=== PATIENT | male | born 1950 | race Caucasian/White ===

== ENCOUNTER 2017-07-18 06:51 | Day surgery (SDC) | payer MEDICARE, BC ==
[2017-07-18] MEDS ORDERED: Bupivacaine 0.5% 50 ML MDV ONE (06:53)
[2017-07-18] MEDS ORDERED: Lidocaine 1% with EPINEPHrine 1:100,000 50 ML MDV ONE (06:53)
[2017-07-18] MEDS ORDERED: Propofol 200 MG/20 ML SDV ONE (07:27)
[2017-07-18] MEDS ORDERED: Succinylcholine 200 MG/10 ML MDV ONE (07:27)
[2017-07-18] MEDS ORDERED: Rocuronium 50 MG/5 ML Vial ONE (07:27)
[2017-07-18] MEDS ORDERED: Neostigmine Methylsulfate 1 MG/ML 5 ML Syringe ONE (07:27)
[2017-07-18] MEDS ORDERED: Glycopyrrolate 0.2 MG/ML 5 ML MDV ONE (07:27)
[2017-07-18] MEDS ORDERED: Dexamethasone 4 MG/ML SDV ONE (07:27)
[2017-07-18] MEDS ORDERED: Ondansetron 4 MG/2 ML SDV ONE (07:27)
[2017-07-18] MEDS ORDERED: fentaNYL 250 MCG/5 ML SDV ONE (07:29)
[2017-07-18] MEDS ORDERED: Dextrose 5%-Lactated Ringers 1,000 ML IV SCH ×2 (07:45→10:30)
[2017-07-18] MEDS ORDERED: cefOXitin 2 GM in Sodium Chloride 0.9% 50 ML IV ONE (08:00)
[2017-07-18] MEDS ORDERED: Clobetasol 0.05% Crm 30 GM Tube TOP PRN (10:25)
[2017-07-18] MEDS ORDERED: Fluticasone Propionate Nasal Spray 16 GM Bottle NASBOTH PRN (10:25)
[2017-07-18] MEDS ORDERED: Nystatin Crm 15 GM Tube TOP PRN (10:25)
[2017-07-18] MEDS ORDERED: Non-Formulary Medication 1 Each (Omeprazole Magnesium [Prilosec Otc] 40 MG) PO PRN (10:25)
[2017-07-18] MEDS ORDERED: Triamcinolone Acetonide 0.1% Crm 15 GM Tube TOP PRN (10:25)
[2017-07-18] MEDS ORDERED: Sodium Chloride 0.65% Nasal Spray 45 ML Bottle NAS PRN (10:25)
[2017-07-18] MEDS ORDERED: Cetirizine 10 MG Tab PO PRN (10:25)
[2017-07-18] MEDS ORDERED: fentaNYL 100 MCG/2 ML SDV IVPUSH PRN (10:28)
[2017-07-18] MEDS ORDERED: Ondansetron 4 MG/2 ML SDV IVPUSH PRN (10:28)
[2017-07-18] MEDS ORDERED: Pantoprazole 40 MG Tab.CR PO PRN (11:47)
[2017-07-18] MEDS: Acetaminophen/HYDROcodone 325-5 MG Tab PO PRN ×2 (11:51→18:52)
[2017-07-18] MEDS ORDERED: Gabapentin 100 MG Cap PO SCH (14:00)
[2017-07-18] MEDS: Gabapentin 300 MG Cap PO SCH ×2 (15:09→20:26)
[2017-07-18] MEDS ORDERED: Non-Formulary Medication 1 Each (Simvastatin [Zocor] 20 MG) PO SCH (21:00)
[2017-07-18] MEDS ORDERED: Simvastatin 20 MG Tab PO SCH (21:00)
[2017-07-19] MEDS: Acetaminophen/HYDROcodone 325-5 MG Tab PO PRN ×2 (00:30→06:45)
--- NOTE | 2017-07-19 06:43 | PCM.DCSUM1 ---
Discharge Summary - Hospital Course Free Text/Narrative:: This 67 year old white male was admitted 07/18/17 for a laparoscopic cholecystectomy (chronic cholecystitis with cholelithiasis) and liver biopsy ( fatty liver on ultrasound). His Elides was stopped but will have to be started now. He is eating well, feels well, has good laboratories and vital signs and wants to go home. He is discharged at this time in good condition. Follow up in about two weeks. - Discharge Data Discharge Date: 07/19/17 Discharge Disposition: Home, Self-Care 01 Condition: Good - Patient Summary/Data Operative Procedure(s) Performed: Laparoscopic cholecystectomy and Jomar-cut liver biopsy. Consults: Consultations 07/18/17 10:28 Respiratory Care Assess and Treatment [CONS] Routine Comment: Physician Instructions: Respiratory Care Assess and Treatment [CONS] Routine Comment: Physician Instructions: Post-Op Pneumonia Prevention Hospital Course: See above narrative. - Patient Instructions Diet: Usual Diet as Tolerated Activity: As Tolerated (Avoid activity that causes discomfort. ) Showering/Bathing: May Shower Notify Provider of: Fever, Increased Pain, Swelling and Redness, Drainage, Nausea and/or Vomiting - Discharge Plan Prescriptions/Med Rec: Acetaminophen/HYDROcodone [Agenda 325-5 MG] 2 tab PO Q4H PRN #30 tablet PRN Reason: Pain (Moderate 4-6) Home Medications: Home Meds Cetirizine [ZyrTEC] 10 mg PO DAILY PRN 10/28/15 [History] Sertraline [Zoloft] 25 mg PO DAILY 10/28/15 [History] Simvastatin [Zocor] 20 mg PO BEDTIME 10/28/15 [History] Ezetimibe [Zetia] 5 mg PO DAILY 10/29/15 [History] Omeprazole Magnesium [Prilosec Otc] 40 mg PO DAILY PRN 10/29/15 [History] Sodium Chloride 0.65% [[place] Saline] 2 spray INH ASDIRECTED PRN 10/29/15 [History] Clobetasol [Clobetasol 0.05%] 30 gm TOP BID PRN 10/30/15 [History] Levothyroxine Sodium [Synthroid] 75 mcg PO DAILY 10/30/15 [History] Lisinopril 5 mg PO DAILY 01/06/16 [History] Gabapentin [Neurontin] 300 mg PO TID 01/07/16 [History] Aspirin [Ecotrin] 325 mg PO DAILY 03/09/16 [History] Spironolactone [Aldactone] 25 mg PO DAILY 04/21/16 [History] Fluticasone Propionate [Flonase Allergy Relief] 2 spray NS DAILY PRN 05/24/16 [ History] Nystatin [Nystatin Crm] 1 applic TOP BID PRN 05/24/16 [History] Apixaban [Eliquis] 5 mg PO BID 07/14/17 [History] DULoxetine [Cymbalta] 20 mg PO DAILY 07/14/17 [History] Sennosides/Docusate Sodium [Sennosides-Docusate Sodium] 1 cap PO BID 07/14/17 [ History] Triamcinolone Acetonide [Kenalog 0.1% Crm] 1 dose TOP BID PRN 07/14/17 [History] Acetaminophen/HYDROcodone [Agenda 325-5 MG] 2 tab PO Q4H PRN #30 tablet 07/19/17 [Rx] Referrals: Praveen Fine MD [Physician] - (See me in [facility] in about two weeks. ) - Discharge Summary/Plan Comment DC Time >30 min.: Yes Discharge Summary/Plan Comment: See above narrative. - Patient Data Vitals - Most Recent: Last Vital Signs Temp 97.9 F 07/19/17 03:40 Pulse 49 L 07/19/17 03:40 Resp 18 07/19/17 03:40 BP 102/57 L 07/19/17 03:40 Pulse Ox 94 L 07/19/17 03:40 Weight - Most Recent: 202 lb I&O - Last 24 hours: Intake & Output 07/18/17 07/18/17 07/19/17 14:59 22:59 06:59 Intake Total 225 597 120 Output Total 275 275 Balance 225 322 -155 Lab Results - Last 24 hrs: Laboratory Results - last 24 hr 07/19/17 07/19/17 Range/Units 04:50 04:50 WBC 9.3 (4.5-11.0) K/uL RBC 5.00 (4.30-5.90) M/uL Hgb 14.9 (12.0-15.0) g/dL Hct 42.8 (40.0-54.0) % MCV 86 (80-98) fL MCH 30 (27-31) pg MCHC 35 (32-36) % Plt Count 196 (150-400) K/uL Sodium 136 L (140-148) mmol/L Potassium 4.1 (3.6-5.2) mmol/L Chloride 102 (100-108) mmol/L Carbon Dioxide 25 (21-32) mmol/L Anion Gap 13.1 (5.0-14.0) mmol/L BUN 11 (7-18) mg/dL Creatinine 0.9 (0.8-1.3) mg/dL Est Cr Clr Drug Dosing 79.98 mL/min Estimated GFR (MDRD) > 60 (>60) Glucose 115 H (74-106) mg/dL Calcium 8.8 (8.5-10.1) mg/dL Total Bilirubin 0.8 D (0.2-1.0) mg/dL AST 49 H D (15-37) U/L ALT 33 D (12-78) U/L Alkaline Phosphatase 37 L (46-116) U/L Total Protein 6.4 (6.4-8.2) g/dL Albumin 3.3 L (3.4-5.0) g/dL Globulin 3.1 (2.3-3.5) g/dL Albumin/Globulin Ratio 1.1 L (1.2-2.2) [place] Results - Last 24 hrs: Microbiology 07/18/17 12:01 Anaerobic Culture - Preliminary Gallbladder NO GROWTH AFTER 1 DAY 07/18/17 12:01 Gram Stain - Final Gallbladder Wound Culture - Preliminary NO GROWTH AFTER 1 DAY Med Orders - Current: Current Medications Hydrocodone Bitart/Acetaminophen (Agenda 325-5 Mg) 2 tab PO Q4H PRN PRN Reason: Pain (moderate 4-6) Last Admin: 07/19/17 00:30 Dose: 2 tab Cetirizine HCl (Zyrtec) 10 mg PO DAILY PRN PRN Reason: Allergies Clobetasol Propionate (Clobetasol 0.05%) 0 gm TOP BID PRN PRN Reason: Rash Duloxetine HCl (Cymbalta) 20 mg PO DAILY [facility] Ezetimibe (Zetia) 5 mg PO DAILY [facility] Fentanyl (Sublimaze) 50 mcg IVPUSH Q1H PRN PRN Reason: Pain (severe 7-10) Fluticasone Propionate (Flonase) 0 gm NASBOTH DAILY PRN PRN Reason: Allergies Gabapentin (Neurontin) 300 mg PO TID [facility] Last Admin: 07/18/17 20:26 Dose: 300 mg Levothyroxine Sodium (Levothyroxine) 75 mcg PO ACBREAKFAST [facility] Lisinopril (Prinivil) 5 mg PO DAILY [facility] Nystatin (Nystatin Crm) 0 gm TOP BID PRN PRN Reason: fungal infection Ondansetron HCl (Zofran) 4 mg IVPUSH Q4H PRN PRN Reason: Nausea/Vomiting Last Admin: 07/18/17 10:52 Dose: 4 mg Pantoprazole Sodium (Protonix) 40 mg PO DAILY PRN PRN Reason: HEARTBURN Senna/Docusate Sodium (Senna Plus) 1 tab PO BID [facility] Last Admin: 07/18/17 20:26 Dose: 1 tab Sertraline HCl (Zoloft) 25 mg PO DAILY [facility] Simvastatin (Zocor) 20 mg PO BEDTIME [facility] Last Admin: 07/18/17 20:25 Dose: 20 mg Sodium Chloride ([place] Nasal [place]) 0 ml VIANCA ASDIRECTED PRN PRN Reason: Dryness Spironolactone (Aldactone) 25 mg PO DAILY [facility] Triamcinolone Acetonide (Triamcinolone Acetonide 0.1% Crm) 0 gm TOP BID PRN PRN Reason: rash Discontinued Medications Bupivacaine HCl (Marcaine 0.5%) Confirm Administered Dose 50 ml .ROUTE .STK-MED ONE Stop: 07/18/17 06:54 Last Admin: 07/18/17 10:05 Dose: 20 ml Dexamethasone (Dexamethasone) Confirm Administered Dose 4 mg .ROUTE .STK-MED ONE Stop: 07/18/17 07:28 Fentanyl (Sublimaze) Confirm Administered Dose 250 mcg .ROUTE .STK-MED ONE Stop: 07/18/17 07:30 Glycopyrrolate (Robinul) Confirm Administered Dose 1 mg .ROUTE .STK-MED ONE Stop: 07/18/17 07:28 Cefoxitin Sodium 2 gm/ Sodium (Chloride) 50 mls @ 100 mls/hr IV ONETIME ONE Stop: 07/18/17 08:29 Last Admin: 07/18/17 09:09 Dose: 100 mls/hr Dextrose/Lactated Ringer's (Dextrose 5%-Lactated Ringers) 1,000 mls @ 100 mls/ hr IV ASDIRECTED [facility] Last Admin: 07/18/17 08:46 Dose: 100 mls/hr Dextrose/Lactated Ringer's (Dextrose 5%-Lactated Ringers) 1,000 mls @ 125 mls/ hr IV ASDIRECTED [facility] Last Admin: 07/18/17 11:31 Dose: 125 mls/hr Lidocaine/Epinephrine (Xylocaine 1% With Epinephrine 1:100,000) Confirm Administered Dose 50 ml .ROUTE .STK-MED ONE Stop: 07/18/17 06:54 Last Admin: 07/18/17 10:05 Dose: 20 ml Neostigmine Methylsulfate (Neostigmine) Confirm Administered Dose 5 mg .ROUTE .STK-MED ONE Stop: 07/18/17 07:28 Ondansetron HCl (Zofran) Confirm Administered Dose 4 mg .ROUTE .STK-MED ONE Stop: 07/18/17 07:28 Propofol (Diprivan 20 Ml) Confirm Administered Dose 200 mg .ROUTE .STK-MED ONE Stop: 07/18/17 07:28 Rocuronium [place] (Zemuron) Confirm Administered Dose 50 mg .ROUTE .STK-MED ONE Stop: 07/18/17 07:28 Succinylcholine Chloride (Quelicin) Confirm Administered Dose 200 mg .ROUTE .STK -MED ONE Stop: 07/18/17 07:28
[2017-07-19] MEDS ORDERED: Levothyroxine 75 MCG Tab PO SCH (07:30)
[2017-07-19 07:33] VITALS: BP 108/74
--- NOTE | 2017-07-19 07:51 | OR ---
DATE OF PROCEDURE: 07/18/2017 PREOPERATIVE DIAGNOSIS: Chronic cholecystitis with cholelithiasis, fatty liver. POSTOPERATIVE DIAGNOSIS: Chronic cholecystitis with cholelithiasis, fatty liver. PROCEDURE: Laparoscopic cholecystectomy and Jomar-Cut liver biopsy. SURGEON: Praveen Fine MD ANESTHESIA: General endotracheal. INDICATION: This 67-year-old white male has complained of right upper quadrant abdominal pain after eating. He had an abdominal ultrasound through the [employer] system last summer, which showed cholelithiasis. There was no gallbladder wall thickening nor ductal dilatation. There has been some delay in him undergoing a laparoscopic cholecystectomy, so he presented to us requesting this. Additionally, ultrasound showed findings consistent with a fatty liver. I counseled him for laparoscopic cholecystectomy and Jomar-Cut liver biopsy. He gave his informed consent to proceed. DESCRIPTION OF PROCEDURE: After adequate general endotracheal anesthesia was obtained, the patient's abdomen was prepped and draped in usual sterile fashion. The leg compression stockings were in place and used during the entire procedure. Time-out was held. An infraumbilical semicircular incision was made. Under direct vision, a 12-mm port was introduced in the abdomen through this incision using the Optiview technique. The camera was introduced into the abdomen, and the abdomen was insufflated to a pressure of 15 mmHg with carbon dioxide. No evidence of intra-abdominal injury was seen. Under direct vision, a 12-mm port was placed in the epigastrium and a 5-mm port was placed in the right lower quadrant. The Jomar-Cut biopsy was performed. First, a small right upper quadrant incision was made. Through this, a Jomar-Cut needle was placed. We then did two biopsies with adequate tissue then sent to the laboratory. Hemostasis was obtained with electrocautery. The gallbladder was then grasped and elevated. The cystic duct and arteries were dissected free. They were each clipped up in the gallbladder and 3 times proximally and divided between clips. There was some bleeding which was controlled with clips. The gallbladder was then dissected free from the gallbladder bed using Bovie electrocautery. The gallbladder was placed in a sample retrieval bag and elevated up through the anterior abdominal wall via the epigastric port site. It was cultured and delivered from the field. It was found multiple stones. The epigastric port was reintroduced back in the abdomen. The gallbladder bed was irrigated and suctioned dry. Hemostasis was noted. The fascial closure device was used to place an 0 Vicryl stitch in the epigastric fascial defect. The infraumbilical port was removed with a [id number] stitch of 0 Vicryl used to close this fascial defect. We evacuated as much CO2 as we could from the abdomen via the 5-mm port site in the right lower quadrant. This port was then removed. Lidocaine 1% with epinephrine in a 50:50 mix with 0.5% Marcaine was infiltrated about all incisions. A 4-0 Vicryl using a subcuticular stitch was placed to approximate the skin of the incisions. Dermabond was applied. The anesthesia was reversed. He was extubated and brought to recovery room in fair condition. Praveen Fnie MD /[id number]
[2017-07-19] MEDS: Gabapentin 300 MG Cap PO SCH (08:52)
[2017-07-19] MEDS ORDERED: LEVOTHYROXINE SODIUM 75 MCG PO SCH (09:00)
[2017-07-19] MEDS ORDERED: DULoxetine 20 MG Cap PO SCH (09:00)
[2017-07-19] MEDS ORDERED: Sertraline 25 MG Tab PO SCH (09:00)
[2017-07-19] MEDS ORDERED: Lisinopril 5 MG Tab PO SCH (09:00)
[2017-07-19] MEDS ORDERED: Spironolactone 25 MG Tab PO SCH (09:00)
[2017-07-19] MEDS ORDERED: Ezetimibe 10 MG Tab PO SCH (09:00)
== END 2017-07-19 10:00 | disposition home or self-care (01) ==
LOC: JP.SDS 06:51 → JP.MS 10:28 → JP.SDS 07-19 10:00
PROVIDERS: ATTEND Surgery
DX: K80.10 Calculus of gallbladder with chronic cholecystitis without obstruction (principal); K76.0 Fatty (change of) liver, not elsewhere classified; I25.10 Atherosclerotic heart disease of native coronary artery without angina pectoris; E78.5 Hyperlipidemia, unspecified; I10 Essential (primary) hypertension; K21.9 Gastro-esophageal reflux disease without esophagitis; I50.9 Heart failure, unspecified; I48.0 Paroxysmal atrial fibrillation; Z87.891 Personal history of nicotine dependence; Z79.82 Long term (current) use of aspirin; Z79.899 Other long term (current) drug therapy; Z88.1 Allergy status to other antibiotic agents; Z91.041 Radiographic dye allergy status; Z91.013 Allergy to seafood; Z79.01 Long term (current) use of anticoagulants
CPT/HCPCS: 36415; 47001; 47562; 80053; 85027; 87070; 87075; 87205; 88304; 88307; 88313; 94762; A9270; J0330; J0694; J1100; J2405; J2704; J2710; J3010; J7042; J7050

== ENCOUNTER 2017-08-31 14:40 | Inpatient (IN) | payer MEDICARE, BC ==
[2017-08-31] MEDS: Sodium Chloride 0.9% 1,000 ML IV SCH ×2 (15:09→18:31)
--- NOTE | 2017-08-31 15:14 | EDM.PDOC ---
ED HPI GENERAL MEDICAL PROBLEM - General Chief Complaint: Cardiovascular Problem Stated Complaint: A FIB Time Seen by Provider: 08/31/17 15:08 Source of Information: Reports: Patient History Limitations: Reports: No Limitations - History of Present Illness INITIAL COMMENTS - FREE TEXT/NARRATIVE: pt was seen at the clinic yesterday with afib. He was placed on metoprol 25 mg . He took the first dose this am. This am he got very sweaty and lite headed. He continued to be in atrial fib. Onset: Other ( started yesterday. ) Duration: Hour(s): Associated Symptoms: Reports: Diaphoresis, Other (pt was very dizzy. ) - Related Data Allergies Allergy/AdvReac Type Severity Reaction Status Date / Time erythromycin base Allergy Other Verified 07/18/17 08:55 [From Erythrocin] Iodinated Contrast- Oral and Allergy Hives Verified 07/18/17 08:55 IV Dye [Iodinated Contrast Media - IV Dye] rosuvastatin Allergy Other Verified 07/18/17 08:55 seafood Allergy Swelling Uncoded 07/18/17 08:55 Home Meds: Home Meds Cetirizine [ZyrTEC] 10 mg PO DAILY PRN 10/28/15 [History] Sertraline [Zoloft] 25 mg PO DAILY 10/28/15 [History] Simvastatin [Zocor] 20 mg PO BEDTIME 10/28/15 [History] Ezetimibe [Zetia] 5 mg PO DAILY 10/29/15 [History] Omeprazole Magnesium [Prilosec Otc] 40 mg PO DAILY PRN 10/29/15 [History] Levothyroxine Sodium [Synthroid] 150 mcg PO DAILY 10/30/15 [History] Lisinopril 5 mg PO DAILY 01/06/16 [History] Gabapentin [Neurontin] 600 mg PO TID 01/07/16 [History] Aspirin [Ecotrin] 325 mg PO DAILY 03/09/16 [History] Spironolactone [Aldactone] 25 mg PO DAILY 04/21/16 [History] Fluticasone Propionate [Flonase Allergy Relief] 2 spray NS DAILY PRN 05/24/16 [ History] Nystatin [Nystatin Crm] 1 applic TOP BID PRN 05/24/16 [History] Apixaban [Eliquis] 5 mg PO BID 07/14/17 [History] DULoxetine [Cymbalta] 20 mg PO DAILY 07/14/17 [History] Sennosides/Docusate Sodium [Sennosides-Docusate Sodium] 1 cap PO BID 07/14/17 [ History] Triamcinolone Acetonide [Kenalog 0.1% Crm] 1 dose TOP BID PRN 07/14/17 [History] Albuterol [Ventolin HFA] 1 - 2 puff INH ASDIRECTED 08/31/17 [History] Amoxicillin/Clavulanate K [Augmentin 500-125 MG] 1 tab PO TID 08/31/17 [History] Metoprolol Tartrate [Lopressor] 25 mg PO BID 08/31/17 [History] predniSONE [Deltasone] 40 mg PO DAILY 08/31/17 [History] Past Medical History HEENT History: Reports: Cataract, Hard of Hearing, Impaired Vision, Other (See Below) Other HEENT History: reading glasses Cardiovascular History: Reports: Afib, Blood Clots/VTE/DVT, CAD, Cardiomyopathy , Heart Failure, High Cholesterol, SC, Pacemaker, Stents, Other (See Below) Other Cardiovascular History: Artial flutter Respiratory History: Reports: Other (See Below) Other Respiratory History: inhalers for seasonal allergies Gastrointestinal History: Reports: Colon Polyp, GERD, Other (See Below) Other Gastrointestinal History: bowel inconsistency Genitourinary History: Reports: BPH, Prostate Disorder Musculoskeletal History: Reports: Arthritis, Fracture, Fibromyalgia, Gout Other Musculoskeletal History: R. Leg/ankle, L. Thumb/Finger Neurological History: Reports: CVA, Speech Problems Other Neuro History: right sided paralysis Psychiatric History: Reports: Depression Endocrine/Metabolic History: Reports: Hypothyroidism Other Endocrine/Metabolic History: thyroid disease unknown Hematologic History: Reports: Anticoagulation Therapy, Blood Transfusion(s) Oncologic (Cancer) History: Reports: Prostate Dermatologic History: Reports: Cellulitis Other Dermatologic History: hx of cellulitis L leg - Infectious Disease History Infectious Disease History: Reports: Chicken Pox, Measles, Mumps - Past Surgical History HEENT Surgical History: Reports: Cataract Surgery, Tonsillectomy Cardiovascular Surgical History: Reports: Cardiac Ablation, Coronary Artery Bypass, Other (See Below) Other Cardiovascular Surgeries/Procedures: triple heart bypass, pacer/ defibrillator Respiratory Surgical History: Reports: None GI Surgical History: Reports: Colonoscopy Male Surgical History: Reports: Prostate Biopsy, Other (See Below) Other Male Surgeries/Procedures: radiation seeds for prostate cancer Endocrine Surgical History: Reports: None Neurological Surgical History: Reports: None Musculoskeletal Surgical History: Reports: Other (See Below) Other Musculoskeletal Surgeries/Procedures:: Surgery for fractures Oncologic Surgical History: Reports: None Dermatological Surgical History: Reports: Skin Biopsy Social & Family History - Tobacco Use Smoking Status *Q: Never Smoker - Caffeine Use Caffeine Use: Reports: Coffee - Recreational Drug Use Recreational Drug Use: No ED ROS GENERAL - Review of Systems Review Of Systems: See Below Constitutional: Reports: No Symptoms HEENT: Reports: No Symptoms Respiratory: Reports: Shortness of Breath Cardiovascular: Reports: Palpitations Endocrine: Reports: No Symptoms GI/Abdominal: Reports: No Symptoms : Reports: No Symptoms Skin: Reports: No Symptoms Neurological: Reports: Dizziness Psychiatric: Reports: Agitation Hematologic/Lymphatic: Reports: No Symptoms ED EXAM, GENERAL - Physical Exam Exam: See Below Free Text/Narrative:: pt arrived hypotensive and having atrial fib with a rate in the 140, range. He was feeling lite headed. He checked his pressure at home and he found it o be in the 70s systolic. Exam Limited By: No Limitations General Appearance: Alert, Mild Distress, Other (pt is feeling lite headed. ) Ears: Normal TMs Nose: Normal Inspection Throat/Mouth: Normal Inspection Head: Atraumatic Neck: Normal Inspection Respiratory/Chest: No Respiratory Distress Cardiovascular: Tachycardia, Irregularly Irregular GI/Abdominal: Soft, Non-Tender (Male) Exam: Deferred Rectal (Males) Exam: Deferred Back Exam: Normal Inspection Extremities: Normal Inspection Neurological: Alert, Oriented, Normal Cognition Psychiatric: Normal Affect Course - Vital Signs Last Recorded V/S: Last Vital Signs Temp 36.4 C 09/01/17 23:42 Pulse 82 09/01/17 23:42 Resp 19 09/01/17 23:42 BP 101/75 09/01/17 23:42 Pulse Ox 96 09/01/17 23:42 - Orders/Labs/Meds Orders: Medication Orders Acetaminophen (Tylenol) 650 mg PO Q4H PRN PRN Reason: Pain (Mild 1-3)/fever Albuterol (Ventolin Hfa) 0 gm INH Q4H [facility] Last Admin: 09/01/17 20:54 Dose: Not Given Admin: 09/01/17 17:00 Dose: Not Given Admin: 09/01/17 13:23 Dose: Not Given Admin: 09/01/17 09:01 Dose: Not Given Admin: 09/01/17 04:56 Dose: Not Given Admin: 09/01/17 00:50 Dose: Not Given Admin: 08/31/17 22:32 Dose: 2 puff Albuterol (Proventil Neb Soln) 2.5 mg NEB Q4H PRN PRN Reason: Shortness Of Breath/wheezing Amoxicillin/Clavulanate Potassium (Augmentin 500 Mg\125 Mg) 1 tab PO TID [facility] Last Admin: 09/01/17 20:52 Dose: 1 tab Admin: 09/01/17 14:50 Dose: 1 tab Admin: 09/01/17 08:56 Dose: 1 tab Admin: 08/31/17 22:32 Dose: 1 tab Apixaban (Eliquis) 5 mg PO BID [facility] Last Admin: 09/01/17 20:52 Dose: 5 mg Admin: 09/01/17 08:56 Dose: 5 mg Admin: 08/31/17 22:41 Dose: 5 mg Aspirin (Ecotrin) 325 mg PO DAILY [facility] Last Admin: 09/01/17 08:56 Dose: 325 mg Duloxetine HCl (Cymbalta) 20 mg PO DAILY [facility] Last Admin: 09/01/17 08:57 Dose: 20 mg Ezetimibe (Zetia) 5 mg PO DAILY [facility] Last Admin: 09/01/17 08:56 Dose: 5 mg Fluticasone Propionate (Flonase) 0 gm VIANCA DAILY [facility] Last Admin: 09/01/17 08:55 Dose: 2 spray Gabapentin (Neurontin) 600 mg PO TID [facility] Last Admin: 09/01/17 20:52 Dose: 600 mg Admin: 09/01/17 14:50 Dose: 600 mg Admin: 09/01/17 08:57 Dose: 600 mg Admin: 08/31/17 22:32 Dose: 600 mg Levothyroxine Sodium (Synthroid) 150 mcg PO DAILY@0730 [facility] Last Admin: 09/01/17 08:56 Dose: 150 mcg Magnesium Hydroxide (Milk Of Magnesia) 30 ml PO Q12H PRN PRN Reason: Constipation Metoprolol Tartrate (Lopressor) 12.5 mg PO Q6H [facility] Last Admin: 09/01/17 21:17 Dose: 12.5 mg Admin: 09/01/17 16:15 Dose: 12.5 mg Ondansetron HCl (Zofran) 4 mg IV Q4H PRN PRN Reason: Nausea/Vomiting Oxycodone HCl (Oxycodone) 5 mg PO Q4H PRN PRN Reason: Pain (moderate 4-6) Pantoprazole Sodium (Protonix) 40 mg PO DAILY PRN PRN Reason: Heartburn Polyethylene Glycol (Miralax) 17 gm PO DAILY PRN PRN Reason: Constipation Senna/Docusate Sodium (Senna Plus) 1 tab PO BID [facility] Last Admin: 09/01/17 20:52 Dose: 1 tab Admin: 09/01/17 08:57 Dose: 1 tab Admin: 08/31/17 22:32 Dose: 1 tab Sertraline HCl (Zoloft) 25 mg PO DAILY [facility] Last Admin: 09/01/17 08:56 Dose: 25 mg Simvastatin (Zocor) 20 mg PO BEDTIME [facility] Last Admin: 09/01/17 20:52 Dose: 20 mg Admin: 08/31/17 22:42 Dose: 20 mg Sodium Chloride (Saline Flush) 10 ml FLUSH ASDIRECTED PRN PRN Reason: Keep Vein Open Spironolactone (Aldactone) 25 mg PO DAILY [facility] Last Admin: 09/01/17 08:57 Dose: 25 mg Labs: Laboratory Tests 08/31/17 08/31/17 08/31/17 Range/Units 15:06 15:06 15:06 WBC 11.4 H (4.5-11.0) K/uL RBC 5.34 (4.30-5.90) M/uL Hgb 16.0 H (12.0-15.0) g/dL Hct 45.5 (40.0-54.0) % MCV 85 (80-98) fL MCH 30 (27-31) pg MCHC 35 (32-36) % Plt Count 237 (150-400) K/uL Neut % (Auto) 58 (36-66) % Lymph % (Auto) 30 (24-44) % [place] % (Auto) 10 H (2-6) % Eos % (Auto) 2 (2-4) % Baso % (Auto) 0 (0-1) % Sodium (140-148) mmol/L Potassium (3.6-5.2) mmol/L Chloride (100-108) mmol/L Carbon Dioxide (21-32) mmol/L Anion Gap (5.0-14.0) mmol/L BUN (7-18) mg/dL Creatinine (0.8-1.3) mg/dL Est Cr Clr Drug Dosing mL/min Estimated GFR (MDRD) (>60) Glucose (74-106) mg/dL Calcium (8.5-10.1) mg/dL Total Bilirubin (0.2-1.0) mg/dL AST (15-37) U/L ALT (12-78) U/L Alkaline Phosphatase (46-116) U/L Troponin I < 0.017 (0.000-0.056) ng/mL NT-Pro-B Natriuret Pep (5-125) pg/mL Total Protein (6.4-8.2) g/dL Albumin (3.4-5.0) g/dL Globulin (2.3-3.5) g/dL Albumin/Globulin Ratio (1.2-2.2) Urine Color Yellow Urine Appearance Clear Urine pH 6.0 (4.5-8.0) Ur Specific [place] 1.025 (1.008-1.030) Urine Protein Negative (NEGATIVE) mg/dL Urine Glucose (UA) Normal (NEGATIVE) mg/dL Urine Ketones Negative (NEGATIVE) mg/dL Urine Occult Blood Negative (NEGATIVE) Urine Nitrite Negative (NEGAITVE) Urine Bilirubin Small (NEGATIVE) Urine Urobilinogen Normal (NORMAL) mg/dL Ur Leukocyte Esterase Negative (NEGATIVE) Urine RBC 0-5 (0-5) Urine WBC Not seen (0-5) Ur Epithelial Cells Rare Amorphous Sediment Not seen Urine Bacteria Few Urine Mucus Moderate 05/16/18 Range/Units 15:06 WBC (4.5-11.0) K/uL RBC (4.30-5.90) M/uL Hgb (12.0-15.0) g/dL Hct (40.0-54.0) % MCV (80-98) fL MCH (27-31) pg MCHC (32-36) % Plt Count (150-400) K/uL Neut % (Auto) (36-66) % Lymph % (Auto) (24-44) % [place] % (Auto) (2-6) % Eos % (Auto) (2-4) % Baso % (Auto) (0-1) % Sodium 136 L (140-148) mmol/L Potassium 4.0 (3.6-5.2) mmol/L Chloride 102 (100-108) mmol/L Carbon Dioxide 22 (21-32) mmol/L Anion Gap 16.0 H (5.0-14.0) mmol/L BUN 26 H D (7-18) mg/dL Creatinine 1.1 (0.8-1.3) mg/dL Est Cr Clr Drug Dosing 65.44 mL/min Estimated GFR (MDRD) > 60 (>60) Glucose 134 H (74-106) mg/dL Calcium 8.6 (8.5-10.1) mg/dL Total Bilirubin 1.0 (0.2-1.0) mg/dL AST 41 H (15-37) U/L ALT 38 (12-78) U/L Alkaline Phosphatase 54 (46-116) U/L Troponin I (0.000-0.056) ng/mL NT-Pro-B Natriuret Pep 2920 H (5-125) pg/mL Total Protein 7.5 (6.4-8.2) g/dL Albumin 4.0 (3.4-5.0) g/dL Globulin 3.5 (2.3-3.5) g/dL Albumin/Globulin Ratio 1.1 L (1.2-2.2) Urine Color Urine Appearance Urine pH (4.5-8.0) Ur Specific [place] (1.008-1.030) Urine Protein (NEGATIVE) mg/dL Urine Glucose (UA) (NEGATIVE) mg/dL Urine Ketones (NEGATIVE) mg/dL Urine Occult Blood (NEGATIVE) Urine Nitrite (NEGAITVE) Urine Bilirubin (NEGATIVE) Urine Urobilinogen (NORMAL) mg/dL Ur Leukocyte Esterase (NEGATIVE) Urine RBC (0-5) Urine WBC (0-5) Ur Epithelial Cells Amorphous Sediment Urine Bacteria Urine Mucus Meds: Medications Generic Name Dose Route Start Last Admin Trade Name Freq PRN Reason Stop Dose Admin Acetaminophen 650 mg 08/31/17 21:36 Tylenol PO Q4H PRN Pain (Mild 1-3)/fever Albuterol 0 gm 08/31/17 21:36 09/01/17 20:54 Ventolin Hfa INH Not Given Q4H [facility] Albuterol 2.5 mg 08/31/17 21:36 Proventil Neb Soln NEB Q4H PRN Shortness Of Breath/wheezing Amoxicillin/Clavulanate Potassium 1 tab 08/31/17 21:36 09/01/17 20:52 Augmentin 500 Mg\125 Mg PO 1 tab TID [facility] Administration Apixaban 5 mg 08/31/17 21:36 09/01/17 20:52 Eliquis PO 5 mg BID [facility] Administration Aspirin 325 mg 09/01/17 09:00 09/01/17 08:56 Ecotrin PO 325 mg DAILY [facility] Administration Duloxetine HCl 20 mg 09/01/17 09:00 09/01/17 08:57 Cymbalta PO 20 mg DAILY [facility] Administration Ezetimibe 5 mg 09/01/17 09:00 09/01/17 08:56 Zetia PO 5 mg DAILY [facility] Administration Fluticasone Propionate 0 gm 09/01/17 09:00 09/01/17 08:55 Flonase VIANCA 2 spray DAILY [facility] Administration Gabapentin 600 mg 08/31/17 21:36 09/01/17 20:52 Neurontin PO 600 mg TID [facility] Administration Levothyroxine Sodium 150 mcg 09/01/17 07:30 09/01/17 08:56 Synthroid PO 150 mcg DAILY@0730 [facility] Administration Magnesium Hydroxide 30 ml 08/31/17 21:36 Milk Of Magnesia PO Q12H PRN Constipation Metoprolol Tartrate 12.5 mg 09/01/17 16:00 09/01/17 21:17 Lopressor PO 12.5 mg Q6H [facility] Administration Ondansetron HCl 4 mg 08/31/17 21:36 Zofran IV Q4H PRN Nausea/Vomiting Oxycodone HCl 5 mg 08/31/17 21:36 Oxycodone PO Q4H PRN Pain (moderate 4-6) Pantoprazole Sodium 40 mg 08/31/17 21:36 Protonix PO DAILY PRN Heartburn Polyethylene Glycol 17 gm 08/31/17 21:36 Miralax PO DAILY PRN Constipation Senna/Docusate Sodium 1 tab 08/31/17 21:36 09/01/17 20:52 Senna Plus PO 1 tab BID [facility] Administration Sertraline HCl 25 mg 09/01/17 09:00 09/01/17 08:56 Zoloft PO 25 mg DAILY [facility] Administration Simvastatin 20 mg 08/31/17 21:36 09/01/17 20:52 Zocor PO 20 mg BEDTIME [facility] Administration Sodium Chloride 10 ml 08/31/17 21:36 Saline Flush FLUSH ASDIRECTED PRN Keep Vein Open Spironolactone 25 mg 09/01/17 09:00 09/01/17 08:57 Aldactone PO 25 mg DAILY [facility] Administration Discontinued Medications Generic Name Dose Route Start Last Admin Trade Name Freq PRN Reason Stop Dose Admin Digoxin 250 mcg 08/31/17 19:33 08/31/17 19:56 Lanoxin IVPUSH 08/31/17 19:34 250 mcg ONETIME ONE Administration Digoxin 250 mcg 09/01/17 01:00 09/01/17 01:16 Lanoxin IVPUSH 09/01/17 01:01 Not Given ONETIME ONE Digoxin 250 mcg 09/01/17 09:00 09/01/17 08:57 Lanoxin PO 09/01/17 09:01 250 mcg ONETIME ONE Administration Digoxin 250 mcg 09/01/17 15:00 09/01/17 16:16 Lanoxin PO 09/01/17 15:01 250 mcg ONETIME ONE Administration Sodium Chloride 1,000 mls @ 200 mls/hr 08/31/17 15:15 08/31/17 18:31 Normal Saline IV 25 mls/hr ASDIRECTED [facility] Administration Sodium Chloride 1,000 mls @ 125 mls/hr 08/31/17 21:36 09/01/17 09:02 Normal Saline IV 125 mls/hr ASDIRECTED [facility] Administration Metoprolol Tartrate 12.5 mg 09/01/17 09:45 09/01/17 11:35 Lopressor PO 12.5 mg BID [facility] Administration Propofol Confirm 08/31/17 18:40 Diprivan 20 Ml Administered 08/31/17 18:41 Dose 200 mg .ROUTE .[facility] - Re-Assessments/Exams Free Text/Narrative Re-Assessment/Exam: 09/02/17 00:00 pt was cardioverted without difficulty. r Departure - Departure Time of Disposition: 23:50 Disposition: Admitted As Inpatient 64 Condition: Fair Clinical Impression: Atrial fibrillation, Encounter for cardioversion procedure
--- NOTE | 2017-08-31 16:56 | PCM.CONS ---
H&P History of Present Illness - General Date of Service: 08/31/17 - History of Present Illness Initial Comments - Free Text/Narative: This patient is a 67-year-old gentleman who I been asked to see in the emergency department by Dr. Cevallos for further suggestions concerning evaluation and management of atrial fibrillation. He has not felt well over the past 2 weeks, during that period of time has been seen twice in the clinic and felt to have sinusitis. He is been started on antibiotic therapy but has not noted significant improvement in his symptoms. When seen in the clinic yesterday was noted to be in atrial fibrillation and was started on metoprolol for rate control. He is been unaware that he is been in the atrial fibrillation and since he is been in the emergency department has had rates between 100-140. He is had one previous episode of atrial fibrillation and did undergo electrical cardioversion. He also has undergone an ablation procedure for management of his atrial fibrillation, this was approximately 4 years ago. He has known coronary artery disease as well as congestive heart failure. He started the metoprolol today and felt more weak and lightheaded so he presented to the emergency department. Initially his blood pressure was low and he has been given IV fluids for hydration. With this intervention his blood pressure has improved, it's likely that the new therapy with metoprolol caused decrease in blood pressure as well as his increased symptoms. He has been on long-term oral anticoagulation with Eliquis because of the atrial fibrillation. He denies any symptoms of chest pain or pressure, initial troponin level is within normal range. - Related Data Allergies/Adverse Reactions: Allergies Allergy/AdvReac Type Severity Reaction Status Date / Time erythromycin base Allergy Other Verified 07/18/17 08:55 [From Erythrocin] Iodinated Contrast- Oral and Allergy Hives Verified 07/18/17 08:55 IV Dye [Iodinated Contrast Media - IV Dye] rosuvastatin Allergy Other Verified 07/18/17 08:55 seafood Allergy Swelling Uncoded 07/18/17 08:55 Home Medications: Home Meds Cetirizine [ZyrTEC] 10 mg PO DAILY PRN 10/28/15 [History] Sertraline [Zoloft] 25 mg PO DAILY 10/28/15 [History] Simvastatin [Zocor] 20 mg PO BEDTIME 10/28/15 [History] Ezetimibe [Zetia] 5 mg PO DAILY 10/29/15 [History] Omeprazole Magnesium [Prilosec Otc] 40 mg PO DAILY PRN 10/29/15 [History] Levothyroxine Sodium [Synthroid] 150 mcg PO DAILY 10/30/15 [History] Lisinopril 5 mg PO DAILY 01/06/16 [History] Gabapentin [Neurontin] 600 mg PO TID 01/07/16 [History] Aspirin [Ecotrin] 325 mg PO DAILY 03/09/16 [History] Spironolactone [Aldactone] 25 mg PO DAILY 04/21/16 [History] Fluticasone Propionate [Flonase Allergy Relief] 2 spray NS DAILY PRN 05/24/16 [ History] Nystatin [Nystatin Crm] 1 applic TOP BID PRN 05/24/16 [History] Apixaban [Eliquis] 5 mg PO BID 07/14/17 [History] DULoxetine [Cymbalta] 20 mg PO DAILY 07/14/17 [History] Sennosides/Docusate Sodium [Sennosides-Docusate Sodium] 1 cap PO BID 07/14/17 [ History] Triamcinolone Acetonide [Kenalog 0.1% Crm] 1 dose TOP BID PRN 07/14/17 [History] Albuterol [Ventolin HFA] 1 - 2 puff INH ASDIRECTED 08/31/17 [History] Amoxicillin/Clavulanate K [Augmentin 500-125 MG] 1 tab PO TID 08/31/17 [History] Metoprolol Tartrate [Lopressor] 25 mg PO BID 08/31/17 [History] predniSONE [Deltasone] 40 mg PO DAILY 08/31/17 [History] Past Medical History HEENT History: Reports: Cataract, Hard of Hearing, Impaired Vision, Other (See Below) Other HEENT History: reading glasses Cardiovascular History: Reports: Afib, Blood Clots/VTE/DVT, CAD, Cardiomyopathy , Heart Failure, High Cholesterol, [place], Pacemaker, Stents, Other (See Below) Other Cardiovascular History: Artial flutter Respiratory History: Reports: Other (See Below) Other Respiratory History: inhalers for seasonal allergies Gastrointestinal History: Reports: Colon Polyp, GERD, Other (See Below) Other Gastrointestinal History: bowel inconsistency Genitourinary History: Reports: BPH, Prostate Disorder Musculoskeletal History: Reports: Arthritis, Fracture, Fibromyalgia, Gout Other Musculoskeletal History: R. Leg/ankle, L. Thumb/Finger Neurological History: Reports: CVA, Speech Problems Other Neuro History: right sided paralysis Psychiatric History: Reports: Depression Endocrine/Metabolic History: Reports: Hypothyroidism Other Endocrine/Metabolic History: thyroid disease unknown Hematologic History: Reports: Anticoagulation Therapy, Blood Transfusion(s) Oncologic (Cancer) History: Reports: Prostate Dermatologic History: Reports: Cellulitis Other Dermatologic History: hx of cellulitis L leg - Infectious Disease History Infectious Disease History: Reports: Chicken Pox, Measles, Mumps - Past Surgical History HEENT Surgical History: Reports: Cataract Surgery, Tonsillectomy Cardiovascular Surgical History: Reports: Cardiac Ablation, Coronary Artery Bypass, Other (See Below) Other Cardiovascular Surgeries/Procedures: triple heart bypass, pacer/ defibrillator Respiratory Surgical History: Reports: None GI Surgical History: Reports: Colonoscopy Male Surgical History: Reports: Prostate Biopsy, Other (See Below) Other Male Surgeries/Procedures: radiation seeds for prostate cancer Endocrine Surgical History: Reports: None Neurological Surgical History: Reports: None Musculoskeletal Surgical History: Reports: Other (See Below) Other Musculoskeletal Surgeries/Procedures:: Surgery for fractures Oncologic Surgical History: Reports: None Dermatological Surgical History: Reports: Skin Biopsy Social & Family History - Tobacco Use Smoking Status *Q: Never Smoker - Caffeine Use Caffeine Use: Reports: Coffee - Recreational Drug Use Recreational Drug Use: No H&P Review of Systems - Review of Systems: Review Of Systems: See Below General: Reports: Weakness. Denies: Fever, Chills Pulmonary: Reports: No Symptoms Cardiovascular: Reports: Lightheadedness. Denies: Chest Pain, Palpitations, Dyspnea on Exertion, Orthopnea, PND, Edema, Syncope Gastrointestinal: Reports: No Symptoms Genitourinary: Reports: No Symptoms Musculoskeletal: Reports: No Symptoms Skin: Reports: No Symptoms Exam - Exam Exam: See Below - Vital Signs Vital Signs: Last Vital Signs Temp 97.5 F 08/31/17 14:54 Pulse 102 H 08/31/17 15:41 Resp 15 08/31/17 15:41 BP 106/68 08/31/17 15:41 Pulse Ox 96 08/31/17 15:41 Weight: 205 lb - Exam General: Alert, Oriented, Cooperative, Mild Distress Neck: Supple, Trachea Midline, +2 Carotid Pulse wo Bruit Lungs: Clear to Auscultation, Normal Respiratory Effort Cardiovascular: Normal S1, Normal S2, Irregular Rhythm, Tachycardia. No: Bradycardia, Systolic Murmur, Diastolic Murmur GI/Abdominal Exam: Soft, Non-Tender, No Organomegaly, No Distention Extremities: Non-Tender, No Pedal Edema Skin: Warm, Dry, Intact - Patient Data Lab Results Last 24 hrs: Laboratory Results - last 24 hr 08/31/17 08/31/17 08/31/17 Range/Units 15:06 15:06 15:06 WBC 11.4 H (4.5-11.0) K/uL RBC 5.34 (4.30-5.90) M/uL Hgb 16.0 H (12.0-15.0) g/dL Hct 45.5 (40.0-54.0) % MCV 85 (80-98) fL MCH 30 (27-31) pg MCHC 35 (32-36) % Plt Count 237 (150-400) K/uL Neut % (Auto) 58 (36-66) % Lymph % (Auto) 30 (24-44) % Dickenson % (Auto) 10 H (2-6) % Eos % (Auto) 2 (2-4) % Baso % (Auto) 0 (0-1) % Sodium 136 L (140-148) mmol/L Potassium 4.0 (3.6-5.2) mmol/L Chloride 102 (100-108) mmol/L Carbon Dioxide 22 (21-32) mmol/L Anion Gap 16.0 H (5.0-14.0) mmol/L BUN 26 H D (7-18) mg/dL Creatinine 1.1 (0.8-1.3) mg/dL Est Cr Clr Drug Dosing 65.44 mL/min Estimated GFR (MDRD) > 60 (>60) Glucose 134 H (74-106) mg/dL Calcium 8.6 (8.5-10.1) mg/dL Total Bilirubin 1.0 (0.2-1.0) mg/dL AST 41 H (15-37) U/L ALT 38 (12-78) U/L Alkaline Phosphatase 54 (46-116) U/L Troponin I < 0.017 (0.000-0.056) ng/mL NT-Pro-B Natriuret Pep 2920 H (5-125) pg/mL Total Protein 7.5 (6.4-8.2) g/dL Albumin 4.0 (3.4-5.0) g/dL Globulin 3.5 (2.3-3.5) g/dL Albumin/Globulin Ratio 1.1 L (1.2-2.2) Result Diagrams: 08/31/17 15:06 08/31/17 15:06 Consult PN Assessment/Plan Procedures: Procedures ASSAY OF CK (CPK) (05/31/15) ASSAY OF LACTIC ACID (05/29/15) ASSAY OF MAGNESIUM (01/06/16) ASSAY OF PHOSPHORUS (01/06/16) ASSAY OF TROPONIN QUANT (01/06/16) ASSESSMENT OF APHASIA (03/17/15) BLOOD CULTURE FOR BACTERIA (08/31/15) CARDIOVASCULAR STRESS TEST (10/30/15) CARDIOVASCULAR STRESS TEST (10/30/15) COLONOSCOPY AND BIOPSY (05/27/16) COMPLETE CBC AUTOMATED (07/18/17) COMPLETE CBC W/AUTO DIFF WBC (01/06/16) COMPREHEN METABOLIC PANEL (07/18/17) CT ABD & PELVIS W/O CONTRAST (07/13/16) CT HEAD/BRAIN W/O DYE (05/29/15) CULTR BACTERIA EXCEPT BLOOD (07/18/17) CULTURE OTHR SPECIMN AEROBIC (07/18/17) ELECTROCARDIOGRAM TRACING (01/06/16) EMERGENCY DEPT VISIT (04/21/16) EMERGENCY DEPT VISIT (04/21/16) EMERGENCY DEPT VISIT (03/09/16) EMERGENCY DEPT VISIT (01/06/16) EMERGENCY DEPT VISIT (08/31/15) EMERGENCY DEPT VISIT (05/31/15) EXTREMITY STUDY (05/31/15) HT MUSCLE IMAGE SPECT MULT (10/30/15) LAPAROSCOPIC CHOLECYSTECTOMY (07/18/17) MEASURE BLOOD OXYGEN LEVEL (07/18/17) NEEDLE BIOPSY LIVER ADD-ON (07/18/17) PROTHROMBIN TIME (01/06/16) ROUTINE VENIPUNCTURE (07/18/17) SMEAR GRAM STAIN (07/18/17) SPECIAL STAINS GROUP 2 (07/18/17) SPEECH/HEARING THERAPY (03/17/15) TISSUE EXAM BY PATHOLOGIST (07/18/17) TISSUE EXAM BY PATHOLOGIST (07/18/17) URINALYSIS AUTO W/SCOPE (05/29/15) X-RAY EXAM OF LOWER LEG (05/31/15) Problem List Initiated/Reviewed/Updated: Yes Plan: ASSESSMENT AND RECOMMENDATIONS ATRIAL FIBRILLATION WITH RAPID VENTRICULAR RESPONSE-duration of this is unknown , may have been triggered by recent infection and contributing to symptoms of weakness. He was started on metoprolol today which likely caused hypotension and increase in symptoms. Given difficulty with medication for rate control, would be reasonable to proceed with cardioversion. He has been on long-term oral anticoagulation over the past several months. -Electrical cardioversion -Outpatient follow-up with cardiology CONGESTIVE HEART FAILURE-by history seems to be well compensated -Continue outpatient medical regimen CORONARY ARTERY DISEASE-asymptomatic, denies symptoms of chest pain. EKG shows no acute ST segment changes and initial troponin level is within normal range -Continue outpatient medical regimen Requesting Provider: TEENA Date Consult Requested: 08/31/17 Reason for Consult: Atrial fibrillation with rapid ventricular response Patient History Reviewed: Yes Notified Requestor: Yes
[2017-08-31] MEDS ORDERED: Propofol 200 MG/20 ML SDV ONE (18:40)
[2017-08-31] MEDS ORDERED: Digoxin 500 MCG/2 ML Amp IVPUSH ONE (19:33)
--- NOTE | 2017-08-31 19:33 | PCM.OPNOTE ---
- General Post-Op/Procedure Note Date of Surgery/Procedure: 08/31/17 Operative Procedure(s): Electrical cardioversion Pre Op Diagnosis: Atrial fibrillation with rapid ventricular response Post-Op Diagnosis: Same Anesthesia Technique: Moderate Sedation Primary Surgeon: Boaz Ortiz Complications: None Condition: Fair Free Text/Narrative:: This patient is a 67-year-old gentleman who presented to the emergency department with atrial fibrillation and rapid but your response. Also on initial presentation was noted to be hypotensive, but did respond to IV fluids. He had taken an initial dose of metoprolol prior to coming into the emergency department. Duration of the atrial fibrillation unknown, he has been on long- term oral anticoagulation. Because of limited options for management of rate because of low blood pressure decision was made to proceed with electrical cardioversion. Risks and goals of procedure reviewed with patient and he gave informed consent to proceed. IV sedation was provided by anesthesia service, after adequate sedation was obtained, initial attempted cardioversion was made using 200 J of energy delivered in a synchronized fashion. He converted to sinus rhythm with a first-degree AV block. He remained in sinus rhythm only approximately 1 minute and then went back into the atrial fibrillation. A second attempt at cardioversion was made again using 200 J of energy delivered in a synchronized fashion. This was only transiently successful in converting to sinus rhythm as he quickly went back into atrial fibrillation with rapid ventricular response. Because of failed attempts at cardioversion ALB admitted to the hospital for further management and rate control.
--- NOTE | 2017-08-31 19:45 | PCM.HP ---
H&P History of Present Illness - General Date of Service: 08/31/17 Admit Problem/Dx: Source of Information: Patient, Family, Old Records, Provider, RN Notes Reviewed History Limitations: Reports: No Limitations - History of Present Illness Initial Comments - Free Text/Narative: This patient is a 67-year-old gentleman who I been asked to see in the emergency department by Dr. Cevallos for further suggestions concerning evaluation and management of atrial fibrillation. He has not felt well over the past 2 weeks, during that period of time has been seen twice in the clinic and felt to have sinusitis. He is been started on antibiotic therapy but has not noted significant improvement in his symptoms. When seen in the clinic yesterday was noted to be in atrial fibrillation and was started on metoprolol for rate control. He is been unaware that he is been in the atrial fibrillation and since he is been in the emergency department has had rates between 100-140. He is had one previous episode of atrial fibrillation and did undergo electrical cardioversion. He also has undergone an ablation procedure for management of his atrial fibrillation, this was approximately 4 years ago. He has known coronary artery disease as well as congestive heart failure. He started the metoprolol today and felt more weak and lightheaded so he presented to the emergency department. Initially his blood pressure was low and he has been given IV fluids for hydration. With this intervention his blood pressure has improved, it's likely that the new therapy with metoprolol caused decrease in blood pressure as well as his increased symptoms. He has been on long-term oral anticoagulation with Eliquis because of the atrial fibrillation. He denies any symptoms of chest pain or pressure, initial troponin level is within normal range. After discussion with the patient decision was made to proceed with attempted electrical cardioversion. Risks and goals of procedure reviewed with the patient and he gave informed consent to proceed. 2 attempts were made at cardioversion using 200 J of energy, both attempts were successful in transiently converting him to sinus rhythm but he quickly went back into atrial fibrillation with rapid ventricular response. For this reason, we'll plan to admit for further management and rate control. - Related Data Allergies/Adverse Reactions: Allergies Allergy/AdvReac Type Severity Reaction Status Date / Time erythromycin base Allergy Other Verified 07/18/17 08:55 [From Erythrocin] Iodinated Contrast- Oral and Allergy Hives Verified 07/18/17 08:55 IV Dye [Iodinated Contrast Media - IV Dye] rosuvastatin Allergy Other Verified 07/18/17 08:55 seafood Allergy Swelling Uncoded 07/18/17 08:55 Home Medications: Home Meds Cetirizine [ZyrTEC] 10 mg PO DAILY PRN 10/28/15 [History] Sertraline [Zoloft] 25 mg PO DAILY 10/28/15 [History] Simvastatin [Zocor] 20 mg PO BEDTIME 10/28/15 [History] Ezetimibe [Zetia] 5 mg PO DAILY 10/29/15 [History] Omeprazole Magnesium [Prilosec Otc] 40 mg PO DAILY PRN 10/29/15 [History] Levothyroxine Sodium [Synthroid] 150 mcg PO DAILY 10/30/15 [History] Lisinopril 5 mg PO DAILY 01/06/16 [History] Gabapentin [Neurontin] 600 mg PO TID 01/07/16 [History] Aspirin [Ecotrin] 325 mg PO DAILY 03/09/16 [History] Spironolactone [Aldactone] 25 mg PO DAILY 04/21/16 [History] Fluticasone Propionate [Flonase Allergy Relief] 2 spray NS DAILY PRN 05/24/16 [ History] Nystatin [Nystatin Crm] 1 applic TOP BID PRN 05/24/16 [History] Apixaban [Eliquis] 5 mg PO BID 07/14/17 [History] DULoxetine [Cymbalta] 20 mg PO DAILY 07/14/17 [History] Sennosides/Docusate Sodium [Sennosides-Docusate Sodium] 1 cap PO BID 07/14/17 [ History] Triamcinolone Acetonide [Kenalog 0.1% Crm] 1 dose TOP BID PRN 07/14/17 [History] Albuterol [Ventolin HFA] 1 - 2 puff INH ASDIRECTED 08/31/17 [History] Amoxicillin/Clavulanate K [Augmentin 500-125 MG] 1 tab PO TID 08/31/17 [History] Metoprolol Tartrate [Lopressor] 25 mg PO BID 08/31/17 [History] predniSONE [Deltasone] 40 mg PO DAILY 08/31/17 [History] Past Medical History HEENT History: Reports: Cataract, Hard of Hearing, Impaired Vision, Other (See Below) Other HEENT History: reading glasses Cardiovascular History: Reports: Afib, Blood Clots/VTE/DVT, CAD, Cardiomyopathy , Heart Failure, High Cholesterol, ID, Pacemaker, Stents, Other (See Below) Other Cardiovascular History: Artial flutter Respiratory History: Reports: Other (See Below) Other Respiratory History: inhalers for seasonal allergies Gastrointestinal History: Reports: Colon Polyp, GERD, Other (See Below) Other Gastrointestinal History: bowel inconsistency Genitourinary History: Reports: BPH, Prostate Disorder Musculoskeletal History: Reports: Arthritis, Fracture, Fibromyalgia, Gout Other Musculoskeletal History: R. Leg/ankle, L. Thumb/Finger Neurological History: Reports: CVA, Speech Problems Other Neuro History: right sided paralysis Psychiatric History: Reports: Depression Endocrine/Metabolic History: Reports: Hypothyroidism Other Endocrine/Metabolic History: thyroid disease unknown Hematologic History: Reports: Anticoagulation Therapy, Blood Transfusion(s) Oncologic (Cancer) History: Reports: Prostate Dermatologic History: Reports: Cellulitis Other Dermatologic History: hx of cellulitis L leg - Infectious Disease History Infectious Disease History: Reports: Chicken Pox, Measles, Mumps - Past Surgical History HEENT Surgical History: Reports: Cataract Surgery, Tonsillectomy Cardiovascular Surgical History: Reports: Cardiac Ablation, Coronary Artery Bypass, Other (See Below) Other Cardiovascular Surgeries/Procedures: triple heart bypass, pacer/ defibrillator Respiratory Surgical History: Reports: None GI Surgical History: Reports: Colonoscopy Male Surgical History: Reports: Prostate Biopsy, Other (See Below) Other Male Surgeries/Procedures: radiation seeds for prostate cancer Endocrine Surgical History: Reports: None Neurological Surgical History: Reports: None Musculoskeletal Surgical History: Reports: Other (See Below) Other Musculoskeletal Surgeries/Procedures:: Surgery for fractures Oncologic Surgical History: Reports: None Dermatological Surgical History: Reports: Skin Biopsy Social & Family History - Tobacco Use Smoking Status *Q: Never Smoker - Caffeine Use Caffeine Use: Reports: Coffee - Recreational Drug Use Recreational Drug Use: No H&P Review of Systems - Review of Systems: Review Of Systems: See Below General: Reports: Weakness, Fatigue. Denies: Fever, Chills, Diaphoresis HEENT: Reports: No Symptoms Pulmonary: Reports: No Symptoms Cardiovascular: Reports: No Symptoms Gastrointestinal: Reports: No Symptoms Genitourinary: Reports: No Symptoms Musculoskeletal: Reports: Neck Pain (Right sided neck pain) Skin: Reports: No Symptoms Psychiatric: Reports: No Symptoms Neurological: Reports: No Symptoms Hematologic/Lymphatic: Reports: No Symptoms Immunologic: Reports: No Symptoms Exam - Exam Exam: See Below - Vital Signs Vital Signs: Last Vital Signs Temp 97.5 F 08/31/17 14:54 Pulse 124 H 08/31/17 18:01 Resp 20 08/31/17 18:01 BP 87/69 L 08/31/17 18:13 Pulse Ox 94 L 08/31/17 18:01 Weight: 205 lb - Exam Quality Assessment: Supplemental Oxygen, DVT Prophylaxis General: Alert, Oriented, Cooperative, Mild Distress HEENT: Conjunctiva Clear, Hearing Intact, Mucosa Moist & [place], Normal Nasal Septum, Posterior Pharynx Clear, Pupils Equal Neck: Supple, Trachea Midline, +2 Carotid Pulse wo Bruit Lungs: Clear to Auscultation, Normal Respiratory Effort Cardiovascular: Normal S1, Normal S2, Irregular Rhythm, Tachycardia. No: Systolic Murmur, Diastolic Murmur GI/Abdominal Exam: Soft, Non-Tender, No Organomegaly, No Distention Back Exam: Normal Inspection, Full Range of Motion Extremities: Non-Tender, No Pedal Edema Skin: Warm, Dry, Intact Neurological: Cranial Nerves Intact, Strength Equal Bilateral, Normal Speech, Normal Tone, Sensation Intact. No: Focal Deficit Neuro Extensive - Mental Status: Alert, Oriented x3, Normal Mood/Affect, Normal Cognition, Memory Intact - Patient Data Lab Results Last 24 hrs: Laboratory Results - last 24 hr 08/31/17 08/31/17 08/31/17 Range/Units 15:06 15:06 15:06 WBC 11.4 H (4.5-11.0) K/uL RBC 5.34 (4.30-5.90) M/uL Hgb 16.0 H (12.0-15.0) g/dL Hct 45.5 (40.0-54.0) % MCV 85 (80-98) fL MCH 30 (27-31) pg MCHC 35 (32-36) % Plt Count 237 (150-400) K/uL Neut % (Auto) 58 (36-66) % Lymph % (Auto) 30 (24-44) % [place] % (Auto) 10 H (2-6) % Eos % (Auto) 2 (2-4) % Baso % (Auto) 0 (0-1) % Sodium 136 L (140-148) mmol/L Potassium 4.0 (3.6-5.2) mmol/L Chloride 102 (100-108) mmol/L Carbon Dioxide 22 (21-32) mmol/L Anion Gap 16.0 H (5.0-14.0) mmol/L BUN 26 H D (7-18) mg/dL Creatinine 1.1 (0.8-1.3) mg/dL Est Cr Clr Drug Dosing 65.44 mL/min Estimated GFR (MDRD) > 60 (>60) Glucose 134 H (74-106) mg/dL Calcium 8.6 (8.5-10.1) mg/dL Total Bilirubin 1.0 (0.2-1.0) mg/dL AST 41 H (15-37) U/L ALT 38 (12-78) U/L Alkaline Phosphatase 54 (46-116) U/L Troponin I < 0.017 (0.000-0.056) ng/mL NT-Pro-B Natriuret Pep 2920 H (5-125) pg/mL Total Protein 7.5 (6.4-8.2) g/dL Albumin 4.0 (3.4-5.0) g/dL Globulin 3.5 (2.3-3.5) g/dL Albumin/Globulin Ratio 1.1 L (1.2-2.2) Result Diagrams: 08/31/17 15:06 08/31/17 15:06 *Q Meaningful Use (ADM) - VTE *Q VTE Pharmacological Contraindications *Q: High INR Value - VTE Risk Assess *Q Each Risk Factor Represents 1 Point: Obesity ( BMI > 25 kg/m2), Congestive heart failure (CHF), Abnormal Pulmonary Function (COPD) Total Score 1 Point Risk Factors: 3 Each Risk Factor Represents 2 Points: Age 60 - 74 Years Total Score 2 Point Risk Factors: 2 Each Risk Factor Represents 3 Points: None Total Score 3 Point Risk Factors: 0 Each Risk Factor Represents 5 Points: None Total Score 5 Point Risk Factors: 0 Venous Thromboembolism Risk Factor Score *Q: 5 Problem List Initiated/Reviewed/Updated: Yes Orders Last 24hrs: Active Orders 24 hr Category Date Time Status Patient Status Manage Transfer [TRANSFER] Routine ADT 08/31/17 19:34 Ordered EKG Documentation Completion [RC] ASDIRECTED Care 08/31/17 15:07 Active Chest 1V Frontal [CR] Stat Exams 08/31/17 15:07 Taken UA W/MICROSCOPIC [URIN] Urgent Lab 08/31/17 15:06 Ordered Digoxin [Lanoxin] Med 08/31/17 19:33 Once 250 mcg IVPUSH ONETIME ONE Sodium Chloride 0.9% [Normal Saline] 1,000 ml Med 08/31/17 15:15 Active IV ASDIRECTED Resuscitation Status Routine Resus Stat 08/31/17 19:38 Ordered EKG 12 Lead [EK] Routine Ther 08/31/17 15:07 Ordered Medication Orders Digoxin (Lanoxin) 250 mcg IVPUSH ONETIME ONE Stop: 08/31/17 19:34 Sodium Chloride (Normal Saline) 1,000 mls @ 200 mls/hr IV ASDIRECTED LOYD Last Admin: 08/31/17 18:31 Dose: 25 mls/hr Infusion: 08/31/17 18:31 Dose: 200 mls/hr Admin: 08/31/17 15:09 Dose: 200 mls/hr Assessment/Plan Comment:: ASSESSMENT AND PLAN ATRIAL FIBRILLATION WITH RAPID VENTRICULAR RESPONSE-duration of this is unknown , may have been triggered by recent infection and contributing to symptoms of weakness. He was started on metoprolol today which likely caused hypotension and increase in symptoms. He has been treated with oral anticoagulation over the past several months. Given difficulty with medication for rate control, his vision was made to proceed with attempted electrical cardioversion which was unfortunately unsuccessful. -Admit to the intensive care unit for further evaluation and management -Hold metoprolol and lisinopril because of hypotension -Digoxin 0.25 mg IV now and again early tomorrow morning -Digoxin level and TSH in a.m. -Outpatient follow-up with cardiology CONGESTIVE HEART FAILURE-by history seems to be well compensated CORONARY ARTERY DISEASE-asymptomatic, denies symptoms of chest pain. EKG shows no acute ST segment changes and initial troponin level is within normal range -Continue outpatient medical regimen MAINTENANCE ISSUES -DVT prophylaxis; coagulation should provide adequate DVT prophylaxis -GI prophylaxis; continue outpatient PPI therapy -[place] catheter; not indicated -Nutrition; 2 g sodium diet -Nicotine dependence; not required CODE STATUS-FULL CODE ADMISSION STATUS-patient will be admitted to inpatient status, expect at least a 2 night hospital stay for evaluation and management of problems as outlined above. At the time of this admission I do not reasonably expected evaluation and management of this problem will require more than a 96 hour hospital stay. DISPOSITION-anticipate discharge to home after the hospital stay. PRIMARY CARE PROVIDER-Dr. Boyle
[2017-08-31] MEDS ORDERED: Polyethylene Glycol 3350 Powder 17 GM Packet PO PRN (21:36)
[2017-08-31] MEDS ORDERED: Magnesium Hydroxide 400 MG/5 ML Susp 30 ML Cup PO PRN (21:36)
[2017-08-31] MEDS ORDERED: Albuterol 0.083% 2.5 MG/3 ML Neb Soln NEB PRN (21:36)
[2017-08-31] MEDS ORDERED: Acetaminophen 325 MG Tab PO PRN (21:36)
[2017-08-31] MEDS ORDERED: Sodium Chloride 0.9% 10 ML Syringe FLUSH PRN (21:36)
[2017-08-31] MEDS ORDERED: oxyCODONE 5 MG Tab PO PRN (21:36)
[2017-08-31] MEDS ORDERED: Ondansetron 4 MG/2 ML SDV IV PRN (21:36)
[2017-08-31] MEDS ORDERED: Pantoprazole 40 MG Tab.CR PO PRN (21:36)
[2017-08-31] MEDS: Gabapentin 300 MG Cap PO SCH (22:32)
[2017-08-31] MEDS: Amoxicillin/Clavulanate K 500-125 MG Tab PO SCH (22:32)
[2017-08-31] MEDS: Albuterol 8 GM Inhaler INH SCH (22:32)
[2017-08-31] MEDS: Apixaban 5 MG Tab PO SCH (22:41)
[2017-08-31] MEDS: Simvastatin 20 MG Tab PO SCH (22:42)
[2017-09-01] MEDS: Sodium Chloride 0.9% 1,000 ML IV SCH ×2 (00:42→09:02)
[2017-09-01] MEDS: Albuterol 8 GM Inhaler INH SCH ×6 (00:50→20:54)
[2017-09-01] MEDS ORDERED: Digoxin 500 MCG/2 ML Amp IVPUSH ONE (01:00)
[2017-09-01] MEDS: Fluticasone Propionate Nasal Spray 16 GM Bottle NAS SCH (08:55)
[2017-09-01] MEDS: Aspirin 325 MG Tab.EC PO SCH (08:56)
[2017-09-01] MEDS: Amoxicillin/Clavulanate K 500-125 MG Tab PO SCH ×3 (08:56→20:52)
[2017-09-01] MEDS: Ezetimibe 10 MG Tab PO SCH (08:56)
[2017-09-01] MEDS: Sertraline 25 MG Tab PO SCH (08:56)
[2017-09-01] MEDS: Levothyroxine 50 MCG Tab PO SCH (08:56)
[2017-09-01] MEDS: Apixaban 5 MG Tab PO SCH ×2 (08:56→20:52)
[2017-09-01] MEDS: DULoxetine 20 MG Cap PO SCH (08:57)
[2017-09-01] MEDS: Spironolactone 25 MG Tab PO SCH (08:57)
[2017-09-01] MEDS: Gabapentin 300 MG Cap PO SCH ×3 (08:57→20:52)
[2017-09-01] MEDS ORDERED: Digoxin 125 MCG Tab PO ONE ×2 (09:00→15:00)
--- NOTE | 2017-09-01 09:09 | CR ---
Portable chest There is a cardiac pacemaker on the left. There is a single intact lead. There is cardiac enlargement . The vascular structures are within normal limits. There are no infiltrates or effusions. Impression: 1. No acute findings.
[2017-09-01] MEDS ORDERED: Metoprolol Tartrate 25 MG Tab PO SCH (09:45)
--- NOTE | 2017-09-01 09:51 | PCM.PN ---
- General Info Date of Service: 09/01/17 Subjective Update: This patient reports improvement in symptoms since admission with less lightheadedness and weakness. Heart rate under better control at rest but continues to increase with any type of activity. Blood pressure is improved with IV hydration and holding medications. Functional Status: Reports: Tolerating Diet, Urinating - Review of Systems General: Reports: Weakness. Denies: Fever, Chills Pulmonary: Reports: No Symptoms Cardiovascular: Reports: No Symptoms Gastrointestinal: Reports: No Symptoms - Patient Data Vitals - Most Recent: Last Vital Signs Temp 96.6 F 09/01/17 07:32 Pulse 105 H 09/01/17 08:57 Resp 19 09/01/17 07:32 BP 111/80 09/01/17 07:32 Pulse Ox 99 09/01/17 07:32 Weight - Most Recent: 209 lb 12.8 oz I&O - Last 24 Hours: Intake & Output 08/31/17 09/01/17 09/01/17 22:59 06:59 14:59 Intake Total 2101 Output Total 250 1175 250 Balance -250 926 -250 Lab Results Last 24 Hours: Laboratory Results - last 24 hr 08/31/17 08/31/17 08/31/17 Range/Units 15:06 15:06 15:06 WBC 11.4 H (4.5-11.0) K/uL RBC 5.34 (4.30-5.90) M/uL Hgb 16.0 H (12.0-15.0) g/dL Hct 45.5 (40.0-54.0) % MCV 85 (80-98) fL MCH 30 (27-31) pg MCHC 35 (32-36) % Plt Count 237 (150-400) K/uL Neut % (Auto) 58 (36-66) % Lymph % (Auto) 30 (24-44) % [place] % (Auto) 10 H (2-6) % Eos % (Auto) 2 (2-4) % Baso % (Auto) 0 (0-1) % Sodium (140-148) mmol/L Potassium (3.6-5.2) mmol/L Chloride (100-108) mmol/L Carbon Dioxide (21-32) mmol/L Anion Gap (5.0-14.0) mmol/L BUN (7-18) mg/dL Creatinine (0.8-1.3) mg/dL Est Cr Clr Drug Dosing mL/min Estimated GFR (MDRD) (>60) Glucose (74-106) mg/dL Calcium (8.5-10.1) mg/dL Magnesium (1.8-2.4) mg/dL Total Bilirubin (0.2-1.0) mg/dL AST (15-37) U/L ALT (12-78) U/L Alkaline Phosphatase (46-116) U/L Troponin I < 0.017 (0.000-0.056) ng/mL NT-Pro-B Natriuret Pep (5-125) pg/mL Total Protein (6.4-8.2) g/dL Albumin (3.4-5.0) g/dL Globulin (2.3-3.5) g/dL Albumin/Globulin Ratio (1.2-2.2) TSH, Ultra Sensitive (0.358-3.740) uIU/mL Urine Color Yellow Urine Appearance Clear Urine pH 6.0 (4.5-8.0) Ur Specific [place] 1.025 (1.008-1.030) Urine Protein Negative (NEGATIVE) mg/dL Urine Glucose (UA) Normal (NEGATIVE) mg/dL Urine Ketones Negative (NEGATIVE) mg/dL Urine Occult Blood Negative (NEGATIVE) Urine Nitrite Negative (NEGAITVE) Urine Bilirubin Small (NEGATIVE) Urine Urobilinogen Normal (NORMAL) mg/dL Ur Leukocyte Esterase Negative (NEGATIVE) Urine RBC 0-5 (0-5) Urine WBC Not seen (0-5) Ur Epithelial Cells Rare Amorphous Sediment Not seen Urine Bacteria Few Urine Mucus Moderate Digoxin (0.90-2.00) ng/mL 08/31/17 09/01/17 09/01/17 Range/Units 15:06 04:45 04:45 WBC 8.2 (4.5-11.0) K/uL RBC 5.15 (4.30-5.90) M/uL Hgb 15.2 H (12.0-15.0) g/dL Hct 44.7 (40.0-54.0) % MCV 87 (80-98) fL MCH 30 (27-31) pg MCHC 34 (32-36) % Plt Count 180 (150-400) K/uL Neut % (Auto) 62 (36-66) % Lymph % (Auto) 28 (24-44) % [place] % (Auto) 8 H (2-6) % Eos % (Auto) 3 (2-4) % Baso % (Auto) 0 (0-1) % Sodium 136 L (140-148) mmol/L Potassium 4.0 (3.6-5.2) mmol/L Chloride 102 (100-108) mmol/L Carbon Dioxide 22 (21-32) mmol/L Anion Gap 16.0 H (5.0-14.0) mmol/L BUN 26 H D (7-18) mg/dL Creatinine 1.1 (0.8-1.3) mg/dL Est Cr Clr Drug Dosing 65.44 mL/min Estimated GFR (MDRD) > 60 (>60) Glucose 134 H (74-106) mg/dL Calcium 8.6 (8.5-10.1) mg/dL Magnesium (1.8-2.4) mg/dL Total Bilirubin 1.0 (0.2-1.0) mg/dL AST 41 H (15-37) U/L ALT 38 (12-78) U/L Alkaline Phosphatase 54 (46-116) U/L Troponin I (0.000-0.056) ng/mL NT-Pro-B Natriuret Pep 2920 H (5-125) pg/mL Total Protein 7.5 (6.4-8.2) g/dL Albumin 4.0 (3.4-5.0) g/dL Globulin 3.5 (2.3-3.5) g/dL Albumin/Globulin Ratio 1.1 L (1.2-2.2) TSH, Ultra Sensitive 1.999 (0.358-3.740) uIU/mL Urine Color Urine Appearance Urine pH (4.5-8.0) Ur Specific [place] (1.008-1.030) Urine Protein (NEGATIVE) mg/dL Urine Glucose (UA) (NEGATIVE) mg/dL Urine Ketones (NEGATIVE) mg/dL Urine Occult Blood (NEGATIVE) Urine Nitrite (NEGAITVE) Urine Bilirubin (NEGATIVE) Urine Urobilinogen (NORMAL) mg/dL Ur Leukocyte Esterase (NEGATIVE) Urine RBC (0-5) Urine WBC (0-5) Ur Epithelial Cells Amorphous Sediment Urine Bacteria Urine Mucus Digoxin 0.20 L (0.90-2.00) ng/mL 09/01/17 Range/Units 04:45 WBC (4.5-11.0) K/uL RBC (4.30-5.90) M/uL Hgb (12.0-15.0) g/dL Hct (40.0-54.0) % MCV (80-98) fL MCH (27-31) pg MCHC (32-36) % Plt Count (150-400) K/uL Neut % (Auto) (36-66) % Lymph % (Auto) (24-44) % [place] % (Auto) (2-6) % Eos % (Auto) (2-4) % Baso % (Auto) (0-1) % Sodium 140 (140-148) mmol/L Potassium 4.1 (3.6-5.2) mmol/L Chloride 107 (100-108) mmol/L Carbon Dioxide 23 (21-32) mmol/L Anion Gap 9.6 (5.0-14.0) mmol/L BUN 18 (7-18) mg/dL Creatinine 0.9 (0.8-1.3) mg/dL Est Cr Clr Drug Dosing 79.98 mL/min Estimated GFR (MDRD) > 60 (>60) Glucose 85 (74-106) mg/dL Calcium 8.1 L (8.5-10.1) mg/dL Magnesium 2.1 (1.8-2.4) mg/dL Total Bilirubin 1.0 (0.2-1.0) mg/dL AST 27 (15-37) U/L ALT 33 (12-78) U/L Alkaline Phosphatase 46 (46-116) U/L Troponin I (0.000-0.056) ng/mL NT-Pro-B Natriuret Pep (5-125) pg/mL Total Protein 6.3 L (6.4-8.2) g/dL Albumin 3.3 L (3.4-5.0) g/dL Globulin 3.0 (2.3-3.5) g/dL Albumin/Globulin Ratio 1.1 L (1.2-2.2) TSH, Ultra Sensitive (0.358-3.740) uIU/mL Urine Color Urine Appearance Urine pH (4.5-8.0) Ur Specific [place] (1.008-1.030) Urine Protein (NEGATIVE) mg/dL Urine Glucose (UA) (NEGATIVE) mg/dL Urine Ketones (NEGATIVE) mg/dL Urine Occult Blood (NEGATIVE) Urine Nitrite (NEGAITVE) Urine Bilirubin (NEGATIVE) Urine Urobilinogen (NORMAL) mg/dL Ur Leukocyte Esterase (NEGATIVE) Urine RBC (0-5) Urine WBC (0-5) Ur Epithelial Cells Amorphous Sediment Urine Bacteria Urine Mucus Digoxin (0.90-2.00) ng/mL Med Orders - Current: Current Medications Acetaminophen (Tylenol) 650 mg PO Q4H PRN PRN Reason: Pain (Mild 1-3)/fever Albuterol (Ventolin Hfa) 0 gm INH Q4H [facility] Last Admin: 09/01/17 09:01 Dose: Not Given Albuterol (Proventil Neb Soln) 2.5 mg NEB Q4H PRN PRN Reason: Shortness Of Breath/wheezing Amoxicillin/Clavulanate Potassium (Augmentin 500 Mg\125 Mg) 1 tab PO TID [facility] Last Admin: 09/01/17 08:56 Dose: 1 tab Apixaban (Eliquis) 5 mg PO BID [facility] Last Admin: 09/01/17 08:56 Dose: 5 mg Aspirin (Ecotrin) 325 mg PO DAILY [facility] Last Admin: 09/01/17 08:56 Dose: 325 mg Duloxetine HCl (Cymbalta) 20 mg PO DAILY [facility] Last Admin: 09/01/17 08:57 Dose: 20 mg Ezetimibe (Zetia) 5 mg PO DAILY [facility] Last Admin: 09/01/17 08:56 Dose: 5 mg Fluticasone Propionate (Flonase) 0 gm VIANCA DAILY [facility] Last Admin: 09/01/17 08:55 Dose: 2 spray Gabapentin (Neurontin) 600 mg PO TID [facility] Last Admin: 09/01/17 08:57 Dose: 600 mg Sodium Chloride (Normal Saline) 1,000 mls @ 125 mls/hr IV ASDIRECTED [facility] Last Admin: 09/01/17 09:02 Dose: 125 mls/hr Levothyroxine Sodium (Synthroid) 150 mcg PO DAILY@0730 [facility] Last Admin: 09/01/17 08:56 Dose: 150 mcg Magnesium Hydroxide (Milk Of Magnesia) 30 ml PO Q12H PRN PRN Reason: Constipation Metoprolol Tartrate (Lopressor) 12.5 mg PO Q12HR [facility] Ondansetron HCl (Zofran) 4 mg IV Q4H PRN PRN Reason: Nausea/Vomiting Oxycodone HCl (Oxycodone) 5 mg PO Q4H PRN PRN Reason: Pain (moderate 4-6) Pantoprazole Sodium (Protonix) 40 mg PO DAILY PRN PRN Reason: Heartburn Polyethylene Glycol (Miralax) 17 gm PO DAILY PRN PRN Reason: Constipation Senna/Docusate Sodium (Senna Plus) 1 tab PO BID [facility] Last Admin: 09/01/17 08:57 Dose: 1 tab Sertraline HCl (Zoloft) 25 mg PO DAILY [facility] Last Admin: 09/01/17 08:56 Dose: 25 mg Simvastatin (Zocor) 20 mg PO BEDTIME [facility] Last Admin: 08/31/17 22:42 Dose: 20 mg Sodium Chloride (Saline Flush) 10 ml FLUSH ASDIRECTED PRN PRN Reason: Keep Vein Open Spironolactone (Aldactone) 25 mg PO DAILY [facility] Last Admin: 09/01/17 08:57 Dose: 25 mg Discontinued Medications Digoxin (Lanoxin) 250 mcg IVPUSH ONETIME ONE Stop: 08/31/17 19:34 Last Admin: 08/31/17 19:56 Dose: 250 mcg Digoxin (Lanoxin) 250 mcg IVPUSH ONETIME ONE Stop: 09/01/17 01:01 Last Admin: 09/01/17 01:16 Dose: Not Given Digoxin (Lanoxin) 250 mcg PO ONETIME ONE Stop: 09/01/17 09:01 Last Admin: 09/01/17 08:57 Dose: 250 mcg Sodium Chloride (Normal Saline) 1,000 mls @ 200 mls/hr IV ASDIRECTED [facility] Last Admin: 08/31/17 18:31 Dose: 25 mls/hr Propofol (Diprivan 20 Ml) Confirm Administered Dose 200 mg .ROUTE .STK-MED ONE Stop: 08/31/17 18:41 - Exam General: Alert, Oriented, Cooperative, No Acute Distress Lungs: Clear to Auscultation, Normal Respiratory Effort Cardiovascular: Regular Rate, No Murmurs, Irregular Rhythm GI/Abdominal Exam: Soft, Non-Tender, No Organomegaly, No Distention Extremities: Non-Tender, No Pedal Edema Skin: Warm, Dry, Intact - Problem List Review Problem List Initiated/Reviewed/Updated: Yes - My Orders Last 24 Hours: My Active Orders 08/31/17 19:38 Resuscitation Status Routine 08/31/17 21:36 Patient Status [ADT] Routine Ambulate [RC] QID Cardiac Monitoring [RC] Q6H Height and Weight [RC] DAILY Intake and Output [RC] QSHIFT Notify Provider Vital Signs [RC] ASDIRECTED Oxygen Therapy [RC] PRN Peripheral IV Care [RC] . DIRECTED RT Aerosol Therapy [RC] ASDIRECTED Up With Assistance [RC] ASDIRECTED Up to Chair [RC] QID VTE/DVT Education [RC] Per Unit Routine Vital Signs [RC] Q4H Acetaminophen [Tylenol] 650 mg PO Q4H PRN Albuterol [Proventil Neb Soln] 2.5 mg NEB Q4H PRN Albuterol [Ventolin HFA] 0 gm INH Q4H Amoxicillin/Clavulanate K [Augmentin 500 MG\125 MG] 1 tab PO TID Apixaban [Eliquis] 5 mg PO BID Docusate Sodium/Sennosides [Senna Plus] 1 tab PO BID Gabapentin [Neurontin] 600 mg PO TID Magnesium Hydroxide [Milk of Magnesia] 30 ml PO Q12H PRN Ondansetron [Zofran] 4 mg IV Q4H PRN Pantoprazole [ProTONIX] 40 mg PO DAILY PRN Polyethylene Glycol 3350 [MiraLAX] 17 gm PO DAILY PRN Simvastatin [Zocor] 20 mg PO BEDTIME Sodium Chloride 0.9% [Normal Saline] 1,000 ml IV ASDIRECTED Sodium Chloride 0.9% [Saline Flush] 10 ml FLUSH ASDIRECTED PRN oxyCODONE 5 mg PO Q4H PRN Peripheral IV Insertion Adult [OM.PC] Routine VTE Pharmacological Contraindications [AST] Per Unit Routine 08/31/17 Dinner 2 Gram Sodium Diet [DIET] 09/01/17 07:30 Levothyroxine [Synthroid] 150 mcg PO DAILY@0730 09/01/17 09:00 Aspirin [Ecotrin] 325 mg PO DAILY DULoxetine [Cymbalta] 20 mg PO DAILY Ezetimibe [Zetia] 5 mg PO DAILY Fluticasone Propionate [Flonase] 0 gm VIANCA DAILY Sertraline [Zoloft] 25 mg PO DAILY Spironolactone [Aldactone] 25 mg PO DAILY 09/01/17 09:45 Metoprolol Tartrate [Lopressor] 12.5 mg PO Q12HR 09/02/17 05:00 DIGOXIN [CHEM] Timed - Plan Plan:: ASSESSMENT AND PLAN ATRIAL FIBRILLATION WITH RAPID VENTRICULAR RESPONSE-symptomatically improved since admission, less lightheadedness and weakness -Admit to the intensive care unit for further evaluation and management -Hold lisinopril because of hypotension -Metoprolol for 0.5 mg by mouth twice a day -Digoxin 0.25 mg by mouth today -Digoxin level in a.m. -Outpatient follow-up with cardiology CONGESTIVE HEART FAILURE-by history seems to be well compensated CORONARY ARTERY DISEASE-asymptomatic, denies symptoms of chest pain. EKG shows no acute ST segment changes and initial troponin level is within normal range -Continue outpatient medical regimen MAINTENANCE ISSUES -DVT prophylaxis; coagulation should provide adequate DVT prophylaxis -GI prophylaxis; continue outpatient PPI therapy -Mcgee catheter; not indicated -Nutrition; 2 g sodium diet -Nicotine dependence; not required CODE STATUS-FULL CODE ADMISSION STATUS-patient will be admitted to inpatient status, expect at least a 2 night hospital stay for evaluation and management of problems as outlined above. At the time of this admission I do not reasonably expected evaluation and management of this problem will require more than a 96 hour hospital stay. DISPOSITION-anticipate discharge to home after the hospital stay. PRIMARY CARE PROVIDER-Dr. Boyle
[2017-09-01] MEDS: Metoprolol Tartrate 25 MG Tab PO SCH ×2 (16:15→21:17)
[2017-09-01] MEDS: Simvastatin 20 MG Tab PO SCH (20:52)
[2017-09-02] MEDS: Albuterol 8 GM Inhaler INH SCH ×6 (01:13→21:06)
[2017-09-02] MEDS: Metoprolol Tartrate 25 MG Tab PO SCH ×2 (04:01→09:00)
[2017-09-02] MEDS: Levothyroxine 50 MCG Tab PO SCH (07:55)
[2017-09-02] MEDS: Aspirin 325 MG Tab.EC PO SCH (08:36)
[2017-09-02] MEDS: Amoxicillin/Clavulanate K 500-125 MG Tab PO SCH ×3 (08:36→21:05)
[2017-09-02] MEDS: Sertraline 25 MG Tab PO SCH (08:37)
[2017-09-02] MEDS: Gabapentin 300 MG Cap PO SCH ×3 (08:38→21:06)
[2017-09-02] MEDS: Ezetimibe 10 MG Tab PO SCH (08:40)
[2017-09-02] MEDS: Spironolactone 25 MG Tab PO SCH (08:41)
[2017-09-02] MEDS: DULoxetine 20 MG Cap PO SCH (08:42)
[2017-09-02] MEDS: Apixaban 5 MG Tab PO SCH ×2 (08:42→21:06)
[2017-09-02] MEDS: Fluticasone Propionate Nasal Spray 16 GM Bottle NAS SCH (08:53)
[2017-09-02] MEDS ORDERED: Digoxin 125 MCG Tab PO ONE ×2 (09:00→20:00)
[2017-09-02] MEDS: Metoprolol Succinate 25 MG Tab.ER PO SCH (16:17)
[2017-09-02] MEDS: Diltiazem IR 30 MG Tab PO SCH ×2 (16:18→21:10)
--- NOTE | 2017-09-02 17:12 | PCM.PN ---
- General Info Date of Service: 09/02/17 Subjective Update: This patient has improved somewhat over the past 24 hours, resting heart rate has typically been in the 80s to 90s. Unfortunately with activity rate goes up into the 130s and 140s, he was asymptomatic despite the elevated heart rates. Functional Status: Reports: Tolerating Diet, Ambulating, Urinating - Review of Systems General: Denies: Fever, Weakness, Chills Pulmonary: Reports: No Symptoms Cardiovascular: Reports: Palpitations. Denies: Chest Pain, Dyspnea on Exertion , Orthopnea, PND, Edema, Lightheadedness Gastrointestinal: Reports: No Symptoms - Patient Data Vitals - Most Recent: Last Vital Signs Temp 97.8 F 09/02/17 16:00 Pulse 86 09/02/17 16:17 Resp 20 09/02/17 16:00 BP 123/82 09/02/17 16:17 Pulse Ox 98 09/02/17 16:00 Weight - Most Recent: 211 lb 5 oz I&O - Last 24 Hours: Intake & Output 09/02/17 09/02/17 09/02/17 06:59 14:59 22:59 Intake Total 720 840 Output Total 875 1500 Balance -155 -660 Lab Results Last 24 Hours: Laboratory Results - last 24 hr 09/02/17 Range/Units 05:11 Digoxin 0.44 L (0.90-2.00) ng/mL Med Orders - Current: Current Medications Acetaminophen (Tylenol) 650 mg PO Q4H PRN PRN Reason: Pain (Mild 1-3)/fever Albuterol (Ventolin Hfa) 0 gm INH Q4H [facility] Last Admin: 09/02/17 13:39 Dose: Not Given Albuterol (Proventil Neb Soln) 2.5 mg NEB Q4H PRN PRN Reason: Shortness Of Breath/wheezing Amoxicillin/Clavulanate Potassium (Augmentin 500 Mg\125 Mg) 1 tab PO TID [facility] Last Admin: 09/02/17 13:39 Dose: 1 tab Apixaban (Eliquis) 5 mg PO BID [facility] Last Admin: 09/02/17 08:42 Dose: 5 mg Aspirin (Ecotrin) 325 mg PO DAILY [facility] Last Admin: 09/02/17 08:36 Dose: 325 mg Digoxin (Lanoxin) 250 mcg PO ONETIME ONE Stop: 09/02/17 20:01 Diltiazem HCl (Cardizem) 30 mg PO Q6HR [facility] Last Admin: 09/02/17 16:18 Dose: 30 mg Duloxetine HCl (Cymbalta) 20 mg PO DAILY [facility] Last Admin: 09/02/17 08:42 Dose: 20 mg Ezetimibe (Zetia) 5 mg PO DAILY [facility] Last Admin: 09/02/17 08:40 Dose: 5 mg Fluticasone Propionate (Flonase) 0 gm VIANCA DAILY [facility] Last Admin: 09/02/17 08:53 Dose: 2 spray Gabapentin (Neurontin) 600 mg PO TID [facility] Last Admin: 09/02/17 13:39 Dose: 600 mg Levothyroxine Sodium (Synthroid) 150 mcg PO DAILY@0730 [facility] Last Admin: 09/02/17 07:55 Dose: 150 mcg Magnesium Hydroxide (Milk Of Magnesia) 30 ml PO Q12H PRN PRN Reason: Constipation Metoprolol Succinate (Toprol Xl) 25 mg PO DAILY [facility] Last Admin: 09/02/17 16:17 Dose: 25 mg Ondansetron HCl (Zofran) 4 mg IV Q4H PRN PRN Reason: Nausea/Vomiting Oxycodone HCl (Oxycodone) 5 mg PO Q4H PRN PRN Reason: Pain (moderate 4-6) Pantoprazole Sodium (Protonix) 40 mg PO DAILY PRN PRN Reason: Heartburn Last Admin: 09/02/17 13:40 Dose: 40 mg Polyethylene Glycol (Miralax) 17 gm PO DAILY PRN PRN Reason: Constipation Senna/Docusate Sodium (Senna Plus) 1 tab PO BID [facility] Last Admin: 09/02/17 08:42 Dose: 1 tab Sertraline HCl (Zoloft) 25 mg PO DAILY [facility] Last Admin: 09/02/17 08:37 Dose: 25 mg Simvastatin (Zocor) 20 mg PO BEDTIME [facility] Last Admin: 09/01/17 20:52 Dose: 20 mg Sodium Chloride (Saline Flush) 10 ml FLUSH ASDIRECTED PRN PRN Reason: Keep Vein Open Spironolactone (Aldactone) 25 mg PO DAILY [facility] Last Admin: 09/02/17 08:41 Dose: 25 mg Discontinued Medications Digoxin (Lanoxin) 250 mcg IVPUSH ONETIME ONE Stop: 08/31/17 19:34 Last Admin: 08/31/17 19:56 Dose: 250 mcg Digoxin (Lanoxin) 250 mcg IVPUSH ONETIME ONE Stop: 09/01/17 01:01 Last Admin: 09/01/17 01:16 Dose: Not Given Digoxin (Lanoxin) 250 mcg PO ONETIME ONE Stop: 09/01/17 09:01 Last Admin: 09/01/17 08:57 Dose: 250 mcg Digoxin (Lanoxin) 250 mcg PO ONETIME ONE Stop: 09/01/17 15:01 Last Admin: 09/01/17 16:16 Dose: 250 mcg Digoxin (Lanoxin) 250 mcg PO ONETIME ONE Stop: 09/02/17 09:01 Last Admin: 09/02/17 08:56 Dose: 250 mcg Sodium Chloride (Normal Saline) 1,000 mls @ 200 mls/hr IV ASDIRECTED [facility] Last Admin: 08/31/17 18:31 Dose: 25 mls/hr Sodium Chloride (Normal Saline) 1,000 mls @ 125 mls/hr IV ASDIRECTED [facility] Last Admin: 09/01/17 09:02 Dose: 125 mls/hr Metoprolol Tartrate (Lopressor) 12.5 mg PO BID [facility] Last Admin: 09/01/17 11:35 Dose: 12.5 mg Metoprolol Tartrate (Lopressor) 12.5 mg PO Q6H [facility] Last Admin: 09/02/17 09:00 Dose: 12.5 mg Propofol (Diprivan 20 Ml) Confirm Administered Dose 200 mg .ROUTE .STK-MED ONE Stop: 08/31/17 18:41 - Exam Quality Assessment: DVT Prophylaxis General: Alert, Oriented, Cooperative, No Acute Distress Lungs: Clear to Auscultation, Normal Respiratory Effort Cardiovascular: No Murmurs, Irregular Rhythm, Tachycardia GI/Abdominal Exam: Soft, Non-Tender, No Organomegaly, No Distention Extremities: Non-Tender, No Pedal Edema Skin: Warm, Dry, Intact - Problem List Review Problem List Initiated/Reviewed/Updated: Yes - My Orders Last 24 Hours: My Active Orders 09/02/17 15:45 Metoprolol Succinate [Toprol XL] 25 mg PO DAILY 09/02/17 16:00 Diltiazem IR [Cardizem] 30 mg PO Q6HR 09/02/17 20:00 Digoxin [Lanoxin] 250 mcg PO ONETIME ONE 09/03/17 05:00 BASIC METABOLIC PANEL,BMP [CHEM] Timed DIGOXIN [CHEM] Timed MAGNESIUM [CHEM] Timed - Plan Plan:: ASSESSMENT AND PLAN ATRIAL FIBRILLATION WITH RAPID VENTRICULAR RESPONSE-symptomatically improved since admission, less lightheadedness and weakness -Admit to the intensive care unit for further evaluation and management -Hold lisinopril because of hypotension -Metoprolol 25 mg by mouth daily -Digoxin 0.25 mg twice a day today -Diltiazem 30 mg by mouth every 6 hours -Digoxin level in a.m. -Outpatient follow-up with cardiology CONGESTIVE HEART FAILURE-by history and physical exam seems to be well compensated CORONARY ARTERY DISEASE-asymptomatic, denies symptoms of chest pain. -Continue outpatient medical regimen MAINTENANCE ISSUES -DVT prophylaxis; coagulation should provide adequate DVT prophylaxis -GI prophylaxis; continue outpatient PPI therapy -Mcgee catheter; not indicated -Nutrition; 2 g sodium diet -Nicotine dependence; not required CODE STATUS-FULL CODE ADMISSION STATUS-patient will be admitted to inpatient status, expect at least a 2 night hospital stay for evaluation and management of problems as outlined above. At the time of this admission I do not reasonably expected evaluation and management of this problem will require more than a 96 hour hospital stay. DISPOSITION-anticipate discharge to home after the hospital stay. PRIMARY CARE PROVIDER-Dr. Boyle
[2017-09-02] MEDS: Simvastatin 20 MG Tab PO SCH (21:06)
[2017-09-03] MEDS: Albuterol 8 GM Inhaler INH SCH ×4 (01:02→14:33)
[2017-09-03] MEDS: Diltiazem IR 30 MG Tab PO SCH ×2 (04:23→09:30)
[2017-09-03] MEDS: Levothyroxine 50 MCG Tab PO SCH (07:49)
[2017-09-03] MEDS: Gabapentin 300 MG Cap PO SCH ×2 (09:29→15:20)
[2017-09-03] MEDS: Sertraline 25 MG Tab PO SCH (09:30)
[2017-09-03] MEDS: Apixaban 5 MG Tab PO SCH (09:30)
[2017-09-03] MEDS: Amoxicillin/Clavulanate K 500-125 MG Tab PO SCH ×2 (09:31→15:15)
[2017-09-03] MEDS: DULoxetine 20 MG Cap PO SCH (09:31)
[2017-09-03] MEDS: Spironolactone 25 MG Tab PO SCH (09:32)
[2017-09-03] MEDS: Aspirin 325 MG Tab.EC PO SCH (09:32)
[2017-09-03] MEDS: Ezetimibe 10 MG Tab PO SCH (09:36)
[2017-09-03] MEDS: Fluticasone Propionate Nasal Spray 16 GM Bottle NAS SCH (09:36)
[2017-09-03] MEDS: Metoprolol Succinate 25 MG Tab.ER PO SCH (09:53)
[2017-09-03] MEDS ORDERED: Diltiazem 120 MG Cap.CD PO SCH (12:30)
[2017-09-03] MEDS: Digoxin 125 MCG Tab PO SCH ×2 (12:46→15:14)
--- NOTE | 2017-09-03 12:46 | PCM.DCSUM1 ---
Discharge Summary - Hospital Course Brief History: This patient is a 67-year-old gentleman who was admitted through the emergency department with weakness and lightheadedness secondary to medication effect as well as atrial fibrillation with rapid ventricular response. - Discharge Data Discharge Date: 09/03/17 Discharge Disposition: Home, Self-Care 01 Condition: Fair - Discharge Diagnosis/Problem(s) (1) Atrial fibrillation with rapid ventricular response SNOMED Code(s): 635296225315983 ICD Code: I48.91 - UNSPECIFIED ATRIAL FIBRILLATION Status: Acute Current Visit: Yes (2) Hypotension, chronic SNOMED Code(s): 35012105 ICD Code: I95.89 - OTHER HYPOTENSION Status: Acute Current Visit: Yes (3) Cardiomyopathy SNOMED Code(s): 89416209 ICD Code: I42.9 - CARDIOMYOPATHY, UNSPECIFIED Status: Chronic Current Visit: No (4) Chronic systolic CHF (congestive heart failure) SNOMED Code(s): 411755450, 885223241 ICD Code: I50.22 - CHRONIC SYSTOLIC (CONGESTIVE) HEART FAILURE Status: Chronic Current Visit: No - Patient Summary/Data Operative Procedure(s) Performed: Electrical cardioversion Hospital Course: This patient is a 67-year-old gentleman who I was asked to see in the emergency department by Dr. Cevallos for further suggestions concerning evaluation and management of atrial fibrillation. He has not felt well over the past 2 weeks, during that period of time has been seen twice in the clinic and felt to have sinusitis. He is been started on antibiotic therapy but has not noted significant improvement in his symptoms. When seen in the clinic yesterday was noted to be in atrial fibrillation and was started on metoprolol for rate control. He is been unaware that he is been in the atrial fibrillation and since he is been in the emergency department has had rates between 100-140. He is had one previous episode of atrial fibrillation and did undergo electrical cardioversion. He also has undergone an ablation procedure for management of his atrial fibrillation, this was approximately 4 years ago. He has known coronary artery disease as well as congestive heart failure. He started the metoprolol today and felt more weak and lightheaded so he presented to the emergency department. Initially his blood pressure was low and he has been given IV fluids for hydration. With this intervention his blood pressure has improved, it's likely that the new therapy with metoprolol caused decrease in blood pressure as well as his increased symptoms. He has been on long-term oral anticoagulation with Eliquis because of the atrial fibrillation. He denies any symptoms of chest pain or pressure, initial troponin level is within normal range. After discussion with the patient decision was made to proceed with attempted electrical cardioversion. Risks and goals of procedure reviewed with the patient and he gave informed consent to proceed. 2 attempts were made at cardioversion using 200 J of energy, both attempts were successful in transiently converting him to sinus rhythm but he quickly went back into atrial fibrillation with rapid ventricular response. For this reason, we'll plan to admit for further management and rate control. On admission he was started on IV digoxin, with poor result in rate control. He was not initially placed on IV diltiazem because of hypotension and very limited amounts of the drug available. Following day he was placed on low-dose beta ace therapy in addition to the digoxin at 12.5 mg by mouth every 6 hours. This was successful in controlling rate at rest but he continued to have significant elevation in heart rate with activity. Metoprolol dose was changed to 25 mg once daily in the long-acting form and he was started on diltiazem 30 mg every 6 hours. This did result in much improved rate control with even activity. On the morning of discharge his digoxin level was therapeutic at 0.8. He will remain on long-term oral anticoagulation with the Eliquis. Lisinopril will be discontinued on discharge. He will be on metoprolol XL 25 mg by mouth daily, digoxin 0.25 mg by mouth daily, and diltiazem CD 120 mg by mouth daily. Follow-up appointment will be scheduled with primary care provider within one week, digoxin level and BMP should be obtained at the time of follow-up appointment. Follow-up appointment will also be scheduled with cardiology. Activity will be as tolerated and he will resume his usual diet. - Patient Instructions Diet: Heart Healthy Diet Activity: As Tolerated Other/Special Instructions: Please schedule follow-up appointment with primary care provider within one week. BMP and digoxin level should be obtained at the time of follow-up appointment. Please schedule follow-up appointment with tunnel elastic operator chainstitch. - Discharge Plan Prescriptions/Med Rec: Digoxin 250 mcg PO DAILY #30 tablet Diltiazem [Cardizem CD] 120 mg PO DAILY #30 cap.cd Metoprolol Succinate [Toprol XL] 25 mg PO DAILY #30 tab.er Home Medications: Home Meds Cetirizine [ZyrTEC] 10 mg PO DAILY PRN 10/28/15 [History] Sertraline [Zoloft] 25 mg PO DAILY 10/28/15 [History] Simvastatin [Zocor] 20 mg PO BEDTIME 10/28/15 [History] Ezetimibe [Zetia] 5 mg PO DAILY 10/29/15 [History] Omeprazole Magnesium [Prilosec Otc] 40 mg PO DAILY PRN 10/29/15 [History] Levothyroxine Sodium [Synthroid] 150 mcg PO DAILY 10/30/15 [History] Gabapentin [Neurontin] 600 mg PO TID 01/07/16 [History] Aspirin [Ecotrin] 325 mg PO DAILY 03/09/16 [History] Spironolactone [Aldactone] 25 mg PO DAILY 04/21/16 [History] Fluticasone Propionate [Flonase Allergy Relief] 2 spray NS DAILY PRN 05/24/16 [ History] Nystatin [Nystatin Crm] 1 applic TOP BID PRN 05/24/16 [History] Apixaban [Eliquis] 5 mg PO BID 07/14/17 [History] DULoxetine [Cymbalta] 20 mg PO DAILY 07/14/17 [History] Sennosides/Docusate Sodium [Sennosides-Docusate Sodium] 1 cap PO BID 07/14/17 [ History] Triamcinolone Acetonide [Kenalog 0.1% Crm] 1 dose TOP BID PRN 07/14/17 [History] Albuterol [Ventolin HFA] 1 - 2 puff INH ASDIRECTED 08/31/17 [History] Amoxicillin/Clavulanate K [Augmentin 500-125 MG] 1 tab PO TID 08/31/17 [History] predniSONE [Deltasone] 40 mg PO DAILY 08/31/17 [History] Digoxin 250 mcg PO DAILY #30 tablet 09/03/17 [Rx] Diltiazem [Cardizem CD] 120 mg PO DAILY #30 cap.cd 09/03/17 [Rx] Metoprolol Succinate [Toprol XL] 25 mg PO DAILY #30 tab.er 09/03/17 [Rx] Referrals: Antonio Morales, ICT DEVELOPMENT MANAGER [Nurse Practitioner] - - Discharge Summary/Plan Comment DC Time >30 min.: No - Patient Data Vitals - Most Recent: Last Vital Signs Temp 96.9 F 09/03/17 07:51 Pulse 79 09/03/17 12:26 Resp 20 09/03/17 10:00 BP 111/75 09/03/17 12:26 Pulse Ox 97 09/03/17 10:00 Weight - Most Recent: 211 lb 5 oz I&O - Last 24 hours: Intake & Output 09/02/17 09/03/17 09/03/17 22:59 06:59 14:59 Intake Total 360 360 Output Total 525 1450 Balance -165 -1090 Lab Results - Last 24 hrs: Laboratory Results - last 24 hr 09/03/17 Range/Units 05:40 Sodium 140 (140-148) mmol/L Potassium 4.2 (3.6-5.2) mmol/L Chloride 104 (100-108) mmol/L Carbon Dioxide 28 (21-32) mmol/L Anion Gap 7.8 (5.0-14.0) mmol/L BUN 16 (7-18) mg/dL Creatinine 1.1 (0.8-1.3) mg/dL Est Cr Clr Drug Dosing 65.60 mL/min Estimated GFR (MDRD) > 60 (>60) Glucose 101 (74-106) mg/dL Calcium 8.8 (8.5-10.1) mg/dL Magnesium 1.9 (1.8-2.4) mg/dL Digoxin 0.81 L (0.90-2.00) ng/mL Med Orders - Current: Current Medications Acetaminophen (Tylenol) 650 mg PO Q4H PRN PRN Reason: Pain (Mild 1-3)/fever Last Admin: 09/03/17 02:08 Dose: 650 mg Albuterol (Ventolin Hfa) 0 gm INH Q4H [facility] Last Admin: 09/03/17 09:43 Dose: Not Given Albuterol (Proventil Neb Soln) 2.5 mg NEB Q4H PRN PRN Reason: Shortness Of Breath/wheezing Amoxicillin/Clavulanate Potassium (Augmentin 500 Mg\125 Mg) 1 tab PO TID [facility] Last Admin: 09/03/17 09:31 Dose: 1 tab Apixaban (Eliquis) 5 mg PO BID [facility] Last Admin: 09/03/17 09:30 Dose: 5 mg Aspirin (Ecotrin) 325 mg PO DAILY [facility] Last Admin: 09/03/17 09:32 Dose: 325 mg Diltiazem HCl (Cardizem Cd) 120 mg PO DAILY [facility] Last Admin: 09/03/17 12:26 Dose: 120 mg Duloxetine HCl (Cymbalta) 20 mg PO DAILY [facility] Last Admin: 09/03/17 09:31 Dose: 20 mg Ezetimibe (Zetia) 5 mg PO DAILY [facility] Last Admin: 09/03/17 09:36 Dose: 5 mg Fluticasone Propionate (Flonase) 0 gm VIANCA DAILY [facility] Last Admin: 09/03/17 09:36 Dose: 2 spray Gabapentin (Neurontin) 600 mg PO TID [facility] Last Admin: 09/03/17 09:29 Dose: 600 mg Levothyroxine Sodium (Synthroid) 150 mcg PO DAILY@0730 [facility] Last Admin: 09/03/17 07:49 Dose: 150 mcg Magnesium Hydroxide (Milk Of Magnesia) 30 ml PO Q12H PRN PRN Reason: Constipation Metoprolol Succinate (Toprol Xl) 25 mg PO DAILY [facility] Last Admin: 09/03/17 09:53 Dose: 25 mg Ondansetron HCl (Zofran) 4 mg IV Q4H PRN PRN Reason: Nausea/Vomiting Oxycodone HCl (Oxycodone) 5 mg PO Q4H PRN PRN Reason: Pain (moderate 4-6) Pantoprazole Sodium (Protonix) 40 mg PO DAILY PRN PRN Reason: Heartburn Last Admin: 09/02/17 13:40 Dose: 40 mg Polyethylene Glycol (Miralax) 17 gm PO DAILY PRN PRN Reason: Constipation Senna/Docusate Sodium (Senna Plus) 1 tab PO BID [facility] Last Admin: 09/03/17 09:31 Dose: 1 tab Sertraline HCl (Zoloft) 25 mg PO DAILY [facility] Last Admin: 09/03/17 09:30 Dose: 25 mg Simvastatin (Zocor) 20 mg PO BEDTIME [facility] Last Admin: 09/02/17 21:06 Dose: 20 mg Sodium Chloride (Saline Flush) 10 ml FLUSH ASDIRECTED PRN PRN Reason: Keep Vein Open Spironolactone (Aldactone) 25 mg PO DAILY [facility] Last Admin: 09/03/17 09:32 Dose: 25 mg Discontinued Medications Digoxin (Lanoxin) 250 mcg IVPUSH ONETIME ONE Stop: 08/31/17 19:34 Last Admin: 08/31/17 19:56 Dose: 250 mcg Digoxin (Lanoxin) 250 mcg IVPUSH ONETIME ONE Stop: 09/01/17 01:01 Last Admin: 09/01/17 01:16 Dose: Not Given Digoxin (Lanoxin) 250 mcg PO ONETIME ONE Stop: 09/01/17 09:01 Last Admin: 09/01/17 08:57 Dose: 250 mcg Digoxin (Lanoxin) 250 mcg PO ONETIME ONE Stop: 09/01/17 15:01 Last Admin: 09/01/17 16:16 Dose: 250 mcg Digoxin (Lanoxin) 250 mcg PO ONETIME ONE Stop: 09/02/17 09:01 Last Admin: 09/02/17 08:56 Dose: 250 mcg Digoxin (Lanoxin) 250 mcg PO ONETIME ONE Stop: 09/02/17 20:01 Last Admin: 09/02/17 21:07 Dose: 250 mcg Diltiazem HCl (Cardizem) 30 mg PO Q6HR [facility] Last Admin: 09/03/17 09:30 Dose: 30 mg Sodium Chloride (Normal Saline) 1,000 mls @ 200 mls/hr IV ASDIRECTED [facility] Last Admin: 08/31/17 18:31 Dose: 25 mls/hr Sodium Chloride (Normal Saline) 1,000 mls @ 125 mls/hr IV ASDIRECTED [facility] Last Admin: 09/01/17 09:02 Dose: 125 mls/hr Metoprolol Tartrate (Lopressor) 12.5 mg PO BID [facility] Last Admin: 09/01/17 11:35 Dose: 12.5 mg Metoprolol Tartrate (Lopressor) 12.5 mg PO Q6H [facility] Last Admin: 09/02/17 09:00 Dose: 12.5 mg Propofol (Diprivan 20 Ml) Confirm Administered Dose 200 mg .ROUTE .STK-MED ONE Stop: 08/31/17 18:41 - Exam General: Reports: Alert, Oriented, Cooperative, No Acute Distress Lungs: Reports: Clear to Auscultation, Normal Respiratory Effort Cardiovascular: Reports: Regular Rate, No Murmurs, Irregular Rhythm GI/Abdominal Exam: Soft, Non-Tender, No Organomegaly, No Distention Extremities: Non-Tender, No Pedal Edema Skin: Reports: Warm, Dry, Intact *Q Meaningful Use (DIS) - VTE *Q VTE Pharmacological Contraindications *Q: High INR Value
[2017-09-03 17:47] VITALS: BP 121/75
== END 2017-09-03 16:51 | disposition home or self-care (01) | DRG 309 ==
LOC: JP.ED 14:40 → JP.ICU 19:34
PROVIDERS: ADMIT Hospitalist; ATTEND Hospitalist
PROC: 5A2204Z Restoration of Cardiac Rhythm, Single (ICD-10-PCS; principal; 2017-08-31)
DX: I48.91 Unspecified atrial fibrillation (principal); I50.22 Chronic systolic (congestive) heart failure; I95.9 Hypotension, unspecified; T44.7X5A Adverse effect of beta-adrenoreceptor antagonists, initial encounter; R53.1 Weakness; Y92.009 Unspecified place in unspecified non-institutional (private) residence as the place of occurrence of the external cause; R42 Dizziness and giddiness; E03.9 Hypothyroidism, unspecified; I42.9 Cardiomyopathy, unspecified; I69.928 Other speech and language deficits following unspecified cerebrovascular disease; I25.10 Atherosclerotic heart disease of native coronary artery without angina pectoris; Z86.718 Personal history of other venous thrombosis and embolism; E78.00 Pure hypercholesterolemia, unspecified; Z95.1 Presence of aortocoronary bypass graft; F32.9 Major depressive disorder, single episode, unspecified; Z85.46 Personal history of malignant neoplasm of prostate; Z92.3 Personal history of irradiation; K21.9 Gastro-esophageal reflux disease without esophagitis; I25.2 Old myocardial infarction; Z95.0 Presence of cardiac pacemaker; Z95.5 Presence of coronary angioplasty implant and graft; H54.7 Unspecified visual loss; H91.90 Unspecified hearing loss, unspecified ear; Z79.82 Long term (current) use of aspirin; Z79.01 Long term (current) use of anticoagulants; Z79.52 Long term (current) use of systemic steroids; Z88.1 Allergy status to other antibiotic agents; Z91.041 Radiographic dye allergy status; Z91.013 Allergy to seafood; Z88.8 Allergy status to other drugs, medicaments and biological substances
CPT/HCPCS: 36415; 71045 ×2; 80053; 81001; 83880; 84484; 85025; 92960; 93005; 96360; 96361; 99285; J2704; J7040 ×2; 80048; 80162; 83735; 84443; A9270-GY; J1160

== ENCOUNTER 2020-08-24 14:08 | Inpatient (IN) | payer BC, MEDICARE, OTHER ==
[2020-08-24] MEDS ORDERED: Sodium Chloride 0.9% 1,000 ML IV SCH ×2 (15:30→17:30)
[2020-08-24] MEDS ORDERED: HYDROmorphone 0.5 MG/0.5 ML Syringe IVPUSH ONE (15:31)
[2020-08-24] MEDS ORDERED: Ondansetron 4 MG/2 ML SDV IVPUSH ONE (15:31)
--- NOTE | 2020-08-24 15:32 | EDM.PDOC ---
ED HPI GENERAL MEDICAL PROBLEM - General Chief Complaint: Abdominal Pain Stated Complaint: RT ABD PAIN Time Seen by Provider: 08/24/20 15:31 Source of Information: Reports: Patient History Limitations: Reports: No Limitations - History of Present Illness INITIAL COMMENTS - FREE TEXT/NARRATIVE: pt has been ill for 2-3 days at home. He has not been vomiting. He has been having loose stools. He states at first they did look black. He hasbeen having very severe abdomanal pain. He has not been able to get comfortable today. Onset: Gradual, Other ( last 2 days. ) Duration: Hour(s): Location: Reports: Abdomen Associated Symptoms: Reports: Diaphoresis, Loss of Appetite - Related Data Allergies Allergy/AdvReac Type Severity Reaction Status Date / Time Iodinated Contrast Media Allergy Hives Verified 07/18/17 08:55 [Iodinated Contrast Media - IV Dye] seafood Allergy Swelling Uncoded 07/18/17 08:55 Home Meds: Home Meds Cetirizine [ZyrTEC] 10 mg PO DAILY PRN 10/28/15 [History] Sertraline [Zoloft] 25 mg PO DAILY 10/28/15 [History] Simvastatin [Zocor] 20 mg PO BEDTIME 10/28/15 [History] Ezetimibe [Zetia] 5 mg PO DAILY 10/29/15 [History] Omeprazole Magnesium [Prilosec Otc] 40 mg PO DAILY PRN 10/29/15 [History] Levothyroxine Sodium [Synthroid] 150 mcg PO DAILY 10/30/15 [History] Gabapentin [Neurontin] 600 mg PO TID 01/07/16 [History] Aspirin [Ecotrin EC] 325 mg PO DAILY 03/09/16 [History] Spironolactone [Aldactone] 25 mg PO DAILY 04/21/16 [History] Fluticasone Propionate [Flonase Allergy Relief] 2 spray NS DAILY PRN 05/24/16 [History] Nystatin [Nystatin Crm] 1 applic TOP BID PRN 05/24/16 [History] Apixaban [Eliquis] 5 mg PO BID 07/14/17 [History] DULoxetine [Cymbalta] 20 mg PO DAILY 07/14/17 [History] Triamcinolone Acetonide [Kenalog 0.1% Crm] 1 dose TOP BID PRN 07/14/17 [History] Albuterol [Ventolin HFA] 1 - 2 puff INH ASDIRECTED 08/31/17 [History] Gabapentin [Neurontin] 1 tab PO TID 08/24/20 [History] Hydrocodone/Acetaminophen [Hydrocodon-Acetaminophen 5-325] 1 tab PO TID PRN 08/24/20 [History] Oxybutynin Chloride [Ditropan Xl] 2 tab PO DAILY 08/24/20 [History] Sotalol [Betapace] 1 tab PO BID 08/24/20 [History] lisinopriL [Lisinopril] 1 tab PO DAILY 08/24/20 [History] Past Medical History HEENT History: Reports: Cataract, Hard of Hearing, Impaired Vision, Other (See Below) Other HEENT History: reading glasses Cardiovascular History: Reports: Afib, Blood Clots/VTE/DVT, CAD, Cardiomyopathy, Heart Failure, High Cholesterol, LA, Pacemaker, Stents, Other (See Below) Other Cardiovascular History: Artial flutter Respiratory History: Reports: Other (See Below) Other Respiratory History: inhalers for seasonal allergies Gastrointestinal History: Reports: Colon Polyp, GERD, Other (See Below) Other Gastrointestinal History: bowel inconsistency Genitourinary History: Reports: BPH, Prostate Disorder Musculoskeletal History: Reports: Arthritis, Fracture, Fibromyalgia, Gout Other Musculoskeletal History: R. Leg/ankle, L. Thumb/Finger Neurological History: Reports: CVA, Speech Problems Other Neuro History: right sided paralysis Psychiatric History: Reports: Depression Endocrine/Metabolic History: Reports: Hypothyroidism Other Endocrine/Metabolic History: thyroid disease unknown Hematologic History: Reports: Anticoagulation Therapy, Blood Transfusion(s) Oncologic (Cancer) History: Reports: None, Prostate Dermatologic History: Reports: Cellulitis Other Dermatologic History: hx of cellulitis L leg - Infectious Disease History Infectious Disease History: Reports: Chicken Pox, Measles, Mumps - Past Surgical History HEENT Surgical History: Reports: Cataract Surgery, Tonsillectomy Cardiovascular Surgical History: Reports: Cardiac Ablation, Coronary Artery Bypass, Other (See Below) Other Cardiovascular Surgeries/Procedures: triple heart bypass, pacer/defibrillator Respiratory Surgical History: Reports: None GI Surgical History: Reports: Colonoscopy Other GI Surgeries/Procedures: gallbladder removed about 6 wks ago here Male Surgical History: Reports: Prostate Biopsy, Other (See Below) Other Male Surgeries/Procedures: radiation seeds for prostate cancer Endocrine Surgical History: Reports: None Neurological Surgical History: Reports: None Musculoskeletal Surgical History: Reports: Other (See Below) Other Musculoskeletal Surgeries/Procedures:: Surgery for fractures Oncologic Surgical History: Reports: None Dermatological Surgical History: Reports: Skin Biopsy Social & Family History - Tobacco Use Tobacco Use Status *Q: Never Tobacco User - Caffeine Use Caffeine Use: Reports: Coffee ED ROS GENERAL - Review of Systems Review Of Systems: See Below Constitutional: Reports: Weakness, Decreased Appetite HEENT: Reports: No Symptoms Respiratory: Reports: No Symptoms Cardiovascular: Reports: No Symptoms Endocrine: Reports: No Symptoms GI/Abdominal: Reports: Abdominal Pain, Diarrhea, Decreased Appetite, Distension : Reports: No Symptoms Musculoskeletal: Reports: No Symptoms Skin: Reports: No Symptoms ED EXAM, GI/ABD - Physical Exam Exam: See Below Text/Narrative:: pt arrived with severe abdomanal pain. He has been ill for several days at home. Exam Limited By: No Limitations General Appearance: Alert, Anxious, Severe Distress Ears: Normal TMs Nose: Normal Inspection Throat/Mouth: Normal Inspection Head: Atraumatic Neck: Normal Inspection Respiratory/Chest: No Respiratory Distress Cardiovascular: Regular Rate, Rhythm GI/Abdominal Exam: Guarding, Rigid, Rebound, Tender (Male) Exam: Deferred Rectal (Males) Exam: Deferred Back Exam: Normal Inspection Extremities: Normal Inspection Neurological: Alert, Oriented, Normal Cognition Psychiatric: Anxious Course - Vital Signs Last Recorded V/S: Last Vital Signs Temp 36.3 C 08/24/20 15:27 Pulse 66 08/24/20 15:27 Resp 14 08/24/20 15:27 BP 119/88 08/24/20 15:27 Pulse Ox 97 08/24/20 15:27 - Orders/Labs/Meds Orders: Active Orders 24 hr Category Date Time Status Sodium Chloride 0.9% [Normal Saline] 1,000 ml Med 08/24/20 15:30 Active IV ASDIRECTED Medication Orders Sodium Chloride (Normal Saline) 1,000 mls @ 999 mls/hr IV ASDIRECTED [facility] Last Admin: 08/24/20 15:45 Dose: 999 mls/hr Documented by: GIOVANNY Labs: Laboratory Tests 08/24/20 08/24/20 08/24/20 Range/Units 15:37 15:40 15:40 WBC 8.7 (4.5-11.0) K/uL RBC 4.98 (4.30-5.90) M/uL Hgb 15.0 (12.0-15.0) g/dL Hct 43.3 (40.0-54.0) % MCV 87 (80-98) fL MCH 30 (27-31) pg MCHC 35 (32-36) % Plt Count 173 (150-400) K/uL Neut % (Auto) 78 H (36-66) % Lymph % (Auto) 12 L (24-44) % [place] % (Auto) 10 H (2-6) % Eos % (Auto) 0 L (2-4) % Baso % (Auto) 0 (0-1) % Sodium (140-148) mmol/L Potassium (3.6-5.2) mmol/L Chloride (100-108) mmol/L Carbon Dioxide (21-32) mmol/L Anion Gap (5.0-14.0) mmol/L BUN (7-18) mg/dL Creatinine (0.8-1.3) mg/dL Est Cr Clr Drug Dosing mL/min Estimated GFR (MDRD) (>60) Glucose (74-106) mg/dL Calcium (8.5-10.1) mg/dL Total Bilirubin (0.2-1.0) mg/dL AST (15-37) U/L ALT (12-78) U/L Alkaline Phosphatase (46-116) U/L C-Reactive Protein 21.04 H (0.0-0.3) mg/dL Total Protein (6.4-8.2) g/dL Albumin (3.4-5.0) g/dL Globulin (2.3-3.5) g/dL Albumin/Globulin Ratio (1.2-2.2) Amylase (25-115) U/L Lipase (73-393) U/L Urine Color (YELLOW) Urine Appearance (CLEAR) Urine pH (5.0-8.0) Ur Specific [place] (1.008-1.030) Urine Protein (NEGATIVE) mg/dL Urine Glucose (UA) (NEGATIVE) mg/dL Urine Ketones (NEGATIVE) mg/dL Urine Occult Blood (NEGATIVE) Urine Nitrite (NEGATIVE) Urine Bilirubin (NEGATIVE) Urine Urobilinogen (0.2-1.0) EU/dL Ur Leukocyte Esterase (NEGATIVE) Urine RBC (0-5) Urine WBC (0-5) Ur Epithelial Cells Amorphous Sediment Urine Bacteria Urine Mucus Digoxin < 0.20 L (0.90-2.00) ng/mL 08/24/20 08/24/20 08/24/20 Range/Units 15:40 15:40 16:20 WBC (4.5-11.0) K/uL RBC (4.30-5.90) M/uL Hgb (12.0-15.0) g/dL Hct (40.0-54.0) % MCV (80-98) fL MCH (27-31) pg MCHC (32-36) % Plt Count (150-400) K/uL Neut % (Auto) (36-66) % Lymph % (Auto) (24-44) % [place] % (Auto) (2-6) % Eos % (Auto) (2-4) % Baso % (Auto) (0-1) % Sodium 138 L (140-148) mmol/L Potassium 4.6 (3.6-5.2) mmol/L Chloride 101 (100-108) mmol/L Carbon Dioxide 26 (21-32) mmol/L Anion Gap 15.6 H (5.0-14.0) mmol/L BUN 13 (7-18) mg/dL Creatinine 1.1 (0.8-1.3) mg/dL Est Cr Clr Drug Dosing 62.68 mL/min Estimated GFR (MDRD) > 60 (>60) Glucose 148 H (74-106) mg/dL Calcium 9.2 (8.5-10.1) mg/dL Total Bilirubin 1.4 H (0.2-1.0) mg/dL AST 21 (15-37) U/L ALT 19 (12-78) U/L Alkaline Phosphatase 46 (46-116) U/L C-Reactive Protein (0.0-0.3) mg/dL Total Protein 7.3 (6.4-8.2) g/dL Albumin 3.4 (3.4-5.0) g/dL Globulin 3.9 H (2.3-3.5) g/dL Albumin/Globulin Ratio 0.9 L (1.2-2.2) Amylase 47 (25-115) U/L Lipase 55 L (73-393) U/L Urine Color [place] A (YELLOW) Urine Appearance Clear (CLEAR) Urine pH 6.0 (5.0-8.0) Ur Specific [place] 1.025 (1.008-1.030) Urine Protein 100 H (NEGATIVE) mg/dL Urine Glucose (UA) Negative (NEGATIVE) mg/dL Urine Ketones 40 H (NEGATIVE) mg/dL Urine Occult Blood Trace-lysed H (NEGATIVE) Urine Nitrite Negative (NEGATIVE) Urine Bilirubin Small H (NEGATIVE) Urine Urobilinogen 1.0 (0.2-1.0) EU/dL Ur Leukocyte Esterase Negative (NEGATIVE) Urine RBC 0-5 (0-5) Urine WBC Not seen (0-5) Ur Epithelial Cells Rare Amorphous Sediment Rare Urine Bacteria Few Urine Mucus Rare Digoxin (0.90-2.00) ng/mL Meds: Medications Generic Name Dose Route Start Last Admin Trade Name Freq PRN Reason Stop Dose Admin Sodium Chloride 1,000 mls @ 999 mls/hr 08/24/20 15:30 08/24/20 15:45 Normal Saline IV 999 mls/hr ASDIRECTED [facility] Administration Discontinued Medications Generic Name Dose Route Start Last Admin Trade Name Freq PRN Reason Stop Dose Admin Hydromorphone HCl 0.5 mg 08/24/20 15:31 08/24/20 15:45 Hydromorphone 0.5 Mg/0.5 Ml Syringe IVPUSH 08/24/20 15:32 0.5 mg ONETIME ONE Administration Ondansetron HCl 4 mg 08/24/20 15:31 08/24/20 15:44 Ondansetron 4 Mg/2 Ml Sdv IVPUSH 08/24/20 15:32 4 mg ONETIME ONE Administration - Re-Assessments/Exams Free Text/Narrative Re-Assessment/Exam: 08/24/20 16:24 pt has a normal wbc. He has a very high crp greater than 21. 08/24/20 17:10 cat scan of the abdoman showed a acute appendicitis. Departure - Departure Time of Disposition: 17:02 Disposition: Admitted As Inpatient 64 Condition: Fair Clinical Impression: Acute appendicitis - Discharge Information Referrals: Antonio Morales DIRECTOR OF ANNUAL GIVING [Primary Care Provider] - Forms: ED Department Discharge Care Plan Goals: admit to Dr Gutierrez Sepsis Event Note (ED) - Evaluation Sepsis Screening Result: No Definite Risk - Focused Exam Vital Signs: Vital Signs Temp Pulse Resp BP Pulse Ox 08/24/20 15:27 36.3 C 66 14 119/88 97 - My Orders Last 24 Hours: My Active Orders 08/24/20 15:30 Sodium Chloride 0.9% [Normal Saline] 1,000 ml IV ASDIRECTED - Assessment/Plan Last 24 Hours: My Active Orders 08/24/20 15:30 Sodium Chloride 0.9% [Normal Saline] 1,000 ml IV ASDIRECTED
--- NOTE | 2020-08-24 16:51 | CRLCT ---
CT abdomen/pelvis Examination: CT Abdomen/Pelvis Indication: Right lower quadrant pain Technique: Contiguous axial CT images of the abdomen and pelvis were acquired without IV contrast. Coronal and sagittal reformations generated and reviewed. Comparison: 07/13/2016 Findings: Lack of IV contrast limits evaluation of the solid abdominal organs. Appendix is dilated measuring up to 1.5 cm in diameter. There is stranding in the adjacent fat. There is no adjacent fluid collection. No free air. There is an appendicolith at the orifice. This consistent with acute appendicitis. There is no CT evidence of perforation. No bowel obstruction noted. Kidneys/ureters/bladder: No hydronephrosis or nephrolithiasis. Ureters are nondistended with no suspicious calcifications along the length. Urinary bladder unremarkable. Prostatic radiation seeds. Small bilateral fat containing inguinal hernias. Liver/bile ducts/gallbladder: Unremarkable noncontrast appearance of liver. Status post cholecystectomy. Pancreas: Unremarkable. Spleen: Unremarkable. Adrenals: Unremarkable. Lymph nodes: No enlarged mesenteric, retroperitoneal, pelvic, or inguinal lymphadenopathy. Vasculature: No aortic aneurysm. IVC filter in place. Lower chest: Mild bibasilar pulmonary opacities likely atelectasis. Extensive coronary artery calcifications. Pacemaker/AICD in right ventricle. Prior median sternotomy. Bones: No acute or aggressive appearing osseous lesions. Impression: 1. Acute appendicitis without CT evidence of perforation. Please note that all CT scans at this facility use dose modulation, iterative reconstruction, and/or weight-based dosing when appropriate to reduce radiation dose to as low as reasonably achievable. Dictated by Ramin De MD @ 08/24/2020 4:49:[address] Ramin De @ Aug 24 2020 4:49PM
[2020-08-24] MEDS ORDERED: HYDROmorphone 1 MG/ML Syringe IVPUSH ONE (17:23)
--- NOTE | 2020-08-24 18:13 | PCM.HP.2 ---
H&P History of Present Illness - General Date of Service: 08/24/20 Admit Problem/Dx: Admission Diagnosis/Problem Admission Diagnosis/Problem Acute appendicitis Source of Information: Patient, Provider History Limitations: Reports: No Limitations - History of Present Illness Initial Comments - Free Text/Narative: CC: My side hurt and kept getting worse HPI: Lemuel presents to the emergency room today with 2 days of progressive right-sided abdominal pain. He describes a severe burning pain that initially started in the right leg and buttocks area. The pain then spread up the right side of the abdomen to below the rib cage and also anteriorly. The pain has steadily been getting worse despite use of hydrocodone with acetaminophen at home. The pain is worse when he moves around and better when he lays on his right side. He has had some nausea but no vomiting. He is not aware of any fevers or chills. Appetite has been reduced and he has had very little to eat in the past 2 days. No significant change in bowel or bladder habits though these have been inconsistent at baseline. He does not feel short of breath. He is able to get around at home without a cane most of the time. No complaints of exertional dyspnea or chest pain and he is able to perform all of his ADLs without limitation. He has not previously had difficulty with anesthesia at the time of surgery. Work-up in the emergency room revealed evidence for acute appendicitis. Surgical intervention is warranted but the patient is on apixaban and surgery will have to be delayed until this is out of his system. - Related Data Allergies/Adverse Reactions: Allergies Allergy/AdvReac Type Severity Reaction Status Date / Time Iodinated Contrast Media Allergy Hives Verified 07/18/17 08:55 [Iodinated Contrast Media - IV Dye] seafood Allergy Swelling Uncoded 07/18/17 08:55 Home Medications: Home Meds Cetirizine [ZyrTEC] 10 mg PO DAILY PRN 10/28/15 [History] Sertraline [Zoloft] 25 mg PO DAILY 10/28/15 [History] Simvastatin [Zocor] 20 mg PO BEDTIME 10/28/15 [History] Ezetimibe [Zetia] 5 mg PO DAILY 10/29/15 [History] Omeprazole Magnesium [Prilosec Otc] 40 mg PO DAILY PRN 10/29/15 [History] Levothyroxine Sodium [Synthroid] 150 mcg PO DAILY 10/30/15 [History] Gabapentin [Neurontin] 600 mg PO TID 01/07/16 [History] Aspirin [Ecotrin EC] 325 mg PO DAILY 03/09/16 [History] Spironolactone [Aldactone] 25 mg PO DAILY 04/21/16 [History] Fluticasone Propionate [Flonase Allergy Relief] 2 spray NS DAILY PRN 05/24/16 [History] Nystatin [Nystatin Crm] 1 applic TOP BID PRN 05/24/16 [History] Apixaban [Eliquis] 5 mg PO BID 07/14/17 [History] DULoxetine [Cymbalta] 20 mg PO DAILY 07/14/17 [History] Triamcinolone Acetonide [Kenalog 0.1% Crm] 1 dose TOP BID PRN 07/14/17 [History] Albuterol [Ventolin HFA] 1 - 2 puff INH ASDIRECTED 08/31/17 [History] Gabapentin [Neurontin] 1 tab PO TID 08/24/20 [History] Hydrocodone/Acetaminophen [Hydrocodon-Acetaminophen 5-325] 1 tab PO TID PRN 08/24/20 [History] Oxybutynin Chloride [Ditropan Xl] 2 tab PO DAILY 08/24/20 [History] Sotalol [Betapace] 1 tab PO BID 08/24/20 [History] lisinopriL [Lisinopril] 1 tab PO DAILY 08/24/20 [History] Past Medical History HEENT History: Reports: Cataract, Hard of Hearing, Impaired Vision, Other (See Below) Other HEENT History: reading glasses Cardiovascular History: Reports: Afib, Blood Clots/VTE/DVT, CAD, Cardiomyopathy, Heart Failure, High Cholesterol, [place], Pacemaker, Stents, Other (See Below) Other Cardiovascular History: Artial flutter Respiratory History: Reports: Other (See Below) Other Respiratory History: inhalers for seasonal allergies Gastrointestinal History: Reports: Colon Polyp, GERD, Other (See Below) Other Gastrointestinal History: bowel inconsistency Genitourinary History: Reports: BPH, Prostate Disorder Musculoskeletal History: Reports: Arthritis, Fracture, Fibromyalgia, Gout Other Musculoskeletal History: R. Leg/ankle, L. Thumb/Finger Neurological History: Reports: CVA, Speech Problems Other Neuro History: right sided paralysis Psychiatric History: Reports: Depression Endocrine/Metabolic History: Reports: Hypothyroidism Other Endocrine/Metabolic History: thyroid disease unknown Hematologic History: Reports: Anticoagulation Therapy, Blood Transfusion(s) Oncologic (Cancer) History: Reports: None, Prostate Dermatologic History: Reports: Cellulitis Other Dermatologic History: hx of cellulitis L leg - Infectious Disease History Infectious Disease History: Reports: Chicken Pox, Measles, Mumps - Past Surgical History HEENT Surgical History: Reports: Cataract Surgery, Tonsillectomy Cardiovascular Surgical History: Reports: Cardiac Ablation, Coronary Artery Bypass, Other (See Below) Other Cardiovascular Surgeries/Procedures: triple heart bypass, pacer/defibrillator Respiratory Surgical History: Reports: None GI Surgical History: Reports: Colonoscopy Other GI Surgeries/Procedures: gallbladder removed about 6 wks ago here Male Surgical History: Reports: Prostate Biopsy, Other (See Below) Other Male Surgeries/Procedures: radiation seeds for prostate cancer Endocrine Surgical History: Reports: None Neurological Surgical History: Reports: None Musculoskeletal Surgical History: Reports: Other (See Below) Other Musculoskeletal Surgeries/Procedures:: Surgery for fractures Oncologic Surgical History: Reports: None Dermatological Surgical History: Reports: Skin Biopsy Social & Family History - Family History Cardiac: Denies: CAD - Tobacco Use Tobacco Use Status *Q: Never Tobacco User - Caffeine Use Caffeine Use: Reports: Coffee - Alcohol Use Alcohol Use History: Yes Alcohol Use in Last Twelve Months: No H&P Review of Systems - Review of Systems: Review Of Systems: See Below Free Text/Narrative: A complete 12 point review of systems was obtained. Pertinent positives and negatives are noted in the history of present illness. All other systems were reviewed and were negative except as noted. Exam - Exam Exam: See Below - Vital Signs Vital Signs: Last Vital Signs Temp 36.3 C 08/24/20 15:27 Pulse 66 08/24/20 15:27 Resp 14 08/24/20 15:27 BP 119/88 08/24/20 15:27 Pulse Ox 97 08/24/20 15:27 Weight: 98.43 kg - Exam Quality Assessment: No: Supplemental Oxygen General: Alert, Oriented, Cooperative, Mild Distress HEENT: Conjunctiva Clear. No: Mucosa Moist & [place] (dry), Scleral Icterus Neck: Supple, Trachea Midline. No: Lymphadenopathy Lungs: Clear to Auscultation, Normal Respiratory Effort Cardiovascular: Regular Rate, Irregular Rhythm, Systolic Murmur GI/Abdominal Exam: No Distention, Guarding, Tender (severe right side ). No: Normal Bowel Sounds (hypoactive) Extremities: No Pedal Edema. No: Increased Warmth Peripheral Pulses: 1+: Dorsalis Pedis (L), Dorsalis Pedis (R) Skin: Warm, Dry Neuro Extensive - Mental Status: Alert, Oriented x3, Nl Response to Commands Neuro Extensive - Motor, Sensory, Reflexes: Dysarthria (2/2 speech difficulties from old stroke ), Abnormal Motor (chronic right sided weakness ). No: Tremor Psychiatric: Alert, Normal Affect - Patient Data Lab Results Last 24 hrs: Laboratory Results - last 24 hr 08/24/20 08/24/20 08/24/20 Range/Units 15:37 15:40 15:40 WBC 8.7 (4.5-11.0) K/uL RBC 4.98 (4.30-5.90) M/uL Hgb 15.0 (12.0-15.0) g/dL Hct 43.3 (40.0-54.0) % MCV 87 (80-98) fL MCH 30 (27-31) pg MCHC 35 (32-36) % Plt Count 173 (150-400) K/uL Neut % (Auto) 78 H (36-66) % Lymph % (Auto) 12 L (24-44) % [place] % (Auto) 10 H (2-6) % Eos % (Auto) 0 L (2-4) % Baso % (Auto) 0 (0-1) % Sodium (140-148) mmol/L Potassium (3.6-5.2) mmol/L Chloride (100-108) mmol/L Carbon Dioxide (21-32) mmol/L Anion Gap (5.0-14.0) mmol/L BUN (7-18) mg/dL Creatinine (0.8-1.3) mg/dL Est Cr Clr Drug Dosing mL/min Estimated GFR (MDRD) (>60) Glucose (74-106) mg/dL Calcium (8.5-10.1) mg/dL Total Bilirubin (0.2-1.0) mg/dL AST (15-37) U/L ALT (12-78) U/L Alkaline Phosphatase (46-116) U/L C-Reactive Protein 21.04 H (0.0-0.3) mg/dL Total Protein (6.4-8.2) g/dL Albumin (3.4-5.0) g/dL Globulin (2.3-3.5) g/dL Albumin/Globulin Ratio (1.2-2.2) Amylase (25-115) U/L Lipase (73-393) U/L Urine Color (YELLOW) Urine Appearance (CLEAR) Urine pH (5.0-8.0) Ur Specific [place] (1.008-1.030) Urine Protein (NEGATIVE) mg/dL Urine Glucose (UA) (NEGATIVE) mg/dL Urine Ketones (NEGATIVE) mg/dL Urine Occult Blood (NEGATIVE) Urine Nitrite (NEGATIVE) Urine Bilirubin (NEGATIVE) Urine Urobilinogen (0.2-1.0) EU/dL Ur Leukocyte Esterase (NEGATIVE) Urine RBC (0-5) Urine WBC (0-5) Ur Epithelial Cells Amorphous Sediment Urine Bacteria Urine Mucus Digoxin < 0.20 L (0.90-2.00) ng/mL 08/24/20 08/24/20 08/24/20 Range/Units 15:40 15:40 16:20 WBC (4.5-11.0) K/uL RBC (4.30-5.90) M/uL Hgb (12.0-15.0) g/dL Hct (40.0-54.0) % MCV (80-98) fL MCH (27-31) pg MCHC (32-36) % Plt Count (150-400) K/uL Neut % (Auto) (36-66) % Lymph % (Auto) (24-44) % [place] % (Auto) (2-6) % Eos % (Auto) (2-4) % Baso % (Auto) (0-1) % Sodium 138 L (140-148) mmol/L Potassium 4.6 (3.6-5.2) mmol/L Chloride 101 (100-108) mmol/L Carbon Dioxide 26 (21-32) mmol/L Anion Gap 15.6 H (5.0-14.0) mmol/L BUN 13 (7-18) mg/dL Creatinine 1.1 (0.8-1.3) mg/dL Est Cr Clr Drug Dosing 62.68 mL/min Estimated GFR (MDRD) > 60 (>60) Glucose 148 H (74-106) mg/dL Calcium 9.2 (8.5-10.1) mg/dL Total Bilirubin 1.4 H (0.2-1.0) mg/dL AST 21 (15-37) U/L ALT 19 (12-78) U/L Alkaline Phosphatase 46 (46-116) U/L C-Reactive Protein (0.0-0.3) mg/dL Total Protein 7.3 (6.4-8.2) g/dL Albumin 3.4 (3.4-5.0) g/dL Globulin 3.9 H (2.3-3.5) g/dL Albumin/Globulin Ratio 0.9 L (1.2-2.2) Amylase 47 (25-115) U/L Lipase 55 L (73-393) U/L Urine Color [place] A (YELLOW) Urine Appearance Clear (CLEAR) Urine pH 6.0 (5.0-8.0) Ur Specific [place] 1.025 (1.008-1.030) Urine Protein 100 H (NEGATIVE) mg/dL Urine Glucose (UA) Negative (NEGATIVE) mg/dL Urine Ketones 40 H (NEGATIVE) mg/dL Urine Occult Blood Trace-lysed H (NEGATIVE) Urine Nitrite Negative (NEGATIVE) Urine Bilirubin Small H (NEGATIVE) Urine Urobilinogen 1.0 (0.2-1.0) EU/dL Ur Leukocyte Esterase Negative (NEGATIVE) Urine RBC 0-5 (0-5) Urine WBC Not seen (0-5) Ur Epithelial Cells Rare Amorphous Sediment Rare Urine Bacteria Few Urine Mucus Rare Digoxin (0.90-2.00) ng/mL Result Diagrams: 08/24/20 15:40 08/24/20 15:40 Luigi Results Last 24 hrs: Microbiology 08/24/20 15:32 Stool Occult Blood (LUIGI) - Final Stool / Feces Imaging Impressions Last 24 hrs: CT abd/pelvis-images were personally reviewed-the appendix is dilated to 1.5 cm but there is no evidence for rupture. There is some stranding around the appendix. No other acute findings. Sepsis Event Note - Evaluation Sepsis Screening Result: No Definite Risk - Focused Exam Vital Signs: Vital Signs Temp Pulse Resp BP Pulse Ox 08/24/20 15:27 36.3 C 66 14 119/88 97 *Q Meaningful Use (ADM) - VTE *Q VTE Pharmacological Contraindications *Q: Patient Scheduled Surgery - VTE Risk Assess *Q Each Risk Factor Represents 1 Point: Obesity ( BMI > 25 kg/m2), Congestive heart failure (CHF) Total Score 1 Point Risk Factors: 2 Each Risk Factor Represents 2 Points: Age 60 - 74 Years, Laparoscopic surgery greater than 45 minutes Total Score 2 Point Risk Factors: 4 Each Risk Factor Represents 3 Points: History of DVT/PE Total Score 3 Point Risk Factors: 3 Each Risk Factor Represents 5 Points: None Total Score 5 Point Risk Factors: 0 Venous Thromboembolism Risk Factor Score *Q: 9 - Problem List (1) Acute appendicitis SNOMED Code(s): 00649432 ICD Code: K35.80 - UNSPECIFIED ACUTE APPENDICITIS Status: Acute Current Visit: Yes Qualifiers: Acute appendicitis type: with localized peritonitis Appendicitis gangrene presence: without gangrene Appendicitis perforation presence: without perforation Appendicitis abscess presence: without abscess Qualified Code(s): K35.30 - Acute appendicitis with localized peritonitis, without perforation or gangrene (2) History of stroke with residual deficit SNOMED Code(s): 884144206 ICD Code: I69.30 - UNSPECIFIED SEQUELAE OF CEREBRAL INFARCTION Status: Chronic Current Visit: Yes (3) Atrial fibrillation SNOMED Code(s): 35359862 ICD Code: I48.91 - UNSPECIFIED ATRIAL FIBRILLATION Status: Chronic Current Visit: No Qualifiers: Atrial fibrillation type: longstanding persistent Qualified Code(s): I48.11 - Longstanding persistent atrial fibrillation (4) CAD (coronary artery disease) SNOMED Code(s): 46947825 ICD Code: I25.10 - ATHSCL HEART DISEASE OF [place] CORONARY ARTERY W/O ANG PCTRS Status: Chronic Current Visit: No Qualifiers: Coronary Disease-Associated Artery/Lesion type: [place] artery [place] vs. transplanted heart: [place] heart Associated angina: without angina Qualified Code(s): I25.10 - Atherosclerotic heart disease of [place] coronary artery without angina pectoris (5) Chronic systolic CHF (congestive heart failure) SNOMED Code(s): 098219822, 064304130 ICD Code: I50.22 - CHRONIC SYSTOLIC (CONGESTIVE) HEART FAILURE Status: Chronic Current Visit: No (6) Cardiomyopathy SNOMED Code(s): 16224047 ICD Code: I42.9 - CARDIOMYOPATHY, UNSPECIFIED Status: Chronic Current Visit: No Qualifiers: Cardiomyopathy type: ischemic Qualified Code(s): I25.5 - Ischemic cardiomyopathy (7) Hx of deep venous thrombosis SNOMED Code(s): 601780979 ICD Code: Z86.718 - PERSONAL HISTORY OF OTHER VENOUS THROMBOSIS AND EMBOLISM Status: Chronic Current Visit: No Problem List Initiated/Reviewed/Updated: Yes Orders Last 24hrs: Active Orders 24 hr Category Date Time Status Patient Status Manage Transfer [TRANSFER] Routine ADT 08/24/20 17:57 Ordered Ampicillin/Sulbactam Na [Unasyn] 3 gm Med 08/24/20 18:00 Ordered Sodium Chloride 0.9% [Normal Saline] 100 ml IV Q6H Lactated Ringers [Ringers, Lactated] 1,000 ml Med 08/24/20 18:00 Active IV ASDIRECTED Sodium Chloride 0.9% [Normal Saline] 1,000 ml Med 08/24/20 15:30 Active IV ASDIRECTED Sodium Chloride 0.9% [Normal Saline] 1,000 ml Med 08/24/20 17:30 Active IV ASDIRECTED Resuscitation Status Routine Resus Stat 08/24/20 18:01 Ordered Medication Orders Sodium Chloride (Normal Saline) 1,000 mls @ 999 mls/hr IV ASDIRECTED [facility] Last Admin: 08/24/20 15:45 Dose: 999 mls/hr Documented by: GIOVANNY Sodium Chloride (Normal Saline) 1,000 mls @ 300 mls/hr IV ASDIRECTED [place]D Lactated Ringer's (Ringers, Lactated) 1,000 mls @ 100 mls/hr IV ASDIRECTED [place] Ampicillin Sodium/Sulbactam (Sodium 3 gm/ Sodium Chloride) 100 mls @ 200 mls/hr IV Q6H [facility] Assessment/Plan Comment:: ASSESSMENT AND PLAN - Acute appendicitis without perforation-surgical intervention is planned but because of the long-term anticoagulation this will have to be delayed until the medication is out of his system. Antibiotics have been initiated. He has an adequate functional status and is in optimal achievable medical condition for the surgery other than the anticoagulation as discussed above. He has previously been vaccinated for COVID-19 with his last vaccination less than 2 months ago. -IV Amp/Sulbactam and aztreonam -IV fluids -Symptomatic management of pain with the [employer] -Pulse oximetry -Blood cultures if he spikes a fever -Surgical intervention per Dr. Acevedo, tomorrow will be 48 hours after his last dose Chronic systolic congestive heart failure-complicated by ischemic cardiomyopathy. Last ejection fraction was between 35 and 40%. No functional limitations or exertional dyspnea. No anginal symptoms. Volume status slightly on the dehydrated side today but fluids will have to be monitored closely. -Continue medical management -Judicious fluid use around the time of surgery Chronic atrial fibrillation-anticoagulated with apixaban. This will be on hold. Last dose was yesterday morning. 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 History of left-sided CVA-residual right-sided weakness though his functional status is pretty good. Gets around without a cane most of the time. Maintenance issues - -DVT prophylaxis-mechanical -GI prophylaxis-IV PPI tonight -Nutrition-nothing by mouth -[place] catheter-not indicated at this time CODE STATUS -full code Admission justification -this patient will be admitted for inpatient services and is medically appropriate meeting medical necessity for inpatient admission as outlined in my documentation. I reasonably expect the patient will require inpatient services that span a period time over 2 midnights. I reasonably expect this patient to be discharged or transferred within 96 hours [facility]. The patient has nonruptured appendicitis but is on long-term anticoagulation with a DOAC so we will need adequate time for this medication to clear his system before surgery can be entertained. Disposition -I anticipate discharge home after the hospital stay Primary care physician - Antonio Gutierrez M.D. - Mortality Measure Prognosis:: Good
[2020-08-24] MEDS: Ampicillin/Sulbactam Na 3 GM in Sodium Chloride 0.9% 100 ML IV SCH ×2 (18:19→23:29)
[2020-08-24] MEDS: Lactated Ringers 1,000 ML IV SCH (18:21)
[2020-08-24] MEDS ORDERED: Pneumococcal Polyvalent-23 Vaccine 0.5 ML SDV IM ONE (19:27)
[2020-08-24] MEDS ORDERED: LORazepam 2 MG/ML SDV IVPUSH PRN (19:28)
[2020-08-24] MEDS ORDERED: Albuterol 0.083% 2.5 MG/3 ML Neb Soln NEB PRN (19:28)
[2020-08-24] MEDS ORDERED: Naloxone 0.4 MG/ML SDV IVPUSH PRN (19:28)
[2020-08-24] MEDS ORDERED: Acetaminophen/HYDROcodone 325-5 MG Tab PO PRN (19:28)
[2020-08-24] MEDS ORDERED: Magnesium Hydroxide 400 MG/5 ML Susp 30 ML Cup PO PRN (19:28)
[2020-08-24] MEDS ORDERED: Pantoprazole 40 MG Vial IV ONE (20:00)
[2020-08-24] MEDS: HYDROmorphone/Normal Saline 15 MG/30 ML PCA IV PRN (20:03)
[2020-08-24] MEDS: Melatonin 3 MG Tab PO PRN (20:45)
[2020-08-24] MEDS: Simvastatin 20 MG Tab PO SCH (20:45)
[2020-08-24] MEDS: Lactobacillus Rhamnosus GG (Probiotic) Cap PO SCH (20:45)
[2020-08-24] MEDS: Sotalol 80 MG Tab PO SCH (20:46)
[2020-08-24] MEDS: Gabapentin 100 MG Cap PO SCH ×2 (20:47→20:50)
[2020-08-25] MEDS: Lactated Ringers 1,000 ML IV SCH (02:58)
[2020-08-25] MEDS: Ampicillin/Sulbactam Na 3 GM in Sodium Chloride 0.9% 100 ML IV SCH ×4 (05:04→23:34)
[2020-08-25] MEDS ORDERED: Bupivacaine 0.5%/EPINEPHrine 1:200,000 50 ML MDV ONE (07:14)
[2020-08-25] MEDS ORDERED: Glycopyrrolate 0.2 MG/ML 5 ML MDV ONE (07:20)
[2020-08-25] MEDS ORDERED: Succinylcholine 200 MG/10 ML MDV ONE (07:20)
[2020-08-25] MEDS ORDERED: Neostigmine Methylsulfate 1 MG/ML 5 ML Syringe ONE (07:20)
[2020-08-25] MEDS ORDERED: Ondansetron 4 MG/2 ML SDV ONE (07:20)
[2020-08-25] MEDS ORDERED: fentaNYL 250 MCG/5 ML SDV ONE (07:20)
[2020-08-25] MEDS ORDERED: Rocuronium 50 MG/5 ML Vial ONE ×2 (07:20→11:57)
[2020-08-25] MEDS ORDERED: Propofol 200 MG/20 ML SDV ONE (07:20)
[2020-08-25] MEDS ORDERED: Dexamethasone 4 MG/ML SDV ONE (07:20)
[2020-08-25] MEDS: Sotalol 80 MG Tab PO SCH ×2 (09:00→20:20)
[2020-08-25] MEDS ORDERED: Ropivacaine 50 ML, dexAMETHasone 8 MG, EPINEPHrine 0.4 MG, Sodium Chloride 0.9% 27.6 ML NERVRT SCH ×4 (09:00)
[2020-08-25] MEDS: Lisinopril 2.5 MG Tab PO SCH (09:00)
[2020-08-25] MEDS: Magnesium Sulfate/Water 2 GM/50 ML BAG IV SCH ×2 (10:06→16:14)
[2020-08-25] MEDS ORDERED: Lidocaine 2% Jelly 10 ML Urojet ONE (10:48)
--- NOTE | 2020-08-25 11:00 | PN ---
DATE OF SERVICE: 08/25/2020 SUBJECTIVE: Sriram will be going down for a laparotomy, possible open appendectomy. Case to follow today. General anesthesia and TAP block. He has signed his consents. Reports no pain. Vital signs have been stable. REVIEW OF SYSTEMS: Remainder of review of systems negative for any other pertinent positives and negatives. OBJECTIVE: GENERAL: Lemuel is a pleasant 70-year-old male. VITAL SIGNS: TPR is 98.6, 81, and 18. Blood pressure 88/58, O2 on room air is 86%, pulse oximetry is 97% and on 2 L of O2. HEENT: Negative. NECK: Supple. HEART: Regular rate and rhythm. LUNGS: Clear. ABDOMEN: Tenderness in the right lower quadrant. EXTREMITIES: Without peripheral edema. ASSESSMENT: Acute appendectomy. PLAN: Orders to be written postoperatively and we will evaluate p.r.n. or in a.m. Ellen Houston PA-C /[id number]
[2020-08-25] MEDS ORDERED: Meropenem 500 MG SDV ONE ×2 (11:14→12:11)
[2020-08-25] MEDS ORDERED: Lactated Ringers 1,000 ML ONE (11:31)
[2020-08-25] MEDS ORDERED: fentaNYL 100 MCG/2 ML SDV ONE (11:59)
[2020-08-25] MEDS ORDERED: Ampicillin/Sulbactam Na 3 GM in Sodium Chloride 0.9% 100 ML IV SCH ×2 (12:00→16:00)
[2020-08-25] MEDS: Lactobacillus Rhamnosus GG (Probiotic) Cap PO SCH ×2 (13:12→20:20)
[2020-08-25] MEDS: Aspirin 325 MG Tab.EC PO SCH (13:44)
[2020-08-25] MEDS: Ezetimibe 10 MG Tab PO SCH (13:44)
[2020-08-25] MEDS: Spironolactone 25 MG Tab PO SCH (13:44)
[2020-08-25] MEDS: Gabapentin 300 MG Cap PO SCH ×3 (13:44→20:20)
[2020-08-25] MEDS: DULoxetine 20 MG Cap PO SCH (13:44)
[2020-08-25] MEDS: Sertraline 25 MG Tab PO SCH (13:44)
[2020-08-25] MEDS: Levothyroxine 50 MCG Tab PO SCH (13:44)
[2020-08-25] MEDS: Dextrose 5%-Lactated Ringers 1,000 ML IV SCH ×2 (14:56→20:19)
--- NOTE | 2020-08-25 15:01 | PCM.PN ---
- General Info Date of Service: 08/25/20 Subjective Update: Mr. Hodges was admitted yesterday by Dr. Gutierrez with acute appendicitis. He has been stable through the night and was taken to the operating room today by Dr. Acevedo for appendectomy. He is done well during the initial postoperative period, currently denies chest pain, shortness of breath, or nausea. Functional Status: Reports: Pain Controlled - Review of Systems General: Reports: Weakness, Fatigue Pulmonary: Reports: No Symptoms Cardiovascular: Reports: No Symptoms Gastrointestinal: Reports: Abdominal Pain. Denies: Difficulty Swallowing, Hematochezia, Melena, Nausea, Vomiting Genitourinary: Reports: No Symptoms - Patient Data Vitals - Most Recent: Last Vital Signs Temp 98.8 F 08/25/20 13:49 Pulse 102 H 08/25/20 14:19 Resp 18 08/25/20 14:19 BP 97/50 L 08/25/20 14:19 Pulse Ox 92 L 08/25/20 14:19 Weight - Most Recent: 216 lb I&O - Last 24 Hours: Intake & Output 08/24/20 08/25/20 08/25/20 22:59 06:59 14:59 Intake Total 200 Output Total 350 600 Balance -350 -400 Lab Results Last 24 Hours: Laboratory Results - last 24 hr 08/24/20 08/24/20 08/24/20 Range/Units 15:37 15:40 15:40 WBC 8.7 (4.5-11.0) K/uL RBC 4.98 (4.30-5.90) M/uL Hgb 15.0 (12.0-15.0) g/dL Hct 43.3 (40.0-54.0) % MCV 87 (80-98) fL MCH 30 (27-31) pg MCHC 35 (32-36) % Plt Count 173 (150-400) K/uL Neut % (Auto) 78 H (36-66) % Lymph % (Auto) 12 L (24-44) % Sterling % (Auto) 10 H (2-6) % Eos % (Auto) 0 L (2-4) % Baso % (Auto) 0 (0-1) % Sodium (140-148) mmol/L Potassium (3.6-5.2) mmol/L Chloride (100-108) mmol/L Carbon Dioxide (21-32) mmol/L Anion Gap (5.0-14.0) mmol/L BUN (7-18) mg/dL Creatinine (0.8-1.3) mg/dL Est Cr Clr Drug Dosing mL/min Estimated GFR (MDRD) (>60) Glucose (74-106) mg/dL Calcium (8.5-10.1) mg/dL Magnesium (1.8-2.4) mg/dL Total Bilirubin (0.2-1.0) mg/dL AST (15-37) U/L ALT (12-78) U/L Alkaline Phosphatase (46-116) U/L C-Reactive Protein 21.04 H (0.0-0.3) mg/dL Total Protein (6.4-8.2) g/dL Albumin (3.4-5.0) g/dL Globulin (2.3-3.5) g/dL Albumin/Globulin Ratio (1.2-2.2) Amylase (25-115) U/L Lipase (73-393) U/L Urine Color (YELLOW) Urine Appearance (CLEAR) Urine pH (5.0-8.0) Ur Specific [place] (1.008-1.030) Urine Protein (NEGATIVE) mg/dL Urine Glucose (UA) (NEGATIVE) mg/dL Urine Ketones (NEGATIVE) mg/dL Urine Occult Blood (NEGATIVE) Urine Nitrite (NEGATIVE) Urine Bilirubin (NEGATIVE) Urine Urobilinogen (0.2-1.0) EU/dL Ur Leukocyte Esterase (NEGATIVE) Urine RBC (0-5) Urine WBC (0-5) Ur Epithelial Cells Amorphous Sediment Urine Bacteria Urine Mucus Digoxin < 0.20 L (0.90-2.00) ng/mL SARS CoV-2 RNA Rapid TRAMAINE 08/24/20 08/24/20 08/24/20 Range/Units 15:40 15:40 16:20 WBC (4.5-11.0) K/uL RBC (4.30-5.90) M/uL Hgb (12.0-15.0) g/dL Hct (40.0-54.0) % MCV (80-98) fL MCH (27-31) pg MCHC (32-36) % Plt Count (150-400) K/uL Neut % (Auto) (36-66) % Lymph % (Auto) (24-44) % Sterling % (Auto) (2-6) % Eos % (Auto) (2-4) % Baso % (Auto) (0-1) % Sodium 138 L (140-148) mmol/L Potassium 4.6 (3.6-5.2) mmol/L Chloride 101 (100-108) mmol/L Carbon Dioxide 26 (21-32) mmol/L Anion Gap 15.6 H (5.0-14.0) mmol/L BUN 13 (7-18) mg/dL Creatinine 1.1 (0.8-1.3) mg/dL Est Cr Clr Drug Dosing 62.68 mL/min Estimated GFR (MDRD) > 60 (>60) Glucose 148 H (74-106) mg/dL Calcium 9.2 (8.5-10.1) mg/dL Magnesium (1.8-2.4) mg/dL Total Bilirubin 1.4 H (0.2-1.0) mg/dL AST 21 (15-37) U/L ALT 19 (12-78) U/L Alkaline Phosphatase 46 (46-116) U/L C-Reactive Protein (0.0-0.3) mg/dL Total Protein 7.3 (6.4-8.2) g/dL Albumin 3.4 (3.4-5.0) g/dL Globulin 3.9 H (2.3-3.5) g/dL Albumin/Globulin Ratio 0.9 L (1.2-2.2) Amylase 47 (25-115) U/L Lipase 55 L (73-393) U/L Urine Color Cookson A (YELLOW) Urine Appearance Clear (CLEAR) Urine pH 6.0 (5.0-8.0) Ur Specific [place] 1.025 (1.008-1.030) Urine Protein 100 H (NEGATIVE) mg/dL Urine Glucose (UA) Negative (NEGATIVE) mg/dL Urine Ketones 40 H (NEGATIVE) mg/dL Urine Occult Blood Trace-lysed H (NEGATIVE) Urine Nitrite Negative (NEGATIVE) Urine Bilirubin Small H (NEGATIVE) Urine Urobilinogen 1.0 (0.2-1.0) EU/dL Ur Leukocyte Esterase Negative (NEGATIVE) Urine RBC 0-5 (0-5) Urine WBC Not seen (0-5) Ur Epithelial Cells Rare Amorphous Sediment Rare Urine Bacteria Few Urine Mucus Rare Digoxin (0.90-2.00) ng/mL SARS CoV-2 RNA Rapid TRAMAINE 08/25/20 08/25/20 08/25/20 Range/Units 04:10 04:10 05:27 WBC 6.8 (4.5-11.0) K/uL RBC 4.60 (4.30-5.90) M/uL Hgb 13.5 (12.0-15.0) g/dL Hct 40.7 (40.0-54.0) % MCV 89 (80-98) fL MCH 29 (27-31) pg MCHC 33 (32-36) % Plt Count 163 (150-400) K/uL Neut % (Auto) (36-66) % Lymph % (Auto) (24-44) % Sterling % (Auto) (2-6) % Eos % (Auto) (2-4) % Baso % (Auto) (0-1) % Sodium 141 (140-148) mmol/L Potassium 3.9 (3.6-5.2) mmol/L Chloride 103 (100-108) mmol/L Carbon Dioxide 25 (21-32) mmol/L Anion Gap 13.1 (5.0-14.0) mmol/L BUN 12 (7-18) mg/dL Creatinine 1.0 (0.8-1.3) mg/dL Est Cr Clr Drug Dosing 68.94 mL/min Estimated GFR (MDRD) > 60 (>60) Glucose 118 H (74-106) mg/dL Calcium 8.8 (8.5-10.1) mg/dL Magnesium 1.4 L (1.8-2.4) mg/dL Total Bilirubin (0.2-1.0) mg/dL AST (15-37) U/L ALT (12-78) U/L Alkaline Phosphatase (46-116) U/L C-Reactive Protein (0.0-0.3) mg/dL Total Protein (6.4-8.2) g/dL Albumin (3.4-5.0) g/dL Globulin (2.3-3.5) g/dL Albumin/Globulin Ratio (1.2-2.2) Amylase (25-115) U/L Lipase (73-393) U/L Urine Color (YELLOW) Urine Appearance (CLEAR) Urine pH (5.0-8.0) Ur Specific [place] (1.008-1.030) Urine Protein (NEGATIVE) mg/dL Urine Glucose (UA) (NEGATIVE) mg/dL Urine Ketones (NEGATIVE) mg/dL Urine Occult Blood (NEGATIVE) Urine Nitrite (NEGATIVE) Urine Bilirubin (NEGATIVE) Urine Urobilinogen (0.2-1.0) EU/dL Ur Leukocyte Esterase (NEGATIVE) Urine RBC (0-5) Urine WBC (0-5) Ur Epithelial Cells Amorphous Sediment Urine Bacteria Urine Mucus Digoxin (0.90-2.00) ng/mL SARS CoV-2 RNA Rapid TRAMAINE Negative Luigi Results Last 24 Hours: Microbiology 08/25/20 11:38 Gram Stain - Final Appendix - Other 08/25/20 12:05 Gram Stain - Final Appendix - Other 08/25/20 11:23 Gram Stain - Final Appendix - Abscess 08/24/20 15:32 Stool Occult Blood (LUIGI) - Final Stool / Feces Med Orders - Current: Current Medications Acetaminophen (Acetaminophen 325 Mg Tab) 650 mg PO Q4H PRN PRN Reason: Pain (Mild 1-3)/fever Hydrocodone Bitart/Acetaminophen (Acetaminophen/Hydrocodone 325-5 Mg Tab) 1 - 2 tab PO Q4H PRN PRN Reason: Pain Albuterol (Albuterol 0.083% 2.5 Mg/3 Ml Neb Soln) 2.5 mg NEB Q4H PRN PRN Reason: Shortness Of Breath/wheezing Aspirin (Aspirin 325 Mg Tab.Ec) 325 mg PO DAILY [facility] Last Admin: 08/25/20 13:44 Dose: 325 mg Documented by: Duloxetine HCl (Duloxetine 20 Mg Cap) 20 mg PO DAILY [facility] Last Admin: 08/25/20 13:44 Dose: 20 mg Documented by: Ezetimibe (Ezetimibe 10 Mg Tab) 5 mg PO DAILY [facility] Last Admin: 08/25/20 13:44 Dose: 5 mg Documented by: Gabapentin (Gabapentin 300 Mg Cap) 600 mg PO TID [facility] Last Admin: 08/25/20 13:49 Dose: Not Given Documented by: Hydromorphone HCl (Hydromorphone/Normal Saline 15 Mg/30 Ml Make Up Operator) 0 mg IV ASDIRECTED PRN; Protocol PRN Reason: Pain Last Admin: 08/24/20 20:03 Dose: 15 mg Documented by: Aztreonam 1 gm/ Sodium (Chloride) 50 mls @ 100 mls/hr IV Q8H [facility] Last Admin: 08/25/20 13:45 Dose: 100 mls/hr Documented by: Magnesium Sulfate (Magnesium Sulfate In Water 2 Gm/50 Ml) 2 gm in 50 mls @ 25 mls/hr IV Q6H [facility] Stop: 08/25/20 18:29 Last Admin: 08/25/20 10:06 Dose: 25 mls/hr Documented by: Ampicillin Sodium/Sulbactam (Sodium 3 gm/ Sodium Chloride) 100 mls @ 200 mls/hr IV Q6H [facility] Last Admin: 08/25/20 13:36 Dose: 200 mls/hr Documented by: Dextrose/Lactated Ringer's (Dextrose 5%-Lactated Ringers) 1,000 mls @ 150 mls/hr IV ASDIRECTED [facility] Lactobacillus Rhamnosus (Lactobacillus Rhamnosus Gg (Probiotic) Cap) 1 cap PO BID [facility] Last Admin: 08/25/20 13:12 Dose: Not Given Documented by: Levothyroxine Sodium (Levothyroxine 50 Mcg Tab) 150 mcg PO DAILY@0730 [facility] Last Admin: 08/25/20 13:44 Dose: 150 mcg Documented by: Lisinopril (Lisinopril 2.5 Mg Tab) 2.5 mg PO DAILY [facility] Last Admin: 08/25/20 09:00 Dose: Not Given Documented by: Lorazepam (Lorazepam 2 Mg/Ml Sdv) 0.5 mg IVPUSH Q4H PRN PRN Reason: Nausea/Vomiting Magnesium Hydroxide (Magnesium Hydroxide 400 Mg/5 Ml Susp 30 Ml Cup) 30 ml PO Q12H PRN PRN Reason: Constipation Melatonin (Melatonin 3 Mg Tab) 9 mg PO BEDTIME PRN PRN Reason: Sleep Last Admin: 08/24/20 20:45 Dose: 9 mg Documented by: Naloxone HCl (Naloxone 0.4 Mg/Ml Sdv) 0.4 mg IVPUSH Q2M PRN PRN Reason: Respiratory Distress Ondansetron HCl (Ondansetron 4 Mg/2 Ml Sdv) 4 mg IV Q6H PRN PRN Reason: Nausea/Vomiting Ondansetron HCl (Ondansetron 4 Mg Tab.Dis) 4 mg PO Q6H PRN PRN Reason: Nausea able to take PO Oxybutynin Chloride (Oxybutynin 5 Mg Tab) 5 mg PO TID [facility] Pantoprazole Sodium (Pantoprazole 40 Mg Vial) 40 mg IV Q24H [facility] Senna/Docusate Sodium (Docusate Sodium/Sennosides 50-8.6 Mg Tab) 1 tab PO BID PRN PRN Reason: Constipation Sertraline HCl (Sertraline 25 Mg Tab) 25 mg PO DAILY [facility] Last Admin: 08/25/20 13:44 Dose: 25 mg Documented by: Simvastatin (Simvastatin 20 Mg Tab) 20 mg PO BEDTIME [facility] Last Admin: 08/24/20 20:45 Dose: 20 mg Documented by: Sotalol HCl (Sotalol 80 Mg Tab) 120 mg PO BID [facility] Last Admin: 08/25/20 09:00 Dose: Not Given Documented by: Spironolactone (Spironolactone 25 Mg Tab) 25 mg PO DAILY [facility] Last Admin: 08/25/20 13:44 Dose: 25 mg Documented by: Tamsulosin HCl (Tamsulosin 0.4 Mg Cap.Er) 0.4 mg PO BEDTIME [facility] Discontinued Medications Bupivacaine HCl/Epinephrine Bitart (Bupivacaine 0.5%/Epinephrine 1:200,000 50 Ml Mdv) Confirm Administered Dose 50 ml .ROUTE .STK-MED ONE Stop: 08/25/20 07:15 Last Admin: 08/25/20 13:23 Dose: 40 ml Documented by: Ropivacaine 50 ml/Dexamethasone 8 mg/Epinephrine HCl 0.4 mg/ Sodium Chloride 27.6 ml 0 ml NERVRT ASDIRECTED [facility] Last Admin: 08/25/20 11:23 Dose: 80 syringe Documented by: Dexamethasone (Dexamethasone 4 Mg/Ml Sdv) Confirm Administered Dose 4 mg .ROUTE .STK-MED ONE Stop: 08/25/20 07:21 Fentanyl (Fentanyl 250 Mcg/5 Ml Sdv) Confirm Administered Dose 250 mcg .ROUTE .STK-MED ONE Stop: 08/25/20 07:21 Fentanyl (Fentanyl 100 Mcg/2 Ml Sdv) Confirm Administered Dose 100 mcg .ROUTE .STK-MED ONE Stop: 08/25/20 12:00 Gabapentin (Gabapentin 100 Mg Cap) 600 mg PO TID [facility] Last Admin: 08/24/20 20:50 Dose: Not Given Documented by: Glycopyrrolate (Glycopyrrolate 0.2 Mg/Ml 5 Ml Mdv) Confirm Administered Dose 1 mg .ROUTE .STK-MED ONE Stop: 08/25/20 07:21 Hydromorphone HCl (Hydromorphone 0.5 Mg/0.5 Ml Syringe) 0.5 mg IVPUSH ONETIME ONE Stop: 08/24/20 15:32 Last Admin: 08/24/20 15:45 Dose: 0.5 mg Documented by: Hydromorphone HCl (Hydromorphone 1 Mg/Ml Syringe) 1 mg IVPUSH ONETIME ONE Stop: 08/24/20 17:24 Last Admin: 08/24/20 18:20 Dose: 1 mg Documented by: Sodium Chloride (Normal Saline) 1,000 mls @ 999 mls/hr IV ASDIRECTED [facility] Last Admin: 08/24/20 15:45 Dose: 999 mls/hr Documented by: Sodium Chloride (Normal Saline) 1,000 mls @ 300 mls/hr IV ASDIRECTED [facility] Lactated Ringer's (Ringers, Lactated) 1,000 mls @ 100 mls/hr IV ASDIRECTED [facility] Last Admin: 08/25/20 02:58 Dose: 100 mls/hr Documented by: Ampicillin Sodium/Sulbactam (Sodium 3 gm/ Sodium Chloride) 100 mls @ 200 mls/hr IV Q6H [facility] Last Admin: 08/25/20 05:04 Dose: 200 mls/hr Documented by: Aztreonam 1 gm/ Sodium (Chloride) 50 mls @ 100 mls/hr IV Q8H [facility] Last Admin: 08/25/20 05:05 Dose: 100 mls/hr Documented by: Lactated Ringer's (Ringers, Lactated) Confirm Administered Dose 1,000 mls @ as directed .ROUTE .STK-MED ONE Stop: 08/25/20 11:32 Lidocaine HCl (Lidocaine 2% Jelly 10 Ml Urojet) Confirm Administered Dose 10 ml .ROUTE .STK-MED ONE Stop: 08/25/20 10:49 Meropenem (Meropenem 500 Mg Sdv) Confirm Administered Dose 500 mg .ROUTE .STK- MED ONE Stop: 08/25/20 11:15 Last Admin: 08/25/20 11:47 Dose: 1,000 mg Documented by: Meropenem (Meropenem 500 Mg Sdv) Confirm Administered Dose 500 mg .ROUTE .STK- MED ONE Stop: 08/25/20 12:12 Neostigmine Methylsulfate (Neostigmine Methylsulfate 1 Mg/Ml 5 Ml Syringe) Confirm Administered Dose 5 mg .ROUTE .STK-MED ONE Stop: 08/25/20 07:21 Ondansetron HCl (Ondansetron 4 Mg/2 Ml Sdv) 4 mg IVPUSH ONETIME ONE Stop: 08/24/20 15:32 Last Admin: 08/24/20 15:44 Dose: 4 mg Documented by: Ondansetron HCl (Ondansetron 4 Mg/2 Ml Sdv) Confirm Administered Dose 4 mg .ROUTE .STK-MED ONE Stop: 08/25/20 07:21 Pantoprazole Sodium (Pantoprazole 40 Mg Vial) 40 mg IV ONETIME ONE Stop: 08/24/20 20:01 Last Admin: 08/24/20 20:46 Dose: 40 mg Documented by: Pneumococcal Polyvalent Vaccine (Pneumococcal Polyvalent-23 Vaccine 0.5 Ml Sdv) 0.5 ml IM .ONCE ONE Stop: 08/24/20 19:28 Last Admin: 08/24/20 20:21 Dose: Not Given Documented by: Propofol (Propofol 200 Mg/20 Ml Sdv) Confirm Administered Dose 200 mg .ROUTE .STK-MED ONE Stop: 08/25/20 07:21 Rocuronium Willis (Rocuronium 50 Mg/5 Ml Vial) Confirm Administered Dose 50 mg .ROUTE .STK-MED ONE Stop: 08/25/20 07:21 Rocuronium Willis (Rocuronium 50 Mg/5 Ml Vial) Confirm Administered Dose 50 mg .ROUTE .STK-MED ONE Stop: 08/25/20 11:58 Succinylcholine Chloride (Succinylcholine 200 Mg/10 Ml Mdv) Confirm Administered Dose 200 mg .ROUTE .STK-MED ONE Stop: 08/25/20 07:21 - Exam Quality Assessment: DVT Prophylaxis General: Alert, Oriented, Cooperative, Moderate Distress Lungs: Clear to Auscultation, Normal Respiratory Effort, Decreased Breath Sounds Cardiovascular: Regular Rate, No Murmurs, Irregular Rhythm. No: Bradycardia, Tachycardia GI/Abdominal Exam: No Organomegaly, Tender. No: Distended, Guarding, Rigid, Rebound Extremities: Non-Tender, No Pedal Edema - Patient Data Lab Results Last 24 hrs: Laboratory Results - last 24 hr 08/24/20 08/24/20 08/24/20 Range/Units 15:37 15:40 15:40 WBC 8.7 (4.5-11.0) K/uL RBC 4.98 (4.30-5.90) M/uL Hgb 15.0 (12.0-15.0) g/dL Hct 43.3 (40.0-54.0) % MCV 87 (80-98) fL MCH 30 (27-31) pg MCHC 35 (32-36) % Plt Count 173 (150-400) K/uL Neut % (Auto) 78 H (36-66) % Lymph % (Auto) 12 L (24-44) % Sterling % (Auto) 10 H (2-6) % Eos % (Auto) 0 L (2-4) % Baso % (Auto) 0 (0-1) % Sodium (140-148) mmol/L Potassium (3.6-5.2) mmol/L Chloride (100-108) mmol/L Carbon Dioxide (21-32) mmol/L Anion Gap (5.0-14.0) mmol/L BUN (7-18) mg/dL Creatinine (0.8-1.3) mg/dL Est Cr Clr Drug Dosing mL/min Estimated GFR (MDRD) (>60) Glucose (74-106) mg/dL Calcium (8.5-10.1) mg/dL Magnesium (1.8-2.4) mg/dL Total Bilirubin (0.2-1.0) mg/dL AST (15-37) U/L ALT (12-78) U/L Alkaline Phosphatase (46-116) U/L C-Reactive Protein 21.04 H (0.0-0.3) mg/dL Total Protein (6.4-8.2) g/dL Albumin (3.4-5.0) g/dL Globulin (2.3-3.5) g/dL Albumin/Globulin Ratio (1.2-2.2) Amylase (25-115) U/L Lipase (73-393) U/L Urine Color (YELLOW) Urine Appearance (CLEAR) Urine pH (5.0-8.0) Ur Specific [place] (1.008-1.030) Urine Protein (NEGATIVE) mg/dL Urine Glucose (UA) (NEGATIVE) mg/dL Urine Ketones (NEGATIVE) mg/dL Urine Occult Blood (NEGATIVE) Urine Nitrite (NEGATIVE) Urine Bilirubin (NEGATIVE) Urine Urobilinogen (0.2-1.0) EU/dL Ur Leukocyte Esterase (NEGATIVE) Urine RBC (0-5) Urine WBC (0-5) Ur Epithelial Cells Amorphous Sediment Urine Bacteria Urine Mucus Digoxin < 0.20 L (0.90-2.00) ng/mL SARS CoV-2 RNA Rapid TRAMAINE 08/24/20 08/24/20 08/24/20 Range/Units 15:40 15:40 16:20 WBC (4.5-11.0) K/uL RBC (4.30-5.90) M/uL Hgb (12.0-15.0) g/dL Hct (40.0-54.0) % MCV (80-98) fL MCH (27-31) pg MCHC (32-36) % Plt Count (150-400) K/uL Neut % (Auto) (36-66) % Lymph % (Auto) (24-44) % Sterling % (Auto) (2-6) % Eos % (Auto) (2-4) % Baso % (Auto) (0-1) % Sodium 138 L (140-148) mmol/L Potassium 4.6 (3.6-5.2) mmol/L Chloride 101 (100-108) mmol/L Carbon Dioxide 26 (21-32) mmol/L Anion Gap 15.6 H (5.0-14.0) mmol/L BUN 13 (7-18) mg/dL Creatinine 1.1 (0.8-1.3) mg/dL Est Cr Clr Drug Dosing 62.68 mL/min Estimated GFR (MDRD) > 60 (>60) Glucose 148 H (74-106) mg/dL Calcium 9.2 (8.5-10.1) mg/dL Magnesium (1.8-2.4) mg/dL Total Bilirubin 1.4 H (0.2-1.0) mg/dL AST 21 (15-37) U/L ALT 19 (12-78) U/L Alkaline Phosphatase 46 (46-116) U/L C-Reactive Protein (0.0-0.3) mg/dL Total Protein 7.3 (6.4-8.2) g/dL Albumin 3.4 (3.4-5.0) g/dL Globulin 3.9 H (2.3-3.5) g/dL Albumin/Globulin Ratio 0.9 L (1.2-2.2) Amylase 47 (25-115) U/L Lipase 55 L (73-393) U/L Urine Color Cookson A (YELLOW) Urine Appearance Clear (CLEAR) Urine pH 6.0 (5.0-8.0) Ur Specific [place] 1.025 (1.008-1.030) Urine Protein 100 H (NEGATIVE) mg/dL Urine Glucose (UA) Negative (NEGATIVE) mg/dL Urine Ketones 40 H (NEGATIVE) mg/dL Urine Occult Blood Trace-lysed H (NEGATIVE) Urine Nitrite Negative (NEGATIVE) Urine Bilirubin Small H (NEGATIVE) Urine Urobilinogen 1.0 (0.2-1.0) EU/dL Ur Leukocyte Esterase Negative (NEGATIVE) Urine RBC 0-5 (0-5) Urine WBC Not seen (0-5) Ur Epithelial Cells Rare Amorphous Sediment Rare Urine Bacteria Few Urine Mucus Rare Digoxin (0.90-2.00) ng/mL SARS CoV-2 RNA Rapid TRAMAINE 08/25/20 08/25/20 08/25/20 Range/Units 04:10 04:10 05:27 WBC 6.8 (4.5-11.0) K/uL RBC 4.60 (4.30-5.90) M/uL Hgb 13.5 (12.0-15.0) g/dL Hct 40.7 (40.0-54.0) % MCV 89 (80-98) fL MCH 29 (27-31) pg MCHC 33 (32-36) % Plt Count 163 (150-400) K/uL Neut % (Auto) (36-66) % Lymph % (Auto) (24-44) % Sterling % (Auto) (2-6) % Eos % (Auto) (2-4) % Baso % (Auto) (0-1) % Sodium 141 (140-148) mmol/L Potassium 3.9 (3.6-5.2) mmol/L Chloride 103 (100-108) mmol/L Carbon Dioxide 25 (21-32) mmol/L Anion Gap 13.1 (5.0-14.0) mmol/L BUN 12 (7-18) mg/dL Creatinine 1.0 (0.8-1.3) mg/dL Est Cr Clr Drug Dosing 68.94 mL/min Estimated GFR (MDRD) > 60 (>60) Glucose 118 H (74-106) mg/dL Calcium 8.8 (8.5-10.1) mg/dL Magnesium 1.4 L (1.8-2.4) mg/dL Total Bilirubin (0.2-1.0) mg/dL AST (15-37) U/L ALT (12-78) U/L Alkaline Phosphatase (46-116) U/L C-Reactive Protein (0.0-0.3) mg/dL Total Protein (6.4-8.2) g/dL Albumin (3.4-5.0) g/dL Globulin (2.3-3.5) g/dL Albumin/Globulin Ratio (1.2-2.2) Amylase (25-115) U/L Lipase (73-393) U/L Urine Color (YELLOW) Urine Appearance (CLEAR) Urine pH (5.0-8.0) Ur Specific [place] (1.008-1.030) Urine Protein (NEGATIVE) mg/dL Urine Glucose (UA) (NEGATIVE) mg/dL Urine Ketones (NEGATIVE) mg/dL Urine Occult Blood (NEGATIVE) Urine Nitrite (NEGATIVE) Urine Bilirubin (NEGATIVE) Urine Urobilinogen (0.2-1.0) EU/dL Ur Leukocyte Esterase (NEGATIVE) Urine RBC (0-5) Urine WBC (0-5) Ur Epithelial Cells Amorphous Sediment Urine Bacteria Urine Mucus Digoxin (0.90-2.00) ng/mL SARS CoV-2 RNA Rapid TRAMAINE Negative Result Diagrams: 08/25/20 04:10 08/25/20 04:10 Luigi Results Last 24 hrs: Microbiology 08/25/20 11:38 Gram Stain - Final Appendix - Other 08/25/20 12:05 Gram Stain - Final Appendix - Other 08/25/20 11:23 Gram Stain - Final Appendix - Abscess 08/24/20 15:32 Stool Occult Blood (LUIGI) - Final Stool / Feces Sepsis Event Note - Evaluation Sepsis Screening Result: No Definite Risk - Focused Exam Vital Signs: Vital Signs Temp Pulse Pulse Resp BP BP Pulse Ox 08/25/20 14:19 102 H 18 97/50 L 92 L 08/25/20 14:04 97 18 100/53 L 95 08/25/20 13:49 98.8 F 91 18 112/69 95 08/25/20 13:32 99.4 F 87 18 123/61 93 L 08/25/20 13:16 99 18 133/90 92 L 08/25/20 13:10 100.0 F 96 18 117/87 90 L 08/25/20 13:05 111 H 18 131/94 H 90 L 08/25/20 13:00 103 H 18 139/87 89 L 08/25/20 12:55 121 H 19 141/91 H 89 L 08/25/20 12:50 99.0 F 92 19 133/93 H 88 L 08/25/20 12:45 113 H 20 133/88 87 L 08/25/20 12:40 99 20 132/91 H 85 L 08/25/20 12:35 99.1 F 112 H 16 140/103 H 82 L 08/25/20 10:15 97.3 F 102 H 18 97/62 94 L 08/25/20 09:00 89 88/58 L 08/25/20 07:37 98.6 F 81 18 88/58 L 86 L - Problem List Review Problem List Initiated/Reviewed/Updated: Yes - My Orders Last 24 Hours: My Active Orders 08/25/20 10:30 Magnesium Sulfate/Water [Magnesium Sulfate in Water 2 GM/50 ML] 2 gm in 50 ml IV Q6H - Plan Plan:: ASSESSMENT AND PLAN Acute appendicitis without perforation-status post appendectomy performed earlier today by Dr. Acevedo. -IV Amp/Sulbactam and aztreonam -IV fluids -Symptomatic management of pain with the [facility] REPRESENTATIVE -Pulse oximetry -Blood cultures if he spikes a fever -Postoperative care per Dr. Acevedo Chronic systolic congestive heart failure-complicated by ischemic cardiomyopathy. Last ejection fraction was between 35 and 40%. No functional l imitations or exertional dyspnea. No anginal symptoms. Volume status slightly on the dehydrated side today but fluids will have to be monitored closely. -Continue medical management -Judicious fluid use around the time of surgery Chronic atrial fibrillation-anticoagulated with apixaban. This will be on hold. -Continue medical management -Hold anticoagulation History of DVT and PE-anticoagulation will need to be restarted as soon as possible postoperatively. History of left-sided CVA-residual right-sided weakness though his functional status is pretty good. Gets around without a cane most of the time. Maintenance issues -DVT prophylaxis-mechanical -GI prophylaxis-IV PPI tonight -Nutrition-nothing by mouth -Mcgee catheter-not indicated at this time CODE STATUS -full code Admission justification -this patient will be admitted for inpatient services and is medically appropriate meeting medical necessity for inpatient admission as outlined in my documentation. I reasonably expect the patient will require inpatient services that span a period time over 2 midnights. I reasonably expect this patient to be discharged or transferred within 96 hours [facility]. The patient has nonruptured appendicitis but is on long-term anticoagulation with a DOAC so we will need adequate time for this medication to clear his system before surgery can be entertained. Disposition -I anticipate discharge home after the hospital stay Primary care physician - Antonio Morales NP
[2020-08-25] MEDS: Oxybutynin 5 MG Tab PO SCH ×2 (16:11→20:20)
[2020-08-25] MEDS: Pantoprazole 40 MG Vial IV SCH (16:11)
[2020-08-25] MEDS: Tamsulosin 0.4 MG Cap.ER PO SCH (20:20)
[2020-08-25] MEDS: Simvastatin 20 MG Tab PO SCH (22:12)
[2020-08-26] MEDS: Dextrose 5%-Lactated Ringers 1,000 ML IV SCH ×2 (03:57→16:59)
[2020-08-26] MEDS: Ampicillin/Sulbactam Na 3 GM in Sodium Chloride 0.9% 100 ML IV SCH ×4 (05:25→23:42)
[2020-08-26] MEDS: Levothyroxine 50 MCG Tab PO SCH (07:28)
[2020-08-26] MEDS: Gabapentin 300 MG Cap PO SCH ×3 (08:41→23:14)
[2020-08-26] MEDS: Oxybutynin 5 MG Tab PO SCH ×3 (08:42→23:13)
[2020-08-26] MEDS: Lisinopril 2.5 MG Tab PO SCH (08:42)
[2020-08-26] MEDS: Sotalol 80 MG Tab PO SCH ×2 (08:42→23:13)
[2020-08-26] MEDS: Aspirin 325 MG Tab.EC PO SCH (08:42)
[2020-08-26] MEDS: Ezetimibe 10 MG Tab PO SCH (08:42)
[2020-08-26] MEDS: Spironolactone 25 MG Tab PO SCH (08:43)
[2020-08-26] MEDS: Lactobacillus Rhamnosus GG (Probiotic) Cap PO SCH ×2 (08:43→23:15)
[2020-08-26] MEDS: DULoxetine 20 MG Cap PO SCH (08:43)
[2020-08-26] MEDS: Sertraline 25 MG Tab PO SCH (08:43)
[2020-08-26] MEDS: Potassium Phosphates 15 MMOLE in Sodium Chloride 0.9% 250 ML IV SCH ×3 (09:22→15:25)
--- NOTE | 2020-08-26 09:53 | PN ---
DATE OF SERVICE: 08/26/2020 SUBJECTIVE: Lemuel is postoperative day 1. He had no operative complications. Vital signs have been stable. Pain has been controlled. He has no concerns or questions today. OBJECTIVE: GENERAL: Sriram is a pleasant 70-year-old male. VITAL SIGNS: TPR is 95.6, 69, 18. Blood pressure 98/55. HEENT: Negative. NECK: Supple. HEART: Regular rate and rhythm. LUNGS: Clear. ABDOMEN: Dressings dry and intact. Abdominal binder is on. EXTREMITIES: Without peripheral edema. ASSESSMENT: 1. Diagnostic laparoscopy turned to laparotomy for partial cecectomy with excision of nodular peritoneal lesion. 2. Appendectomy with drainage of periappendiceal abscess. Date of surgery, 08/25/2020. Surgeon: Vazquez Acevedo MD. PLAN: 1. Have signed consent for delayed primary closure with IV local sedation, 08/27/2020, at 07:15 a.m., n.p.o. after midnight. 2. Vital signs every 4 hours. 3. Consult home health care in regard to discharge planning. 4. Check CBC, CMP, mag, phos, BNP in a.m. 5. K-Phos 45 millimoles IV 1 time today. 6. D5 LR. Decrease rate to 80 mL per hour. 7. Hold spironolactone today. 8. Leave Mcgee in for accurate intake and output. Will be removed during delayed primary closure. 9. Continue use of incentive spirometer and ambulation. We will evaluate p.r.n. or in a.m. Ellen Houston PA-C /[id number]
--- NOTE | 2020-08-26 14:55 | PCM.PN ---
- General Info Date of Service: 08/26/20 Subjective Update: Mr. Hodges has been stable since surgery yesterday. Vital signs have remained good and he has been afebrile, respiratory status is stable. Experiencing signi ficant abdominal pain as would be expected Functional Status: Reports: Urinating - Review of Systems General: Reports: Weakness, Fatigue. Denies: Fever, Chills Pulmonary: Reports: No Symptoms Cardiovascular: Reports: No Symptoms Gastrointestinal: Reports: Abdominal Pain. Denies: Difficulty Swallowing, Flatus, Hematochezia, Melena, Nausea, Vomiting Genitourinary: Reports: No Symptoms - Patient Data Vitals - Most Recent: Last Vital Signs Temp 96.7 F L 08/26/20 10:03 Pulse 68 08/26/20 10:03 Resp 18 08/26/20 10:03 BP 115/75 08/26/20 10:03 Pulse Ox 93 L 08/26/20 10:03 Weight - Most Recent: 216 lb I&O - Last 24 Hours: Intake & Output 08/25/20 08/26/20 08/26/20 22:59 06:59 14:59 Intake Total 2055 1710 2323 Output Total 495 500 850 Balance 1560 1210 1473 Lab Results Last 24 Hours: Laboratory Results - last 24 hr 08/26/20 08/26/20 Range/Units 04:00 04:00 WBC 8.4 (4.5-11.0) K/uL RBC 4.41 (4.30-5.90) M/uL Hgb 13.1 (12.0-15.0) g/dL Hct 39.0 L (40.0-54.0) % MCV 88 (80-98) fL MCH 30 (27-31) pg MCHC 34 (32-36) % Plt Count 175 (150-400) K/uL Add Manual Diff Yes Neutrophils % (Manual) 83 H (36-66) % Band Neutrophils % 4 L (5-11) % Lymphocytes % (Manual) 10 L (24-44) % Monocytes % (Manual) 3 (2-6) % Sodium 137 L (140-148) mmol/L Potassium 4.6 (3.6-5.2) mmol/L Chloride 103 (100-108) mmol/L Carbon Dioxide 23 (21-32) mmol/L Anion Gap 15.6 H (5.0-14.0) mmol/L BUN 13 (7-18) mg/dL Creatinine 0.9 (0.8-1.3) mg/dL Est Cr Clr Drug Dosing 76.60 mL/min Estimated GFR (MDRD) > 60 (>60) Glucose 206 H (74-106) mg/dL Calcium 8.3 L (8.5-10.1) mg/dL Phosphorus 1.9 L (2.5-4.9) mg/dL Magnesium 2.4 (1.8-2.4) mg/dL Total Bilirubin 0.4 D (0.2-1.0) mg/dL AST 24 (15-37) U/L ALT 15 (12-78) U/L Alkaline Phosphatase 37 L (46-116) U/L NT-Pro-B Natriuret Pep 5488 H (5-125) pg/mL Total Protein 6.2 L (6.4-8.2) g/dL Albumin 2.4 L (3.4-5.0) g/dL Globulin 3.8 H (2.3-3.5) g/dL Albumin/Globulin Ratio 0.6 L (1.2-2.2) Luigi Results Last 24 Hours: Microbiology 08/25/20 12:05 Gram Stain - Final Appendix - Other Wound Culture - Preliminary Anaerobic Culture - Preliminary NO GROWTH AFTER 1 DAY 08/25/20 11:38 Gram Stain - Final Appendix - Other Wound Culture - Preliminary NO GROWTH AFTER 1 DAY Anaerobic Culture - Preliminary NO GROWTH AFTER 1 DAY 08/25/20 11:23 Gram Stain - Final Appendix - Abscess Wound Culture - Preliminary Anaerobic Culture - Preliminary NO GROWTH AFTER 1 DAY Med Orders - Current: Current Medications Acetaminophen (Acetaminophen 325 Mg Tab) 650 mg PO Q4H PRN PRN Reason: Pain (Mild 1-3)/fever Hydrocodone Bitart/Acetaminophen (Acetaminophen/Hydrocodone 325-5 Mg Tab) 1 - 2 tab PO Q4H PRN PRN Reason: Pain Albuterol (Albuterol 0.083% 2.5 Mg/3 Ml Neb Soln) 2.5 mg NEB Q4H PRN PRN Reason: Shortness Of Breath/wheezing Aspirin (Aspirin 325 Mg Tab.Ec) 325 mg PO DAILY [facility] Last Admin: 08/26/20 08:42 Dose: 325 mg Documented by: Duloxetine HCl (Duloxetine 20 Mg Cap) 20 mg PO DAILY [facility] Last Admin: 08/26/20 08:43 Dose: 20 mg Documented by: Ezetimibe (Ezetimibe 10 Mg Tab) 5 mg PO DAILY [facility] Last Admin: 08/26/20 08:42 Dose: 5 mg Documented by: Gabapentin (Gabapentin 300 Mg Cap) 600 mg PO TID [facility] Last Admin: 08/26/20 13:53 Dose: 600 mg Documented by: Hydromorphone HCl (Hydromorphone/Normal Saline 15 Mg/30 Ml Director Of Cardiology Service Line) 0 mg IV ASDIRE CTED PRN; Protocol PRN Reason: Pain Last Admin: 08/24/20 20:03 Dose: 15 mg Documented by: Aztreonam 1 gm/ Sodium (Chloride) 50 mls @ 100 mls/hr IV Q8H [facility] Last Admin: 08/26/20 12:39 Dose: 100 mls/hr Documented by: Ampicillin Sodium/Sulbactam (Sodium 3 gm/ Sodium Chloride) 100 mls @ 200 mls/hr IV Q6H [facility] Last Admin: 08/26/20 11:13 Dose: 200 mls/hr Documented by: Potassium Phosphate 15 mmole/ (Sodium Chloride) 255 mls @ 85 mls/hr IV Q3H [facility] Stop: 08/26/20 17:59 Last Admin: 08/26/20 12:40 Dose: 85 mls/hr Documented by: Dextrose/Lactated Ringer's (Dextrose 5%-Lactated Ringers) 1,000 mls @ 80 mls/hr IV ASDIRECTED [facility] Lactobacillus Rhamnosus (Lactobacillus Rhamnosus Gg (Probiotic) Cap) 1 cap PO BID [facility] Last Admin: 08/26/20 08:43 Dose: 1 cap Documented by: Levothyroxine Sodium (Levothyroxine 50 Mcg Tab) 150 mcg PO DAILY@0730 [facility] Last Admin: 08/26/20 07:28 Dose: 150 mcg Documented by: Lisinopril (Lisinopril 2.5 Mg Tab) 2.5 mg PO DAILY [facility] Last Admin: 08/26/20 08:42 Dose: 2.5 mg Documented by: Lorazepam (Lorazepam 2 Mg/Ml Sdv) 0.5 mg IVPUSH Q4H PRN PRN Reason: Nausea/Vomiting Magnesium Hydroxide (Magnesium Hydroxide 400 Mg/5 Ml Susp 30 Ml Cup) 30 ml PO Q12H PRN PRN Reason: Constipation Melatonin (Melatonin 3 Mg Tab) 9 mg PO BEDTIME PRN PRN Reason: Sleep Last Admin: 08/24/20 20:45 Dose: 9 mg Documented by: Naloxone HCl (Naloxone 0.4 Mg/Ml Sdv) 0.4 mg IVPUSH Q2M PRN PRN Reason: Respiratory Distress Ondansetron HCl (Ondansetron 4 Mg/2 Ml Sdv) 4 mg IV Q6H PRN PRN Reason: Nausea/Vomiting Ondansetron HCl (Ondansetron 4 Mg Tab.Dis) 4 mg PO Q6H PRN PRN Reason: Nausea able to take PO Oxybutynin Chloride (Oxybutynin 5 Mg Tab) 5 mg PO TID [facility] Last Admin: 08/26/20 13:53 Dose: 5 mg Documented by: Pantoprazole Sodium (Pantoprazole 40 Mg Vial) 40 mg IV Q24H [facility] Last Admin: 08/25/20 16:11 Dose: 40 mg Documented by: Senna/Docusate Sodium (Docusate Sodium/Sennosides 50-8.6 Mg Tab) 1 tab PO BID PRN PRN Reason: Constipation Sertraline HCl (Sertraline 25 Mg Tab) 25 mg PO DAILY [facility] Last Admin: 08/26/20 08:43 Dose: 25 mg Documented by: Simvastatin (Simvastatin 20 Mg Tab) 20 mg PO BEDTIME [facility] Last Admin: 08/25/20 22:12 Dose: 20 mg Documented by: Sotalol HCl (Sotalol 80 Mg Tab) 120 mg PO BID [facility] Last Admin: 08/26/20 08:42 Dose: 120 mg Documented by: Spironolactone (Spironolactone 25 Mg Tab) 25 mg PO DAILY [facility] Last Admin: 08/26/20 08:43 Dose: 25 mg Documented by: Tamsulosin HCl (Tamsulosin 0.4 Mg Cap.Er) 0.4 mg PO BEDTIME [facility] Last Admin: 08/25/20 20:20 Dose: 0.4 mg Documented by: Discontinued Medications Bupivacaine HCl/Epinephrine Bitart (Bupivacaine 0.5%/Epinephrine 1:200,000 50 Ml Mdv) Confirm Administered Dose 50 ml .ROUTE .[facility]-MED ONE Stop: 08/25/20 07:15 Last Admin: 08/25/20 13:23 Dose: 40 ml Documented by: Ropivacaine 50 ml/Dexamethasone 8 mg/Epinephrine HCl 0.4 mg/ Sodium Chloride 27.6 ml 0 [facility] Last Admin: 08/25/20 11:23 Dose: 80 syringe Documented by: Dexamethasone (Dexamethasone 4 Mg/Ml Sdv) Confirm Administered Dose 4 mg .ROUTE .STK-MED ONE Stop: 08/25/20 07:21 Fentanyl (Fentanyl 250 Mcg/5 Ml Sdv) Confirm Administered Dose 250 mcg .ROUTE .STK-MED ONE Stop: 08/25/20 07:21 Fentanyl (Fentanyl 100 Mcg/2 Ml Sdv) Confirm Administered Dose 100 mcg .ROUTE .STK-MED ONE Stop: 08/25/20 12:00 Gabapentin (Gabapentin 100 Mg Cap) 600 mg PO TID [facility] Last Admin: 08/24/20 20:50 Dose: Not Given Documented by: Glycopyrrolate (Glycopyrrolate 0.2 Mg/Ml 5 Ml Mdv) Confirm Administered Dose 1 mg .ROUTE .[facility] ONE Stop: 08/25/20 07:21 Hydromorphone HCl (Hydromorphone 0.5 Mg/0.5 Ml Syringe) 0.5 mg IVPUSH ONETIME ONE Stop: 08/24/20 15:32 Last Admin: 08/24/20 15:45 Dose: 0.5 mg Documented by: Hydromorphone HCl (Hydromorphone 1 Mg/Ml Syringe) 1 mg IVPUSH ONETIME ONE Stop: 08/24/20 17:24 Last Admin: 08/24/20 18:20 Dose: 1 mg Documented by: Sodium Chloride (Normal Saline) 1,000 mls @ 999 mls/hr IV [facility] Last Admin: 08/24/20 15:45 Dose: 999 mls/hr Documented by: Sodium Chloride (Normal Saline) 1,000 mls @ 300 mls[facility] Lactated Ringer's (Ringers, Lactated) 1,000 mls @ 100 [facility] Last Admin: 08/25/20 02:58 Dose: 100 mls/hr Documented by: Ampicillin Sodium/Sulbactam (Sodium 3 gm/ Sodium Chloride) 100 mls @ 200 mls/hr IV Q6H [facility] Last Admin: 08/25/20 05:04 Dose: 200 mls/hr Documented by: Aztreonam 1 gm/ Sodium (Chloride) 50 mls @ 100 mls/hr IV Q8H [facility] Last Admin: 08/25/20 05:05 Dose: 100 mls/hr Documented by: Magnesium Sulfate (Magnesium Sulfate In Water 2 Gm/50 Ml) 2 gm in 50 mls @ 25 mls/hr IV Q6H [facility] Stop: 08/25/20 18:29 Last Admin: 08/25/20 16:14 Dose: 25 mls/hr Documented by: Lactated Ringer's (Ringers, Lactated) Confirm Administered Dose 1,000 mls @ as directed .ROUTE .STK-MED ONE Stop: 08/25/20 11:32 Dextrose/Lactated Ringer's (Dextrose 5%-Lactated Ringers) 1,000 mls @ 150 mls/hr IV ASDIRECTED [facility] Last Admin: 08/26/20 03:57 Dose: 150 mls/hr Documented by: Lidocaine HCl (Lidocaine 2% Jelly 10 Ml Urojet) Confirm Administered Dose 10 ml .ROUTE .STK-MED ONE Stop: 08/25/20 10:49 Last Admin: 08/26/20 10:35 Dose: 10 ml Documented by: Meropenem (Meropenem 500 Mg Sdv) Confirm Administered Dose 500 mg .ROUTE .STK- MED ONE Stop: 08/25/20 11:15 Last Admin: 08/25/20 11:47 Dose: 1,000 mg Documented by: Meropenem (Meropenem 500 Mg Sdv) Confirm Administered Dose 500 mg .ROUTE .STK- MED ONE Stop: 08/25/20 12:12 Neostigmine Methylsulfate (Neostigmine Methylsulfate 1 Mg/Ml 5 Ml Syringe) Confirm Administered Dose 5 mg .ROUTE .STK-MED ONE Stop: 08/25/20 07:21 Ondansetron HCl (Ondansetron 4 Mg/2 Ml Sdv) 4 mg IVPUSH ONETIME ONE Stop: 08/24/20 15:32 Last Admin: 08/24/20 15:44 Dose: 4 mg Documented by: Ondansetron HCl (Ondansetron 4 Mg/2 Ml Sdv) Confirm Administered Dose 4 mg .ROUTE .STK-MED ONE Stop: 08/25/20 07:21 Pantoprazole Sodium (Pantoprazole 40 Mg Vial) 40 mg IV ONETIME ONE Stop: 08/24/20 20:01 Last Admin: 08/24/20 20:46 Dose: 40 mg Documented by: Pneumococcal Polyvalent Vaccine (Pneumococcal Polyvalent-23 Vaccine 0.5 Ml Sdv) 0.5 ml IM .ONCE ONE Stop: 08/24/20 19:28 Last Admin: 08/24/20 20:21 Dose: Not Given Documented by: Propofol (Propofol 200 Mg/20 Ml Sdv) Confirm Administered Dose 200 mg .ROUTE .STK-MED ONE Stop: 08/25/20 07:21 Rocuronium Stephan (Rocuronium 50 Mg/5 Ml Vial) Confirm Administered Dose 50 mg .ROUTE .STK-MED ONE Stop: 08/25/20 07:21 Rocuronium Stephan (Rocuronium 50 Mg/5 Ml Vial) Confirm Administered Dose 50 mg .ROUTE .STK-MED ONE Stop: 08/25/20 11:58 Succinylcholine Chloride (Succinylcholine 200 Mg/10 Ml Mdv) Confirm Administered Dose 200 mg .ROUTE .STK-MED ONE Stop: 08/25/20 07:21 - Exam Quality Assessment: Supplemental Oxygen, DVT Prophylaxis General: Alert, Oriented, Cooperative, Moderate Distress Lungs: Clear to Auscultation, Normal Respiratory Effort, Decreased Breath Sounds Cardiovascular: Regular Rate, Regular Rhythm, No Murmurs GI/Abdominal Exam: Soft, No Organomegaly, Tender. No: Distended, Guarding, Rigid, Rebound Extremities: Non-Tender, No Pedal Edema - Patient Data Lab Results Last 24 hrs: Laboratory Results - last 24 hr 08/26/20 08/26/20 Range/Units 04:00 04:00 WBC 8.4 (4.5-11.0) K/uL RBC 4.41 (4.30-5.90) M/uL Hgb 13.1 (12.0-15.0) g/dL Hct 39.0 L (40.0-54.0) % MCV 88 (80-98) fL MCH 30 (27-31) pg MCHC 34 (32-36) % Plt Count 175 (150-400) K/uL Add Manual Diff Yes Neutrophils % (Manual) 83 H (36-66) % Band Neutrophils % 4 L (5-11) % Lymphocytes % (Manual) 10 L (24-44) % Monocytes % (Manual) 3 (2-6) % Sodium 137 L (140-148) mmol/L Potassium 4.6 (3.6-5.2) mmol/L Chloride 103 (100-108) mmol/L Carbon Dioxide 23 (21-32) mmol/L Anion Gap 15.6 H (5.0-14.0) mmol/L BUN 13 (7-18) mg/dL Creatinine 0.9 (0.8-1.3) mg/dL Est Cr Clr Drug Dosing 76.60 mL/min Estimated GFR (MDRD) > 60 (>60) Glucose 206 H (74-106) mg/dL Calcium 8.3 L (8.5-10.1) mg/dL Phosphorus 1.9 L (2.5-4.9) mg/dL Magnesium 2.4 (1.8-2.4) mg/dL Total Bilirubin 0.4 D (0.2-1.0) mg/dL AST 24 (15-37) U/L ALT 15 (12-78) U/L Alkaline Phosphatase 37 L (46-116) U/L NT-Pro-B Natriuret Pep 5488 H (5-125) pg/mL Total Protein 6.2 L (6.4-8.2) g/dL Albumin 2.4 L (3.4-5.0) g/dL Globulin 3.8 H (2.3-3.5) g/dL Albumin/Globulin Ratio 0.6 L (1.2-2.2) Result Diagrams: 08/26/20 04:00 08/26/20 04:00 Luigi Results Last 24 hrs: Microbiology 08/25/20 12:05 Gram Stain - Final Appendix - Other Wound Culture - Preliminary Anaerobic Culture - Preliminary NO GROWTH AFTER 1 DAY 08/25/20 11:38 Gram Stain - Final Appendix - Other Wound Culture - Preliminary NO GROWTH AFTER 1 DAY Anaerobic Culture - Preliminary NO GROWTH AFTER 1 DAY 08/25/20 11:23 Gram Stain - Final Appendix - Abscess Wound Culture - Preliminary Anaerobic Culture - Preliminary NO GROWTH AFTER 1 DAY Sepsis Event Note - Evaluation Sepsis Screening Result: No Definite Risk - Focused Exam Vital Signs: Vital Signs Temp Pulse Pulse Resp BP BP Pulse Ox 08/26/20 10:03 96.7 F L 68 18 115/75 93 L 08/26/20 08:42 70 98/55 L 08/26/20 07:31 95.6 F L 69 18 98/55 L 99 08/26/20 05:00 97.4 F 90 16 106/64 95 - Problem List Review Problem List Initiated/Reviewed/Updated: Yes - Plan Plan:: ASSESSMENT AND PLAN Acute appendicitis without perforation-status post appendectomy performed yesterday by Dr. Acevedo. -IV Amp/Sulbactam and aztreonam -IV fluids -Symptomatic management of pain with the RESIDENTIAL GLAZIER -Pulse oximetry -Blood cultures if he spikes a fever -Postoperative care per Dr. Acevedo Chronic systolic congestive heart failure-complicated by ischemic cardiomyopathy. Last ejection fraction was between 35 and 40%. No functional limitations or exertional dyspnea. No anginal symptoms. -Continue medical management -Judicious fluid use around the time of surgery Chronic atrial fibrillation-anticoagulated with apixaban. This will be on hold. 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 History of left-sided CVA-residual right-sided weakness though his functional status is pretty good. Gets around without a cane most of the time. Maintenance issues -DVT prophylaxis-mechanical -GI prophylaxis-IV PPI tonight -Nutrition-nothing by mouth -Mcgee catheter-not indicated at this time CODE STATUS -full code Admission justification -this patient will be admitted for inpatient services and is medically appropriate meeting medical necessity for inpatient admission as outlined in my documentation. I reasonably expect the patient will require inpatient services that span a period time over 2 midnights. I reasonably expect this patient to be discharged or transferred within 96 hours after admission to the [facility]. The patient has nonruptured appendicitis but is on long-term anticoagulation with a DOAC so we will need adequate time for this medication to clear his system before surgery can be entertained. Disposition -I anticipate discharge home after the hospital stay Primary care physician - Antonio Morales NP
[2020-08-26] MEDS: Pantoprazole 40 MG Vial IV SCH (15:29)
[2020-08-26] MEDS: Ondansetron 4 MG Tab.DIS PO PRN (17:27)
[2020-08-26] MEDS: Metoclopramide 10 MG/2 ML SDV IVPUSH SCH (21:36)
[2020-08-26] MEDS: Tamsulosin 0.4 MG Cap.ER PO SCH (23:15)
[2020-08-26] MEDS: Simvastatin 20 MG Tab PO SCH (23:15)
[2020-08-27] MEDS: Ondansetron 4 MG/2 ML SDV IV PRN (01:34)
[2020-08-27] MEDS: Metoclopramide 10 MG/2 ML SDV IVPUSH SCH ×4 (02:37→21:32)
[2020-08-27] MEDS: Ampicillin/Sulbactam Na 3 GM in Sodium Chloride 0.9% 100 ML IV SCH ×3 (05:34→18:07)
[2020-08-27] MEDS ORDERED: Lidocaine 1% with EPINEPHrine 1:100,000 50 ML MDV ONE (06:32)
[2020-08-27] MEDS ORDERED: Bupivacaine 0.5% 50 ML MDV ONE (06:32)
[2020-08-27] MEDS ORDERED: Meropenem 500 MG SDV ONE (06:32)
[2020-08-27] MEDS: Levothyroxine 50 MCG Tab PO SCH (07:21)
[2020-08-27] MEDS ORDERED: Ropivacaine 50 ML, dexAMETHasone 8 MG, EPINEPHrine 0.4 MG, Sodium Chloride 0.9% 27.6 ML NERVRT SCH ×4 (07:30)
[2020-08-27] MEDS: Dextrose 5%-Lactated Ringers 1,000 ML IV SCH (08:19)
--- NOTE | 2020-08-27 09:53 | CR ---
Abdomen 1V Upright CLINICAL HISTORY: Postoperative NG tube placement FINDINGS: There is an NG tube in the fundus of the stomach. Sidehole is above the GE junction. There is a surgical drain in the right abdomen. Patient has an inferior vena caval filter. There are surgical clips in the right upper quadrant. There is generalized gaseous distention which may represent postoperative ileus IMPRESSION: NG tube is just beyond the GE junction and should be advanced Small bowel distention most likely postoperative ileus
[2020-08-27] MEDS: Spironolactone 25 MG Tab PO SCH (09:59)
[2020-08-27] MEDS: Lactobacillus Rhamnosus GG (Probiotic) Cap PO SCH ×2 (09:59→21:11)
[2020-08-27] MEDS: DULoxetine 20 MG Cap PO SCH (09:59)
[2020-08-27] MEDS: Gabapentin 300 MG Cap PO SCH ×3 (10:00→21:12)
[2020-08-27] MEDS: Oxybutynin 5 MG Tab PO SCH ×3 (10:00→21:12)
[2020-08-27] MEDS: Sertraline 25 MG Tab PO SCH (10:00)
[2020-08-27] MEDS: Ezetimibe 10 MG Tab PO SCH (10:00)
[2020-08-27] MEDS: Aspirin 325 MG Tab.EC PO SCH (10:00)
[2020-08-27] MEDS: Lisinopril 2.5 MG Tab PO SCH (10:01)
[2020-08-27] MEDS: Bisacodyl 10 MG Supp RECTAL SCH ×2 (10:27→21:11)
[2020-08-27] MEDS: Metoprolol Tartrate 5 MG/5 ML SDV IVPUSH SCH ×4 (10:32→21:27)
--- NOTE | 2020-08-27 11:15 | PN ---
DATE OF SERVICE: 08/27/2020 SUBJECTIVE: Lemuel yesterday developed an ileus, and an NG was placed and he has had 475 output of a dark brown drainage. He remains to be quite nauseated. Vital signs have been stable. Oral intake on clear liquids prior to NG placement was 780. Urine output 1375 via Mcgee catheter. TYLER drain increased output to 1200. Pain is controlled. Vital signs have been stable. Main concern is he is nauseated. OBJECTIVE: GENERAL: Sriram is a pleasant 70-year-old male. VITAL SIGNS: TPR is 96, 65, 16, blood pressure 109/64. HEENT: Negative. NECK: Supple. HEART: Regular rate and rhythm. LUNGS: Clear. ABDOMEN: Dressings dry and intact. TYLER as above. EXTREMITIES: Without peripheral edema. ASSESSMENT: 1. Postop ileus. 2. Diagnostic laparoscopy turned to laparotomy with: a. Partial cecectomy with excision of overlying nodular peritoneal lesion. b. Appendectomy with drainage of periappendiceal abscess. POSTOPERATIVE DIAGNOSES: 1. Perforated appendicitis with periappendiceal abscess. 2. Nodular lesion overlying cecum. Date of procedure 08/25/2020. Surgeon: Vazquez Acevedo MD. PLAN: 1. Postpone delayed primary closure until tomorrow, 08/28/2020. 2. Continue NG to suction. 3. Dulcolax suppositories b.i.d. per rectum until bowel movement. 4. Schedule abdominal x-ray flat and upright in a.m. 08/28/2020 at 0400 and these were scheduled daily for 5 days. 5. Vistaril 100 mg IM for pain not controlled with ROUGH CARPENTER. 6. Metoprolol 2.5 mg IV q.6 hours. 7. All oral medications on hold as long as he has the NG in. 8. We will evaluate p.r.n. or in a.m. Ellen Houston PA-C /[id number]
--- NOTE | 2020-08-27 14:06 | PCM.PN ---
- General Info Date of Service: 08/27/20 Subjective Update: Mr. Hodges has been more sleepy and lethargic today. He denies shortness of breath or chest pain. Blood pressure has been somewhat borderline, he has been afebrile. Delayed primary closure was pulled off 1 additional day. - Review of Systems General: Reports: Weakness, Fatigue. Denies: Fever, Chills Pulmonary: Reports: No Symptoms Cardiovascular: Reports: No Symptoms Gastrointestinal: Reports: Abdominal Pain. Denies: Difficulty Swallowing, Flatus, Hematochezia, Melena, Nausea, Vomiting - Patient Data Vitals - Most Recent: Last Vital Signs Temp 96.4 F L 08/27/20 11:00 Pulse 69 08/27/20 11:00 Resp 18 08/27/20 11:00 BP 112/69 08/27/20 11:00 Pulse Ox 91 L 08/27/20 13:17 Weight - Most Recent: 216 lb I&O - Last 24 Hours: Intake & Output 08/26/20 08/27/20 08/27/20 22:59 06:59 14:59 Intake Total 513 1396 Output Total 18 2020 850 Balance 34Y -959 -981 Lab Results Last 24 Hours: Laboratory Results - last 24 hr 08/27/20 08/27/20 Range/Units 04:54 04:54 WBC 9.5 (4.5-11.0) K/uL RBC 4.92 (4.30-5.90) M/uL Hgb 14.6 (12.0-15.0) g/dL Hct 43.4 (40.0-54.0) % MCV 88 (80-98) fL MCH 30 (27-31) pg MCHC 34 (32-36) % Plt Count 280 (150-400) K/uL Sodium 141 (140-148) mmol/L Potassium 4.1 (3.6-5.2) mmol/L Chloride 103 (100-108) mmol/L Carbon Dioxide 26 (21-32) mmol/L Anion Gap 11.8 (5.0-14.0) mmol/L BUN 13 (7-18) mg/dL Creatinine 1.0 (0.8-1.3) mg/dL Est Cr Clr Drug Dosing 68.94 mL/min Estimated GFR (MDRD) > 60 (>60) Glucose 193 H (74-106) mg/dL Calcium 8.6 (8.5-10.1) mg/dL Phosphorus 2.6 (2.5-4.9) mg/dL Magnesium 2.0 (1.8-2.4) mg/dL Total Bilirubin 0.4 (0.2-1.0) mg/dL AST 32 (15-37) U/L ALT 20 (12-78) U/L Alkaline Phosphatase 36 L (46-116) U/L NT-Pro-B Natriuret Pep 1509 H (5-125) pg/mL Total Protein 6.2 L (6.4-8.2) g/dL Albumin 2.4 L (3.4-5.0) g/dL Globulin 3.8 H (2.3-3.5) g/dL Albumin/Globulin Ratio 0.6 L (1.2-2.2) Luigi Results Last 24 Hours: Microbiology 08/25/20 11:23 Gram Stain - Final Appendix - Abscess Wound Culture - Final Raoultella (K) [place] Anaerobic Culture - Preliminary NO GROWTH AFTER 2 DAYS 08/25/20 12:05 Gram Stain - Final Appendix - Other Wound Culture - Preliminary Raoultella (K) [place] Anaerobic Culture - Preliminary NO GROWTH AFTER 1 DAY 08/25/20 11:38 Gram Stain - Final Appendix - Other Wound Culture - Preliminary NO GROWTH AFTER 2 DAYS Anaerobic Culture - Preliminary NO GROWTH AFTER 2 DAYS Med Orders - Current: Current Medications Acetaminophen (Acetaminophen 325 Mg Tab) 650 mg PO Q4H PRN PRN Reason: Pain (Mild 1-3)/fever Hydrocodone Bitart/Acetaminophen (Acetaminophen/Hydrocodone 325-5 Mg Tab) 1 - 2 tab PO Q4H PRN PRN Reason: Pain Albuterol (Albuterol 0.083% 2.5 Mg/3 Ml Neb Soln) 2.5 mg NEB Q4H PRN PRN Reason: Shortness Of Breath/wheezing Aspirin (Aspirin 325 Mg Tab.Ec) 325 mg PO DAILY [facility] Last Admin: 08/27/20 10:00 Dose: Not Given Documented by: Bisacodyl (Bisacodyl 10 Mg Supp) 10 mg RECTAL BID [facility] Last Admin: 08/27/20 10:27 Dose: 10 mg Documented by: Ropivacaine 50 ml/Dexamethasone 8 mg/Epinephrine HCl 0.4 mg/ Sodium Chloride 27.6 ml 0 ml NERVRT ASDIRECTED [facility] Duloxetine HCl (Duloxetine 20 Mg Cap) 20 mg PO DAILY [facility] Last Admin: 08/27/20 09:59 Dose: Not Given Documented by: Ezetimibe (Ezetimibe 10 Mg Tab) 5 mg PO DAILY [facility] Last Admin: 08/27/20 10:00 Dose: Not Given Documented by: Gabapentin (Gabapentin 300 Mg Cap) 600 mg PO TID [facility] Last Admin: 08/27/20 10:00 Dose: Not Given Documented by: Hydromorphone HCl (Hydromorphone/Normal Saline 15 Mg/30 Ml Cadmium Liquor Maker) 0 mg IV ASDIRECTED PRN; Protocol PRN Reason: Pain Last Admin: 08/24/20 20:03 Dose: 15 mg Documented by: Hydroxyzine HCl (Hydroxyzine Hcl 100 Mg/2 Ml Sdv) 100 mg IM Q4H PRN PRN Reason: Pain Aztreonam 1 gm/ Sodium (Chloride) 50 mls @ 100 mls/hr IV Q8H [facility] Last Admin: 08/27/20 12:55 Dose: 100 mls/hr Documented by: Ampicillin Sodium/Sulbactam (Sodium 3 gm/ Sodium Chloride) 100 mls @ 200 mls/hr IV Q6H [facility] Last Admin: 08/27/20 12:12 Dose: 200 mls/hr Documented by: Dextrose/Lactated Ringer's (Dextrose 5%-Lactated Ringers) 1,000 mls @ 80 mls/hr IV ASDIRECTED [facility] Last Admin: 08/27/20 08:19 Dose: 80 mls/hr Documented by: Lactobacillus Rhamnosus (Lactobacillus Rhamnosus Gg (Probiotic) Cap) 1 cap PO BID [facility] Last Admin: 08/27/20 09:59 Dose: Not Given Documented by: Levothyroxine Sodium (Levothyroxine 50 Mcg Tab) 150 mcg PO DAILY@0730 [facility] Last Admin: 08/27/20 07:21 Dose: Not Given Documented by: Lisinopril (Lisinopril 2.5 Mg Tab) 2.5 mg PO DAILY [facility] Last Admin: 08/27/20 10:01 Dose: Not Given Documented by: Lorazepam (Lorazepam 2 Mg/Ml Sdv) 0.5 mg IVPUSH Q4H PRN PRN Reason: Nausea/Vomiting Last Admin: 08/27/20 02:13 Dose: 0.5 mg Documented by: Magnesium Hydroxide (Magnesium Hydroxide 400 Mg/5 Ml Susp 30 Ml Cup) 30 ml PO Q12H PRN PRN Reason: Constipation Melatonin (Melatonin 3 Mg Tab) 9 mg PO BEDTIME PRN PRN Reason: Sleep Last Admin: 08/24/20 20:45 Dose: 9 mg Documented by: Metoclopramide HCl (Metoclopramide 10 Mg/2 Ml Sdv) 10 mg IVPUSH Q6H [facility] Last Admin: 08/27/20 10:41 Dose: 10 mg Documented by: Metoprolol Tartrate (Metoprolol Tartrate 5 Mg/5 Ml Sdv) 2.5 mg IVPUSH Q6H [facility] Last Admin: 08/27/20 10:32 Dose: Not Given Documented by: Naloxone HCl (Naloxone 0.4 Mg/Ml Sdv) 0.4 mg IVPUSH Q2M PRN PRN Reason: Respiratory Distress Ondansetron HCl (Ondansetron 4 Mg/2 Ml Sdv) 4 mg IV Q6H PRN PRN Reason: Nausea/Vomiting Last Admin: 08/27/20 01:34 Dose: 4 mg Documented by: Ondansetron HCl (Ondansetron 4 Mg Tab.Dis) 4 mg PO Q6H PRN PRN Reason: Nausea able to take PO Last Admin: 08/26/20 17:27 Dose: 4 mg Documented by: Oxybutynin Chloride (Oxybutynin 5 Mg Tab) 5 mg PO TID [facility] Last Admin: 08/27/20 10:00 Dose: Not Given Documented by: Pantoprazole Sodium (Pantoprazole 40 Mg Vial) 40 mg IV Q24H [facility] Last Admin: 08/26/20 15:29 Dose: 40 mg Documented by: Senna/Docusate Sodium (Docusate Sodium/Sennosides 50-8.6 Mg Tab) 1 tab PO BID P RN PRN Reason: Constipation Sertraline HCl (Sertraline 25 Mg Tab) 25 mg PO DAILY [facility] Last Admin: 08/27/20 10:00 Dose: Not Given Documented by: Simvastatin (Simvastatin 20 Mg Tab) 20 mg PO BEDTIME [facility] Last Admin: 08/26/20 23:15 Dose: 20 mg Documented by: Sotalol HCl (Sotalol 80 Mg Tab) 120 mg PO BID [facility] Last Admin: 08/26/20 23:13 Dose: 120 mg Documented by: Spironolactone (Spironolactone 25 Mg Tab) 25 mg PO DAILY [facility] Last Admin: 08/27/20 09:59 Dose: Not Given Documented by: Tamsulosin HCl (Tamsulosin 0.4 Mg Cap.Er) 0.4 mg PO BEDTIME [facility] Last Admin: 08/26/20 23:15 Dose: 0.4 mg Documented by: Discontinued Medications Bupivacaine HCl (Bupivacaine 0.5% 50 Ml Mdv) Confirm Administered Dose 50 ml .ROUTE .STK-MED ONE Stop: 08/27/20 06:33 Bupivacaine HCl/Epinephrine Bitart (Bupivacaine 0.5%/Epinephrine 1:200,000 50 Ml Mdv) Confirm Administered Dose 50 ml .ROUTE .STK-MED ONE Stop: 08/25/20 07:15 Last Admin: 08/25/20 13:23 Dose: 40 ml Documented by: Ropivacaine 50 ml/Dexamethasone 8 mg/Epinephrine HCl 0.4 mg/ Sodium Chloride 27.6 ml 0 ml NERVRT ASDIRECTED [facility] Last Admin: 08/25/20 11:23 Dose: 80 syringe Documented by: Dexamethasone (Dexamethasone 4 Mg/Ml Sdv) Confirm Administered Dose 4 mg .ROUTE .STK-MED ONE Stop: 08/25/20 07:21 Fentanyl (Fentanyl 250 Mcg/5 Ml Sdv) Confirm Administered Dose 250 mcg .ROUTE .STK-MED ONE Stop: 08/25/20 07:21 Fentanyl (Fentanyl 100 Mcg/2 Ml Sdv) Confirm Administered Dose 100 mcg .ROUTE .STK-MED ONE Stop: 08/25/20 12:00 Gabapentin (Gabapentin 100 Mg Cap) 600 mg PO TID [facility] Last Admin: 08/24/20 20:50 Dose: Not Given Documented by: Glycopyrrolate (Glycopyrrolate 0.2 Mg/Ml 5 Ml Mdv) Confirm Administered Dose 1 m g .ROUTE .STK-MED ONE Stop: 08/25/20 07:21 Hydromorphone HCl (Hydromorphone 0.5 Mg/0.5 Ml Syringe) 0.5 mg IVPUSH ONETIME ONE Stop: 08/24/20 15:32 Last Admin: 08/24/20 15:45 Dose: 0.5 mg Documented by: Hydromorphone HCl (Hydromorphone 1 Mg/Ml Syringe) 1 mg IVPUSH ONETIME ONE Stop: 08/24/20 17:24 Last Admin: 08/24/20 18:20 Dose: 1 mg Documented by: Sodium Chloride (Normal Saline) 1,000 mls @ 999 mls/hr IV ASDIRECTED [facility] Last Admin: 08/24/20 15:45 Dose: 999 mls/hr Documented by: Sodium Chloride (Normal Saline) 1,000 mls @ 300 mls/hr IV ASDIRECTED [facility] Lactated Ringer's (Ringers, Lactated) 1,000 mls @ 100 mls/hr IV ASDIRECTED [facility] Last Admin: 08/25/20 02:58 Dose: 100 mls/hr Documented by: Ampicillin Sodium/Sulbactam (Sodium 3 gm/ Sodium Chloride) 100 mls @ 200 mls/hr IV Q6H [facility] Last Admin: 08/25/20 05:04 Dose: 200 mls/hr Documented by: Aztreonam 1 gm/ Sodium (Chloride) 50 mls @ 100 mls/hr IV Q8H [facility] Last Admin: 08/25/20 05:05 Dose: 100 mls/hr Documented by: Magnesium Sulfate (Magnesium Sulfate In Water 2 Gm/50 Ml) 2 gm in 50 mls @ 25 mls/hr IV Q6H [facility] Stop: 08/25/20 18:29 Last Admin: 08/25/20 16:14 Dose: 25 mls/hr Documented by: Lactated Ringer's (Ringers, Lactated) Confirm Administered Dose 1,000 mls @ as directed .ROUTE .STK-MED ONE Stop: 08/25/20 11:32 Dextrose/Lactated Ringer's (Dextrose 5%-Lactated Ringers) 1,000 mls @ 150 mls/hr IV ASDIRECTED [facility] Last Admin: 08/26/20 03:57 Dose: 150 mls/hr Documented by: Potassium Phosphate 15 mmole/ (Sodium Chloride) 255 mls @ 85 mls/hr IV Q3H [facility] Stop: 08/26/20 17:59 Last Admin: 08/26/20 15:25 Dose: 85 mls/hr Documented by: Lidocaine HCl (Lidocaine 2% Jelly 10 Ml Urojet) Confirm Administered Dose 10 ml .ROUTE .STK-MED ONE Stop: 08/25/20 10:49 Last Admin: 08/26/20 10:35 Dose: 10 ml Documented by: Lidocaine/Epinephrine (Lidocaine 1% With Epinephrine 1:100,000 50 Ml Mdv) Confirm Administered Dose 50 ml .ROUTE .STK-MED ONE Stop: 08/27/20 06:33 Meropenem (Meropenem 500 Mg Sdv) Confirm Administered Dose 500 mg .ROUTE .STK- MED ONE Stop: 08/25/20 11:15 Last Admin: 08/25/20 11:47 Dose: 1,000 mg Documented by: Meropenem (Meropenem 500 Mg Sdv) Confirm Administered Dose 500 mg .ROUTE .STK- MED ONE Stop: 08/25/20 12:12 Meropenem (Meropenem 500 Mg Sdv) Confirm Administered Dose 500 mg .ROUTE .STK- MED ONE Stop: 08/27/20 06:33 Neostigmine Methylsulfate (Neostigmine Methylsulfate 1 Mg/Ml 5 Ml Syringe) Confirm Administered Dose 5 mg .ROUTE .STK-MED ONE Stop: 08/25/20 07:21 Ondansetron HCl (Ondansetron 4 Mg/2 Ml Sdv) 4 mg IVPUSH ONETIME ONE Stop: 08/24/20 15:32 Last Admin: 08/24/20 15:44 Dose: 4 mg Documented by: Ondansetron HCl (Ondansetron 4 Mg/2 Ml Sdv) Confirm Administered Dose 4 mg .ROUTE .STK-MED ONE Stop: 08/25/20 07:21 Pantoprazole Sodium (Pantoprazole 40 Mg Vial) 40 mg IV ONETIME ONE Stop: 08/24/20 20:01 Last Admin: 08/24/20 20:46 Dose: 40 mg Documented by: Pneumococcal Polyvalent Vaccine (Pneumococcal Polyvalent-23 Vaccine 0.5 Ml Sdv) 0.5 ml IM .ONCE ONE Stop: 08/24/20 19:28 Last Admin: 08/24/20 20:21 Dose: Not Given Documented by: Propofol (Propofol 200 Mg/20 Ml Sdv) Confirm Administered Dose 200 mg .ROUTE .STK-MED ONE Stop: 08/25/20 07:21 Rocuronium Welch (Rocuronium 50 Mg/5 Ml Vial) Confirm Administered Dose 50 mg .ROUTE .STK-MED ONE Stop: 08/25/20 07:21 Rocuronium Welch (Rocuronium 50 Mg/5 Ml Vial) Confirm Administered Dose 50 mg .ROUTE .STK-MED ONE Stop: 08/25/20 11:58 Succinylcholine Chloride (Succinylcholine 200 Mg/10 Ml Mdv) Confirm Administered Dose 200 mg .ROUTE .STK-MED ONE Stop: 08/25/20 07:21 - Exam Quality Assessment: Supplemental Oxygen, DVT Prophylaxis General: Cooperative, Moderate Distress, Lethargic Lungs: Clear to Auscultation, Normal Respiratory Effort Cardiovascular: Regular Rate, Regular Rhythm, No Murmurs GI/Abdominal Exam: Soft, Non-Tender, No Organomegaly, No Distention Extremities: Non-Tender, No Pedal Edema - Patient Data Lab Results Last 24 hrs: Laboratory Results - last 24 hr 08/27/20 08/27/20 Range/Units 04:54 04:54 WBC 9.5 (4.5-11.0) K/uL RBC 4.92 (4.30-5.90) M/uL Hgb 14.6 (12.0-15.0) g/dL Hct 43.4 (40.0-54.0) % MCV 88 (80-98) fL MCH 30 (27-31) pg MCHC 34 (32-36) % Plt Count 280 (150-400) K/uL Sodium 141 (140-148) mmol/L Potassium 4.1 (3.6-5.2) mmol/L Chloride 103 (100-108) mmol/L Carbon Dioxide 26 (21-32) mmol/L Anion Gap 11.8 (5.0-14.0) mmol/L BUN 13 (7-18) mg/dL Creatinine 1.0 (0.8-1.3) mg/dL Est Cr Clr Drug Dosing 68.94 mL/min Estimated GFR (MDRD) > 60 (>60) Glucose 193 H (74-106) mg/dL Calcium 8.6 (8.5-10.1) mg/dL Phosphorus 2.6 (2.5-4.9) mg/dL Magnesium 2.0 (1.8-2.4) mg/dL Total Bilirubin 0.4 (0.2-1.0) mg/dL AST 32 (15-37) U/L ALT 20 (12-78) U/L Alkaline Phosphatase 36 L (46-116) U/L NT-Pro-B Natriuret Pep 1509 H (5-125) pg/mL Total Protein 6.2 L (6.4-8.2) g/dL Albumin 2.4 L (3.4-5.0) g/dL Globulin 3.8 H (2.3-3.5) g/dL Albumin/Globulin Ratio 0.6 L (1.2-2.2) Result Diagrams: 08/27/20 04:54 08/27/20 04:54 Luigi Results Last 24 hrs: Microbiology 08/25/20 11:23 Gram Stain - Final Appendix - Abscess Wound Culture - Final Raoultella (K) [place] Anaerobic Culture - Preliminary NO GROWTH AFTER 2 DAYS 08/25/20 12:05 Gram Stain - Final Appendix - Other Wound Culture - Preliminary Raoultella (K) [place] Anaerobic Culture - Preliminary NO GROWTH AFTER 1 DAY 08/25/20 11:38 Gram Stain - Final Appendix - Other Wound Culture - Preliminary NO GROWTH AFTER 2 DAYS Anaerobic Culture - Preliminary NO GROWTH AFTER 2 DAYS Sepsis Event Note - Evaluation Sepsis Screening Result: No Definite Risk - Focused Exam Vital Signs: Vital Signs Temp Pulse Pulse Resp BP BP Pulse Ox 08/27/20 13:17 91 L 08/27/20 11:00 96.4 F L 69 18 112/69 90 L 08/27/20 10:32 64 94/53 L 08/27/20 10:01 109/63 08/27/20 07:15 93 L 08/27/20 07:00 96.0 F L 65 16 109/64 94 L 08/27/20 03:00 96.3 F L 60 18 100/55 L 92 L - Problem List Review Problem List Initiated/Reviewed/Updated: Yes - My Orders Last 24 Hours: My Active Orders 08/27/20 08:40 Consult to Occupational Therapy [OT Evaluation and Treatment] [CONS] Routine PT Evaluation and Treatment [CONS] Routine - Plan Plan:: ASSESSMENT AND PLAN Acute appendicitis without perforation-status post appendectomy performed 08/[address] Acevedo. Postoperative course seems to be complicated by ileus and an NG tube has been placed -IV Amp/Sulbactam and aztreonam -IV fluids -Symptomatic management of pain with the HEAD PACKAGER -Pulse oximetry -Postoperative care per Dr. Acevedo Chronic systolic congestive heart failure-complicated by ischemic cardiomyopathy. Last ejection fraction was between 35 and 40%. No functional limitations or exertional dyspnea. No anginal symptoms. -Continue medical management -Judicious fluid use around the time of surgery Chronic atrial fibrillation-anticoagulated with apixaban. This will be on hold. 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 History of left-sided CVA-residual right-sided weakness though his functional status is pretty good. Gets around without a cane most of the time. Maintenance issues -DVT prophylaxis-mechanical -GI prophylaxis-IV PPI tonight -Nutrition-nothing by mouth -Mcgee catheter-not indicated at this time CODE STATUS -full code Admission justification -this patient will be admitted for inpatient services and is medically appropriate meeting medical necessity for inpatient admission as outlined in my documentation. I reasonably expect the patient will require inpatient services that span a period time over 2 midnights. I reasonably expect this patient to be discharged or transferred within 96 hours [facility]. The patient has nonruptured appendicitis but is on long-term anticoagulation with a DOAC so we will need adequate time for this medication to clear his system before surgery can be entertained. Disposition -I anticipate discharge home after the hospital stay Primary care physician - Antonio Morales NP
[2020-08-27] MEDS ORDERED: Lactated Ringers 500 ML IV ONE (16:15)
[2020-08-27] MEDS: Pantoprazole 40 MG Vial IV SCH (17:02)
[2020-08-27] MEDS: Tamsulosin 0.4 MG Cap.ER PO SCH (21:11)
[2020-08-27] MEDS: Simvastatin 20 MG Tab PO SCH (21:12)
[2020-08-28] MEDS: Ampicillin/Sulbactam Na 3 GM in Sodium Chloride 0.9% 100 ML IV SCH ×5 (00:26→23:57)
[2020-08-28] MEDS: Dextrose 5%-Lactated Ringers 1,000 ML IV SCH ×2 (00:32→10:20)
[2020-08-28] MEDS: Metoclopramide 10 MG/2 ML SDV IVPUSH SCH ×4 (03:26→20:30)
[2020-08-28] MEDS: Metoprolol Tartrate 5 MG/5 ML SDV IVPUSH SCH (03:32)
[2020-08-28] MEDS ORDERED: Bupivacaine 0.5% 50 ML MDV ONE (06:36)
[2020-08-28] MEDS ORDERED: Lidocaine 1% with EPINEPHrine 1:100,000 50 ML MDV ONE (06:36)
[2020-08-28] MEDS ORDERED: Meropenem 500 MG SDV ONE (06:36)
[2020-08-28] MEDS ORDERED: fentaNYL 100 MCG/2 ML SDV ONE (06:50)
[2020-08-28] MEDS ORDERED: Propofol 200 MG/20 ML SDV ONE (06:50)
[2020-08-28] MEDS ORDERED: Ropivacaine 50 ML, dexAMETHasone 8 MG, EPINEPHrine 0.4 MG, Sodium Chloride 0.9% 27.6 ML NERVRT SCH ×4 (07:30)
[2020-08-28] MEDS: Levothyroxine 50 MCG Tab PO SCH (07:33)
--- NOTE | 2020-08-28 09:19 | CR ---
Abdomen 2V AP Flat Upright CLINICAL HISTORY: Postop ileus FINDINGS: There is persistent diffuse small bowel distention with some scattered air-fluid levels. Distention is increased since prior study. The right-sided surgical drain has been removed. There is an NG tube at the GE junction. IMPRESSION: Increasing small intestinal distention. This most likely represents postop ileus but clinical correlation necessary NG tube is at the GE junction and should be advanced
[2020-08-28] MEDS: Spironolactone 25 MG Tab PO SCH ×2 (10:05→10:19)
[2020-08-28] MEDS: Sotalol 80 MG Tab PO SCH ×2 (10:06→20:26)
[2020-08-28] MEDS: Lactobacillus Rhamnosus GG (Probiotic) Cap PO SCH ×2 (10:07→20:25)
[2020-08-28] MEDS: Gabapentin 300 MG Cap PO SCH ×3 (10:08→20:25)
[2020-08-28] MEDS: Aspirin 325 MG Tab.EC PO SCH (10:08)
[2020-08-28] MEDS: Furosemide 20 MG/2 ML VIAL IVPUSH SCH ×2 (10:08→16:35)
[2020-08-28] MEDS: Ezetimibe 10 MG Tab PO SCH (10:09)
[2020-08-28] MEDS: Oxybutynin 5 MG Tab PO SCH ×3 (10:09→20:25)
[2020-08-28] MEDS: Sertraline 25 MG Tab PO SCH (10:09)
[2020-08-28] MEDS: Lisinopril 2.5 MG Tab PO SCH ×2 (10:09→10:18)
[2020-08-28] MEDS: DULoxetine 20 MG Cap PO SCH (10:10)
[2020-08-28] MEDS: Bisacodyl 10 MG Supp RECTAL SCH ×2 (10:11→20:27)
[2020-08-28] MEDS: Magnesium Sulfate/Water 2 GM/50 ML BAG IV SCH ×3 (10:16→21:47)
[2020-08-28] MEDS: Potassium Phosphates 15 MMOLE in Sodium Chloride 0.9% 250 ML IV SCH ×3 (10:17→16:03)
[2020-08-28] MEDS: HYDROmorphone/Normal Saline 15 MG/30 ML PCA IV PRN (10:50)
--- NOTE | 2020-08-28 11:32 | PN ---
DATE OF SERVICE: 08/28/2020 SUBJECTIVE: Sriram will be going down to the OR for delayed primary closure today with IV sedation. He has had 3 bowel movements during the night. TYLER drain put out 730 mL of serosanguineous. NG put out 460. Magnesium this morning is 1.7. He reports his pain is controlled. He has no other concerns or questions. OBJECTIVE: GENERAL: Sriram is a pleasant 70-year-old male. He is alert and orientated. VITAL SIGNS: TPR 96.8, 115, and 14. Blood pressure 101/84. HEENT: Negative. NECK: Supple. HEART: Regular rate and rhythm. LUNGS: Clear. ABDOMEN: Dressings dry and intact. Abdominal binder is on. EXTREMITIES: Without peripheral edema. ASSESSMENT: 1. Postoperative ileus. 2. Diagnostic laparoscopy turned to laparotomy with: a. Partial cecectomy with excision of overlying nodular peritoneal lesion. b. Appendectomy with drainage of periappendiceal abscess. POSTOPERATIVE DIAGNOSES: 1. Perforated appendicitis with periappendiceal abscess. 2. Nodular lesion overlying cecum. Date of procedure 08/25/2020. Surgeon: Vazquez Acevedo MD. PLAN: Orders to be written postoperatively: 1. Magnesium 2 g IV q.6 hours x72 hours. 2. K-Phos 45 millimoles IV one time today. 3. Check CBC, CMP, phos, and BNP in a.m. 4. Continue use of incentive spirometer. 5. We will evaluate p.r.n. or in a.m. Ellne Houston PA-C /[id number]
--- NOTE | 2020-08-28 12:27 | PCM.PN ---
- General Info Date of Service: 08/28/20 Subjective Update: Mr. Hodges has developed recurrent atrial fibrillation although has not had more than mild elevation in heart rate associated with this. He is back on his sotalol, blood pressure has remained somewhat borderline. He is status post delayed primary closure of his abdominal wound done earlier today. - Review of Systems General: Reports: Weakness, Fatigue. Denies: Fever, Chills Pulmonary: Reports: No Symptoms Cardiovascular: Reports: No Symptoms Gastrointestinal: Reports: Abdominal Pain. Denies: Difficulty Swallowing, Hematochezia, Melena, Nausea, Vomiting Musculoskeletal: Reports: No Symptoms - Patient Data Vitals - Most Recent: Last Vital Signs Temp 95.2 F L 08/28/20 11:30 Pulse 107 H 08/28/20 11:30 Resp 20 08/28/20 11:30 BP 111/69 08/28/20 11:30 Pulse Ox 95 08/28/20 11:30 Weight - Most Recent: 216 lb I&O - Last 24 Hours: Intake & Output 08/27/20 08/28/20 08/28/20 22:59 06:59 14:59 Intake Total 1717 1206 75 Output Total 64 600 Balance 109C 606 75 Lab Results Last 24 Hours: Laboratory Results - last 24 hr 08/28/20 08/28/20 Range/Units 04:35 04:35 WBC 7.5 (4.5-11.0) K/uL RBC 4.83 (4.30-5.90) M/uL Hgb 14.1 (12.0-15.0) g/dL Hct 42.7 (40.0-54.0) % MCV 88 (80-98) fL MCH 29 (27-31) pg MCHC 33 (32-36) % Plt Count 256 (150-400) K/uL Sodium 143 (140-148) mmol/L Potassium 3.7 (3.6-5.2) mmol/L Chloride 105 (100-108) mmol/L Carbon Dioxide 28 (21-32) mmol/L Anion Gap 10.0 (5.0-14.0) mmol/L BUN 16 (7-18) mg/dL Creatinine 1.0 (0.8-1.3) mg/dL Est Cr Clr Drug Dosing 68.94 mL/min Estimated GFR (MDRD) > 60 (>60) Glucose 135 H (74-106) mg/dL Calcium 8.4 L (8.5-10.1) mg/dL Phosphorus 3.3 (2.5-4.9) mg/dL Magnesium 1.7 L (1.8-2.4) mg/dL Total Bilirubin 0.7 D (0.2-1.0) mg/dL AST 24 (15-37) U/L ALT 20 (12-78) U/L Alkaline Phosphatase 37 L (46-116) U/L NT-Pro-B Natriuret Pep 3546 H (5-125) pg/mL Total Protein 5.5 L (6.4-8.2) g/dL Albumin 2.2 L (3.4-5.0) g/dL Globulin 3.3 (2.3-3.5) g/dL Albumin/Globulin Ratio 0.7 L (1.2-2.2) Luigi Results Last 24 Hours: Microbiology 08/25/20 12:05 Gram Stain - Final Appendix - Other Wound Culture - Final Raoultella (K) [place] Anaerobic Culture - Preliminary Anaerobic Gram Positive Ajkob Anaerobic Gram Negative Jakob 08/25/20 11:23 Gram Stain - Final Appendix - Abscess Wound Culture - Final Raoultella (K) [place] Anaerobic Culture - Final NO GROWTH AFTER 3 DAYS 08/25/20 11:38 Gram Stain - Final Appendix - Other Wound Culture - Final Raoultella (K) [place] Anaerobic Culture - Final NO GROWTH AFTER 3 DAYS Med Orders - Current: Current Medications Acetaminophen (Acetaminophen 325 Mg Tab) 650 mg PO Q4H PRN PRN Reason: Pain (Mild 1-3)/fever Hydrocodone Bitart/Acetaminophen (Acetaminophen/Hydrocodone 325-5 Mg Tab) 1 - 2 tab PO Q4H PRN PRN Reason: Pain Albuterol (Albuterol 0.083% 2.5 Mg/3 Ml Neb Soln) 2.5 mg NEB Q4H PRN PRN Reason: Shortness Of Breath/wheezing Aspirin (Aspirin 325 Mg Tab.Ec) 325 mg PO DAILY [facility] Last Admin: 08/28/20 10:08 Dose: 325 mg Documented by: Bisacodyl (Bisacodyl 10 Mg Supp) 10 mg RECTAL BID [facility] Last Admin: 08/28/20 10:11 Dose: Not Given Documented by: Ropivacaine 50 ml/Dexamethasone 8 mg/Epinephrine HCl 0.4 mg/ Sodium Chloride 27.6 ml 0 ml NERVRT ASDIRECTED [facility] Last Admin: 08/28/20 07:31 Dose: 80 syringe Documented by: Duloxetine HCl (Duloxetine 20 Mg Cap) 20 mg PO DAILY [facility] Last Admin: 08/28/20 10:10 Dose: 20 mg Documented by: Ezetimibe (Ezetimibe 10 Mg Tab) 5 mg PO DAILY [facility] Last Admin: 08/28/20 10:09 Dose: 5 mg Documented by: Furosemide (Furosemide 20 Mg/2 Ml Vial) 20 mg IVPUSH Q8H [facility] Stop: 08/28/20 17:01 Last Admin: 08/28/20 10:08 Dose: 20 mg Documented by: Gabapentin (Gabapentin 300 Mg Cap) 600 mg PO TID [facility] Last Admin: 08/28/20 10:08 Dose: 600 mg Documented by: Hydromorphone HCl (Hydromorphone/Normal Saline 15 Mg/30 Ml Repair Servicer) 0 mg IV ASDIRECTED PRN; Protocol PRN Reason: Pain Last Admin: 08/28/20 10:50 Dose: 15 mg Documented by: Hydroxyzine HCl (Hydroxyzine Hcl 100 Mg/2 Ml Sdv) 100 mg IM Q4H PRN PRN Reason: Pain Aztreonam 1 gm/ Sodium (Chloride) 50 mls @ 100 mls/hr IV Q8H [facility] Last Admin: 08/28/20 04:14 Dose: 100 mls/hr Documented by: Ampicillin Sodium/Sulbactam (Sodium 3 gm/ Sodium Chloride) 100 mls @ 200 mls/hr IV Q6H [facility] Last Admin: 08/28/20 05:24 Dose: 200 mls/hr Documented by: Dextrose/Lactated Ringer's (Dextrose 5%-Lactated Ringers) 1,000 mls @ 80 mls/hr IV ASDIRECTED [facility] Last Admin: 08/28/20 10:20 Dose: 80 mls/hr Documented by: Potassium Phosphate 15 mmole/ (Sodium Chloride) 255 mls @ 125 mls/hr IV Q2H [facility] Stop: 08/28/20 15:59 Last Admin: 08/28/20 10:17 Dose: 125 mls/hr Documented by: Magnesium Sulfate (Magnesium Sulfate In Water 2 Gm/50 Ml) 2 gm in 50 mls @ 25 mls/hr IV Q6HR [facility] Stop: 08/30/20 05:59 Last Admin: 08/28/20 10:16 Dose: 25 mls/hr Documented by: Lactobacillus Rhamnosus (Lactobacillus Rhamnosus Gg (Probiotic) Cap) 1 cap PO BID [facility] Last Admin: 08/28/20 10:07 Dose: 1 cap Documented by: Levothyroxine Sodium (Levothyroxine 50 Mcg Tab) 150 mcg PO DAILY@0730 [facility] Last Admin: 08/28/20 07:33 Dose: Not Given Documented by: Lisinopril (Lisinopril 2.5 Mg Tab) 2.5 mg PO DAILY [facility] Last Admin: 08/28/20 10:18 Dose: Not Given Documented by: Lorazepam (Lorazepam 2 Mg/Ml Sdv) 0.5 mg IVPUSH Q4H PRN PRN Reason: Nausea/Vomiting Last Admin: 08/27/20 02:13 Dose: 0.5 mg Documented by: Magnesium Hydroxide (Magnesium Hydroxide 400 Mg/5 Ml Susp 30 Ml Cup) 30 ml PO Q12H PRN PRN Reason: Constipation Melatonin (Melatonin 3 Mg Tab) 9 mg PO BEDTIME PRN PRN Reason: Sleep Last Admin: 08/24/20 20:45 Dose: 9 mg Documented by: Metoclopramide HCl (Metoclopramide 10 Mg/2 Ml Sdv) 10 mg IVPUSH Q6H [facility] Last Admin: 08/28/20 10:09 Dose: 10 mg Documented by: Naloxone HCl (Naloxone 0.4 Mg/Ml Sdv) 0.4 mg IVPUSH Q2M PRN PRN Reason: Respiratory Distress Ondansetron HCl (Ondansetron 4 Mg/2 Ml Sdv) 4 mg IV Q6H PRN PRN Reason: Nausea/Vomiting Last Admin: 08/27/20 01:34 Dose: 4 mg Documented by: Ondansetron HCl (Ondansetron 4 Mg Tab.Dis) 4 mg PO Q6H PRN PRN Reason: Nausea able to take PO Last Admin: 08/26/20 17:27 Dose: 4 mg Documented by: Oxybutynin Chloride (Oxybutynin 5 Mg Tab) 5 mg PO TID [facility] Last Admin: 08/28/20 10:09 Dose: 5 mg Documented by: Pantoprazole Sodium (Pantoprazole 40 Mg Vial) 40 mg IV Q24H [facility] Last Admin: 08/27/20 17:02 Dose: 40 mg Documented by: Senna/Docusate Sodium (Docusate Sodium/Sennosides 50-8.6 Mg Tab) 1 tab PO BID PRN PRN Reason: Constipation Sertraline HCl (Sertraline 25 Mg Tab) 25 mg PO DAILY [facility] Last Admin: 08/28/20 10:09 Dose: 25 mg Documented by: Simvastatin (Simvastatin 20 Mg Tab) 20 mg PO BEDTIME [facility] Last Admin: 08/27/20 21:12 Dose: Not Given Documented by: Sotalol HCl (Sotalol 80 Mg Tab) 120 mg PO BID [facility] Last Admin: 08/28/20 10:06 Dose: 120 mg Documented by: Spironolactone (Spironolactone 25 Mg Tab) 25 mg PO DAILY [facility] Last Admin: 08/28/20 10:19 Dose: Not Given Documented by: Tamsulosin HCl (Tamsulosin 0.4 Mg Cap.Er) 0.4 mg PO BEDTIME [facility] Last Admin: 08/27/20 21:11 Dose: Not Given Documented by: Discontinued Medications Bupivacaine HCl (Bupivacaine 0.5% 50 Ml Mdv) Confirm Administered Dose 50 ml .ROUTE .STK-MED ONE Stop: 08/27/20 06:33 Bupivacaine HCl (Bupivacaine 0.5% 50 Ml Mdv) Confirm Administered Dose 50 ml .ROUTE .STK-MED ONE Stop: 08/28/20 06:37 Last Admin: 08/28/20 07:40 Dose: 12.4 ml Documented by: Bupivacaine HCl/Epinephrine Bitart (Bupivacaine 0.5%/Epinephrine 1:200,000 50 Ml Mdv) Confirm Administered Dose 50 ml .ROUTE .STK-MED ONE Stop: 08/25/20 07:15 Last Admin: 08/25/20 13:23 Dose: 40 ml Documented by: Ropivacaine 50 ml/Dexamethasone 8 mg/Epinephrine HCl 0.4 mg/ Sodium Chloride 27.6 ml 0 ml NERVRT ASDIRECTED [facility] Last Admin: 08/25/20 11:23 Dose: 80 syringe Documented by: Dexamethasone (Dexamethasone 4 Mg/Ml Sdv) Confirm Administered Dose 4 mg .ROUTE .STK-MED ONE Stop: 08/25/20 07:21 Fentanyl (Fentanyl 250 Mcg/5 Ml Sdv) Confirm Administered Dose 250 mcg .ROUTE .STK-MED ONE Stop: 08/25/20 07:21 Fentanyl (Fentanyl 100 Mcg/2 Ml Sdv) Confirm Administered Dose 100 mcg .ROUTE .K-MED ONE Stop: 08/25/20 12:00 Fentanyl (Fentanyl 100 Mcg/2 Ml Sdv) Confirm Administered Dose 100 mcg .ROUTE .STK-MED ONE Stop: 08/28/20 06:51 Gabapentin (Gabapentin 100 Mg Cap) 600 mg PO TID [facility] Last Admin: 08/24/20 20:50 Dose: Not Given Documented by: Glycopyrrolate (Glycopyrrolate 0.2 Mg/Ml 5 Ml Mdv) Confirm Administered Dose 1 mg .ROUTE .K-MED ONE Stop: 08/25/20 07:21 Hydromorphone HCl (Hydromorphone 0.5 Mg/0.5 Ml Syringe) 0.5 mg IVPUSH ONETIME ONE Stop: 08/24/20 15:32 Last Admin: 08/24/20 15:45 Dose: 0.5 mg Documented by: Hydromorphone HCl (Hydromorphone 1 Mg/Ml Syringe) 1 mg IVPUSH ONETIME ONE Stop: 08/24/20 17:24 Last Admin: 08/24/20 18:20 Dose: 1 mg Documented by: Sodium Chloride (Normal Saline) 1,000 mls @ 999 mls/hr IV ASDIRECTED [facility] Last Admin: 08/24/20 15:45 Dose: 999 mls/hr Documented by: Sodium Chloride (Normal Saline) 1,000 mls @ 300 mls/hr IV ASDIRECTED [facility] Lactated Ringer's (Ringers, Lactated) 1,000 mls @ 100 mls/hr IV ASDIRECTED [facility] Last Admin: 08/25/20 02:58 Dose: 100 mls/hr Documented by: Ampicillin Sodium/Sulbactam (Sodium 3 gm/ Sodium Chloride) 100 mls @ 200 mls/hr IV Q6H [facility] Last Admin: 08/25/20 05:04 Dose: 200 mls/hr Documented by: Aztreonam 1 gm/ Sodium (Chloride) 50 mls @ 100 mls/hr IV Q8H [facility] Last Admin: 08/25/20 05:05 Dose: 100 mls/hr Documented by: Magnesium Sulfate (Magnesium Sulfate In Water 2 Gm/50 Ml) 2 gm in 50 mls @ 25 mls/hr IV Q6H [facility] Stop: 08/25/20 18:29 Last Admin: 08/25/20 16:14 Dose: 25 mls/hr Documented by: Lactated Ringer's (Ringers, Lactated) Confirm Administered Dose 1,000 mls @ as directed .ROUTE .STK-MED ONE Stop: 08/25/20 11:32 Dextrose/Lactated Ringer's (Dextrose 5%-Lactated Ringers) 1,000 mls @ 150 mls/hr IV ASDIRECTED [facility] Last Admin: 08/26/20 03:57 Dose: 150 mls/hr Documented by: Potassium Phosphate 15 mmole/ (Sodium Chloride) 255 mls @ 85 mls/hr IV Q3H [facility] Stop: 08/26/20 17:59 Last Admin: 08/26/20 15:25 Dose: 85 mls/hr Documented by: Dextrose/Lactated Ringer's (Dextrose 5%-Lr) 500 mls @ 250 mls/hr IV ONETIME ONE Stop: 08/27/20 17:59 Last Admin: 08/27/20 16:00 Dose: 250 mls/hr Documented by: Lactated Ringer's (Ringers, Lactated) 500 mls @ 250 mls/hr IV ONETIME ONE Stop: 08/27/20 18:14 Last Admin: 08/27/20 17:02 Dose: 250 mls/hr Documented by: Lidocaine HCl (Lidocaine 2% Jelly 10 Ml Urojet) Confirm Administered Dose 10 ml .ROUTE .STK-MED ONE Stop: 08/25/20 10:49 Last Admin: 08/26/20 10:35 Dose: 10 ml Documented by: Lidocaine/Epinephrine (Lidocaine 1% With Epinephrine 1:100,000 50 Ml Mdv) Confirm Administered Dose 50 ml .ROUTE .STK-MED ONE Stop: 08/27/20 06:33 Lidocaine/Epinephrine (Lidocaine 1% With Epinephrine 1:100,000 50 Ml Mdv) Confirm Administered Dose 50 ml .ROUTE .STK-MED ONE Stop: 08/28/20 06:37 Last Admin: 08/28/20 07:40 Dose: 12.4 ml Documented by: Meropenem ([place] 500 Mg Sdv) Confirm Administered Dose 500 mg .ROUTE .STK- MED ONE Stop: 08/25/20 11:15 Last Admin: 08/25/20 11:47 Dose: 1,000 mg Documented by: Meropenem ([place] 500 Mg Sdv) Confirm Administered Dose 500 mg .ROUTE .STK- MED ONE Stop: 08/25/20 12:12 Meropenem ([place] 500 Mg Sdv) Confirm Administered Dose 500 mg .ROUTE .STK- MED ONE Stop: 08/27/20 06:33 Meropenem (Mer[place] 500 Mg Sdv) Confirm Administered Dose 500 mg .ROUTE .STK- MED ONE Stop: 08/28/20 06:37 Last Admin: 08/28/20 07:40 Dose: 500 mg Documented by: Metoprolol Tartrate (Metoprolol Tartrate 5 Mg/5 Ml Sdv) 2.5 mg IVPUSH Q6H [facility] Last Admin: 08/28/20 03:32 Dose: Not Given Documented by: Neostigmine Methylsulfate (Neostigmine Methylsulfate 1 Mg/Ml 5 Ml Syringe) Confirm Administered Dose 5 mg .ROUTE .STK-MED ONE Stop: 08/25/20 07:21 Ondansetron HCl (Ondansetron 4 Mg/2 Ml Sdv) 4 mg IVPUSH ONETIME ONE Stop: 08/24/20 15:32 Last Admin: 08/24/20 15:44 Dose: 4 mg Documented by: Ondansetron HCl (Ondansetron 4 Mg/2 Ml Sdv) Confirm Administered Dose 4 mg .ROUTE .STK-MED ONE Stop: 08/25/20 07:21 Pantoprazole Sodium (Pantoprazole 40 Mg Vial) 40 mg IV ONETIME ONE Stop: 08/24/20 20:01 Last Admin: 08/24/20 20:46 Dose: 40 mg Documented by: Pneumococcal Polyvalent Vaccine (Pneumococcal Polyvalent-23 Vaccine 0.5 Ml Sdv) 0.5 ml IM .ONCE ONE Stop: 08/24/20 19:28 Last Admin: 08/24/20 20:21 Dose: Not Given Documented by: Propofol (Propofol 200 Mg/20 Ml Sdv) Confirm Administered Dose 200 mg .ROUTE .STK-MED ONE Stop: 08/25/20 07:21 Propofol (Propofol 200 Mg/20 Ml Sdv) Confirm Administered Dose 200 mg .ROUTE .STK-MED ONE Stop: 08/28/20 06:51 Rocuronium [place] (Rocuronium 50 Mg/5 Ml Vial) Confirm Administered [facility] Stop: 08/25/20 07:21 Rocuronium [place] (Rocuronium 50 Mg/5 Ml Vial) Confirm Administered Dose 50 mg [facility] Stop: 08/25/20 11:58 Succinylcholine Chloride (Succinylcholine 200 Mg/10 Ml Mdv) Confirm Administered Dose 200 [facility] Stop: 08/25/20 07:21 - Exam Quality Assessment: Supplemental Oxygen, DVT Prophylaxis General: Alert, Oriented, Cooperative, Moderate Distress Lungs: Clear to Auscultation, Normal Respiratory Effort, Decreased Breath Sounds Cardiovascular: Regular Rate, No Murmurs, Irregular Rhythm GI/Abdominal Exam: Soft, No Organomegaly, Tender. No: Distended, Guarding, Rigid, Rebound Extremities: Non-Tender, No Pedal Edema - Patient Data Lab Results Last 24 hrs: Laboratory Results - last 24 hr 08/28/20 08/28/20 Range/Units 04:35 04:35 WBC 7.5 (4.5-11.0) K/uL RBC 4.83 (4.30-5.90) M/uL Hgb 14.1 (12.0-15.0) g/dL Hct 42.7 (40.0-54.0) % MCV 88 (80-98) fL MCH 29 (27-31) pg MCHC 33 (32-36) % Plt Count 256 (150-400) K/uL Sodium 143 (140-148) mmol/L Potassium 3.7 (3.6-5.2) mmol/L Chloride 105 (100-108) mmol/L Carbon Dioxide 28 (21-32) mmol/L Anion Gap 10.0 (5.0-14.0) mmol/L BUN 16 (7-18) mg/dL Creatinine 1.0 (0.8-1.3) mg/dL Est Cr Clr Drug Dosing 68.94 mL/min Estimated GFR (MDRD) > 60 (>60) Glucose 135 H (74-106) mg/dL Calcium 8.4 L (8.5-10.1) mg/dL Phosphorus 3.3 (2.5-4.9) mg/dL Magnesium 1.7 L (1.8-2.4) mg/dL Total Bilirubin 0.7 D (0.2-1.0) mg/dL AST 24 (15-37) U/L ALT 20 (12-78) U/L Alkaline Phosphatase 37 L (46-116) U/L NT-Pro-B Natriuret Pep 3546 H (5-125) pg/mL Total Protein 5.5 L (6.4-8.2) g/dL Albumin 2.2 L (3.4-5.0) g/dL Globulin 3.3 (2.3-3.5) g/dL Albumin/Globulin Ratio 0.7 L (1.2-2.2) Result Diagrams: 08/28/20 04:35 08/28/20 04:35 Luigi Results Last 24 hrs: Microbiology 08/25/20 12:05 Gram Stain - Final Appendix - Other Wound Culture - Final Raoultella (K) [place] Anaerobic Culture - Preliminary Anaerobic Gram Positive Jakob Anaerobic Gram Negative Jakob 08/25/20 11:23 Gram Stain - Final Appendix - Abscess Wound Culture - Final Raoultella (K) [place] Anaerobic Culture - Final NO GROWTH AFTER 3 DAYS 08/25/20 11:38 Gram Stain - Final Appendix - Other Wound Culture - Final Raoultella (K) [place] Anaerobic Culture - Final NO GROWTH AFTER 3 DAYS Sepsis Event Note - Evaluation Sepsis Screening Result: No Definite Risk - Focused Exam Vital Signs: Vital Signs Temp Temp Pulse Pulse Resp BP BP 08/28/20 11:30 95.2 F L 107 H 20 111/69 08/28/20 11:00 110 H 20 105/69 08/28/20 10:18 107/78 08/28/20 10:06 100 107/78 08/28/20 10:00 100 20 107/78 08/28/20 09:47 107 H 20 100/71 08/28/20 09:32 100 20 118/58 L 08/28/20 09:17 100 20 119/67 08/28/20 09:03 107 H 20 102/60 08/28/20 08:47 66 20 108/68 08/28/20 08:33 95.7 F L 107 H 20 117/66 08/28/20 08:15 96.8 F L 115 H 14 101/84 08/28/20 08:10 108 H 14 115/64 08/28/20 08:05 96 14 113/70 08/28/20 08:00 115 H 14 136/76 08/28/20 07:55 96.1 F L 112 H 14 127/81 08/28/20 07:11 08/28/20 03:32 60 86/63 L 08/28/20 03:00 96.3 F L 79 18 97/69 08/28/20 01:57 Pulse Ox 08/28/20 11:30 95 08/28/20 11:00 96 08/28/20 10:18 08/28/20 10:06 08/28/20 10:00 94 L 08/28/20 09:47 94 L 08/28/20 09:32 94 L 08/28/20 09:17 94 L 08/28/20 09:03 94 L 08/28/20 08:47 94 L 08/28/20 08:33 93 L 08/28/20 08:15 95 08/28/20 08:10 94 L 08/28/20 08:05 95 08/28/20 08:00 96 08/28/20 07:55 97 08/28/20 07:11 94 L 08/28/20 03:32 08/28/20 03:00 92 L 08/28/20 01:57 95 - Problem List Review Problem List Initiated/Reviewed/Updated: Yes - Plan Plan:: ASSESSMENT AND PLAN Acute appendicitis without perforation-status post appendectomy performed 08/[address] Acevedo. Feeling somewhat better today, NG tube has been removed -IV Amp/Sulbactam and aztreonam -IV fluids -Symptomatic management of pain with the CORPORATE CONSULTANT -Pulse oximetry -Postoperative care per Dr. Acevedo Chronic systolic congestive heart failure-complicated by ischemic cardiomyopathy. Last ejection fraction was between 35 and 40%. No functional limitations or exertional dyspnea. No anginal symptoms. 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 History of left-sided CVA-residual right-sided weakness though his functional status is pretty good. Gets around without a cane most of the time. Maintenance issues -DVT prophylaxis-mechanical -GI prophylaxis-IV PPI tonight -Nutrition-nothing by mouth -Mcgee catheter-not indicated at this time CODE STATUS -full code Admission justification -this patient will be admitted for inpatient services and is medically appropriate meeting medical necessity for inpatient admission as outlined in my documentation. I reasonably expect the patient will require inpatient services that span a period time over 2 midnights. I reasonably expect this patient to be discharged or transferred within 96 hours after admission to the [facility]. The patient has nonruptured appendicitis but is on long-term anticoagulation with a DOAC so we will need adequate time for this medication to clear his system before surgery can be entertained. Disposition -I anticipate discharge home after the hospital stay Primary care physician - Antonio Morales NP
[2020-08-28] MEDS: Pantoprazole 40 MG Vial IV SCH (16:22)
[2020-08-28] MEDS: Tamsulosin 0.4 MG Cap.ER PO SCH (20:27)
[2020-08-28] MEDS: Simvastatin 20 MG Tab PO SCH (20:27)
[2020-08-29] MEDS: Dextrose 5%-Lactated Ringers 1,000 ML IV SCH ×2 (00:03→13:46)
[2020-08-29] MEDS: Metoclopramide 10 MG/2 ML SDV IVPUSH SCH ×4 (04:18→21:51)
[2020-08-29] MEDS: Magnesium Sulfate/Water 2 GM/50 ML BAG IV SCH ×4 (04:21→22:41)
[2020-08-29] MEDS: Ampicillin/Sulbactam Na 3 GM in Sodium Chloride 0.9% 100 ML IV SCH ×3 (06:01→17:43)
[2020-08-29] MEDS ORDERED: Bisacodyl 10 MG Supp RECTAL PRN (07:09)
[2020-08-29] MEDS: HYDROmorphone 2 MG Tab PO PRN ×4 (07:57→22:46)
[2020-08-29] MEDS: Levothyroxine 50 MCG Tab PO SCH (07:57)
--- NOTE | 2020-08-29 09:09 | CR ---
Abdomen 2V AP Flat Upright CLINICAL HISTORY: Postop ileus FINDINGS: There is persistent small bowel distention similar to prior study. NG tube has been removed IMPRESSION: Persistent moderate small bowel distention similar to prior study NG tube been removed
[2020-08-29] MEDS: Ondansetron 4 MG Tab.DIS PO PRN (09:17)
[2020-08-29] MEDS: Spironolactone 25 MG Tab PO SCH (10:24)
[2020-08-29] MEDS: Sotalol 80 MG Tab PO SCH ×2 (10:25→21:50)
[2020-08-29] MEDS: Docusate Sodium 100 MG Cap PO SCH ×2 (10:26→21:51)
[2020-08-29] MEDS: DULoxetine 20 MG Cap PO SCH (10:27)
[2020-08-29] MEDS: Bisacodyl 5 MG Tab PO SCH ×2 (10:27→21:51)
[2020-08-29] MEDS: Lactobacillus Rhamnosus GG (Probiotic) Cap PO SCH ×2 (10:27→21:51)
[2020-08-29] MEDS: Aspirin 325 MG Tab.EC PO SCH (10:28)
[2020-08-29] MEDS: Gabapentin 300 MG Cap PO SCH ×3 (10:28→21:51)
[2020-08-29] MEDS: Lisinopril 2.5 MG Tab PO SCH (10:29)
[2020-08-29] MEDS: Oxybutynin 5 MG Tab PO SCH ×3 (10:29→21:51)
[2020-08-29] MEDS: Ezetimibe 10 MG Tab PO SCH (10:30)
[2020-08-29] MEDS: Sertraline 25 MG Tab PO SCH (10:30)
--- NOTE | 2020-08-29 11:12 | PN ---
DATE OF SERVICE: 08/29/2020 SUBJECTIVE: Lemuel had delayed primary closure yesterday. He states his pain is controlled. He has been afebrile. Oral intake 400 and urine output via Mcgee catheter is 3050. He states that he is hungry. REVIEW OF SYSTEMS: Remainder of review of systems negative for any pertinent positives and negatives. OBJECTIVE: GENERAL: Lemuel Hodges is a pleasant 70-year-old male. He is alert and orientated. VITAL SIGNS: TPR is 97.5, 64, 16, blood pressure 115/64. HEENT: Negative. NECK: Supple. HEART: Regular rate and rhythm. LUNGS: Clear. ABDOMEN: Aquacel dressings on. Abdominal binder is on. EXTREMITIES: Without peripheral edema. ASSESSMENT: 1. Postoperative ileus, resolved. 2. Diagnostic laparoscopy turned to laparotomy with: a. Partial cecectomy with excision of overlying nodular peritoneal lesion. b. Appendectomy with drainage of periappendiceal abscess. POSTOPERATIVE DIAGNOSES: 1. Perforated appendicitis with periappendiceal abscess. 2. Nodular lesion of overlying cecum. Date of procedure: 08/25/2020. Surgeon: Vazquez Acevedo MD. PLAN: 1. Regular diet. 2. Discontinue Mcgee catheter. 3. Discontinue SNAKER and continuous pulse ox. 4. Dulcolax tablets 10 mg b.i.d. orally. 5. Colace 100 mg p.o. b.i.d. 6. Shower. 7. Dilaudid 2 to 4 mg every 4 hours p.r.n. pain. 8. We will evaluate p.r.n. or in a.m. Ellen Houston PA-C /[id number]
[2020-08-29] MEDS: Ondansetron 4 MG/2 ML SDV IV PRN (15:25)
[2020-08-29] MEDS: Pantoprazole 40 MG Vial IV SCH (15:34)
--- NOTE | 2020-08-29 17:52 | PCM.PN ---
- General Info Date of Service: 08/29/20 Subjective Update: Mr. Hodges has remained fairly stable over the last 24 hours. He is tolerating his current diet, but did experience some mild nausea this morning. Vital signs have been stable and he has remained afebrile. He converted to sinus rhythm and has remained in sinus rhythm over the last 18 hours. Functional Status: Reports: Tolerating Diet, Ambulating, Urinating - Review of Systems General: Reports: Weakness, Fatigue. Denies: Fever, Chills Pulmonary: Reports: No Symptoms Cardiovascular: Reports: No Symptoms Gastrointestinal: Reports: Abdominal Pain. Denies: Difficulty Swallowing, Hematochezia, Melena, Nausea, Vomiting Genitourinary: Reports: No Symptoms - Patient Data Vitals - Most Recent: Last Vital Signs Temp 98.4 F 08/29/20 17:41 Pulse 67 08/29/20 17:41 Resp 16 08/29/20 17:41 BP 101/54 L 08/29/20 17:41 Pulse Ox 91 L 08/29/20 17:41 Weight - Most Recent: 216 lb I&O - Last 24 Hours: Intake & Output 08/29/20 08/29/20 08/29/20 06:59 14:59 22:59 Intake Total 1356 340 976 Output Total 1000 70 250 Balance 356 -344 726 Lab Results Last 24 Hours: Laboratory Results - last 24 hr 08/29/20 08/29/20 Range/Units 04:38 04:38 WBC 7.8 (4.5-11.0) K/uL RBC 4.79 (4.30-5.90) M/uL Hgb 14.1 (12.0-15.0) g/dL Hct 41.7 (40.0-54.0) % MCV 87 (80-98) fL MCH 29 (27-31) pg MCHC 34 (32-36) % Plt Count 227 (150-400) K/uL Sodium 141 (140-148) mmol/L Potassium 4.3 (3.6-5.2) mmol/L Chloride 104 (100-108) mmol/L Carbon Dioxide 26 (21-32) mmol/L Anion Gap 11.4 (5.0-14.0) mmol/L BUN 13 (7-18) mg/dL Creatinine 0.9 (0.8-1.3) mg/dL Est Cr Clr Drug Dosing 76.60 mL/min Estimated GFR (MDRD) > 60 (>60) Glucose 135 H (74-106) mg/dL Calcium 8.2 L (8.5-10.1) mg/dL Phosphorus 3.7 (2.5-4.9) mg/dL Magnesium 2.7 H (1.8-2.4) mg/dL Total Bilirubin 0.8 (0.2-1.0) mg/dL AST 35 (15-37) U/L ALT 24 (12-78) U/L Alkaline Phosphatase 37 L (46-116) U/L NT-Pro-B Natriuret Pep 2770 H (5-125) pg/mL Total Protein 5.9 L (6.4-8.2) g/dL Albumin 2.2 L (3.4-5.0) g/dL Globulin 3.7 H (2.3-3.5) g/dL Albumin/Globulin Ratio 0.6 L (1.2-2.2) Luigi Results Last 24 Hours: Microbiology 08/25/20 12:05 Gram Stain - Final Appendix - Other Wound Culture - Final Raoultella (K) [place] Anaerobic Culture - Final Anaerobic Gram Positive Jakob Anaerobic Gram Negative Jakob Med Orders - Current: Current Medications Acetaminophen (Acetaminophen 325 Mg Tab) 650 mg PO Q4H PRN PRN Reason: Pain (Mild 1-3)/fever Albuterol (Albuterol 0.083% 2.5 Mg/3 Ml Neb Soln) 2.5 mg NEB Q4H PRN PRN Reason: Shortness Of Breath/wheezing Aspirin (Aspirin 325 Mg Tab.Ec) 325 mg PO DAILY [facility] Last Admin: 08/29/20 10:28 Dose: 325 mg Documented by: Bisacodyl (Bisacodyl 5 Mg Tab) 10 mg PO BID [facility] Last Admin: 08/29/20 10:27 Dose: 10 mg Documented by: Bisacodyl (Bisacodyl 10 Mg Supp) 10 mg RECTAL BID PRN PRN Reason: Constipation Last Admin: 08/29/20 15:21 Dose: 10 mg Documented by: Docusate Sodium (Docusate Sodium 100 Mg Cap) 100 mg PO BID [facility] Last Admin: 08/29/20 10:26 Dose: 100 mg Documented by: Duloxetine HCl (Duloxetine 20 Mg Cap) 20 mg PO DAILY [facility] Last Admin: 08/29/20 10:27 Dose: 20 mg Documented by: Ezetimibe (Ezetimibe 10 Mg Tab) 5 mg PO DAILY [facility] Last Admin: 08/29/20 10:30 Dose: 5 mg Documented by: Gabapentin (Gabapentin 300 Mg Cap) 600 mg PO TID [facility] Last Admin: 08/29/20 15:29 Dose: Not Given Documented by: Hydromorphone HCl (Hydromorphone 2 Mg Tab) 2 - 4 mg PO Q4H PRN PRN Reason: Pain Last Admin: 08/29/20 12:07 Dose: 4 mg Documented by: Hydroxyzine HCl (Hydroxyzine Hcl 100 Mg/2 Ml Sdv) 100 mg IM Q4H PRN PRN Reason: Pain Aztreonam 1 gm/ Sodium (Chloride) 50 mls @ 100 mls/hr IV Q8H [facility] Last Admin: 08/29/20 13:44 Dose: 100 mls/hr Documented by: Ampicillin Sodium/Sulbactam (Sodium 3 gm/ Sodium Chloride) 100 mls @ 200 mls/hr IV Q6H [facility] Last Admin: 08/29/20 17:43 Dose: 200 mls/hr Documented by: Magnesium Sulfate (Magnesium Sulfate In Water 2 Gm/50 Ml) 2 gm in 50 mls @ 25 mls/hr IV Q6HR [facility] Stop: 08/30/20 05:59 Last Admin: 08/29/20 15:39 Dose: 25 mls/hr Documented by: Lactobacillus Rhamnosus (Lactobacillus Rhamnosus Gg (Probiotic) Cap) 1 cap PO BID [facility] Last Admin: 08/29/20 10:27 Dose: 1 cap Documented by: Levothyroxine Sodium (Levothyroxine 50 Mcg Tab) 150 mcg PO DAILY@0730 [facility] Last Admin: 08/29/20 07:57 Dose: 150 mcg Documented by: Lisinopril (Lisinopril 2.5 Mg Tab) 2.5 mg PO DAILY [facility] Last Admin: 08/29/20 10:29 Dose: 2.5 mg Documented by: Lorazepam (Lorazepam 2 Mg/Ml Sdv) 0.5 mg IVPUSH Q4H PRN PRN Reason: Nausea/Vomiting Last Admin: 08/27/20 02:13 Dose: 0.5 mg Documented by: Magnesium Hydroxide (Magnesium Hydroxide 400 Mg/5 Ml Susp 30 Ml Cup) 30 ml PO Q12H PRN PRN Reason: Constipation Melatonin (Melatonin 3 Mg Tab) 9 mg PO BEDTIME PRN PRN Reason: Sleep Last Admin: 08/24/20 20:45 Dose: 9 mg Documented by: Metoclopramide HCl (Metoclopramide 10 Mg/2 Ml Sdv) 10 mg IVPUSH Q6H [facility] Last Admin: 08/29/20 15:29 Dose: 10 mg Documented by: Naloxone HCl (Naloxone 0.4 Mg/Ml Sdv) 0.4 mg IVPUSH Q2M PRN PRN Reason: Respiratory Distress Ondansetron HCl (Ondansetron 4 Mg/2 Ml Sdv) 4 mg IV Q6H PRN PRN Reason: Nausea/Vomiting Last Admin: 08/29/20 15:25 Dose: 4 mg Documented by: Ondansetron HCl (Ondansetron 4 Mg Tab.Dis) 4 mg PO Q6H PRN PRN Reason: Nausea able to take PO Last Admin: 08/29/20 09:17 Dose: 4 mg Documented by: Oxybutynin Chloride (Oxybutynin 5 Mg Tab) 5 mg PO TID [facility] Last Admin: 08/29/20 15:29 Dose: Not Given Documented by: Pantoprazole Sodium (Pantoprazole 40 Mg Vial) 40 mg IV Q24H [facility] Last Admin: 08/29/20 15:34 Dose: 40 mg Documented by: Senna/Docusate Sodium (Docusate Sodium/Sennosides 50-8.6 Mg Tab) 1 tab PO BID PRN PRN Reason: Constipation Sertraline HCl (Sertraline 25 Mg Tab) 25 mg PO DAILY [facility] Last Admin: 08/29/20 10:30 Dose: 25 mg Documented by: Simvastatin (Simvastatin 20 Mg Tab) 20 mg PO BEDTIME [facility] Last Admin: 08/28/20 20:27 Dose: 20 mg Documented by: Sotalol HCl (Sotalol 80 Mg Tab) 120 mg PO BID [facility] Last Admin: 08/29/20 10:25 Dose: 120 mg Documented by: Spironolactone (Spironolactone 25 Mg Tab) 25 mg PO DAILY [facility] Last Admin: 08/29/20 10:24 Dose: 25 mg Documented by: Tamsulosin HCl (Tamsulosin 0.4 Mg Cap.Er) 0.4 mg PO BEDTIME [facility] Last Admin: 08/28/20 20:27 Dose: 0.4 mg Documented by: Discontinued Medications Hydrocodone Bitart/Acetaminophen (Acetaminophen/Hydrocodone 325-5 Mg Tab) 1 - 2 tab PO Q4H PRN PRN Reason: Pain Bisacodyl (Bisacodyl 10 Mg Supp) 10 mg RECTAL BID [facility] Last Admin: 08/28/20 20:27 Dose: 10 mg Documented by: Bupivacaine HCl (Bupivacaine 0.5% 50 Ml Mdv) Confirm Administered Dose 50 ml .ROUTE .STK-MED ONE Stop: 08/27/20 06:33 Bupivacaine HCl (Bupivacaine 0.5% 50 Ml Mdv) Confirm Administered Dose 50 ml .ROUTE .STK-MED ONE Stop: 08/28/20 06:37 Last Admin: 08/28/20 07:40 Dose: 12.4 ml Documented by: Bupivacaine HCl/Epinephrine Bitart (Bupivacaine 0.5%/Epinephrine 1:200,000 50 Ml Mdv) Confirm Administered Dose 50 ml .ROUTE .STK-MED ONE Stop: 08/25/20 07:15 Last Admin: 08/25/20 13:23 Dose: 40 ml Documented by: Ropivacaine 50 ml/Dexamethasone 8 mg/Epinephrine HCl 0.4 mg/ Sodium Chloride 27.6 ml 0 ml NERVRT ASDIRECTED [facility] Last Admin: 08/25/20 11:23 Dose: 80 syringe Documented by: Ropivacaine 50 ml/Dexamethasone 8 mg/Epinephrine HCl 0.4 mg/ Sodium Chloride 27.6 ml 0 ml NERVRT ASDIRECTED [facility] Last Admin: 08/28/20 07:31 Dose: 80 syringe Documented by: Dexamethasone (Dexamethasone 4 Mg/Ml Sdv) Confirm Administered Dose 4 mg .ROUTE .STK-MED ONE Stop: 08/25/20 07:21 Fentanyl (Fentanyl 250 Mcg/5 Ml Sdv) Confirm Administered Dose 250 mcg .ROUTE .STK-MED ONE Stop: 08/25/20 07:21 Fentanyl (Fentanyl 100 Mcg/2 Ml Sdv) Confirm Administered Dose 100 mcg .ROUTE .S TK-MED ONE Stop: 08/25/20 12:00 Fentanyl (Fentanyl 100 Mcg/2 Ml Sdv) Confirm Administered Dose 100 mcg .ROUTE .STK-MED ONE Stop: 08/28/20 06:51 Furosemide (Furosemide 20 Mg/2 Ml Vial) 20 mg IVPUSH Q8H [facility] Stop: 08/28/20 17:01 Last Admin: 08/28/20 16:35 Dose: 20 mg Documented by: Gabapentin (Gabapentin 100 Mg Cap) 600 mg PO TID [facility] Last Admin: 08/24/20 20:50 Dose: Not Given Documented by: Glycopyrrolate (Glycopyrrolate 0.2 Mg/Ml 5 Ml Mdv) Confirm Administered Dose 1 mg .ROUTE .STK-MED ONE Stop: 08/25/20 07:21 Hydromorphone HCl (Hydromorphone 0.5 Mg/0.5 Ml Syringe) 0.5 mg IVPUSH ONETIME ONE Stop: 08/24/20 15:32 Last Admin: 08/24/20 15:45 Dose: 0.5 mg Documented by: Hydromorphone HCl (Hydromorphone 1 Mg/Ml Syringe) 1 mg IVPUSH ONETIME ONE Stop: 08/24/20 17:24 Last Admin: 08/24/20 18:20 Dose: 1 mg Documented by: Hydromorphone HCl (Hydromorphone/Normal Saline 15 Mg/30 Ml [employer]) 0 mg IV ASDIRECTED PRN; Protocol PRN Reason: Pain Last Admin: 08/28/20 10:50 Dose: 15 mg Documented by: Sodium Chloride (Normal Saline) 1,000 mls @ 999 mls/hr IV ASDIRECTED [facility] Last Admin: 08/24/20 15:45 Dose: 999 mls/hr Documented by: Sodium Chloride (Normal Saline) 1,000 mls @ 300 mls/hr IV ASDIRECTED [facility] Lactated Ringer's (Ringers, Lactated) 1,000 mls @ 100 mls/hr IV ASDIRECTED [facility] Last Admin: 08/25/20 02:58 Dose: 100 mls/hr Documented by: Ampicillin Sodium/Sulbactam (Sodium 3 gm/ Sodium Chloride) 100 mls @ 200 mls/hr IV Q6H [facility] Last Admin: 08/25/20 05:04 Dose: 200 mls/hr Documented by: Aztreonam 1 gm/ Sodium (Chloride) 50 mls @ 100 mls/hr IV Q8H [facility] Last Admin: 08/25/20 05:05 Dose: 100 mls/hr Documented by: Magnesium Sulfate (Magnesium Sulfate In Water 2 Gm/50 Ml) 2 gm in 50 mls @ 25 mls/hr IV Q6H [facility] Stop: 08/25/20 18:29 Last Admin: 08/25/20 16:14 Dose: 25 mls/hr Documented by: Lactated Ringer's (Ringers, Lactated) Confirm Administered Dose 1,000 mls @ as directed .ROUTE .STK-[facility] ONE Stop: 08/25/20 11:32 Dextrose/Lactated Ringer's (Dextrose 5%-Lactated Ringers) 1,000 mls @ 150 mls/hr IV ASDIRECTED [facility] Last Admin: 08/26/20 03:57 Dose: 150 mls/hr Documented by: Potassium Phosphate 15 mmole/ (Sodium Chloride) 255 mls @ 85 mls/hr IV Q3H [facility] Stop: 08/26/20 17:59 Last Admin: 08/26/20 15:25 Dose: 85 mls/hr Documented by: Dextrose/Lactated Ringer's (Dextrose 5%-Lactated Ringers) 1,000 mls @ 80 mls/hr IV ASDIRECTED [facility] Last Admin: 08/29/20 13:46 Dose: 80 mls/hr Documented by: Dextrose/Lactated Ringer's (Dextrose 5%-Lr) 500 mls @ 250 mls/hr IV ONETIME ONE Stop: 08/27/20 17:59 Last Admin: 08/27/20 16:00 Dose: 250 mls/hr Documented by: Lactated Ringer's (Ringers, Lactated) 500 mls @ 250 mls/hr IV ONETIME ONE Stop: 08/27/20 18:14 Last Admin: 08/27/20 17:02 Dose: 250 mls/hr Documented by: Potassium Phosphate 15 mmole/ (Sodium Chloride) 255 mls @ 125 mls/hr IV Q2H [facility] Stop: 08/28/20 15:59 Last Admin: 08/28/20 16:03 Dose: 125 mls/hr Documented by: Lidocaine HCl (Lidocaine 2% Jelly 10 Ml [employer]) Confirm Administered Dose 10 ml .ROUTE .STK-MED ONE Stop: 08/25/20 10:49 Last Admin: 08/26/20 10:35 Dose: 10 ml Documented by: Lidocaine/Epinephrine (Lidocaine 1% With Epinephrine 1:100,000 50 Ml Mdv) Confirm Administered Dose 50 ml .ROUTE .STK-MED ONE Stop: 08/27/20 06:33 Lidocaine/Epinephrine (Lidocaine 1% With Epinephrine 1:100,000 50 Ml Mdv) Confirm Administered Dose 50 ml .ROUTE .STK-MED ONE Stop: 08/28/20 06:37 Last Admin: 08/28/20 07:40 Dose: 12.4 ml Documented by: Meropenem (Meropenem 500 Mg Sdv) Confirm Administered Dose 500 mg .ROUTE .STK- MED ONE Stop: 08/25/20 11:15 Last Admin: 08/25/20 11:47 Dose: 1,000 mg Documented by: Meropenem (Meropenem 500 Mg Sdv) Confirm Administered Dose 500 mg .ROUTE .STK- MED ONE Stop: 08/25/20 12:12 Meropenem (Meropenem 500 Mg Sdv) Confirm Administered Dose 500 mg .ROUTE .STK- MED ONE Stop: 08/27/20 06:33 Meropenem (Meropenem 500 Mg Sdv) Confirm Administered Dose 500 mg .ROUTE .ST- MED ONE Stop: 08/28/20 06:37 Last Admin: 08/28/20 07:40 Dose: 500 mg Documented by: Metoprolol Tartrate (Metoprolol Tartrate 5 Mg/5 Ml Sdv) 2.5 mg IVPUSH Q6H [facility] Last Admin: 08/28/20 03:32 Dose: Not Given Documented by: Neostigmine Methylsulfate (Neostigmine Methylsulfate 1 Mg/Ml 5 Ml Syringe) Confirm Administered Dose 5 mg .ROUTE .STK-MED ONE Stop: 08/25/20 07:21 Ondansetron HCl (Ondansetron 4 Mg/2 Ml Sdv) 4 mg IVPUSH ONETIME ONE Stop: 08/24/20 15:32 Last Admin: 08/24/20 15:44 Dose: 4 mg Documented by: Ondansetron HCl (Ondansetron 4 Mg/2 Ml Sdv) Confirm Administered Dose 4 mg .ROUTE .STK-MED ONE Stop: 08/25/20 07:21 Pantoprazole Sodium (Pantoprazole 40 Mg Vial) 40 mg IV ONETIME ONE Stop: 08/24/20 20:01 Last Admin: 08/24/20 20:46 Dose: 40 mg Documented by: Pneumococcal Polyvalent Vaccine (Pneumococcal Polyvalent-23 Vaccine 0.5 Ml Sdv) 0.5 ml IM .ONCE ONE Stop: 08/24/20 19:28 Last Admin: 08/24/20 20:21 Dose: Not Given Documented by: Propofol (Propofol 200 Mg/20 Ml Sdv) Confirm Administered Dose 200 mg .ROUTE .STK-MED ONE Stop: 08/25/20 07:21 Propofol (Propofol 200 Mg/20 Ml Sdv) Confirm Administered Dose 200 mg .ROUTE .STK-MED ONE Stop: 08/28/20 06:51 Rocuronium [place] (Rocuronium 50 Mg/5 Ml Vial) Confirm Administered Dose 50 mg .ROUTE .STK-MED ONE Stop: 08/25/20 07:21 Rocuronium [place] (Rocuronium 50 Mg/5 Ml Vial) Confirm Administered Dose 50 mg .ROUTE .STK-MED ONE Stop: 08/25/20 11:58 Succinylcholine Chloride (Succinylcholine 200 Mg/10 Ml Mdv) Confirm Administered Dose 200 mg .ROUTE .STK-MED ONE Stop: 08/25/20 07:21 - Exam Quality Assessment: DVT Prophylaxis General: Alert, Oriented, Cooperative, Mild Distress Lungs: Clear to Auscultation, Normal Respiratory Effort Cardiovascular: Regular Rate, Regular Rhythm, No Murmurs GI/Abdominal Exam: Soft, No Organomegaly, Tender. No: Distended, Guarding, Rigid, Rebound Extremities: Non-Tender, No Pedal Edema - Patient Data Lab Results Last 24 hrs: Laboratory Results - last 24 hr 08/29/20 08/29/20 Range/Units 04:38 04:38 WBC 7.8 (4.5-11.0) K/uL RBC 4.79 (4.30-5.90) M/uL Hgb 14.1 (12.0-15.0) g/dL Hct 41.7 (40.0-54.0) % MCV 87 (80-98) fL MCH 29 (27-31) pg MCHC 34 (32-36) % Plt Count 227 (150-400) K/uL Sodium 141 (140-148) mmol/L Potassium 4.3 (3.6-5.2) mmol/L Chloride 104 (100-108) mmol/L Carbon Dioxide 26 (21-32) mmol/L Anion Gap 11.4 (5.0-14.0) mmol/L BUN 13 (7-18) mg/dL Creatinine 0.9 (0.8-1.3) mg/dL Est Cr Clr Drug Dosing 76.60 mL/min Estimated GFR (MDRD) > 60 (>60) Glucose 135 H (74-106) mg/dL Calcium 8.2 L (8.5-10.1) mg/dL Phosphorus 3.7 (2.5-4.9) mg/dL Magnesium 2.7 H (1.8-2.4) mg/dL Total Bilirubin 0.8 (0.2-1.0) mg/dL AST 35 (15-37) U/L ALT 24 (12-78) U/L Alkaline Phosphatase 37 L (46-116) U/L NT-Pro-B Natriuret Pep 2770 H (5-125) pg/mL Total Protein 5.9 L (6.4-8.2) g/dL Albumin 2.2 L (3.4-5.0) g/dL Globulin 3.7 H (2.3-3.5) g/dL Albumin/Globulin Ratio 0.6 L (1.2-2.2) Result Diagrams: 08/29/20 04:38 08/29/20 04:38 Luigi Results Last 24 hrs: Microbiology 08/25/20 12:05 Gram Stain - Final Appendix - Other Wound Culture - Final Raoultella (K) [place] Anaerobic Culture - Final Anaerobic Gram Positive Jakob Anaerobic Gram Negative Jakob Sepsis Event Note - Evaluation Sepsis Screening Result: No Definite Risk - Focused Exam Vital Signs: Vital Signs Temp Temp Pulse Pulse Resp BP BP 08/29/20 17:41 98.4 F 67 16 101/54 L 08/29/20 13:48 98.1 F 16 107/65 08/29/20 10:51 97.9 F 65 16 116/67 08/29/20 10:29 114/60 08/29/20 10:25 64 114/60 08/29/20 07:40 97.5 F 64 16 115/64 Pulse Ox 08/29/20 17:41 91 L 08/29/20 13:48 90 L 08/29/20 10:51 93 L 08/29/20 10:29 08/29/20 10:25 08/29/20 07:40 94 L - Problem List Review Problem List Initiated/Reviewed/Updated: Yes - My Orders Last 24 Hours: My Active Orders 08/29/20 17:46 Convert IV to Saline Lock [OM.PC] Routine - Plan Plan:: ASSESSMENT AND PLAN Acute appendicitis without perforation-status post appendectomy performed 08/[address] Acevedo. Feeling somewhat better today, tolerating current diet -IV Amp/Sulbactam and aztreonam -Saline lock IV -Symptomatic management of pain -Pulse oximetry -Postoperative care per Dr. Acevedo Chronic systolic congestive heart failure-complicated by ischemic cardiomyopathy. Last ejection fraction was between 35 and 40%. No functional limitations or exertional dyspnea. No anginal symptoms. -Continue medical management -Judicious fluid use around the time of surgery -Furosemide as ordered by Dr. 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 History of left-sided CVA-residual right-sided weakness though his functional status is pretty good. Gets around without a cane most of the time. Maintenance issues -DVT prophylaxis-mechanical -GI prophylaxis-IV PPI tonight -Nutrition-nothing by mouth -Mcgee catheter-not indicated at this time CODE STATUS -full code Admission justification -this patient will be admitted for inpatient services and is medically appropriate meeting medical necessity for inpatient admission as outlined in my documentation. I reasonably expect the patient will require inpatient services that span a period time over 2 midnights. I reasonably expect this patient to be discharged or transferred within 96 hours [facility]. The patient has nonruptured appendicitis but is on long-term anticoagulation with a DOAC so we will need adequate time for this medication to clear his system before surgery can be entertained. Disposition -I anticipate discharge home after the hospital stay Primary care physician - Antonio Morales NP
[2020-08-29] MEDS: hydrOXYzine HCL 100 MG/2 ML SDV IM PRN (19:37)
[2020-08-29] MEDS: Tamsulosin 0.4 MG Cap.ER PO SCH (21:51)
[2020-08-29] MEDS: Simvastatin 20 MG Tab PO SCH (21:51)
[2020-08-30] MEDS: Ampicillin/Sulbactam Na 3 GM in Sodium Chloride 0.9% 100 ML IV SCH ×5 (00:45→23:36)
[2020-08-30] MEDS: Magnesium Sulfate/Water 2 GM/50 ML BAG IV SCH (03:00)
[2020-08-30] MEDS: Metoclopramide 10 MG/2 ML SDV IVPUSH SCH ×4 (04:05→22:21)
[2020-08-30] MEDS: HYDROmorphone 2 MG Tab PO PRN ×2 (05:00→09:08)
[2020-08-30] MEDS: Bisacodyl 5 MG Tab PO SCH ×2 (09:54→22:16)
[2020-08-30] MEDS: Docusate Sodium 100 MG Cap PO SCH ×2 (09:54→22:16)
[2020-08-30] MEDS: Levothyroxine 50 MCG Tab PO SCH (09:56)
[2020-08-30] MEDS: Ezetimibe 10 MG Tab PO SCH (09:57)
[2020-08-30] MEDS: Aspirin 325 MG Tab.EC PO SCH (09:57)
[2020-08-30] MEDS: Lisinopril 2.5 MG Tab PO SCH (09:57)
[2020-08-30] MEDS: Oxybutynin 5 MG Tab PO SCH ×3 (09:57→22:16)
[2020-08-30] MEDS: Sotalol 80 MG Tab PO SCH ×2 (09:58→22:15)
[2020-08-30] MEDS: Gabapentin 300 MG Cap PO SCH ×3 (09:58→22:16)
[2020-08-30] MEDS: DULoxetine 20 MG Cap PO SCH (09:58)
[2020-08-30] MEDS: Spironolactone 25 MG Tab PO SCH (09:59)
[2020-08-30] MEDS: Sertraline 25 MG Tab PO SCH (09:59)
[2020-08-30] MEDS: Lactobacillus Rhamnosus GG (Probiotic) Cap PO SCH ×2 (09:59→22:16)
[2020-08-30] MEDS: Ondansetron 4 MG/2 ML SDV IV PRN (11:04)
--- NOTE | 2020-08-30 11:10 | PCM.PN ---
- General Info Date of Service: 08/30/20 Subjective Update: Mr. Hodges has felt somewhat improved over the last 24 hours, still not yet passing gas or bowel movement. Incisional pain seems to be slowly improving. Appetite modestly improved and he has been walking in the hallways. Functional Status: Reports: Ambulating, Urinating - Review of Systems General: Reports: Weakness, Fatigue. Denies: Fever, Chills Pulmonary: Reports: No Symptoms Cardiovascular: Reports: No Symptoms Gastrointestinal: Reports: Abdominal Pain. Denies: Difficulty Swallowing, Flatus, Hematochezia, Melena, Nausea, Vomiting Genitourinary: Reports: No Symptoms - Patient Data Vitals - Most Recent: Last Vital Signs Temp 96.2 F L 08/30/20 10:50 Pulse 69 08/30/20 10:50 Resp 16 08/30/20 10:50 BP 117/56 L 08/30/20 10:50 Pulse Ox 96 08/30/20 10:50 Weight - Most Recent: 216 lb I&O - Last 24 Hours: Intake & Output 08/29/20 08/30/20 08/30/20 22:59 06:59 14:59 Intake Total 1506 650 Output Total 450 600 300 Balance 1056 50 -300 Luigi Results Last 24 Hours: Microbiology 08/25/20 12:05 Gram Stain - Final Appendix - Other Wound Culture - Final Raoultella (K) [place] Anaerobic Culture - Final Anaerobic Gram Positive Jakob Anaerobic Gram Negative Jakob Med Orders - Current: Current Medications Acetaminophen (Acetaminophen 325 Mg Tab) 650 mg PO Q4H PRN PRN Reason: Pain (Mild 1-3)/fever Albuterol (Albuterol 0.083% 2.5 Mg/3 Ml Neb Soln) 2.5 mg NEB Q4H PRN PRN Reason: Shortness Of Breath/wheezing Aspirin (Aspirin 325 Mg Tab.Ec) 325 mg PO DAILY [facility] Last Admin: 08/30/20 09:57 Dose: 325 mg Documented by: Bisacodyl (Bisacodyl 5 Mg Tab) 10 mg PO BID [facility] Last Admin: 08/30/20 09:54 Dose: 10 mg Documented by: Bisacodyl (Bisacodyl 10 Mg Supp) 10 mg RECTAL BID PRN PRN Reason: Constipation Last Admin: 08/29/20 15:21 Dose: 10 mg Documented by: Docusate Sodium (Docusate Sodium 100 Mg Cap) 100 mg PO BID [facility] Last Admin: 08/30/20 09:54 Dose: 100 mg Documented by: Duloxetine HCl (Duloxetine 20 Mg Cap) 20 mg PO DAILY [facility] Last Admin: 08/30/20 09:58 Dose: 20 mg Documented by: Ezetimibe (Ezetimibe 10 Mg Tab) 5 mg PO DAILY [facility] Last Admin: 08/30/20 09:57 Dose: 5 mg Documented by: Gabapentin (Gabapentin 300 Mg Cap) 600 mg PO TID [facility] Last Admin: 08/30/20 09:58 Dose: 600 mg Documented by: Hydromorphone HCl (Hydromorphone 2 Mg Tab) 2 - 4 mg PO Q4H PRN PRN Reason: Pain Last Admin: 08/30/20 09:08 Dose: 4 mg Documented by: Hydroxyzine HCl (Hydroxyzine Hcl 100 Mg/2 Ml Sdv) 100 mg IM Q4H PRN PRN Reason: Pain Last Admin: 08/29/20 19:37 Dose: 100 mg Documented by: Aztreonam 1 gm/ Sodium (Chloride) 50 mls @ 100 mls/hr IV Q8H [facility] Last Admin: 08/30/20 05:02 Dose: 100 mls/hr Documented by: Ampicillin Sodium/Sulbactam (Sodium 3 gm/ Sodium Chloride) 100 mls @ 200 mls/hr IV Q6H [facility] Last Admin: 08/30/20 06:16 Dose: 200 mls/hr Documented by: Azithromycin 250 mg/ Sodium (Chloride) 150 mls @ 150 mls/hr IV Q12H [facility] Last Admin: 08/30/20 09:11 Dose: 150 mls/hr Documented by: Lactobacillus Rhamnosus (Lactobacillus Rhamnosus Gg (Probiotic) Cap) 1 cap PO BID [facility] Last Admin: 08/30/20 09:59 Dose: 1 cap Documented by: Levothyroxine Sodium (Levothyroxine 50 Mcg Tab) 150 mcg PO DAILY@0730 [facility] Last Admin: 08/30/20 09:56 Dose: 150 mcg Documented by: Lisinopril (Lisinopril 2.5 Mg Tab) 2.5 mg PO DAILY [facility] Last Admin: 08/30/20 09:57 Dose: 2.5 mg Documented by: Lorazepam (Lorazepam 2 Mg/Ml Sdv) 0.5 mg IVPUSH Q4H PRN PRN Reason: Nausea/Vomiting Last Admin: 08/27/20 02:13 Dose: 0.5 mg Documented by: Magnesium Hydroxide (Magnesium Hydroxide 400 Mg/5 Ml Susp 30 Ml Cup) 30 ml PO Q12H PRN PRN Reason: Constipation Melatonin (Melatonin 3 Mg Tab) 9 mg PO BEDTIME PRN PRN Reason: Sleep Last Admin: 08/24/20 20:45 Dose: 9 mg Documented by: Metoclopramide HCl (Metoclopramide 10 Mg/2 Ml Sdv) 10 mg IVPUSH Q6H [facility] Last Admin: 08/30/20 09:56 Dose: 10 mg Documented by: Naloxone HCl (Naloxone 0.4 Mg/Ml Sdv) 0.4 mg IVPUSH Q2M PRN PRN Reason: Respiratory Distress Ondansetron HCl (Ondansetron 4 Mg/2 Ml Sdv) 4 mg IV Q6H PRN PRN Reason: Nausea/Vomiting Last Admin: 08/30/20 11:04 Dose: 4 mg Documented by: Ondansetron HCl (Ondansetron 4 Mg Tab.Dis) 4 mg PO Q6H PRN PRN Reason: Nausea able to take PO Last Admin: 08/29/20 09:17 Dose: 4 mg Documented by: Oxybutynin Chloride (Oxybutynin 5 Mg Tab) 5 mg PO TID [facility] Last Admin: 08/30/20 09:57 Dose: 5 mg Documented by: Pantoprazole Sodium (Pantoprazole 40 Mg Vial) 40 mg IV Q24H [facility] Last Admin: 08/29/20 15:34 Dose: 40 mg Documented by: Senna/Docusate Sodium (Docusate Sodium/Sennosides 50-8.6 Mg Tab) 1 tab PO BID PRN PRN Reason: Constipation Sertraline HCl (Sertraline 25 Mg Tab) 25 mg PO DAILY [facility] Last Admin: 08/30/20 09:59 Dose: 25 mg Documented by: Simvastatin (Simvastatin 20 Mg Tab) 20 mg PO BEDTIME [facility] Last Admin: 08/29/20 21:51 Dose: 20 mg Documented by: Sotalol HCl (Sotalol 80 Mg Tab) 120 mg PO BID [facility] Last Admin: 08/30/20 09:58 Dose: 40 mg Documented by: Spironolactone (Spironolactone 25 Mg Tab) 25 mg PO DAILY [facility] Last Admin: 08/30/20 09:59 Dose: 25 mg Documented by: Tamsulosin HCl (Tamsulosin 0.4 Mg Cap.Er) 0.4 mg PO BEDTIME [facility] Last Admin: 08/29/20 21:51 Dose: 0.4 mg Documented by: Discontinued Medications Hydrocodone Bitart/Acetaminophen (Acetaminophen/Hydrocodone 325-5 Mg Tab) 1 - 2 tab PO Q4H PRN PRN Reason: Pain Bisacodyl (Bisacodyl 10 Mg Supp) 10 mg RECTAL BID [facility] Last Admin: 08/28/20 20:27 Dose: 10 mg Documented by: Bupivacaine HCl (Bupivacaine 0.5% 50 Ml Mdv) Confirm Administered Dose 50 ml .ROUTE .STK-MED ONE Stop: 08/27/20 06:33 Bupivacaine HCl (Bupivacaine 0.5% 50 Ml Mdv) Confirm Administered Dose 50 ml .ROUTE .STK-MED ONE Stop: 08/28/20 06:37 Last Admin: 08/28/20 07:40 Dose: 12.4 ml Documented by: Bupivacaine HCl/Epinephrine Bitart (Bupivacaine 0.5%/Epinephrine 1:200,000 50 Ml Mdv) Confirm Administered Dose 50 ml .ROUTE .STK-MED ONE Stop: 08/25/20 07:15 Last Admin: 08/25/20 13:23 Dose: 40 ml Documented by: Ropivacaine 50 ml/Dexamethasone 8 mg/Epinephrine HCl 0.4 mg/ Sodium Chloride 27.6 ml 0 ml NERVRT ASDIRECTED [facility] Last Admin: 08/25/20 11:23 Dose: 80 syringe Documented by: Ropivacaine 50 ml/Dexamethasone 8 mg/Epinephrine HCl 0.4 mg/ Sodium Chloride 27.6 ml 0 ml NERVRT ASDIRECTED [facility] Last Admin: 08/28/20 07:31 Dose: 80 syringe Documented by: Dexamethasone (Dexamethasone 4 Mg/Ml Sdv) Confirm Administered Dose 4 mg .ROUTE .STK-MED ONE Stop: 08/25/20 07:21 Fentanyl (Fentanyl 250 Mcg/5 Ml Sdv) Confirm Administered Dose 250 mcg .ROUTE .STK-MED ONE Stop: 08/25/20 07:21 Fentanyl (Fentanyl 100 Mcg/2 Ml Sdv) Confirm Administered Dose 100 mcg .ROUTE .STK-MED ONE Stop: 08/25/20 12:00 Fentanyl (Fentanyl 100 Mcg/2 Ml Sdv) Confirm Administered Dose 100 mcg .ROUTE .STK-MED ONE Stop: 08/28/20 06:51 Furosemide (Furosemide 20 Mg/2 Ml Vial) 20 mg IVPUSH Q8H LOYD Stop: 08/28/20 17:01 Last Admin: 08/28/20 16:35 Dose: 20 mg Documented by: Gabapentin (Gabapentin 100 Mg Cap) 600 mg PO TID [facility] Last Admin: 08/24/20 20:50 Dose: Not Given Documented by: Glycopyrrolate (Glycopyrrolate 0.2 Mg/Ml 5 Ml Mdv) Confirm Administered Dose 1 mg .ROUTE .STK-MED ONE Stop: 08/25/20 07:21 Hydromorphone HCl (Hydromorphone 0.5 Mg/0.5 Ml Syringe) 0.5 mg IVPUSH ONETIME ONE Stop: 08/24/20 15:32 Last Admin: 08/24/20 15:45 Dose: 0.5 mg Documented by: Hydromorphone HCl (Hydromorphone 1 Mg/Ml Syringe) 1 mg IVPUSH ONETIME ONE Stop: 08/24/20 17:24 Last Admin: 08/24/20 18:20 Dose: 1 mg Documented by: Hydromorphone HCl (Hydromorphone/Normal Saline 15 Mg/30 Ml Private Duty Rn) 0 mg IV ASDIRECTED PRN; Protocol PRN Reason: Pain Last Admin: 08/28/20 10:50 Dose: 15 mg Documented by: Sodium Chloride (Normal Saline) 1,000 mls @ 999 mls/hr IV ASDIRECTED [facility] Last Admin: 08/24/20 15:45 Dose: 999 mls/hr Documented by: Sodium Chloride (Normal Saline) 1,000 mls @ 300 mls/hr IV ASDIRECTED [facility] Lactated Ringer's (Ringers, Lactated) 1,000 mls @ 100 mls/hr IV ASDIRECTED [facility] Last Admin: 08/25/20 02:58 Dose: 100 mls/hr Documented by: Ampicillin Sodium/Sulbactam (Sodium 3 gm/ Sodium Chloride) 100 mls @ 200 mls/hr IV Q6H [facility] Last Admin: 08/25/20 05:04 Dose: 200 mls/hr Documented by: Aztreonam 1 gm/ Sodium (Chloride) 50 mls @ 100 mls/hr IV Q8H [facility] Last Admin: 08/25/20 05:05 Dose: 100 mls/hr Documented by: Magnesium Sulfate (Magnesium Sulfate In Water 2 Gm/50 Ml) 2 gm in 50 mls @ 25 mls/hr IV Q6H [facility] Stop: 08/25/20 18:29 Last Admin: 08/25/20 16:14 Dose: 25 mls/hr Documented by: Lactated Ringer's (Ringers, Lactated) Confirm Administered Dose 1,000 mls @ as directed .ROUTE .STK-MED ONE Stop: 08/25/20 11:32 Dextrose/Lactated Ringer's (Dextrose 5%-Lactated Ringers) 1,000 mls @ 150 mls/hr IV ASDIRECTED [facility] Last Admin: 08/26/20 03:57 Dose: 150 mls/hr Documented by: Potassium Phosphate 15 mmole/ (Sodium Chloride) 255 mls @ 85 mls/hr IV Q3H [facility] Stop: 08/26/20 17:59 Last Admin: 08/26/20 15:25 Dose: 85 mls/hr Documented by: Dextrose/Lactated Ringer's (Dextrose 5%-Lactated Ringers) 1,000 mls @ 80 mls/hr IV ASDIRECTED [facility] Last Admin: 08/29/20 13:46 Dose: 80 mls/hr Documented by: Dextrose/Lactated Ringer's (Dextrose 5%-Lr) 500 mls @ 250 mls/hr IV ONETIME ONE Stop: 08/27/20 17:59 Last Admin: 08/27/20 16:00 Dose: 250 mls/hr Documented by: Lactated Ringer's (Ringers, Lactated) 500 mls @ 250 mls/hr IV ONETIME ONE Stop: 08/27/20 18:14 Last Admin: 08/27/20 17:02 Dose: 250 mls/hr Documented by: Potassium Phosphate 15 mmole/ (Sodium Chloride) 255 mls @ 125 mls/hr IV Q2H [facility] Stop: 08/28/20 15:59 Last Admin: 08/28/20 16:03 Dose: 125 mls/hr Documented by: Magnesium Sulfate (Magnesium Sulfate In Water 2 Gm/50 Ml) 2 gm in 50 mls @ 25 mls/hr IV Q6HR [facility] Stop: 08/30/20 05:59 Last Admin: 08/30/20 03:00 Dose: 25 mls/hr Documented by: Lidocaine HCl (Lidocaine 2% Jelly 10 Ml [employer]rojet) Confirm Administered Dose 10 ml .ROUTE .STK-MED ONE Stop: 08/25/20 10:49 Last Admin: 08/26/20 10:35 Dose: 10 ml Documented by: Lidocaine/Epinephrine (Lidocaine 1% With Epinephrine 1:100,000 50 Ml Mdv) Confirm Administered Dose 50 ml .ROUTE .STK-MED ONE Stop: 08/27/20 06:33 Lidocaine/Epinephrine (Lidocaine 1% With Epinephrine 1:100,000 50 Ml Mdv) Confirm Administered Dose 50 ml .ROUTE .STK-MED ONE Stop: 08/28/20 06:37 Last Admin: 08/28/20 07:40 Dose: 12.4 ml Documented by: Meropenem (Meropenem 500 Mg Sdv) Confirm Administered Dose 500 mg .ROUTE .STK- MED ONE Stop: 08/25/20 11:15 Last Admin: 08/25/20 11:47 Dose: 1,000 mg Documented by: Meropenem (Meropenem 500 Mg Sdv) Confirm Administered Dose 500 mg .ROUTE .STK- MED ONE Stop: 08/25/20 12:12 Meropenem (Meropenem 500 Mg Sdv) Confirm Administered Dose 500 mg .ROUTE .STK- MED ONE Stop: 08/27/20 06:33 Meropenem (Meropenem 500 Mg Sdv) Confirm Administered Dose 500 mg .ROUTE .STK- MED ONE Stop: 08/28/20 06:37 Last Admin: 08/28/20 07:40 Dose: 500 mg Documented by: Metoprolol Tartrate (Metoprolol Tartrate 5 Mg/5 Ml Sdv) 2.5 mg IVPUSH Q6H [facility] Last Admin: 08/28/20 03:32 Dose: Not Given Documented by: Neostigmine Methylsulfate (Neostigmine Methylsulfate 1 Mg/Ml 5 Ml Syringe) Confirm Administered Dose 5 mg .ROUTE .STK-MED ONE Stop: 08/25/20 07:21 Ondansetron HCl (Ondansetron 4 Mg/2 Ml Sdv) 4 mg IVPUSH ONETIME ONE Stop: 08/24/20 15:32 Last Admin: 08/24/20 15:44 Dose: 4 mg Documented by: Ondansetron HCl (Ondansetron 4 Mg/2 Ml Sdv) Confirm Administered Dose 4 mg .ROUTE .STK-MED ONE Stop: 08/25/20 07:21 Pantoprazole Sodium (Pantoprazole 40 Mg Vial) 40 mg IV ONETIME ONE Stop: 08/24/20 20:01 Last Admin: 08/24/20 20:46 Dose: 40 mg Documented by: Pneumococcal Polyvalent Vaccine (Pneumococcal Polyvalent-23 Vaccine 0.5 Ml Sdv) 0.5 ml IM .ONCE ONE Stop: 08/24/20 19:28 Last Admin: 08/24/20 20:21 Dose: Not Given Documented by: Propofol (Propofol 200 Mg/20 Ml Sdv) Confirm Administered Dose 200 mg .ROUTE .STK-MED ONE Stop: 08/25/20 07:21 Propofol (Propofol 200 Mg/20 Ml Sdv) Confirm Administered Dose 200 mg .ROUTE .STK-MED ONE Stop: 08/28/20 06:51 Rocuronium Bertrand (Rocuronium 50 Mg/5 Ml Vial) Confirm Administered Dose 50 mg .ROUTE .STK-MED ONE Stop: 08/25/20 07:21 Rocuronium Bertrand (Rocuronium 50 Mg/5 Ml Vial) Confirm Administered Dose 50 mg .ROUTE .STK-MED ONE Stop: 08/25/20 11:58 Succinylcholine Chloride (Succinylcholine 200 Mg/10 Ml Mdv) Confirm Administered Dose 200 mg .ROUTE .STK-MED ONE Stop: 08/25/20 07:21 - Exam General: Alert, Oriented, Cooperative, Moderate Distress Lungs: Clear to Auscultation, Normal Respiratory Effort Cardiovascular: Regular Rate, Regular Rhythm, No Murmurs GI/Abdominal Exam: Soft, No Organomegaly, Tender. No: Distended, Guarding, Rigid, Rebound Extremities: Non-Tender, No Pedal Edema - Patient Data Result Diagrams: 08/29/20 04:38 08/29/20 04:38 Luigi Results Last 24 hrs: Microbiology 08/25/20 12:05 Gram Stain - Final Appendix - Other Wound Culture - Final Raoultella (K) [place] Anaerobic Culture - Final Anaerobic Gram Positive Jakob Anaerobic Gram Negative Jakob Sepsis Event Note - Evaluation Sepsis Screening Result: No Definite Risk - Focused Exam Vital Signs: Vital Signs Temp Temp Pulse Pulse Resp BP BP 08/30/20 10:50 96.2 F L 69 16 117/56 L 08/30/20 09:58 65 106/63 08/30/20 09:57 106/63 08/30/20 08:03 98.1 F 65 16 106/63 08/30/20 03:22 98.2 F 67 16 96/56 L 08/29/20 23:20 98.2 F 78 16 107/63 Pulse Ox 08/30/20 10:50 96 08/30/20 09:58 08/30/20 09:57 08/30/20 08:03 92 L 08/30/20 03:22 93 L 08/29/20 23:20 92 L - Problem List Review Problem List Initiated/Reviewed/Updated: Yes - My Orders Last 24 Hours: My Active Orders 08/29/20 17:46 Convert IV to Saline Lock [OM.PC] Routine - Plan Plan:: ASSESSMENT AND PLAN Acute appendicitis without perforation-status post appendectomy performed 08/[address] Acevedo. Feeling somewhat better today -IV Amp/Sulbactam and aztreonam -Saline lock IV -Symptomatic management of pain -Pulse oximetry -Postoperative care per Dr. Acevedo Chronic systolic congestive heart failure-complicated by ischemic cardiomyopa thy. Last ejection fraction was between 35 and 40%. No functional limitations or exertional dyspnea. No anginal symptoms. -Continue medical management -Judicious fluid use around the time of surgery -Furosemide as ordered by Dr. 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 History of left-sided CVA-residual right-sided weakness though his functional status is pretty good. Gets around without a cane most of the time. Maintenance issues -DVT prophylaxis-mechanical -GI prophylaxis-IV PPI tonight -Nutrition-nothing by mouth -Mcgee catheter-not indicated at this time CODE STATUS -full code Admission justification -this patient will be admitted for inpatient services and is medically appropriate meeting medical necessity for inpatient admission as outlined in my documentation. I reasonably expect the patient will require inpatient services that span a period time over 2 midnights. I reasonably expect this patient to be discharged or transferred within 96 hours [facility]. The patient has nonruptured appendicitis but is on long-term anticoagulation with a DOAC so we will need adequate time for this medication to clear his system before surgery can be entertained. Disposition -I anticipate discharge home after the hospital stay Primary care physician - Antonio Morales NP
[2020-08-30] MEDS: Pantoprazole 40 MG Tab.CR PO SCH (15:57)
[2020-08-30] MEDS: Dextrose 5%-Lactated Ringers 1,000 ML IV SCH (17:42)
[2020-08-30] MEDS: Simvastatin 20 MG Tab PO SCH (22:16)
[2020-08-30] MEDS: Tamsulosin 0.4 MG Cap.ER PO SCH (22:16)
[2020-08-30] MEDS: hydrOXYzine HCL 100 MG/2 ML SDV IM PRN (22:39)
[2020-08-31] MEDS: Metoclopramide 10 MG/2 ML SDV IVPUSH SCH ×4 (04:32→21:09)
[2020-08-31] MEDS: hydrOXYzine HCL 100 MG/2 ML SDV IM PRN (05:02)
[2020-08-31] MEDS: Ampicillin/Sulbactam Na 3 GM in Sodium Chloride 0.9% 100 ML IV SCH ×3 (05:15→17:34)
[2020-08-31] MEDS: Dextrose 5%-Lactated Ringers 1,000 ML IV SCH ×2 (05:45→15:52)
[2020-08-31] MEDS: Levothyroxine 50 MCG Tab PO SCH (08:12)
[2020-08-31] MEDS: Spironolactone 25 MG Tab PO SCH (08:13)
[2020-08-31] MEDS: Lactobacillus Rhamnosus GG (Probiotic) Cap PO SCH ×2 (08:14→21:09)
[2020-08-31] MEDS: Docusate Sodium 100 MG Cap PO SCH ×2 (08:14→21:08)
[2020-08-31] MEDS: Sotalol 80 MG Tab PO SCH ×2 (08:14→21:08)
[2020-08-31] MEDS: DULoxetine 20 MG Cap PO SCH (08:14)
[2020-08-31] MEDS: Bisacodyl 5 MG Tab PO SCH ×2 (08:14→21:09)
[2020-08-31] MEDS: Sertraline 25 MG Tab PO SCH (08:15)
[2020-08-31] MEDS: Gabapentin 300 MG Cap PO SCH ×3 (08:15→21:09)
[2020-08-31] MEDS: Aspirin 325 MG Tab.EC PO SCH (08:15)
[2020-08-31] MEDS: Lisinopril 2.5 MG Tab PO SCH (08:15)
[2020-08-31] MEDS: Oxybutynin 5 MG Tab PO SCH ×3 (08:15→21:09)
[2020-08-31] MEDS: Ezetimibe 10 MG Tab PO SCH (08:15)
[2020-08-31] MEDS: HYDROmorphone/Normal Saline 15 MG/30 ML PCA IV PRN (08:26)
--- NOTE | 2020-08-31 14:05 | PN ---
DATE OF SERVICE: 08/30/2020 The patient has been afebrile with stable vital signs. He is still fairly distended. He has moved his bowels over the last 24 hours, and we will start him on some Zithromax. Abdominal x-ray this morning showed quite a bit of air in the small bowel, but also a fair bit in the large bowel as well. We will add some Zithromax IV to augment GI tract motility. We will continue with bowel stimulation and recheck some abdominal x-rays in the morning along with some baseline labs. Vazquez Acevedo MD /[id number]
--- NOTE | 2020-08-31 14:52 | PCM.PN ---
- General Info Date of Service: 08/31/20 Subjective Update: Mr. Hodges has unfortunately continued to experience difficulty with ileus. He developed increased abdominal pain with nausea and vomiting late yesterday afternoon and NG tube has been placed again. This morning he has started to pass some gas and also has had a few bowel movements. He reports that he is feeling better today than he had yesterday but is frustrated by his lack of progress. Denies any symptoms of chest pain or pressure or significant sh ortness of breath. Functional Status: Reports: Ambulating, Urinating. Denies: Tolerating Diet - Review of Systems General: Reports: Weakness, Fatigue. Denies: Fever, Chills Pulmonary: Reports: No Symptoms Cardiovascular: Reports: No Symptoms Gastrointestinal: Reports: Abdominal Pain, Flatus. Denies: Difficulty Swallowing, Hematochezia, Melena, Nausea, Vomiting Genitourinary: Reports: No Symptoms - Patient Data Vitals - Most Recent: Last Vital Signs Temp 98.1 F 08/31/20 10:45 Pulse 63 08/31/20 10:45 Resp 16 08/31/20 10:45 BP 111/57 L 08/31/20 10:45 Pulse Ox 93 L 08/31/20 13:23 Weight - Most Recent: 216 lb I&O - Last 24 Hours: Intake & Output 08/30/20 08/31/20 08/31/20 22:59 06:59 14:59 Intake Total 1250 Output Total 3200 450 600 Balance -3200 800 -600 Lab Results Last 24 Hours: Laboratory Results - last 24 hr 08/31/20 08/31/20 Range/Units 04:05 04:05 WBC 9.7 (4.5-11.0) K/uL RBC 4.47 (4.30-5.90) M/uL Hgb 13.3 (12.0-15.0) g/dL Hct 39.0 L (40.0-54.0) % MCV 87 (80-98) fL MCH 30 (27-31) pg MCHC 34 (32-36) % Plt Count 268 (150-400) K/uL Add Manual Diff Yes Neutrophils % (Manual) 71 H (36-66) % Band Neutrophils % 11 (5-11) % Lymphocytes % (Manual) 9 L (24-44) % Monocytes % (Manual) 7 H (2-6) % Eosinophils % (Manual) 2 (2-4) % Sodium 140 (140-148) mmol/L Potassium 3.7 (3.6-5.2) mmol/L Chloride 102 (100-108) mmol/L Carbon Dioxide 26 (21-32) mmol/L Anion Gap 12.2 (5.0-14.0) mmol/L BUN 14 (7-18) mg/dL Creatinine 0.9 (0.8-1.3) mg/dL Est Cr Clr Drug Dosing 76.60 mL/min Estimated GFR (MDRD) > 60 (>60) Glucose 127 H (74-106) mg/dL Calcium 7.9 L (8.5-10.1) mg/dL Phosphorus 3.2 (2.5-4.9) mg/dL Magnesium 1.8 D (1.8-2.4) mg/dL Total Bilirubin 0.8 (0.2-1.0) mg/dL AST 34 (15-37) U/L ALT 28 (12-78) U/L Alkaline Phosphatase 49 (46-116) U/L NT-Pro-B Natriuret Pep 1317 H (5-125) pg/mL Total Protein 5.3 L (6.4-8.2) g/dL Albumin 2.1 L (3.4-5.0) g/dL Globulin 3.2 (2.3-3.5) g/dL Albumin/Globulin Ratio 0.7 L (1.2-2.2) Med Orders - Current: Current Medications Acetaminophen (Acetaminophen 325 Mg Tab) 650 mg PO Q4H PRN PRN Reason: Pain (Mild 1-3)/fever Albuterol (Albuterol 0.083% 2.5 Mg/3 Ml Neb Soln) 2.5 mg NEB Q4H PRN PRN Reason: Shortness Of Breath/wheezing Aspirin (Aspirin 325 Mg Tab.Ec) 325 mg PO DAILY [facility] Last Admin: 08/31/20 08:15 Dose: Not Given Documented by: Bisacodyl (Bisacodyl 5 Mg Tab) 10 mg PO BID [facility] Last Admin: 08/31/20 08:14 Dose: Not Given Documented by: Bisacodyl (Bisacodyl 10 Mg Supp) 10 mg RECTAL BID PRN PRN Reason: Constipation Last Admin: 08/29/20 15:21 Dose: 10 mg Documented by: Docusate Sodium (Docusate Sodium 100 Mg Cap) 100 mg PO BID [facility] Last Admin: 08/31/20 08:14 Dose: Not Given Documented by: Duloxetine HCl (Duloxetine 20 Mg Cap) 20 mg PO DAILY [facility] Last Admin: 08/31/20 08:14 Dose: Not Given Documented by: Ezetimibe (Ezetimibe 10 Mg Tab) 5 mg PO DAILY [facility] Last Admin: 08/31/20 08:15 Dose: Not Given Documented by: Gabapentin (Gabapentin 300 Mg Cap) 600 mg PO TID [facility] Last Admin: 08/31/20 13:02 Dose: Not Given Documented by: Hydromorphone HCl (Hydromorphone 2 Mg Tab) 2 - 4 mg PO Q4H PRN PRN Reason: Pain Last Admin: 08/30/20 09:08 Dose: 4 mg Documented by: Hydromorphone HCl (Hydromorphone/Normal Saline 15 Mg/30 Ml [employer] Consultant) 0 mg IV ASDIRECTED PRN; Protocol PRN Reason: Pain Last Admin: 08/31/20 08:26 Dose: 15 mg Documented by: Hydroxyzine HCl (Hydroxyzine Hcl 100 Mg/2 Ml Sdv) 100 mg IM Q4H PRN PRN Reason: Pain Last Admin: 08/31/20 05:02 Dose: 100 mg Documented by: Aztreonam 1 gm/ Sodium (Chloride) 50 mls @ 100 mls/hr IV Q8H [facility] Last Admin: 08/31/20 13:01 Dose: 100 mls/hr Documented by: Ampicillin Sodium/Sulbactam (Sodium 3 gm/ Sodium Chloride) 100 mls @ 200 mls/hr IV Q6H [facility] Last Admin: 08/31/20 12:14 Dose: 200 mls/hr Documented by: Dextrose/Lactated Ringer's (Dextrose 5%-Lactated Ringers) 1,000 mls @ 100 mls/hr IV ASDIRECTED [facility] Last Admin: 08/31/20 05:45 Dose: 100 mls/hr Documented by: Lactobacillus Rhamnosus (Lactobacillus Rhamnosus Gg (Probiotic) Cap) 1 cap PO BID [facility] Last Admin: 08/31/20 08:14 Dose: Not Given Documented by: Levothyroxine Sodium (Levothyroxine 50 Mcg Tab) 150 mcg PO DAILY@0730 [facility] Last Admin: 08/31/20 08:12 Dose: Not Given Documented by: Lisinopril (Lisinopril 2.5 Mg Tab) 2.5 mg PO DAILY [facility] Last Admin: 08/31/20 08:15 Dose: Not Given Documented by: Lorazepam (Lorazepam 2 Mg/Ml Sdv) 0.5 mg IVPUSH Q4H PRN PRN Reason: Nausea/Vomiting Last Admin: 08/27/20 02:13 Dose: 0.5 mg Documented by: Magnesium Hydroxide (Magnesium Hydroxide 400 Mg/5 Ml Susp 30 Ml Cup) 30 ml PO Q12H PRN PRN Reason: Constipation Melatonin (Melatonin 3 Mg Tab) 9 mg PO BEDTIME PRN PRN Reason: Sleep Last Admin: 08/24/20 20:45 Dose: 9 mg Documented by: Metoclopramide HCl (Metoclopramide 10 Mg/2 Ml Sdv) 10 mg IVPUSH Q6H [facility] Last Admin: 08/31/20 10:22 Dose: 10 mg Documented by: Naloxone HCl (Naloxone 0.4 Mg/Ml Sdv) 0.4 mg IVPUSH Q2M PRN PRN Reason: Respiratory Distress Ondansetron HCl (Ondansetron 4 Mg/2 Ml Sdv) 4 mg IV Q6H PRN PRN Reason: Nausea/Vomiting Last Admin: 08/30/20 11:04 Dose: 4 mg Documented by: Ondansetron HCl (Ondansetron 4 Mg Tab.Dis) 4 mg PO Q6H PRN PRN Reason: Nausea able to take PO Last Admin: 08/29/20 09:17 Dose: 4 mg Documented by: Oxybutynin Chloride (Oxybutynin 5 Mg Tab) 5 mg PO TID [facility] Last Admin: 08/31/20 13:02 Dose: Not Given Documented by: Pantoprazole Sodium (Pantoprazole 40 Mg Tab.Cr) 40 mg PO Q24H [facility] Last Admin: 08/30/20 15:57 Dose: Not Given Documented by: Senna/Docusate Sodium (Docusate Sodium/Sennosides 50-8.6 Mg Tab) 1 tab PO BID PRN PRN Reason: Constipation Sertraline HCl (Sertraline 25 Mg Tab) 25 mg PO DAILY [facility] Last Admin: 08/31/20 08:15 Dose: Not Given Documented by: Simvastatin (Simvastatin 20 Mg Tab) 20 mg PO BEDTIME [facility] Last Admin: 08/30/20 22:16 Dose: Not Given Documented by: Sotalol HCl (Sotalol 80 Mg Tab) 120 mg PO BID [facility] Last Admin: 08/31/20 08:14 Dose: Not Given Documented by: Spironolactone (Spironolactone 25 Mg Tab) 25 mg PO DAILY [facility] Last Admin: 08/31/20 08:13 Dose: Not Given Documented by: Tamsulosin HCl (Tamsulosin 0.4 Mg Cap.Er) 0.4 mg PO BEDTIME [facility] Last Admin: 08/30/20 22:16 Dose: Not Given Documented by: Discontinued Medications Hydrocodone Bitart/Acetaminophen (Acetaminophen/Hydrocodone 325-5 Mg Tab) 1 - 2 tab PO Q4H PRN PRN Reason: Pain Bisacodyl (Bisacodyl 10 Mg Supp) 10 mg RECTAL BID [facility] Last Admin: 08/28/20 20:27 Dose: 10 mg Documented by: Bupivacaine HCl (Bupivacaine 0.5% 50 Ml Mdv) Confirm Administered Dose 50 ml .ROUTE .STK-MED ONE Stop: 08/27/20 06:33 Bupivacaine HCl (Bupivacaine 0.5% 50 Ml Mdv) Confirm Administered Dose 50 ml .ROUTE .STK-MED ONE Stop: 08/28/20 06:37 Last Admin: 08/28/20 07:40 Dose: 12.4 ml Documented by: Bupivacaine HCl/Epinephrine Bitart (Bupivacaine 0.5%/Epinephrine 1:200,000 50 Ml Mdv) Confirm Administered Dose 50 ml .ROUTE .STK-MED ONE Stop: 08/25/20 07:15 Last Admin: 08/25/20 13:23 Dose: 40 ml Documented by: Ropivacaine 50 ml/Dexamethasone 8 mg/Epinephrine HCl 0.4 mg/ Sodium Chloride 27.6 ml 0 ml NERVRT ASDIRECTED [facility] Last Admin: 08/25/20 11:23 Dose: 80 syringe Documented by: Ropivacaine 50 ml/Dexamethasone 8 mg/Epinephrine HCl 0.4 mg/ Sodium Chloride 27.6 ml 0 ml NERVRT ASDIRECTED [facility] Last Admin: 08/28/20 07:31 Dose: 80 syringe Documented by: Dexamethasone (Dexamethasone 4 Mg/Ml Sdv) Confirm Administered Dose 4 mg .ROUTE .STK-MED ONE Stop: 08/25/20 07:21 Fentanyl (Fentanyl 250 Mcg/5 Ml Sdv) Confirm Administered Dose 250 mcg .ROUTE .STK-MED ONE Stop: 08/25/20 07:21 Fentanyl (Fentanyl 100 Mcg/2 Ml Sdv) Confirm Administered Dose 100 mcg .ROUTE .STK-MED ONE Stop: 08/25/20 12:00 Fentanyl (Fentanyl 100 Mcg/2 Ml Sdv) Confirm Administered Dose 100 mcg .ROUTE .STK-MED ONE Stop: 08/28/20 06:51 Furosemide (Furosemide 20 Mg/2 Ml Vial) 20 mg IVPUSH Q8H [facility] Stop: 08/28/20 17:01 Last Admin: 08/28/20 16:35 Dose: 20 mg Documented by: Gabapentin (Gabapentin 100 Mg Cap) 600 mg PO TID [facility] Last Admin: 08/24/20 20:50 Dose: Not Given Documented by: Glycopyrrolate (Glycopyrrolate 0.2 Mg/Ml 5 Ml Mdv) Confirm Administered Dose 1 mg .ROUTE .STK-MED ONE Stop: 08/25/20 07:21 Hydromorphone HCl (Hydromorphone 0.5 Mg/0.5 Ml Syringe) 0.5 mg IVPUSH ONETIME ONE Stop: 08/24/20 15:32 Last Admin: 08/24/20 15:45 Dose: 0.5 mg Documented by: Hydromorphone HCl (Hydromorphone 1 Mg/Ml Syringe) 1 mg IVPUSH ONETIME ONE Stop: 08/24/20 17:24 Last Admin: 08/24/20 18:20 Dose: 1 mg Documented by: Hydromorphone HCl (Hydromorphone/Normal Saline 15 Mg/30 Ml [employer] Consultant) 0 mg IV ASDIRECTED PRN; Protocol PRN Reason: Pain Last Admin: 08/28/20 10:50 Dose: 15 mg Documented by: Sodium Chloride (Normal Saline) 1,000 mls @ 999 mls/hr IV ASDIRECTED [facility] Last Admin: 08/24/20 15:45 Dose: 999 mls/hr Documented by: Sodium Chloride (Normal Saline) 1,000 mls @ 300 mls/hr IV ASDIRECTED [facility] Lactated Ringer's (Ringers, Lactated) 1,000 mls @ 100 mls/hr IV ASDIRECTED [facility] Last Admin: 08/25/20 02:58 Dose: 100 mls/hr Documented by: Ampicillin Sodium/Sulbactam (Sodium 3 gm/ Sodium Chloride) 100 mls @ 200 mls/hr IV Q6H [facility] Last Admin: 08/25/20 05:04 Dose: 200 mls/hr Documented by: Aztreonam 1 gm/ Sodium (Chloride) 50 mls @ 100 mls/hr IV Q8H [facility] Last Admin: 08/25/20 05:05 Dose: 100 mls/hr Documented by: Magnesium Sulfate (Magnesium Sulfate In Water 2 Gm/50 Ml) 2 gm in 50 mls @ 25 mls/hr IV Q6H [facility] Stop: 08/25/20 18:29 Last Admin: 08/25/20 16:14 Dose: 25 mls/hr Documented by: Lactated Ringer's (Ringers, Lactated) Confirm Administered Dose 1,000 mls @ as directed .ROUTE .[facility] ONE Stop: 08/25/20 11:32 Dextrose/Lactated Ringer's (Dextrose 5%-Lactated Ringers) 1,000 mls @ 150 mls/hr IV ASDIRECTED [facility] Last Admin: 08/26/20 03:57 Dose: 150 mls/hr Documented by: Potassium Phosphate 15 mmole/ (Sodium Chloride) 255 mls @ 85 mls/hr IV Q3H [facility] Stop: 08/26/20 17:59 Last Admin: 08/26/20 15:25 Dose: 85 mls/hr Documented by: Dextrose/Lactated Ringer's (Dextrose 5%-Lactated Ringers) 1,000 mls @ 80 mls/hr IV ASDIRECTED [facility] Last Admin: 08/29/20 13:46 Dose: 80 mls/hr Documented by: Dextrose/Lactated Ringer's (Dextrose 5%-Lr) 500 mls @ 250 mls/hr IV ONETIME ONE Stop: 08/27/20 17:59 Last Admin: 08/27/20 16:00 Dose: 250 mls/hr Documented by: Lactated Ringer's (Ringers, Lactated) 500 mls @ 250 mls/hr IV ONETIME ONE Stop: 08/27/20 18:14 Last Admin: 08/27/20 17:02 Dose: 250 mls/hr Documented by: Potassium Phosphate 15 mmole/ (Sodium Chloride) 255 mls @ 125 mls/hr IV Q2H [facility] Stop: 08/28/20 15:59 Last Admin: 08/28/20 16:03 Dose: 125 mls/hr Documented by: Magnesium Sulfate (Magnesium Sulfate In Water 2 Gm/50 Ml) 2 gm in 50 mls @ 25 mls/hr IV Q6HR [facility] Stop: 08/30/20 05:59 Last Admin: 08/30/20 03:00 Dose: 25 mls/hr Documented by: Azithromycin 250 mg/ Sodium (Chloride) 150 mls @ 150 mls/hr IV Q12H [facility] Last Admin: 08/30/20 09:11 Dose: 150 mls/hr Documented by: Lidocaine HCl (Lidocaine 2% Jelly 10 Ml [employer]) Confirm Administered Dose 10 ml .ROUTE .STK-MED ONE Stop: 08/25/20 10:49 Last Admin: 08/26/20 10:35 Dose: 10 ml Documented by: Lidocaine/Epinephrine (Lidocaine 1% With Epinephrine 1:100,000 50 Ml Mdv) Confirm Administered Dose 50 ml .ROUTE .STK-MED ONE Stop: 08/27/20 06:33 Lidocaine/Epinephrine (Lidocaine 1% With Epinephrine 1:100,000 50 Ml Mdv) Confirm Administered Dose 50 ml .ROUTE .STK-MED ONE Stop: 08/28/20 06:37 Last Admin: 08/28/20 07:40 Dose: 12.4 ml Documented by: Meropenem (Meropenem 500 Mg Sdv) Confirm Administered Dose 500 mg .ROUTE .STK- MED ONE Stop: 08/25/20 11:15 Last Admin: 08/25/20 11:47 Dose: 1,000 mg Documented by: Meropenem (Meropenem 500 Mg Sdv) Confirm Administered Dose 500 mg .ROUTE .STK- MED ONE Stop: 08/25/20 12:12 Meropenem (Meropenem 500 Mg Sdv) Confirm Administered Dose 500 mg .ROUTE .STK- MED ONE Stop: 08/27/20 06:33 Meropenem (Meropenem 500 Mg Sdv) Confirm Administered Dose 500 mg .ROUTE .STK- MED ONE Stop: 08/28/20 06:37 Last Admin: 08/28/20 07:40 Dose: 500 mg Documented by: Metoprolol Tartrate (Metoprolol Tartrate 5 Mg/5 Ml Sdv) 2.5 mg IVPUSH Q6H [facility] Last Admin: 08/28/20 03:32 Dose: Not Given Documented by: Neostigmine Methylsulfate (Neostigmine Methylsulfate 1 Mg/Ml 5 Ml Syringe) Confirm Administered Dose 5 mg .ROUTE .STK-MED ONE Stop: 08/25/20 07:21 Ondansetron HCl (Ondansetron 4 Mg/2 Ml Sdv) 4 mg IVPUSH ONETIME ONE Stop: 08/24/20 15:32 Last Admin: 08/24/20 15:44 Dose: 4 mg Documented by: Ondansetron HCl (Ondansetron 4 Mg/2 Ml Sdv) Confirm Administered Dose 4 mg .ROUTE .STK-MED ONE Stop: 08/25/20 07:21 Pantoprazole Sodium (Pantoprazole 40 Mg Vial) 40 mg IV ONETIME ONE Stop: 08/24/20 20:01 Last Admin: 08/24/20 20:46 Dose: 40 mg Documented by: Pantoprazole Sodium (Pantoprazole 40 Mg Vial) 40 mg IV Q24H [facility] Last Admin: 08/29/20 15:34 Dose: 40 mg Documented by: Pneumococcal Polyvalent Vaccine (Pneumococcal Polyvalent-23 Vaccine 0.5 Ml Sdv) 0.5 ml IM .ONCE ONE Stop: 08/24/20 19:28 Last Admin: 08/24/20 20:21 Dose: Not Given Documented by: Propofol (Propofol 200 Mg/20 Ml Sdv) Confirm Administered Dose 200 mg .ROUTE .STK-MED ONE Stop: 08/25/20 07:21 Propofol (Propofol 200 Mg/20 Ml Sdv) Confirm Administered Dose 200 mg .ROUTE .STK-MED ONE Stop: 08/28/20 06:51 Rocuronium [place] (Rocuronium 50 Mg/5 Ml Vial) Confirm Administered Dose 50 mg .ROUTE .STK-MED ONE Stop: 08/25/20 07:21 Rocuronium [place] (Rocuronium 50 Mg/5 Ml Vial) Confirm Administered Dose 50 mg .ROUTE .STK-MED ONE Stop: 08/25/20 11:58 Succinylcholine Chloride (Succinylcholine 200 Mg/10 Ml Mdv) Confirm Administered Dose 200 mg .ROUTE .STK-MED ONE Stop: 08/25/20 07:21 - Exam Quality Assessment: DVT Prophylaxis General: Alert, Oriented, Cooperative, Moderate Distress Lungs: Clear to Auscultation, Normal Respiratory Effort Cardiovascular: Regular Rate, Regular Rhythm, No Murmurs GI/Abdominal Exam: Soft, No Organomegaly, Tender. No: Distended, Guarding, Rigid, Rebound Extremities: Non-Tender, No Pedal Edema - Patient Data Lab Results Last 24 hrs: Laboratory Results - last 24 hr 08/31/20 08/31/20 Range/Units 04:05 04:05 WBC 9.7 (4.5-11.0) K/uL RBC 4.47 (4.30-5.90) M/uL Hgb 13.3 (12.0-15.0) g/dL Hct 39.0 L (40.0-54.0) % MCV 87 (80-98) fL MCH 30 (27-31) pg MCHC 34 (32-36) % Plt Count 268 (150-400) K/uL Add Manual Diff Yes Neutrophils % (Manual) 71 H (36-66) % Band Neutrophils % 11 (5-11) % Lymphocytes % (Manual) 9 L (24-44) % Monocytes % (Manual) 7 H (2-6) % Eosinophils % (Manual) 2 (2-4) % Sodium 140 (140-148) mmol/L Potassium 3.7 (3.6-5.2) mmol/L Chloride 102 (100-108) mmol/L Carbon Dioxide 26 (21-32) mmol/L Anion Gap 12.2 (5.0-14.0) mmol/L BUN 14 (7-18) mg/dL Creatinine 0.9 (0.8-1.3) mg/dL Est Cr Clr Drug Dosing 76.60 mL/min Estimated GFR (MDRD) > 60 (>60) Glucose 127 H (74-106) mg/dL Calcium 7.9 L (8.5-10.1) mg/dL Phosphorus 3.2 (2.5-4.9) mg/dL Magnesium 1.8 D (1.8-2.4) mg/dL Total Bilirubin 0.8 (0.2-1.0) mg/dL AST 34 (15-37) U/L ALT 28 (12-78) U/L Alkaline Phosphatase 49 (46-116) U/L NT-Pro-B Natriuret Pep 1317 H (5-125) pg/mL Total Protein 5.3 L (6.4-8.2) g/dL Albumin 2.1 L (3.4-5.0) g/dL Globulin 3.2 (2.3-3.5) g/dL Albumin/Globulin Ratio 0.7 L (1.2-2.2) Result Diagrams: 08/31/20 04:05 08/31/20 04:05 Sepsis Event Note - Evaluation Sepsis Screening Result: No Definite Risk - Focused Exam Vital Signs: Vital Signs Temp Temp Pulse Resp BP Pulse Ox 08/31/20 13:23 93 L 08/31/20 10:45 98.1 F 63 16 111/57 L 92 L 08/31/20 08:38 91 L 08/31/20 06:45 98.2 F 65 15 109/73 94 L 08/31/20 03:00 98.2 F 93 16 89/66 L 91 L - Problem List Review Problem List Initiated/Reviewed/Updated: Yes - Plan Plan:: ASSESSMENT AND PLAN Acute appendicitis without perforation-status post appendectomy performed 08/[address] Acevedo. Postoperative course complicated by persistent ileus, requiring replacement of NG tube -CT of abdomen tomorrow as ordered by Dr. Acevedo -IV Amp/Sulbactam and aztreonam -Symptomatic management of pain -Pulse oximetry -Postoperative care per Dr. Acevedo Chronic systolic congestive heart failure-complicated by ischemic cardiomyop athy. Last ejection fraction was between 35 and 40%. No functional limitations or exertional dyspnea. No anginal symptoms. -Continue medical management -Judicious fluid use around the time of surgery -Furosemide as ordered by Dr. 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 History of left-sided CVA-residual right-sided weakness though his functional status is pretty good. Gets around without a cane most of the time. Maintenance issues -DVT prophylaxis-mechanical -GI prophylaxis-IV PPI tonight -Nutrition-nothing by mouth -Mcgee catheter-not indicated at this time CODE STATUS -full code Admission justification -this patient will be admitted for inpatient services and is medically appropriate meeting medical necessity for inpatient admission as outlined in my documentation. I reasonably expect the patient will require inpatient services that span a period time over 2 midnights. I reasonably expect this patient to be discharged or transferred within 96 hours [facility]. The patient has nonruptured appendicitis but is on long-term anticoagulation with a DOAC so we will need adequate time for this medication to clear his system before surgery can be entertained. Disposition -I anticipate discharge home after the hospital stay Primary care physician - Antonio Morales NP
--- NOTE | 2020-08-31 15:22 | PN ---
DATE OF SERVICE: 08/31/2020 The patient has been afebrile with stable vital signs already. Did develop some nausea and emesis after he did move his bowels overnight as well as a small amount yesterday, but continues to have a picture of an ileus. Labs show a white count of 9.7. At this point, he does not appear to be particularly septic at all, but maintaining persistent postoperative ileus. The patient has an NG tube in place and has large amount of output with that. Plan at this point will be to restart FIELD MANAGER for pain control and obtain a CT scan of the abdomen and pelvis early tomorrow. The patient is allergic to IV contrast problematic, so we will do this without contrast. Recheck some labs in the morning. Otherwise, maximize activity and work with pulmonary toilet. Vazquez Acevedo MD /[id number]
[2020-08-31] MEDS: Pantoprazole 40 MG Tab.CR PO SCH (15:47)
[2020-08-31] MEDS: Simvastatin 20 MG Tab PO SCH (21:09)
[2020-08-31] MEDS: Tamsulosin 0.4 MG Cap.ER PO SCH (21:09)
[2020-09-01] MEDS: Ampicillin/Sulbactam Na 3 GM in Sodium Chloride 0.9% 100 ML IV SCH ×3 (01:17→11:54)
[2020-09-01] MEDS: Dextrose 5%-Lactated Ringers 1,000 ML IV SCH ×2 (03:21→22:45)
[2020-09-01] MEDS: Metoclopramide 10 MG/2 ML SDV IVPUSH SCH ×4 (03:24→20:30)
--- NOTE | 2020-09-01 05:55 | CRLCT ---
INDICATION: Postoperative ileus. Status post appendectomy. TECHNIQUE: Axial images were obtained from the diaphragm to the pubic symphysis. Reformats were obtained in the coronal and sagittal plane. IV Contrast: None Oral Contrast: None COMPARISON: Abdomen and pelvis CT 08/24/2020 FINDINGS: Lower chest: Prominent coronary atherosclerosis. Trace right pleural effusion. Dependent consolidation and slight nodularity within the right middle lobe and right lower lobe. Discoid atelectasis in the left lower lobe. Liver: Unremarkable. Normal in size and attenuation. No masses. Gallbladder and bile ducts: Status post cholecystectomy. Spleen: Unremarkable. Normal in size without mass. Pancreas: Unremarkable. No mass or inflammation. Adrenal glands: Unremarkable. No nodules. Kidneys: Unremarkable. No masses, stones, or hydronephrosis. Vasculature: Inferior vena cava filter present. Atherosclerosis without abdominal aortic aneurysm. GI tract: Enteric tube present with the tip in the fundus of the stomach. Stomach is decompressed. There is some prominent dilated loops of small bowel within the mid abdomen with notably decompressed distal small bowel. There is a suture line in the right lower quadrant with some adjacent soft tissue thickening. There is no evidence of colonic obstruction. No abscess for the noncontrast technique. Minimal pneumoperitoneum. Small subcutaneous air along the abdominal wall. Pelvis: Status post prostate brachytherapy. Bladder unremarkable. Bones: Fat stranding along the flank, likely edema with skin zuleyka at the right lower quadrant. Degenerative disc disease lumbar spine. IMPRESSION: 1. Status post appendectomy with dilated loops of small-bowel with markedly decompressed distal small bowel. Considering this discrepancy, question a mid small-bowel obstruction. 2. No evidence of abscess. Small pneumoperitoneum although within expected limits for the recent postoperative status. 3. Trace right pleural effusion with dependent atelectasis in the right lower lobe. Right middle lobe opacities are slightly more nodular and can also represent atelectasis although other signs/symptoms of infection, an infectious bronchiolitis can appear similar. Please note that all CT scans at this facility use dose modulation, iterative reconstruction, and/or weight-based dosing when appropriate to reduce radiation dose to as low as reasonably achievable. Dictated by Bassam Noyola MD @ 09/01/2020 5:54:[address] Bassam Noyola @ Sep 01 2020 5:54AM
--- NOTE | 2020-09-01 06:10 | CRLCR ---
Indication: Status post appendectomy, postoperative ileus Technique: Abdomen 2 view, 4 films Comparison: Abdomen and pelvis CT 09/01/2020 Findings/Impression: Skin zuleyka are present consistent with the patient`s recent surgery. Nasogastric tube is present in the stomach. Mildly dilated loops of small bowel are seen with distal colonic air on plain film. This pattern is nonspecific although note is made of decompressed small bowel on the recent CT scan raising the possibility of a mid small bowel obstruction. Status post prostate brachytherapy. Dictated by Bassam Noyola MD @ 09/01/2020 6:09:[address] Bassam Noyola @ Sep 01 2020 6:09AM
[2020-09-01] MEDS: Levothyroxine 50 MCG Tab PO SCH (08:34)
[2020-09-01] MEDS: Sotalol 80 MG Tab PO SCH ×2 (08:36→20:19)
[2020-09-01] MEDS: Aspirin 81 MG Tab.Chew PO SCH (08:36)
[2020-09-01] MEDS: DULoxetine 20 MG Cap PO SCH (08:39)
[2020-09-01] MEDS: Gabapentin 300 MG Cap PO SCH ×3 (08:50→20:19)
[2020-09-01] MEDS: Lisinopril 2.5 MG Tab PO SCH (08:50)
[2020-09-01] MEDS: Spironolactone 25 MG Tab PO SCH (08:50)
[2020-09-01] MEDS: Sertraline 25 MG Tab PO SCH (08:50)
[2020-09-01] MEDS: Lactobacillus Rhamnosus GG (Probiotic) Cap PO SCH ×2 (08:54→20:18)
[2020-09-01] MEDS: Oxybutynin 5 MG Tab PO SCH ×3 (08:54→20:19)
[2020-09-01] MEDS: Ezetimibe 10 MG Tab PO SCH (08:54)
[2020-09-01] MEDS ORDERED: Pantoprazole 40 MG Vial IVPUSH SCH (09:00)
[2020-09-01] MEDS: Furosemide 20 MG/2 ML VIAL IVPUSH SCH ×2 (09:03→15:08)
[2020-09-01] MEDS: Docusate Sodium 100 MG Cap PO SCH ×2 (09:04→20:18)
[2020-09-01] MEDS: Bisacodyl 5 MG Tab PO SCH ×2 (09:04→20:18)
[2020-09-01] MEDS: Pantoprazole 40 MG Vial IVPUSH SCH (09:13)
[2020-09-01] MEDS: Bisacodyl 10 MG Supp RECTAL SCH ×2 (09:18→20:18)
[2020-09-01] MEDS: Potassium Phosphates 15 MMOLE in Sodium Chloride 0.9% 250 ML IV SCH ×3 (09:35→15:52)
[2020-09-01] MEDS: Ondansetron 4 MG Tab.DIS PO PRN (09:59)
--- NOTE | 2020-09-01 10:23 | CRLCR ---
HISTORY: Tube placement. TECHNIQUE: One view of the chest. COMPARISON: No prior. FINDINGS: Sternotomy. AICD. Nasogastric tube terminates in the distal esophageal region. Platelike atelectasis or linear parenchymal fibrosis within the left lower lung zone. There is likely mild atelectasis or fibrosis at the right lung base. No pneumothorax. No moderate or large pleural effusion. Cardiac size within normal limits accounting for technique. IMPRESSION: Nasogastric tube terminates within the distal esophagus. Dictated by Xavier Vicente MD @ 09/01/2020 10:21:[address] Xavier Vicente @ Sep 01 2020 10:21AM
--- NOTE | 2020-09-01 10:25 | CRLCR ---
HISTORY: Tube placement. TECHNIQUE: One view of the abdomen obtained upright. COMPARISON: No prior. FINDINGS: Nasogastric tube terminates with proximal-most stomach region, likely within the cardia. There are multiple gas-filled dilated bowel loops. Abdominal wall zuleyka. Surgical clips in the right upper quadrant. IMPRESSION: 1. Nasogastric tube tip appears to terminate within the proximal most stomach in the gastric cardia region. 2. Gas-filled dilated bowel loops. Dictated by Xavier Vicente MD @ 09/01/2020 10:22:[address] Xavier Vicente @ Sep 01 2020 10:22AM
--- NOTE | 2020-09-01 10:27 | CRLCR ---
Indication: Postop ileus Technique: Abdomen 4 view Comparison: August 29, 2020 Findings/Impression: Bowel: Diffuse gaseous distention of bowel loops has slightly worsened. Ileus is favored over bowel obstruction. Soft tissues: No sign of free air. No sign of soft tissue mass. No suspicious calcifications. Bones: Unremarkable for age. Dictated by Burt Allen MD @ 09/01/2020 10:25:[address] Burt Allen @ Sep 01 2020 10:25AM
[2020-09-01] MEDS: HYDROmorphone/Normal Saline 15 MG/30 ML PCA IV PRN (10:39)
--- NOTE | 2020-09-01 10:39 | CRLCR ---
HISTORY: Postoperative ileus. TECHNIQUE: Flat and upright abdominal radiographs. COMPARISON: 08/30/2020. FINDINGS: The nasogastric tube is better seen on these radiographs. It extends to the gastric cardia level then flips back upon itself with its tip terminating within the distal most esophagus or at the gastroesophageal junction. An IVC filter is present. There are multiple dilated gas-filled bowel loops likely reflecting combination of dilated small bowel and colon. Several gas-fluid levels are noted on the upright film. No free intraperitoneal air. Prostate brcahytherapy seeds. IMPRESSION: 1. Gas distention of small bowel and colon with multiple gas-fluid levels likely reflecting an ileus. 2. No free air. 3. The distal nasogastric tube is better seen on the current film than on the prior films. The tube extends to the gastric cardia level before flipping back upon itself with its tube tip ultimately terminating at the distal esophageal or gastroesophageal junction position. Dictated by Xavier Vicente MD @ 09/01/2020 10:37:[address] Xavier Vicente @ Sep 01 2020 10:37AM
--- NOTE | 2020-09-01 11:00 | PN ---
DATE OF SERVICE: 09/01/2020 SUBJECTIVE: Lemuel developed an ileus. He has had 950 out of his NG. He reports the pain is better controlled. He has no other questions or concerns today. OBJECTIVE: GENERAL: Lemuel Hodges is a pleasant 70-year-old male. He is alert, orientated. VITAL SIGNS: TPR 98, 168, 16. Blood pressure 118/64. HEENT: Negative. NECK: Supple. HEART: Regular rate and rhythm. LUNGS: Clear. ABDOMEN: Distended. Abdominal binder is on. Aquacel dressing is on. EXTREMITIES: Without peripheral edema. ASSESSMENT: 1. Postoperative ileus, resolved. 2. Diagnostic laparoscopy turned to laparotomy with: a. Partial cecectomy with excision of overlying nodular peritoneal lesion. b. Appendectomy with drainage of periappendiceal abscess. POSTOPERATIVE DIAGNOSES: 1. Perforated appendicitis with periappendiceal abscess. 2. Nodular lesion of overlying cecum. Date of procedure, 08/25/2020. Surgeon: Vazquez Acevedo MD. PLAN: 1. Dulcolax suppository per rectum b.i.d. 2. Abdominal flat and upright x-rays daily x5 at 0400 starting tomorrow, 09/02/2020. 3. Lasix 20 mg IV now and repeat 20 mg IV in 6 hours today only. 4. K-Phos 45 millimoles IV 1 time today. 5. Check CBC, CMP, mag, phos, and BNP in a.m. 6. We will evaluate p.r.n., and nursing staff is going to crush his pertinent medications and put in applesauce for him to swallow, then NG will be clamped an hour after medications are given. Ellen Houston PA-C /[id number]
--- NOTE | 2020-09-01 13:07 | PCM.PN ---
- General Info Date of Service: 09/01/20 Subjective Update: There were no acute events overnight. Patient did have an NG tube replaced because of nausea and vomiting. CT scan was obtained this morning and showed possible developing obstruction of the small bowel. NG tube output has been about 250 mL overnight and minimal so far since this morning. He does continue to experience some abdominal pain. He is not passing gas. Functional Status: Reports: Pain Controlled - Review of Systems General: Denies: Fever Gastrointestinal: Reports: Abdominal Pain - Patient Data Vitals - Most Recent: Last Vital Signs Temp 36.7 C 09/01/20 10:42 Pulse 71 09/01/20 10:42 Resp 18 09/01/20 10:42 BP 94/69 09/01/20 10:42 Pulse Ox 92 L 09/01/20 12:05 Weight - Most Recent: 97.976 kg I&O - Last 24 Hours: Intake & Output 08/31/20 09/01/20 09/01/20 22:59 06:59 14:59 Intake Total 2254 1176 405 Output Total 1000 1100 1425 Balance 1254 76 -1020 Lab Results Last 24 Hours: Laboratory Results - last 24 hr 09/01/20 09/01/20 Range/Units 04:15 04:15 WBC 15.0 H (4.5-11.0) K/uL RBC 4.86 (4.30-5.90) M/uL Hgb 14.3 (12.0-15.0) g/dL Hct 42.3 (40.0-54.0) % MCV 87 (80-98) fL MCH 29 (27-31) pg MCHC 34 (32-36) % Plt Count 319 (150-400) K/uL Add Manual Diff Yes Neutrophils % (Manual) 86 H (36-66) % Band Neutrophils % 2 L (5-11) % Lymphocytes % (Manual) 6 L (24-44) % Monocytes % (Manual) 6 (2-6) % Sodium 138 L (140-148) mmol/L Potassium 3.6 (3.6-5.2) mmol/L Chloride 101 (100-108) mmol/L Carbon Dioxide 26 (21-32) mmol/L Anion Gap 14.6 H (5.0-14.0) mmol/L BUN 7 (7-18) mg/dL Creatinine 0.9 (0.8-1.3) mg/dL Est Cr Clr Drug Dosing 76.60 mL/min Estimated GFR (MDRD) > 60 (>60) Glucose 128 H (74-106) mg/dL Calcium 8.2 L (8.5-10.1) mg/dL Phosphorus 2.8 (2.5-4.9) mg/dL Magnesium 1.7 L (1.8-2.4) mg/dL Total Bilirubin 0.9 (0.2-1.0) mg/dL AST 30 (15-37) U/L ALT 25 (12-78) U/L Alkaline Phosphatase 55 (46-116) U/L NT-Pro-B Natriuret Pep 4692 H (5-125) pg/mL Total Protein 6.2 L (6.4-8.2) g/dL Albumin 2.3 L (3.4-5.0) g/dL Globulin 3.9 H (2.3-3.5) g/dL Albumin/Globulin Ratio 0.6 L (1.2-2.2) Med Orders - Current: Current Medications Acetaminophen (Acetaminophen 325 Mg Tab) 650 mg PO Q4H PRN PRN Reason: Pain (Mild 1-3)/fever Albuterol (Albuterol 0.083% 2.5 Mg/3 Ml Neb Soln) 2.5 mg NEB Q4H PRN PRN Reason: Shortness Of Breath/wheezing Aspirin (Aspirin 81 Mg Tab.Chew) 324 mg PO DAILY [facility] Last Admin: 09/01/20 08:36 Dose: 324 mg Documented by: Bisacodyl (Bisacodyl 5 Mg Tab) 10 mg PO BID [facility] Last Admin: 09/01/20 09:04 Dose: Not Given Documented by: Bisacodyl (Bisacodyl 10 Mg Supp) 10 mg RECTAL BID PRN PRN Reason: Constipation Last Admin: 08/29/20 15:21 Dose: 10 mg Documented by: Bisacodyl (Bisacodyl 10 Mg Supp) 10 mg RECTAL BID [facility] Last Admin: 09/01/20 09:18 Dose: 10 mg Documented by: Docusate Sodium (Docusate Sodium 100 Mg Cap) 100 mg PO BID [facility] Last Admin: 09/01/20 09:04 Dose: Not Given Documented by: Duloxetine HCl (Duloxetine 20 Mg Cap) 20 mg PO DAILY [facility] Last Admin: 09/01/20 08:39 Dose: 20 mg Documented by: Ezetimibe (Ezetimibe 10 Mg Tab) 5 mg PO DAILY [facility] Last Admin: 09/01/20 08:54 Dose: 5 mg Documented by: Furosemide (Furosemide 20 Mg/2 Ml Vial) 20 mg IVPUSH Q6H [facility] Stop: 09/01/20 14:01 Last Admin: 09/01/20 09:03 Dose: 20 mg Documented by: Gabapentin (Gabapentin 300 Mg Cap) 600 mg PO TID [facility] Last Admin: 09/01/20 08:50 Dose: 600 mg Documented by: Hydromorphone HCl (Hydromorphone 2 Mg Tab) 2 - 4 mg PO Q4H PRN PRN Reason: Pain Last Admin: 08/30/20 09:08 Dose: 4 mg Documented by: Hydromorphone HCl (Hydromorphone/Normal Saline 15 Mg/30 Ml Picu Nurse) 0 mg IV ASDIRECTED PRN; Protocol PRN Reason: Pain Last Admin: 09/01/20 10:39 Dose: 15 mg Documented by: Hydroxyzine HCl (Hydroxyzine Hcl 100 Mg/2 Ml Sdv) 100 mg IM Q4H PRN PRN Reason: Pain Last Admin: 08/31/20 05:02 Dose: 100 mg Documented by: Dextrose/Lactated Ringer's (Dextrose 5%-Lactated Ringers) 1,000 mls @ 100 mls/hr IV ASDIRECTED [facility] Last Admin: 09/01/20 03:21 Dose: 100 mls/hr Documented by: Potassium Phosphate 15 mmole/ (Sodium Chloride) 255 mls @ 125 mls/hr IV Q2H [facility] Stop: 09/01/20 15:59 Last Admin: 09/01/20 09:35 Dose: 125 mls/hr Documented by: Lactobacillus Rhamnosus (Lactobacillus Rhamnosus Gg (Probiotic) Cap) 1 cap PO BID [facility] Last Admin: 09/01/20 08:54 Dose: 1 cap Documented by: Levothyroxine Sodium (Levothyroxine 50 Mcg Tab) 150 mcg PO DAILY@0730 [facility] Last Admin: 09/01/20 08:34 Dose: 150 mcg Documented by: Lisinopril (Lisinopril 2.5 Mg Tab) 2.5 mg PO DAILY [facility] Last Admin: 09/01/20 08:50 Dose: 2.5 mg Documented by: Lorazepam (Lorazepam 2 Mg/Ml Sdv) 0.5 mg IVPUSH Q4H PRN PRN Reason: Nausea/Vomiting Last Admin: 08/27/20 02:13 Dose: 0.5 mg Documented by: Magnesium Hydroxide (Magnesium Hydroxide 400 Mg/5 Ml Susp 30 Ml Cup) 30 ml PO Q12H PRN PRN Reason: Constipation Melatonin (Melatonin 3 Mg Tab) 9 mg PO BEDTIME PRN PRN Reason: Sleep Last Admin: 08/24/20 20:45 Dose: 9 mg Documented by: Metoclopramide HCl (Metoclopramide 10 Mg/2 Ml Sdv) 10 mg IVPUSH Q6H [facility] Last Admin: 09/01/20 09:05 Dose: 10 mg Documented by: Naloxone HCl (Naloxone 0.4 Mg/Ml Sdv) 0.4 mg IVPUSH Q2M PRN PRN Reason: Respiratory Distress Ondansetron HCl (Ondansetron 4 Mg/2 Ml Sdv) 4 mg IV Q6H PRN PRN Reason: Nausea/Vomiting Last Admin: 08/30/20 11:04 Dose: 4 mg Documented by: Ondansetron HCl (Ondansetron 4 Mg Tab.Dis) 4 mg PO Q6H PRN PRN Reason: Nausea able to take PO Last Admin: 09/01/20 09:59 Dose: 4 mg Documented by: Oxybutynin Chloride (Oxybutynin 5 Mg Tab) 5 mg PO TID [facility] Last Admin: 09/01/20 08:54 Dose: 5 mg Documented by: Pantoprazole Sodium (Pantoprazole 40 Mg Vial) 40 mg IVPUSH DAILY [facility] Last Admin: 09/01/20 09:13 Dose: 40 mg Documented by: Senna/Docusate Sodium (Docusate Sodium/Sennosides 50-8.6 Mg Tab) 1 tab PO BID PRN PRN Reason: Constipation Sertraline HCl (Sertraline 25 Mg Tab) 25 mg PO DAILY [facility] Last Admin: 09/01/20 08:50 Dose: 25 mg Documented by: Simvastatin (Simvastatin 20 Mg Tab) 20 mg PO BEDTIME [facility] Last Admin: 08/31/20 21:09 Dose: 20 mg Documented by: Sotalol HCl (Sotalol 80 Mg Tab) 120 mg PO BID [facility] Last Admin: 09/01/20 08:36 Dose: 120 mg Documented by: Spironolactone (Spironolactone 25 Mg Tab) 25 mg PO DAILY [facility] Last Admin: 09/01/20 08:50 Dose: 25 mg Documented by: Tamsulosin HCl (Tamsulosin 0.4 Mg Cap.Er) 0.4 mg PO BEDTIME [facility] Last Admin: 08/31/20 21:09 Dose: 0.4 mg Documented by: Discontinued Medications Hydrocodone Bitart/Acetaminophen (Acetaminophen/Hydrocodone 325-5 Mg Tab) 1 - 2 tab PO Q4H PRN PRN Reason: Pain Aspirin (Aspirin 325 Mg Tab.Ec) 325 mg PO DAILY [facility] Last Admin: 08/31/20 08:15 Dose: Not Given Documented by: Bisacodyl (Bisacodyl 10 Mg Supp) 10 mg RECTAL BID [facility] Last Admin: 08/28/20 20:27 Dose: 10 mg Documented by: Bupivacaine HCl (Bupivacaine 0.5% 50 Ml Mdv) Confirm Administered Dose 50 ml .ROUTE .STK-MED ONE Stop: 08/27/20 06:33 Bupivacaine HCl (Bupivacaine 0.5% 50 Ml Mdv) Confirm Administered Dose 50 ml .ROUTE .STK-MED ONE Stop: 08/28/20 06:37 Last Admin: 08/28/20 07:40 Dose: 12.4 ml Documented by: Bupivacaine HCl/Epinephrine Bitart (Bupivacaine 0.5%/Epinephrine 1:200,000 50 Ml Mdv) Confirm Administered Dose 50 ml .ROUTE .STK-MED ONE Stop: 08/25/20 07:15 Last Admin: 08/25/20 13:23 Dose: 40 ml Documented by: Ropivacaine 50 ml/Dexamethasone 8 mg/Epinephrine HCl 0.4 mg/ Sodium Chloride 27.6 ml 0 ml NERVRT ASDIRECTED [facility] Last Admin: 08/25/20 11:23 Dose: 80 syringe Documented by: Ropivacaine 50 ml/Dexamethasone 8 mg/Epinephrine HCl 0.4 mg/ Sodium Chloride 27.6 ml 0 ml NERVRT ASDIRECTED [facility] Last Admin: 08/28/20 07:31 Dose: 80 syringe Documented by: Dexamethasone (Dexamethasone 4 Mg/Ml Sdv) Confirm Administered Dose 4 mg .ROUTE .STK-MED ONE Stop: 08/25/20 07:21 Fentanyl (Fentanyl 250 Mcg/5 Ml Sdv) Confirm Administered Dose 250 mcg .ROUTE .STK-MED ONE Stop: 08/25/20 07:21 Fentanyl (Fentanyl 100 Mcg/2 Ml Sdv) Confirm Administered Dose 100 mcg .ROUTE .STK-MED ONE Stop: 08/25/20 12:00 Fentanyl (Fentanyl 100 Mcg/2 Ml Sdv) Confirm Administered Dose 100 mcg .ROUTE .STK-MED ONE Stop: 08/28/20 06:51 Furosemide (Furosemide 20 Mg/2 Ml Vial) 20 mg IVPUSH Q8H [facility] Stop: 08/28/20 17:01 Last Admin: 08/28/20 16:35 Dose: 20 mg Documented by: Gabapentin (Gabapentin 100 Mg Cap) 600 mg PO TID [facility] Last Admin: 08/24/20 20:50 Dose: Not Given Documented by: Glycopyrrolate (Glycopyrrolate 0.2 Mg/Ml 5 Ml Mdv) Confirm Administered Dose 1 mg .ROUTE .STK-MED ONE Stop: 08/25/20 07:21 Hydromorphone HCl (Hydromorphone 0.5 Mg/0.5 Ml Syringe) 0.5 mg IVPUSH ONETIME ONE Stop: 08/24/20 15:32 Last Admin: 08/24/20 15:45 Dose: 0.5 mg Documented by: Hydromorphone HCl (Hydromorphone 1 Mg/Ml Syringe) 1 mg IVPUSH ONETIME ONE Stop: 08/24/20 17:24 Last Admin: 08/24/20 18:20 Dose: 1 mg Documented by: Hydromorphone HCl (Hydromorphone/Normal Saline 15 Mg/30 Ml Picu Nurse) 0 mg IV ASDIRECTED PRN; Protocol PRN Reason: Pain Last Admin: 08/28/20 10:50 Dose: 15 mg Documented by: Sodium Chloride (Normal Saline) 1,000 mls @ 999 mls/hr IV ASDIRECTED [facility] Last Admin: 08/24/20 15:45 Dose: 999 mls/hr Documented by: Sodium Chloride (Normal Saline) 1,000 mls @ 300 mls/hr IV ASDIRECTED [facility] Lactated Ringer's (Ringers, Lactated) 1,000 mls @ 100 mls/hr IV ASDIRECTED [facility] Last Admin: 08/25/20 02:58 Dose: 100 mls/hr Documented by: Ampicillin Sodium/Sulbactam (Sodium 3 gm/ Sodium Chloride) 100 mls @ 200 mls/hr IV Q6H [facility] Last Admin: 08/25/20 05:04 Dose: 200 mls/hr Documented by: Aztreonam 1 gm/ Sodium (Chloride) 50 mls @ 100 mls/hr IV Q8H [facility] Last Admin: 08/25/20 05:05 Dose: 100 mls/hr Documented by: Aztreonam 1 gm/ Sodium (Chloride) 50 mls @ 100 mls/hr IV Q8H [facility] Last Admin: 09/01/20 12:30 Dose: 100 mls/hr Documented by: Magnesium Sulfate (Magnesium Sulfate In Water 2 Gm/50 Ml) 2 gm in 50 mls @ 25 mls/hr IV Q6H [facility] Stop: 08/25/20 18:29 Last Admin: 08/25/20 16:14 Dose: 25 mls/hr Documented by: Ampicillin Sodium/Sulbactam (Sodium 3 gm/ Sodium Chloride) 100 mls @ 200 mls/hr IV Q6H [facility] Last Admin: 09/01/20 11:54 Dose: 200 mls/hr Documented by: Lactated Ringer's (Ringers, Lactated) Confirm Administered Dose 1,000 mls @ as directed .ROUTE .STK-MED ONE Stop: 08/25/20 11:32 Dextrose/Lactated Ringer's (Dextrose 5%-Lactated Ringers) 1,000 mls @ 150 mls/hr IV ASDIRECTED [facility] Last Admin: 08/26/20 03:57 Dose: 150 mls/hr Documented by: Potassium Phosphate 15 mmole/ (Sodium Chloride) 255 mls @ 85 mls/hr IV Q3H [facility] Stop: 08/26/20 17:59 Last Admin: 08/26/20 15:25 Dose: 85 mls/hr Documented by: Dextrose/Lactated Ringer's (Dextrose 5%-Lactated Ringers) 1,000 mls @ 80 mls/hr IV ASDIRECTED [facility] Last Admin: 08/29/20 13:46 Dose: 80 mls/hr Documented by: Dextrose/Lactated Ringer's (Dextrose 5%-Lr) 500 mls @ 250 mls/hr IV ONETIME ONE Stop: 08/27/20 17:59 Last Admin: 08/27/20 16:00 Dose: 250 mls/hr Documented by: Lactated Ringer's (Ringers, Lactated) 500 mls @ 250 mls/hr IV ONETIME ONE Stop: 08/27/20 18:14 Last Admin: 08/27/20 17:02 Dose: 250 mls/hr Documented by: Potassium Phosphate 15 mmole/ (Sodium Chloride) 255 mls @ 125 mls/hr IV Q2H [facility] Stop: 08/28/20 15:59 Last Admin: 08/28/20 16:03 Dose: 125 mls/hr Documented by: Magnesium Sulfate (Magnesium Sulfate In Water 2 Gm/50 Ml) 2 gm in 50 mls @ 25 mls/hr IV Q6HR [facility] Stop: 08/30/20 05:59 Last Admin: 08/30/20 03:00 Dose: 25 mls/hr Documented by: Azithromycin 250 mg/ Sodium (Chloride) 150 mls @ 150 mls/hr IV Q12H [facility] Last Admin: 08/30/20 09:11 Dose: 150 mls/hr Documented by: Lidocaine HCl (Lidocaine 2% Jelly 10 Ml Urojet) Confirm Administered Dose 10 ml .ROUTE .STK-MED ONE Stop: 08/25/20 10:49 Last Admin: 08/26/20 10:35 Dose: 10 ml Documented by: Lidocaine/Epinephrine (Lidocaine 1% With Epinephrine 1:100,000 50 Ml Mdv) Confirm Administered Dose 50 ml .ROUTE .STK-MED ONE Stop: 08/27/20 06:33 Lidocaine/Epinephrine (Lidocaine 1% With Epinephrine 1:100,000 50 Ml Mdv) Confirm Administered Dose 50 ml .ROUTE .STK-MED ONE Stop: 08/28/20 06:37 Last Admin: 08/28/20 07:40 Dose: 12.4 ml Documented by: Meropenem (Meropenem 500 Mg Sdv) Confirm Administered Dose 500 mg .ROUTE .STK- MED ONE Stop: 08/25/20 11:15 Last Admin: 08/25/20 11:47 Dose: 1,000 mg Documented by: Meropenem (Meropenem 500 Mg Sdv) Confirm Administered Dose 500 mg .ROUTE .STK- MED ONE Stop: 08/25/20 12:12 Meropenem ([place] 500 Mg Sdv) Confirm Administered Dose 500 mg .ROUTE .STK-MED ONE Stop: 08/27/20 06:33 Meropenem ([place] 500 Mg Sdv) Confirm Administered Dose 500 mg .ROUTE .STK- MED ONE Stop: 08/28/20 06:37 Last Admin: 08/28/20 07:40 Dose: 500 mg Documented by: Metoprolol Tartrate (Metoprolol Tartrate 5 Mg/5 Ml Sdv) 2.5 mg IVPUSH Q6H [facility] Last Admin: 08/28/20 03:32 Dose: Not Given Documented by: Neostigmine Methylsulfate (Neostigmine Methylsulfate 1 Mg/Ml 5 Ml Syringe) Confirm Administered Dose 5 mg .ROUTE .STK-MED ONE Stop: 08/25/20 07:21 Ondansetron HCl (Ondansetron 4 Mg/2 Ml Sdv) 4 mg IVPUSH ONETIME ONE Stop: 08/24/20 15:32 Last Admin: 08/24/20 15:44 Dose: 4 mg Documented by: Ondansetron HCl (Ondansetron 4 Mg/2 Ml Sdv) Confirm Administered Dose 4 mg .ROUTE .STK-MED ONE Stop: 08/25/20 07:21 Pantoprazole Sodium (Pantoprazole 40 Mg Vial) 40 mg IV ONETIME ONE Stop: 08/24/20 20:01 Last Admin: 08/24/20 20:46 Dose: 40 mg Documented by: Pantoprazole Sodium (Pantoprazole 40 Mg Vial) 40 mg IV Q24H [facility] Last Admin: 08/29/20 15:34 Dose: 40 mg Documented by: Pantoprazole Sodium (Pantoprazole 40 Mg Tab.Cr) 40 mg PO Q24H [facility] Last Admin: 08/31/20 15:47 Dose: Not Given Documented by: Pantoprazole Sodium (Pantoprazole 40 Mg Vial) 40 mg IVPUSH DAILY [facility] Pneumococcal Polyvalent Vaccine (Pneumococcal Polyvalent-23 Vaccine 0.5 Ml Sdv) 0.5 ml IM .ONCE ONE Stop: 08/24/20 19:28 Last Admin: 08/24/20 20:21 Dose: Not Given Documented by: Propofol (Propofol 200 Mg/20 Ml Sdv) Confirm Administered Dose 200 mg .ROUTE .STK-MED ONE Stop: 08/25/20 07:21 Propofol (Propofol 200 Mg/20 Ml Sdv) Confirm Administered Dose 200 mg .ROUTE .STK-MED ONE Stop: 08/28/20 06:51 Rocuronium [place] (Rocuronium 50 Mg/5 Ml Vial) Confirm Administered Dose 50 mg .ROUTE .STK-MED ONE Stop: 08/25/20 07:21 Rocuronium [place] (Rocuronium 50 Mg/5 Ml Vial) Confirm Administered Dose 50 mg .ROUTE .STK-MED ONE Stop: 08/25/20 11:58 Succinylcholine Chloride (Succinylcholine 200 Mg/10 Ml Mdv) Confirm Administered Dose 200 mg .ROUTE .STK-MED ONE Stop: 08/25/20 07:21 - Exam Quality Assessment: Supplemental Oxygen General: Alert, Oriented, Cooperative, No Acute Distress Lungs: Clear to Auscultation, Normal Respiratory Effort Cardiovascular: Regular Rate, Irregular Rhythm GI/Abdominal Exam: Soft, Distended, Tender. No: Normal Bowel Sounds (hypoactive ) Extremities: Pedal Edema. No: Increased Warmth Skin: Warm, Dry Psy/Mental Status: Alert, Normal Affect - Patient Data Lab Results Last 24 hrs: Laboratory Results - last 24 hr 09/01/20 09/01/20 Range/Units 04:15 04:15 WBC 15.0 H (4.5-11.0) K/uL RBC 4.86 (4.30-5.90) M/uL Hgb 14.3 (12.0-15.0) g/dL Hct 42.3 (40.0-54.0) % MCV 87 (80-98) fL MCH 29 (27-31) pg MCHC 34 (32-36) % Plt Count 319 (150-400) K/uL Add Manual Diff Yes Neutrophils % (Manual) 86 H (36-66) % Band Neutrophils % 2 L (5-11) % Lymphocytes % (Manual) 6 L (24-44) % Monocytes % (Manual) 6 (2-6) % Sodium 138 L (140-148) mmol/L Potassium 3.6 (3.6-5.2) mmol/L Chloride 101 (100-108) mmol/L Carbon Dioxide 26 (21-32) mmol/L Anion Gap 14.6 H (5.0-14.0) mmol/L BUN 7 (7-18) mg/dL Creatinine 0.9 (0.8-1.3) mg/dL Est Cr Clr Drug Dosing 76.60 mL/min Estimated GFR (MDRD) > 60 (>60) Glucose 128 H (74-106) mg/dL Calcium 8.2 L (8.5-10.1) mg/dL Phosphorus 2.8 (2.5-4.9) mg/dL Magnesium 1.7 L (1.8-2.4) mg/dL Total Bilirubin 0.9 (0.2-1.0) mg/dL AST 30 (15-37) U/L ALT 25 (12-78) U/L Alkaline Phosphatase 55 (46-116) U/L NT-Pro-B Natriuret Pep 4692 H (5-125) pg/mL Total Protein 6.2 L (6.4-8.2) g/dL Albumin 2.3 L (3.4-5.0) g/dL Globulin 3.9 H (2.3-3.5) g/dL Albumin/Globulin Ratio 0.6 L (1.2-2.2) Result Diagrams: 09/01/20 04:15 09/01/20 04:15 Sepsis Event Note - Evaluation Sepsis Screening Result: No Definite Risk - Focused Exam Vital Signs: Vital Signs Temp Pulse Pulse Resp BP BP Pulse Ox 09/01/20 12:05 92 L 09/01/20 10:42 36.7 C 71 18 94/69 95 09/01/20 08:50 121/69 09/01/20 08:36 103 H 121/70 09/01/20 07:26 94 L 09/01/20 06:28 36.7 C 68 16 118/64 95 09/01/20 03:48 97 16 130/69 94 L - Problem List & Annotations (1) Acute appendicitis SNOMED Code(s): 37442660 Code(s): K35.80 - UNSPECIFIED ACUTE APPENDICITIS Status: Acute Current Visit: Yes Qualifiers: Acute appendicitis type: with localized peritonitis Appendicitis gangrene presence: without gangrene Appendicitis perforation presence: without perforation Appendicitis abscess presence: without abscess Qualified Code(s) : K35.30 - Acute appendicitis with localized peritonitis, without perforation or gangrene (2) History of stroke with residual deficit SNOMED Code(s): 489436318 Code(s): I69.30 - UNSPECIFIED SEQUELAE OF CEREBRAL INFARCTION Status: Chronic Current Visit: Yes (3) Atrial fibrillation SNOMED Code(s): 24503754 Code(s): I48.91 - UNSPECIFIED ATRIAL FIBRILLATION Status: Chronic Current Visit: No Qualifiers: Atrial fibrillation type: longstanding persistent Qualified Code(s): I48.11 - Longstanding persistent atrial fibrillation (4) CAD (coronary artery disease) SNOMED Code(s): 90046581 Code(s): I25.10 - ATHSCL HEART DISEASE OF [place] CORONARY ARTERY W/O ANG PCTRS Status: Chronic Current Visit: No Qualifiers: Coronary Disease-Associated Artery/Lesion type: [place] artery [place] vs. transplanted heart: [place] heart Associated angina: without angina Qualified Code(s): I25.10 - Atherosclerotic heart disease of [place] coronary artery without angina pectoris (5) Chronic systolic CHF (congestive heart failure) SNOMED Code(s): 913985960, 330305504 Code(s): I50.22 - CHRONIC SYSTOLIC (CONGESTIVE) HEART FAILURE Status: Chronic Current Visit: No (6) Cardiomyopathy SNOMED Code(s): 64126370 Code(s): I42.9 - CARDIOMYOPATHY, UNSPECIFIED Status: Chronic Current Visit: No Qualifiers: Cardiomyopathy type: ischemic Qualified Code(s): I25.5 - Ischemic cardiomyopathy (7) Hx of deep venous thrombosis SNOMED Code(s): 448735419 Code(s): Z86.718 - PERSONAL HISTORY OF OTHER VENOUS THROMBOSIS AND EMBOLISM Status: Chronic Current Visit: No - Problem List Review Problem List Initiated/Reviewed/Updated: Yes - My Orders Last 24 Hours: My Active Orders 09/01/20 09:00 Aspirin 324 mg PO DAILY - Plan Plan:: ASSESSMENT AND PLAN Acute appendicitis without perforation-status post appendectomy performed 08/[address] Acevedo. Postoperative course complicated by persistent ileus versus developing obstruction requiring replacement of NG tube -He has completed adequate antibiotic therapy -Symptomatic management of pain and nausea -Pulse oximetry -Postoperative care per Dr. Acevedo Chronic systolic congestive heart failure-complicated by ischemic cardiomyopathy. Last ejection fraction was between 35 and 40%. Volume status appropriate. Remains on hold. -Continue medical management -Judicious fluid use around the time of surgery -Furosemide as ordered by Dr. 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 Gets around without a cane most of the time. Maintenance issues -DVT prophylaxis-mechanical -GI prophylaxis-IV PPI tonight -Nutrition-nothing by mouth Disposition -I anticipate discharge home after the hospital stay Jimmy Gutierrez MD
[2020-09-01] MEDS ORDERED: Pantoprazole 40 MG Vial IV SCH (16:30)
[2020-09-01] MEDS: Simvastatin 20 MG Tab PO SCH (20:18)
[2020-09-01] MEDS: Tamsulosin 0.4 MG Cap.ER PO SCH (20:19)
[2020-09-02] MEDS: Metoclopramide 10 MG/2 ML SDV IVPUSH SCH ×4 (03:29→20:42)
--- NOTE | 2020-09-02 06:22 | CRLCR ---
INDICATION: Postop ileus TECHNIQUE: Upright and supine views. COMPARISON: Two-view abdomen September 01, 2020 FINDINGS: There is interval repositioning of nasogastric tube into the gastric lumen. There is overall significantly improved gaseous distention of large and small bowel with residual colonic and central small bowel air-fluid levels. There is a minimal distal amount of intracolonic fecal distention. Surgical clips are seen in the right upper quadrant. IVC filter is noted. Brachytherapy seeds are again seen projecting over the midline pelvis. There is no acute osseous abnormality. IMPRESSION: Satisfactory interval repositioning of nasogastric tube with overall improving distension of large and small bowel loops with residual dilated large and small bowel with diffuse air-fluid levels. Dictated by Moses Landon MD @ 09/02/2020 6:20:[address] Moses Landon @ Sep 02 2020 6:20AM
[2020-09-02] MEDS: Sotalol 80 MG Tab PO SCH ×2 (08:13→20:39)
[2020-09-02] MEDS: Levothyroxine 50 MCG Tab PO SCH (08:14)
[2020-09-02] MEDS: Sertraline 25 MG Tab PO SCH (08:14)
[2020-09-02] MEDS: Bisacodyl 5 MG Tab PO SCH ×2 (08:14→20:40)
[2020-09-02] MEDS: Aspirin 81 MG Tab.Chew PO SCH (08:14)
[2020-09-02] MEDS: Gabapentin 300 MG Cap PO SCH ×3 (08:14→20:41)
[2020-09-02] MEDS: Oxybutynin 5 MG Tab PO SCH ×3 (08:14→20:42)
[2020-09-02] MEDS: Lactobacillus Rhamnosus GG (Probiotic) Cap PO SCH ×2 (08:15→20:40)
[2020-09-02] MEDS: Spironolactone 25 MG Tab PO SCH (08:15)
[2020-09-02] MEDS: Docusate Sodium 100 MG Cap PO SCH ×2 (08:15→20:39)
[2020-09-02] MEDS: DULoxetine 20 MG Cap PO SCH (08:15)
[2020-09-02] MEDS: Ezetimibe 10 MG Tab PO SCH (08:15)
[2020-09-02] MEDS: Pantoprazole 40 MG Vial IVPUSH SCH (08:16)
[2020-09-02] MEDS: Bisacodyl 10 MG Supp RECTAL SCH ×2 (09:15→20:41)
[2020-09-02] MEDS: Dextrose 5%-Lactated Ringers 1,000 ML IV SCH (09:19)
--- NOTE | 2020-09-02 10:24 | PN ---
DATE OF SERVICE: 09/02/2020 SUBJECTIVE: Lemuel's NG output 200. He did have 1 bowel movement. Abdominal flat and upright x-ray has improved. He has no other concerns or questions today. OBJECTIVE: GENERAL: Lemuel is a pleasant 70-year-old male. He is alert and orientated. VITAL SIGNS: TPR 98.4, 67, 16, blood pressure 109/52. HEENT: Negative. NECK: Supple. HEART: Regular rate and rhythm. LUNGS: Clear. ABDOMEN: Aquacel dressing is on. EXTREMITIES: Without peripheral edema. ASSESSMENT: 1. Postop ileus. 2. Diagnostic laparoscopy turned to laparotomy with: a. Partial cecectomy with excision of overlying nodule peritoneal lesion. b. Appendectomy with drainage of periappendiceal abscess. POSTOPERATIVE DIAGNOSES: 1. Perforated appendicitis with periappendiceal abscess. 2. Nodular lesions of overlying cecum. 3. Date of procedure: 08/25/2020. Vazquez Acevedo MD. 4. Delayed primary closure, 08/28/2020. Surgeon: Vazquez Acevedo MD. PLAN: 1. Discontinue NG. 2. Sips of clear liquids. 3. Ambulate short distances 6 times daily. 4. Check abdominal flat and upright x-ray in a.m. at 0400. 5. Check CBC, CMP, mag, and phos in a.m. Ellen Houston PA-C /[id number]
--- NOTE | 2020-09-02 13:36 | PCM.PN ---
- General Info Date of Service: 09/02/20 Subjective Update: No acute events overnight. Abdominal pain has improved compared to yesterday. He is passing gas. NG tube has been clamped all day and he has not had an increase in pain or nausea. He feels better today than yesterday. He does not feel short of breath but does continue to require 2 L of supplemental oxygen. His right leg is swollen and uncomfortable today. Functional Status: Reports: Pain Controlled - Review of Systems General: Reports: Weakness. Denies: Fever Gastrointestinal: Reports: Abdominal Pain (mild) - Patient Data Vitals - Most Recent: Last Vital Signs Temp 36.1 C 09/02/20 10:43 Pulse 82 09/02/20 08:13 Resp 16 09/02/20 10:43 BP 101/57 L 09/02/20 10:43 Pulse Ox 93 L 09/02/20 12:39 Weight - Most Recent: 97.976 kg I&O - Last 24 Hours: Intake & Output 09/01/20 09/02/20 09/02/20 22:59 06:59 14:59 Intake Total 783 Output Total 400 950 Balance 383 -950 Lab Results Last 24 Hours: Laboratory Results - last 24 hr 09/02/20 09/02/20 Range/Units 04:05 04:05 WBC 10.3 (4.5-11.0) K/uL RBC 4.19 L (4.30-5.90) M/uL Hgb 12.5 (12.0-15.0) g/dL Hct 37.3 L (40.0-54.0) % MCV 89 (80-98) fL MCH 30 (27-31) pg MCHC 34 (32-36) % Plt Count 271 (150-400) K/uL Sodium 141 (140-148) mmol/L Potassium 3.8 (3.6-5.2) mmol/L Chloride 103 (100-108) mmol/L Carbon Dioxide 28 (21-32) mmol/L Anion Gap 13.8 (5.0-14.0) mmol/L BUN 10 (7-18) mg/dL Creatinine 0.9 (0.8-1.3) mg/dL Est Cr Clr Drug Dosing 76.60 mL/min Estimated GFR (MDRD) > 60 (>60) Glucose 128 H (74-106) mg/dL Calcium 8.1 L (8.5-10.1) mg/dL Phosphorus 3.3 (2.5-4.9) mg/dL Magnesium 1.9 (1.8-2.4) mg/dL Total Bilirubin 0.6 (0.2-1.0) mg/dL AST 24 (15-37) U/L ALT 24 (12-78) U/L Alkaline Phosphatase 54 (46-116) U/L NT-Pro-B Natriuret Pep 1852 H (5-125) pg/mL Total Protein 5.5 L (6.4-8.2) g/dL Albumin 2.1 L (3.4-5.0) g/dL Globulin 3.4 (2.3-3.5) g/dL Albumin/Globulin Ratio 0.6 L (1.2-2.2) Med Orders - Current: Current Medications Acetaminophen (Acetaminophen 325 Mg Tab) 650 mg PO Q4H PRN PRN Reason: Pain (Mild 1-3)/fever Albuterol (Albuterol 0.083% 2.5 Mg/3 Ml Neb Soln) 2.5 mg NEB Q4H PRN PRN Reason: Shortness Of Breath/wheezing Aspirin (Aspirin 81 Mg Tab.Chew) 324 mg PO DAILY [facility] Last Admin: 09/02/20 08:14 Dose: 324 mg Documented by: Bisacodyl (Bisacodyl 5 Mg Tab) 10 mg PO BID [facility] Last Admin: 09/02/20 08:14 Dose: 10 mg Documented by: Bisacodyl (Bisacodyl 10 Mg Supp) 10 mg RECTAL BID PRN PRN Reason: Constipation Last Admin: 08/29/20 15:21 Dose: 10 mg Documented by: Bisacodyl (Bisacodyl 10 Mg Supp) 10 mg RECTAL BID [facility] Last Admin: 09/02/20 09:15 Dose: 10 mg Documented by: Docusate Sodium (Docusate Sodium 100 Mg Cap) 100 mg PO BID [facility] Last Admin: 09/02/20 08:15 Dose: 100 mg Documented by: Duloxetine HCl (Duloxetine 20 Mg Cap) 20 mg PO DAILY [facility] Last Admin: 09/02/20 08:15 Dose: 20 mg Documented by: Ezetimibe (Ezetimibe 10 Mg Tab) 5 mg PO DAILY [facility] Last Admin: 09/02/20 08:15 Dose: 5 mg Documented by: Gabapentin (Gabapentin 300 Mg Cap) 600 mg PO TID [facility] Last Admin: 09/02/20 08:14 Dose: 600 mg Documented by: Hydromorphone HCl (Hydromorphone 2 Mg Tab) 2 - 4 mg PO Q4H PRN PRN Reason: Pain Last Admin: 08/30/20 09:08 Dose: 4 mg Documented by: Hydromorphone HCl (Hydromorphone/Normal Saline 15 Mg/30 Ml Research Technologist) 0 mg IV ASDIRECTED PRN; Protocol PRN Reason: Pain Last Admin: 09/01/20 10:39 Dose: 15 mg Documented by: Hydroxyzine HCl (Hydroxyzine Hcl 100 Mg/2 Ml Sdv) 100 mg IM Q4H PRN PRN Reason: Pain Last Admin: 08/31/20 05:02 Dose: 100 mg Documented by: Dextrose/Lactated Ringer's (Dextrose 5%-Lactated Ringers) 1,000 mls @ 100 mls/hr IV ASDIRECTED [facility] Last Admin: 09/02/20 09:19 Dose: 100 mls/hr Documented by: Lactobacillus Rhamnosus (Lactobacillus Rhamnosus Gg (Probiotic) Cap) 1 cap PO BID [facility] Last Admin: 09/02/20 08:15 Dose: 1 cap Documented by: Levothyroxine Sodium (Levothyroxine 50 Mcg Tab) 150 mcg PO DAILY@0730 [facility] Last Admin: 09/02/20 08:14 Dose: 150 mcg Documented by: Lisinopril (Lisinopril 2.5 Mg Tab) 2.5 mg PO DAILY [facility] Last Admin: 09/01/20 08:50 Dose: 2.5 mg Documented by: Lorazepam (Lorazepam 2 Mg/Ml Sdv) 0.5 mg IVPUSH Q4H PRN PRN Reason: Nausea/Vomiting Last Admin: 08/27/20 02:13 Dose: 0.5 mg Documented by: Magnesium Hydroxide (Magnesium Hydroxide 400 Mg/5 Ml Susp 30 Ml Cup) 30 ml PO Q12H PRN PRN Reason: Constipation Melatonin (Melatonin 3 Mg Tab) 9 mg PO BEDTIME PRN PRN Reason: Sleep Last Admin: 08/24/20 20:45 Dose: 9 mg Documented by: Metoclopramide HCl (Metoclopramide 10 Mg/2 Ml Sdv) 10 mg IVPUSH Q6H [facility] Last Admin: 09/02/20 09:15 Dose: 10 mg Documented by: Naloxone HCl (Naloxone 0.4 Mg/Ml Sdv) 0.4 mg IVPUSH Q2M PRN PRN Reason: Respiratory Distress Ondansetron HCl (Ondansetron 4 Mg/2 Ml Sdv) 4 mg IV Q6H PRN PRN Reason: Nausea/Vomiting Last Admin: 08/30/20 11:04 Dose: 4 mg Documented by: Ondansetron HCl (Ondansetron 4 Mg Tab.Dis) 4 mg PO Q6H PRN PRN Reason: Nausea able to take PO Last Admin: 09/01/20 09:59 Dose: 4 mg Documented by: Oxybutynin Chloride (Oxybutynin 5 Mg Tab) 5 mg PO TID [facility] Last Admin: 09/02/20 08:14 Dose: 5 mg Documented by: Pantoprazole Sodium (Pantoprazole 40 Mg Vial) 40 mg IVPUSH DAILY [facility] Last Admin: 09/02/20 08:16 Dose: 40 mg Documented by: Senna/Docusate Sodium (Docusate Sodium/Sennosides 50-8.6 Mg Tab) 1 tab PO BID PRN PRN Reason: Constipation Sertraline HCl (Sertraline 25 Mg Tab) 25 mg PO DAILY [facility] Last Admin: 09/02/20 08:14 Dose: 25 mg Documented by: Simvastatin (Simvastatin 20 Mg Tab) 20 mg PO BEDTIME [facility] Last Admin: 09/01/20 20:18 Dose: 20 mg Documented by: Sotalol HCl (Sotalol 80 Mg Tab) 120 mg PO BID [facility] Last Admin: 09/02/20 08:13 Dose: 120 mg Documented by: Spironolactone (Spironolactone 25 Mg Tab) 25 mg PO DAILY [facility] Last Admin: 09/02/20 08:15 Dose: 25 mg Documented by: Tamsulosin HCl (Tamsulosin 0.4 Mg Cap.Er) 0.4 mg PO BEDTIME [facility] Last Admin: 09/01/20 20:19 Dose: 0.4 mg Documented by: Discontinued Medications Hydrocodone Bitart/Acetaminophen (Acetaminophen/Hydrocodone 325-5 Mg Tab) 1 - 2 tab PO Q4H PRN PRN Reason: Pain Aspirin (Aspirin 325 Mg Tab.Ec) 325 mg PO DAILY [facility] Last Admin: 08/31/20 08:15 Dose: Not Given Documented by: Bisacodyl (Bisacodyl 10 Mg Supp) 10 mg RECTAL BID [facility] Last Admin: 08/28/20 20:27 Dose: 10 mg Documented by: Bupivacaine HCl (Bupivacaine 0.5% 50 Ml Mdv) Confirm Administered Dose 50 ml .ROUTE .[facility] ONE Stop: 08/27/20 06:33 Bupivacaine HCl (Bupivacaine 0.5% 50 Ml Mdv) Confirm Administered Dose 50 ml .ROUTE .[facility] ONE Stop: 08/28/20 06:37 Last Admin: 08/28/20 07:40 Dose: 12.4 ml Documented by: Bupivacaine HCl/Epinephrine Bitart (Bupivacaine 0.5%/Epinephrine 1:200,000 50 Ml Mdv) Confirm Administered Dose 50 ml .ROUTE .[facility] ONE Stop: 08/25/20 07:15 Last Admin: 08/25/20 13:23 Dose: 40 ml Documented by: Ropivacaine 50 ml/Dexamethasone 8 mg/Epinephrine HCl 0.4 mg/ Sodium Chloride 27.6 ml 0 ml NERVRT ASDIRECTED [facility] Last Admin: 08/25/20 11:23 Dose: 80 syringe Documented by: Ropivacaine 50 ml/Dexamethasone 8 mg/Epinephrine HCl 0.4 mg/ Sodium Chloride 27.6 ml 0 ml NERVRT ASDIRECTED [facility] Last Admin: 08/28/20 07:31 Dose: 80 syringe Documented by: Dexamethasone (Dexamethasone 4 Mg/Ml Sdv) Confirm Administered Dose 4 mg .ROUTE .[facility] ONE Stop: 08/25/20 07:21 Fentanyl (Fentanyl 250 Mcg/5 Ml Sdv) Confirm Administered Dose 250 mcg .ROUTE .[facility] ONE Stop: 08/25/20 07:21 Fentanyl (Fentanyl 100 Mcg/2 Ml Sdv) Confirm Administered Dose 100 mcg .ROUTE .[facility] ONE Stop: 08/25/20 12:00 Fentanyl (Fentanyl 100 Mcg/2 Ml Sdv) Confirm Administered Dose 100 mcg .ROUTE .[facility] ONE Stop: 08/28/20 06:51 Furosemide (Furosemide 20 Mg/2 Ml Vial) 20 mg IVPUSH Q8H [facility] Stop: 08/28/20 17:01 Last Admin: 08/28/20 16:35 Dose: 20 mg Documented by: Furosemide (Furosemide 20 Mg/2 Ml Vial) 20 mg IVPUSH Q6H [facility] Stop: 09/01/20 14:01 Last Admin: 09/01/20 15:08 Dose: 20 mg Documented by: Gabapentin (Gabapentin 100 Mg Cap) 600 mg PO TID [facility] Last Admin: 08/24/20 20:50 Dose: Not Given Documented by: Glycopyrrolate (Glycopyrrolate 0.2 Mg/Ml 5 Ml Mdv) Confirm Administered Dose 1 mg .ROUTE .[facility] ONE Stop: 08/25/20 07:21 Hydromorphone HCl (Hydromorphone 0.5 Mg/0.5 Ml Syringe) 0.5 mg IVPUSH ONETIME ONE Stop: 08/24/20 15:32 Last Admin: 08/24/20 15:45 Dose: 0.5 mg Documented by: Hydromorphone HCl (Hydromorphone 1 Mg/Ml Syringe) 1 mg IVPUSH ONETIME ONE Stop: 08/24/20 17:24 Last Admin: 08/24/20 18:20 Dose: 1 mg Documented by: Hydromorphone HCl (Hydromorphone/Normal Saline 15 Mg/30 Ml Research Technologist) 0 mg IV ASDIRECTED PRN; Protocol PRN Reason: Pain Last Admin: 08/28/20 10:50 Dose: 15 mg Documented by: Sodium Chloride (Normal Saline) 1,000 mls @ 999 mls/hr IV ASDIRECTED [facility] Last Admin: 08/24/20 15:45 Dose: 999 mls/hr Documented by: Sodium Chloride (Normal Saline) 1,000 mls @ 300 mls/hr IV ASDIRECTED [facility] Lactated Ringer's (Ringers, Lactated) 1,000 mls @ 100 mls/hr IV ASDIRECTED [facility] Last Admin: 08/25/20 02:58 Dose: 100 mls/hr Documented by: Ampicillin Sodium/Sulbactam (Sodium 3 gm/ Sodium Chloride) 100 mls @ 200 mls/hr IV Q6H [facility] Last Admin: 08/25/20 05:04 Dose: 200 mls/hr Documented by: Aztreonam 1 gm/ Sodium (Chloride) 50 mls @ 100 mls/hr IV Q8H [facility] Last Admin: 08/25/20 05:05 Dose: 100 mls/hr Documented by: Aztreonam 1 gm/ Sodium (Chloride) 50 mls @ 100 mls/hr IV Q8H [facility] Last Admin: 09/01/20 12:30 Dose: 100 mls/hr Documented by: Magnesium Sulfate (Magnesium Sulfate In Water 2 Gm/50 Ml) 2 gm in 50 mls @ 25 mls/hr IV Q6H [facility] Stop: 08/25/20 18:29 Last Admin: 08/25/20 16:14 Dose: 25 mls/hr Documented by: Ampicillin Sodium/Sulbactam (Sodium 3 gm/ Sodium Chloride) 100 mls @ 200 mls/hr IV Q6H [facility] Last Admin: 09/01/20 11:54 Dose: 200 mls/hr Documented by: Lactated Ringer's (Ringers, Lactated) Confirm Administered Dose 1,000 mls @ as directed .ROUTE .[facility] ONE Stop: 08/25/20 11:32 Dextrose/Lactated Ringer's (Dextrose 5%-Lactated Ringers) 1,000 mls @ 150 mls/hr IV ASDIRECTED [facility] Last Admin: 08/26/20 03:57 Dose: 150 mls/hr Documented by: Potassium Phosphate 15 mmole/ (Sodium Chloride) 255 mls @ 85 mls/hr IV Q3H [facility] Stop: 08/26/20 17:59 Last Admin: 08/26/20 15:25 Dose: 85 mls/hr Documented by: Dextrose/Lactated Ringer's (Dextrose 5%-Lactated Ringers) 1,000 mls @ 80 mls/hr IV ASDIRECTED [facility] Last Admin: 08/29/20 13:46 Dose: 80 mls/hr Documented by: Dextrose/Lactated Ringer's (Dextrose 5%-Lr) 500 mls @ 250 mls/hr IV ONETIME ONE Stop: 08/27/20 17:59 Last Admin: 08/27/20 16:00 Dose: 250 mls/hr Documented by: Lactated Ringer's (Ringers, Lactated) 500 mls @ 250 mls/hr IV ONETIME ONE Stop: 08/27/20 18:14 Last Admin: 08/27/20 17:02 Dose: 250 mls/hr Documented by: Potassium Phosphate 15 mmole/ (Sodium Chloride) 255 mls @ 125 mls/hr IV Q2H [facility] Stop: 08/28/20 15:59 Last Admin: 08/28/20 16:03 Dose: 125 mls/hr Documented by: Magnesium Sulfate (Magnesium Sulfate In Water 2 Gm/50 Ml) 2 gm in 50 mls @ 25 mls/hr IV Q6HR [facility] Stop: 08/30/20 05:59 Last Admin: 08/30/20 03:00 Dose: 25 mls/hr Documented by: Azithromycin 250 mg/ Sodium (Chloride) 150 mls @ 150 mls/hr IV Q12H [facility] Last Admin: 08/30/20 09:11 Dose: 150 mls/hr Documented by: Potassium Phosphate 15 mmole/ (Sodium Chloride) 255 mls @ 125 mls/hr IV Q2H [facility] Stop: 09/01/20 15:59 Last Admin: 09/01/20 15:52 Dose: 125 mls/hr Documented by: Lidocaine HCl (Lidocaine 2% Jelly 10 Ml Urojet) Confirm Administered Dose 10 ml .ROUTE .[facility] ONE Stop: 08/25/20 10:49 Last Admin: 08/26/20 10:35 Dose: 10 ml Documented by: Lidocaine/Epinephrine (Lidocaine 1% With Epinephrine 1:100,000 50 Ml Mdv) Confirm Administered Dose 50 ml .ROUTE .[facility] ONE Stop: 08/27/20 06:33 Lidocaine/Epinephrine (Lidocaine 1% With Epinephrine 1:100,000 50 Ml Mdv) Confirm Administered Dose 50 ml .ROUTE .[facility] ONE Stop: 08/28/20 06:37 Last Admin: 08/28/20 07:40 Dose: 12.4 ml Documented by: Meropenem (Meropenem 500 Mg Sdv) Confirm Administered Dose 500 mg .ROUTE .[facility]- [facility] ONE Stop: 08/25/20 11:15 Last Admin: 08/25/20 11:47 Dose: 1,000 mg Documented by: Meropenem (Meropenem 500 Mg Sdv) Confirm Administered Dose 500 mg .ROUTE .[facility]- [facility] ONE Stop: 08/25/20 12:12 Meropenem ([place] 500 Mg Sdv) Confirm Administered Dose 500 mg .ROUTE .[facility]- [facility] ONE Stop: 08/27/20 06:33 Meropenem (Meropenem 500 Mg Sdv) Confirm Administered Dose 500 mg .ROUTE .[facility]- [facility] ONE Stop: 08/28/20 06:37 Last Admin: 08/28/20 07:40 Dose: 500 mg Documented by: Metoprolol Tartrate (Metoprolol Tartrate 5 Mg/5 Ml Sdv) 2.5 mg IVPUSH Q6H [facility] Last Admin: 08/28/20 03:32 Dose: Not Given Documented by: Neostigmine Methylsulfate (Neostigmine Methylsulfate 1 Mg/Ml 5 Ml Syringe) Confirm Administered Dose 5 mg .ROUTE .[facility] ONE Stop: 08/25/20 07:21 Ondansetron HCl (Ondansetron 4 Mg/2 Ml Sdv) 4 mg IVPUSH ONETIME ONE Stop: 08/24/20 15:32 Last Admin: 08/24/20 15:44 Dose: 4 mg Documented by: Ondansetron HCl (Ondansetron 4 Mg/2 Ml Sdv) Confirm Administered Dose 4 mg .ROUTE .[facility] ONE Stop: 08/25/20 07:21 Pantoprazole Sodium (Pantoprazole 40 Mg Vial) 40 mg IV ONETIME ONE Stop: 08/24/20 20:01 Last Admin: 08/24/20 20:46 Dose: 40 mg Documented by: Pantoprazole Sodium (Pantoprazole 40 Mg Vial) 40 mg IV Q24H [facility] Last Admin: 08/29/20 15:34 Dose: 40 mg Documented by: Pantoprazole Sodium (Pantoprazole 40 Mg Tab.Cr) 40 mg PO Q24H [facility] Last Admin: 08/31/20 15:47 Dose: Not Given Documented by: Pantoprazole Sodium (Pantoprazole 40 Mg Vial) 40 mg IVPUSH DAILY [facility] Pneumococcal Polyvalent Vaccine (Pneumococcal Polyvalent-23 Vaccine 0.5 Ml Sdv) 0.5 ml IM .ONCE ONE Stop: 08/24/20 19:28 Last Admin: 08/24/20 20:21 Dose: Not Given Documented by: Propofol (Propofol 200 Mg/20 Ml Sdv) Confirm Administered Dose 200 mg .ROUTE .[facility] ONE Stop: 08/25/20 07:21 Propofol (Propofol 200 Mg/20 Ml Sdv) Confirm Administered Dose 200 mg .ROUTE .[facility] ONE Stop: 08/28/20 06:51 Rocuronium [place] (Rocuronium 50 Mg/5 Ml Vial) Confirm Administered Dose 50 mg .ROUTE .[facility] ONE Stop: 08/25/20 07:21 Rocuronium [place] (Rocuronium 50 Mg/5 Ml Vial) Confirm Administered Dose 50 mg .ROUTE .[facility] ONE Stop: 08/25/20 11:58 Succinylcholine Chloride (Succinylcholine 200 Mg/10 Ml Mdv) Confirm Administered Dose 200 mg .ROUTE .[facility] ONE Stop: 08/25/20 07:21 - Exam Quality Assessment: Supplemental Oxygen General: Alert, Oriented, Cooperative, No Acute Distress Lungs: Normal Respiratory Effort, Crackles (few left lung base) Cardiovascular: Regular Rate, Regular Rhythm GI/Abdominal Exam: Normal Bowel Sounds, Soft, No Distention Extremities: Pedal Edema (right lower leg and thigh ). No: Increased Warmth Skin: Warm, Dry Psy/Mental Status: Alert, Normal Affect - Patient Data Lab Results Last 24 hrs: Laboratory Results - last 24 hr 09/02/20 09/02/20 Range/Units 04:05 04:05 WBC 10.3 (4.5-11.0) K/uL RBC 4.19 L (4.30-5.90) M/uL Hgb 12.5 (12.0-15.0) g/dL Hct 37.3 L (40.0-54.0) % MCV 89 (80-98) fL MCH 30 (27-31) pg MCHC 34 (32-36) % Plt Count 271 (150-400) K/uL Sodium 141 (140-148) mmol/L Potassium 3.8 (3.6-5.2) mmol/L Chloride 103 (100-108) mmol/L Carbon Dioxide 28 (21-32) mmol/L Anion Gap 13.8 (5.0-14.0) mmol/L BUN 10 (7-18) mg/dL Creatinine 0.9 (0.8-1.3) mg/dL Est Cr Clr Drug Dosing 76.60 mL/min Estimated GFR (MDRD) > 60 (>60) Glucose 128 H (74-106) mg/dL Calcium 8.1 L (8.5-10.1) mg/dL Phosphorus 3.3 (2.5-4.9) mg/dL Magnesium 1.9 (1.8-2.4) mg/dL Total Bilirubin 0.6 (0.2-1.0) mg/dL AST 24 (15-37) U/L ALT 24 (12-78) U/L Alkaline Phosphatase 54 (46-116) U/L NT-Pro-B Natriuret Pep 1852 H (5-125) pg/mL Total Protein 5.5 L (6.4-8.2) g/dL Albumin 2.1 L (3.4-5.0) g/dL Globulin 3.4 (2.3-3.5) g/dL Albumin/Globulin Ratio 0.6 L (1.2-2.2) Result Diagrams: 09/02/20 04:05 09/02/20 04:05 Sepsis Event Note - Evaluation Sepsis Screening Result: No Definite Risk - Focused Exam Vital Signs: Vital Signs Temp Pulse Pulse Resp BP BP Pulse Ox 09/02/20 12:39 93 L 09/02/20 10:43 36.1 C 16 101/57 L 95 09/02/20 10:00 09/02/20 08:13 82 112/79 09/02/20 07:24 90 L 09/02/20 07:13 36.9 C 67 16 109/52 L 94 L 09/02/20 03:00 36.0 C L 49 L 20 119/52 L 95 Pulse Ox 09/02/20 12:39 09/02/20 10:43 09/02/20 10:00 93 L 09/02/20 08:13 09/02/20 07:24 09/02/20 07:13 09/02/20 03:00 - Problem List & Annotations (1) Acute appendicitis SNOMED Code(s): 72045453 Code(s): K35.80 - UNSPECIFIED ACUTE APPENDICITIS Status: Acute Current V isit: Yes Qualifiers: Acute appendicitis type: with localized peritonitis Appendicitis gangrene presence: without gangrene Appendicitis perforation presence: without perforation Appendicitis abscess presence: without abscess Qualified Code(s): K35.30 - Acute appendicitis with localized peritonitis, without perforation or gangrene (2) History of stroke with residual deficit SNOMED Code(s): 018741607 Code(s): I69.30 - UNSPECIFIED SEQUELAE OF CEREBRAL INFARCTION Status: Chronic Current Visit: Yes (3) Atrial fibrillation SNOMED Code(s): 43227320 Code(s): I48.91 - UNSPECIFIED ATRIAL FIBRILLATION Status: Chronic Current Visit: No Qualifiers: Atrial fibrillation type: longstanding persistent Qualified Code(s): I48.11 - Longstanding persistent atrial fibrillation (4) CAD (coronary artery disease) SNOMED Code(s): 91381520 Code(s): I25.10 - ATHSCL HEART DISEASE OF [place] CORONARY ARTERY W/O ANG PCTRS Status: Chronic Current Visit: No Qualifiers: Coronary Disease-Associated Artery/Lesion type: [place] artery [place] vs. transplanted heart: [place] heart Associated angina: without angina Qualified Code(s): I25.10 - Atherosclerotic heart disease of [place] coronary artery without angina pectoris (5) Chronic systolic CHF (congestive heart failure) SNOMED Code(s): 922094354, 789163694 Code(s): I50.22 - CHRONIC SYSTOLIC (CONGESTIVE) HEART FAILURE Status: Chronic Current Visit: No (6) Cardiomyopathy SNOMED Code(s): 89619210 Code(s): I42.9 - CARDIOMYOPATHY, UNSPECIFIED Status: Chronic Current Visit: No Qualifiers: Cardiomyopathy type: ischemic Qualified Code(s): I25.5 - Ischemic cardiomyopathy (7) Hx of deep venous thrombosis SNOMED Code(s): 216449151 Code(s): Z86.718 - PERSONAL HISTORY OF OTHER VENOUS THROMBOSIS AND EMBOLISM Status: Chronic Current Visit: No - Problem List Review Problem List Initiated/Reviewed/Updated: Yes - My Orders Last 24 Hours: My Active Orders 09/02/20 13:33 Benzocaine/Cetylpyrd/Menthol [Cepacol Sore Throat] 1 lozenge MUCMEM Q2H PRN Furosemide [Lasix] 40 mg IVPUSH ONETIME ONE 09/02/20 13:45 Dextrose 5%-Lactated Ringers 1,000 ml IV ASDIRECTED - Plan Plan:: ASSESSMENT AND PLAN Acute appendicitis without perforation-status post appendectomy performed 08/[address] Acevedo. Postoperative course complicated by persistent ileus versus developing obstruction. Seems to be doing better today. -Symptomatic management of pain and nausea -Postoperative care per Dr. Acevedo Chronic systolic congestive heart failure-complicated by ischemic cardiomyopathy. Last ejection fraction was between 35 and 40%. Volume status slightly hypervolemic today. -Continue medical management -Judicious fluid use around the time of surgery -Furosemide x1 today Chronic atrial fibrillation-he has remained in sinus rhythm over the past several days but did have an episode of atrial fibrillation this afternoon. -Sotalol -Continue medical management History of DVT and PE- -restart anticoagulation History of left-sided CVA-residual right-sided weakness though his functional status is pretty good. Gets around without a cane most of the time. Maintenance issues -DVT prophylaxis-mechanical -GI prophylaxis-IV PPI -Nutrition-sips of clear liquid Disposition -I anticipate discharge home after the hospital stay Jimmy Gutierrez MD
[2020-09-02] MEDS ORDERED: Furosemide 40 MG/4 ML VIAL IVPUSH ONE (13:45)
[2020-09-02] MEDS ORDERED: Dextrose 5%-Lactated Ringers 1,000 ML IV SCH (13:45)
[2020-09-02] MEDS: Benzocaine/Cetylpyridinium/Menthol Lozenge MUCMEM PRN ×2 (13:53→19:43)
[2020-09-02] MEDS ORDERED: Metoprolol Tartrate 25 MG Tab PO ONE (19:43)
[2020-09-02] MEDS: Tamsulosin 0.4 MG Cap.ER PO SCH (20:41)
[2020-09-02] MEDS: Apixaban 5 MG Tab PO SCH (20:41)
[2020-09-02] MEDS: Simvastatin 20 MG Tab PO SCH (20:42)
[2020-09-03] MEDS: Metoclopramide 10 MG/2 ML SDV IVPUSH SCH ×4 (03:27→20:45)
--- NOTE | 2020-09-03 05:40 | CRLCR ---
HISTORY: Postop ileus. TECHNIQUE: Supine and upright frontal views of the abdomen. COMPARISON: Abdominal radiographs 09/02/2020. FINDINGS: NG/OG tube tip and side hole in the stomach. Surgical clips in the right upper quadrant. Right abdominal skin zuleyka. IVC filter. Prostate brachytherapy seeds in the pelvis. Several gas-filled mildly dilated loops of small bowel. Small bowel dilation has improved. Gas in nondilated colon. No pneumoperitoneum. Sternal wire. ICD. IMPRESSION: Decreased small bowel dilation. Dictated by Otis Melo MD @ 09/03/2020 5:37:[address] Otis Melo @ Sep 03 2020 5:37AM
[2020-09-03] MEDS: Sodium Chloride 0.9% 1,000 ML IV SCH (08:17)
[2020-09-03] MEDS: Oxybutynin 5 MG Tab PO SCH ×3 (08:19→20:41)
[2020-09-03] MEDS: Lactobacillus Rhamnosus GG (Probiotic) Cap PO SCH ×2 (08:21→20:41)
[2020-09-03] MEDS: Apixaban 5 MG Tab PO SCH ×2 (08:21→20:42)
[2020-09-03] MEDS: Levothyroxine 50 MCG Tab PO SCH (08:21)
[2020-09-03] MEDS: Sotalol 80 MG Tab PO SCH ×2 (08:21→20:42)
[2020-09-03] MEDS: Spironolactone 25 MG Tab PO SCH (08:26)
[2020-09-03] MEDS: Pantoprazole 40 MG Vial IVPUSH SCH (08:26)
[2020-09-03] MEDS: Bisacodyl 5 MG Tab PO SCH ×2 (08:26→20:37)
[2020-09-03] MEDS: Bisacodyl 10 MG Supp RECTAL SCH ×2 (08:26→20:37)
[2020-09-03] MEDS: Gabapentin 300 MG Cap PO SCH ×3 (08:26→20:42)
[2020-09-03] MEDS: Magnesium Sulfate/Water 2 GM/50 ML BAG IV SCH ×3 (08:26→20:45)
[2020-09-03] MEDS: Docusate Sodium 100 MG Cap PO SCH ×2 (08:27→20:45)
[2020-09-03] MEDS: Ezetimibe 10 MG Tab PO SCH (08:27)
[2020-09-03] MEDS: Sertraline 25 MG Tab PO SCH (08:27)
[2020-09-03] MEDS: Aspirin 81 MG Tab.Chew PO SCH (08:27)
[2020-09-03] MEDS: DULoxetine 20 MG Cap PO SCH (08:27)
[2020-09-03] MEDS ORDERED: Furosemide 20 MG/2 ML VIAL IVPUSH ONE (09:00)
--- NOTE | 2020-09-03 10:53 | PCM.PN ---
- General Info Date of Service: 09/03/20 Subjective Update: There were no acute events overnight. Patient does have intermittent episodes of atrial fibrillation but most of the time his rate is controlled. He feels less short of breath today and is using minimal oxygen. He had multiple bowel movements overnight and has no abdominal pain or nausea today. His NG tube is out and he is on sips of clear liquids. Lower extremity edema has resolved. He does have some swelling of the right arm which started after an IV was started on that side. He has not had any fevers. Functional Status: Reports: Pain Controlled, Tolerating Diet - Review of Systems General: Denies: Fever - Patient Data Vitals - Most Recent: Last Vital Signs Temp 36.4 C 09/03/20 10:33 Pulse 100 09/03/20 10:33 Resp 16 09/03/20 10:33 BP 106/49 L 09/03/20 10:33 Pulse Ox 96 09/03/20 10:33 Weight - Most Recent: 97.976 kg I&O - Last 24 Hours: Intake & Output 09/02/20 09/03/20 09/03/20 22:59 06:59 14:59 Intake Total 900 50 Output Total 1150 200 Balance -1150 900 -150 Lab Results Last 24 Hours: Laboratory Results - last 24 hr 09/03/20 09/03/20 Range/Units 04:15 04:15 WBC 11.2 H (4.5-11.0) K/uL RBC 4.49 (4.30-5.90) M/uL Hgb 13.3 (12.0-15.0) g/dL Hct 39.6 L (40.0-54.0) % MCV 88 (80-98) fL MCH 30 (27-31) pg MCHC 34 (32-36) % Plt Count 325 (150-400) K/uL Sodium 140 (140-148) mmol/L Potassium 3.7 (3.6-5.2) mmol/L Chloride 102 (100-108) mmol/L Carbon Dioxide 27 (21-32) mmol/L Anion Gap 11.5 (5.0-14.0) mmol/L BUN 13 (7-18) mg/dL Creatinine 0.9 (0.8-1.3) mg/dL Est Cr Clr Drug Dosing 76.60 mL/min Estimated GFR (MDRD) > 60 (>60) Glucose 131 H (74-106) mg/dL Calcium 8.3 L (8.5-10.1) mg/dL Phosphorus 2.7 (2.5-4.9) mg/dL Magnesium 1.7 L (1.8-2.4) mg/dL Total Bilirubin 0.6 (0.2-1.0) mg/dL AST 26 (15-37) U/L ALT 24 (12-78) U/L Alkaline Phosphatase 63 (46-116) U/L NT-Pro-B Natriuret Pep 2350 H (5-125) pg/mL Total Protein 6.1 L (6.4-8.2) g/dL Albumin 2.3 L (3.4-5.0) g/dL Globulin 3.8 H (2.3-3.5) g/dL Albumin/Globulin Ratio 0.6 L (1.2-2.2) Med Orders - Current: Current Medications Acetaminophen (Acetaminophen 325 Mg Tab) 650 mg PO Q4H PRN PRN Reason: Pain (Mild 1-3)/fever Albuterol (Albuterol 0.083% 2.5 Mg/3 Ml Neb Soln) 2.5 mg NEB Q4H PRN PRN Reason: Shortness Of Breath/wheezing Apixaban (Apixaban 5 Mg Tab) 5 mg PO BID [facility] Last Admin: 09/03/20 08:21 Dose: 5 mg Documented by: Aspirin (Aspirin 81 Mg Tab.Chew) 324 mg PO DAILY [facility] Last Admin: 09/03/20 08:27 Dose: 324 mg Documented by: Benzocaine/Menthol (Benzocaine/Cetylpyridinium/Menthol Lozenge) 1 lozenge MUCMEM Q2H PRN PRN Reason: Sore Throat Last Admin: 09/02/20 19:43 Dose: 1 lozenge Documented by: Bisacodyl (Bisacodyl 5 Mg Tab) 10 mg PO BID [facility] Last Admin: 09/03/20 08:26 Dose: Not Given Documented by: Bisacodyl (Bisacodyl 10 Mg Supp) 10 mg RECTAL BID PRN PRN Reason: Constipation Last Admin: 08/29/20 15:21 Dose: 10 mg Documented by: Bisacodyl (Bisacodyl 10 Mg Supp) 10 mg RECTAL BID [facility] Last Admin: 09/03/20 08:26 Dose: Not Given Documented by: Docusate Sodium (Docusate Sodium 100 Mg Cap) 100 mg PO BID [facility] Last Admin: 09/03/20 08:27 Dose: 100 mg Documented by: Duloxetine HCl (Duloxetine 20 Mg Cap) 20 mg PO DAILY [facility] Last Admin: 09/03/20 08:27 Dose: 20 mg Documented by: Ezetimibe (Ezetimibe 10 Mg Tab) 5 mg PO DAILY [facility] Last Admin: 09/03/20 08:27 Dose: 5 mg Documented by: Gabapentin (Gabapentin 300 Mg Cap) 600 mg PO TID [facility] Last Admin: 09/03/20 08:26 Dose: 600 mg Documented by: Hydromorphone HCl (Hydromorphone 2 Mg Tab) 2 - 4 mg PO Q4H PRN PRN Reason: Pain Last Admin: 08/30/20 09:08 Dose: 4 mg Documented by: Hydromorphone HCl (Hydromorphone/Normal Saline 15 Mg/30 Ml Home Aide) 0 mg IV ASDIRECTED PRN; Protocol PRN Reason: Pain Last Admin: 09/01/20 10:39 Dose: 15 mg Documented by: Hydroxyzine HCl (Hydroxyzine Hcl 100 Mg/2 Ml Sdv) 100 mg IM Q4H PRN PRN Reason: Pain Last Admin: 08/31/20 05:02 Dose: 100 mg Documented by: Potassium Phosphate 15 mmol/ (Premix) 250 mls @ 125 mls/hr IV Q2H [facility] Stop: 09/03/20 14:59 Magnesium Sulfate (Magnesium Sulfate In Water 2 Gm/50 Ml) 2 gm in 50 mls @ 25 mls/hr IV Q6H [facility] Stop: 09/06/20 04:59 Last Admin: 09/03/20 08:26 Dose: 25 mls/hr Documented by: Sodium Chloride (Normal Saline) 1,000 mls @ 25 mls/hr IV ASDIRECTED [facility] Last Admin: 09/03/20 08:17 Dose: 25 mls/hr Documented by: Lactobacillus Rhamnosus (Lactobacillus Rhamnosus Gg (Probiotic) Cap) 1 cap PO BID [facility] Last Admin: 09/03/20 08:21 Dose: 1 cap Documented by: Levothyroxine Sodium (Levothyroxine 50 Mcg Tab) 150 mcg PO DAILY@0730 [facility] Last Admin: 09/03/20 08:21 Dose: 150 mcg Documented by: Lisinopril (Lisinopril 2.5 Mg Tab) 2.5 mg PO DAILY [facility] Last Admin: 09/01/20 08:50 Dose: 2.5 mg Documented by: Lorazepam (Lorazepam 2 Mg/Ml Sdv) 0.5 mg IVPUSH Q4H PRN PRN Reason: Nausea/Vomiting Last Admin: 08/27/20 02:13 Dose: 0.5 mg Documented by: Magnesium Hydroxide (Magnesium Hydroxide 400 Mg/5 Ml Susp 30 Ml Cup) 30 ml PO Q12H PRN PRN Reason: Constipation Melatonin (Melatonin 3 Mg Tab) 9 mg PO BEDTIME PRN PRN Reason: Sleep Last Admin: 08/24/20 20:45 Dose: 9 mg Documented by: Metoclopramide HCl (Metoclopramide 10 Mg/2 Ml Sdv) 10 mg IVPUSH Q6H [facility] Last Admin: 09/03/20 08:30 Dose: 10 mg Documented by: Naloxone HCl (Naloxone 0.4 Mg/Ml Sdv) 0.4 mg IVPUSH Q2M PRN PRN Reason: Respiratory Distress Ondansetron HCl (Ondansetron 4 Mg/2 Ml Sdv) 4 mg IV Q6H PRN PRN Reason: Nausea/Vomiting Last Admin: 08/30/20 11:04 Dose: 4 mg Documented by: Ondansetron HCl (Ondansetron 4 Mg Tab.Dis) 4 mg PO Q6H PRN PRN Reason: Nausea able to take PO Last Admin: 09/01/20 09:59 Dose: 4 mg Documented by: Oxybutynin Chloride (Oxybutynin 5 Mg Tab) 5 mg PO TID [facility] Last Admin: 09/03/20 08:19 Dose: 5 mg Documented by: Pantoprazole Sodium (Pantoprazole 40 Mg Vial) 40 mg IVPUSH DAILY [facility] Last Admin: 09/03/20 08:26 Dose: 40 mg Documented by: Senna/Docusate Sodium (Docusate Sodium/Sennosides 50-8.6 Mg Tab) 1 tab PO BID PRN PRN Reason: Constipation Sertraline HCl (Sertraline 25 Mg Tab) 25 mg PO DAILY [facility] Last Admin: 09/03/20 08:27 Dose: 25 mg Documented by: Simvastatin (Simvastatin 20 Mg Tab) 20 mg PO BEDTIME [facility] Last Admin: 09/02/20 20:42 Dose: 20 mg Documented by: Sotalol HCl (Sotalol 80 Mg Tab) 120 mg PO BID [facility] Last Admin: 09/03/20 08:21 Dose: 120 mg Documented by: Spironolactone (Spironolactone 25 Mg Tab) 25 mg PO DAILY [facility] Last Admin: 09/03/20 08:26 Dose: 25 mg Documented by: Tamsulosin HCl (Tamsulosin 0.4 Mg Cap.Er) 0.4 mg PO BEDTIME [facility] Last Admin: 09/02/20 20:41 Dose: 0.4 mg Documented by: Discontinued Medications Hydrocodone Bitart/Acetaminophen (Acetaminophen/Hydrocodone 325-5 Mg Tab) 1 - 2 tab PO Q4H PRN PRN Reason: Pain Aspirin (Aspirin 325 Mg Tab.Ec) 325 mg PO DAILY [facility] Last Admin: 08/31/20 08:15 Dose: Not Given Documented by: Bisacodyl (Bisacodyl 10 Mg Supp) 10 mg RECTAL BID [facility] Last Admin: 08/28/20 20:27 Dose: 10 mg Documented by: Bupivacaine HCl (Bupivacaine 0.5% 50 Ml Mdv) Confirm Administered Dose 50 ml .ROUTE .STK-MED ONE Stop: 08/27/20 06:33 Bupivacaine HCl (Bupivacaine 0.5% 50 Ml Mdv) Confirm Administered Dose 50 ml .ROUTE .STK-MED ONE Stop: 08/28/20 06:37 Last Admin: 08/28/20 07:40 Dose: 12.4 ml Documented by: Bupivacaine HCl/Epinephrine Bitart (Bupivacaine 0.5%/Epinephrine 1:200,000 50 Ml Mdv) Confirm Administered Dose 50 ml .ROUTE .STK-MED ONE Stop: 08/25/20 07:15 Last Admin: 08/25/20 13:23 Dose: 40 ml Documented by: Ropivacaine 50 ml/Dexamethasone 8 mg/Epinephrine HCl 0.4 mg/ Sodium Chloride 27.6 ml 0 ml NERVRT ASDIRECTED [facility] Last Admin: 08/25/20 11:23 Dose: 80 syringe Documented by: Ropivacaine 50 ml/Dexamethasone 8 mg/Epinephrine HCl 0.4 mg/ Sodium Chloride 27.6 ml 0 ml NERVRT ASDIRECTED [facility] Last Admin: 08/28/20 07:31 Dose: 80 syringe Documented by: Dexamethasone (Dexamethasone 4 Mg/Ml Sdv) Confirm Administered Dose 4 mg .ROUTE .STK-MED ONE Stop: 08/25/20 07:21 Fentanyl (Fentanyl 250 Mcg/5 Ml Sdv) Confirm Administered Dose 250 mcg .ROUTE .STK-MED ONE Stop: 08/25/20 07:21 Fentanyl (Fentanyl 100 Mcg/2 Ml Sdv) Confirm Administered Dose 100 mcg .ROUTE .STK-MED ONE Stop: 08/25/20 12:00 Fentanyl (Fentanyl 100 Mcg/2 Ml Sdv) Confirm Administered Dose 100 mcg .ROUTE .STK-MED ONE Stop: 08/28/20 06:51 Furosemide (Furosemide 20 Mg/2 Ml Vial) 20 mg IVPUSH Q8H [facility] Stop: 08/28/20 17:01 Last Admin: 08/28/20 16:35 Dose: 20 mg Documented by: Furosemide (Furosemide 20 Mg/2 Ml Vial) 20 mg IVPUSH Q6H [facility] Stop: 09/01/20 14:01 Last Admin: 09/01/20 15:08 Dose: 20 mg Documented by: Furosemide (Furosemide 40 Mg/4 Ml Vial) 40 mg IVPUSH ONETIME ONE Stop: 09/02/20 13:46 Last Admin: 09/02/20 13:53 Dose: 40 mg Documented by: Furosemide (Furosemide 20 Mg/2 Ml Vial) 20 mg IVPUSH ONETIME ONE Stop: 09/03/20 09:01 Last Admin: 09/03/20 08:26 Dose: 20 mg Documented by: Gabapentin (Gabapentin 100 Mg Cap) 600 mg PO TID [facility] Last Admin: 08/24/20 20:50 Dose: Not Given Documented by: Glycopyrrolate (Glycopyrrolate 0.2 Mg/Ml 5 Ml Mdv) Confirm Administered Dose 1 mg .ROUTE .STK-MED ONE Stop: 08/25/20 07:21 Hydromorphone HCl (Hydromorphone 0.5 Mg/0.5 Ml Syringe) 0.5 mg IVPUSH ONETIME ONE Stop: 08/24/20 15:32 Last Admin: 08/24/20 15:45 Dose: 0.5 mg Documented by: Hydromorphone HCl (Hydromorphone 1 Mg/Ml Syringe) 1 mg IVPUSH ONETIME ONE Stop: 08/24/20 17:24 Last Admin: 08/24/20 18:20 Dose: 1 mg Documented by: Hydromorphone HCl (Hydromorphone/Normal Saline 15 Mg/30 Ml Home Aide) 0 mg IV ASDIRECTED PRN; Protocol PRN Reason: Pain Last Admin: 08/28/20 10:50 Dose: 15 mg Documented by: Sodium Chloride (Normal Saline) 1,000 mls @ 999 mls/hr IV ASDIRECTED [facility] Last Admin: 08/24/20 15:45 Dose: 999 mls/hr Documented by: Sodium Chloride (Normal Saline) 1,000 mls @ 300 mls/hr IV ASDIRECTED [facility] Lactated Ringer's (Ringers, Lactated) 1,000 mls @ 100 mls/hr IV ASDIRECTED [facility] Last Admin: 08/25/20 02:58 Dose: 100 mls/hr Documented by: Ampicillin Sodium/Sulbactam (Sodium 3 gm/ Sodium Chloride) 100 mls @ 200 mls/hr IV Q6H [facility] Last Admin: 08/25/20 05:04 Dose: 200 mls/hr Documented by: Aztreonam 1 gm/ Sodium (Chloride) 50 mls @ 100 mls/hr IV Q8H [facility] Last Admin: 08/25/20 05:05 Dose: 100 mls/hr Documented by: Aztreonam 1 gm/ Sodium (Chloride) 50 mls @ 100 mls/hr IV Q8H [facility] Last Admin: 09/01/20 12:30 Dose: 100 mls/hr Documented by: Magnesium Sulfate (Magnesium Sulfate In Water 2 Gm/50 Ml) 2 gm in 50 mls @ 25 mls/hr IV Q6H [facility] Stop: 08/25/20 18:29 Last Admin: 08/25/20 16:14 Dose: 25 mls/hr Documented by: Ampicillin Sodium/Sulbactam (Sodium 3 gm/ Sodium Chloride) 100 mls @ 200 mls/hr IV Q6H [facility] Last Admin: 09/01/20 11:54 Dose: 200 mls/hr Documented by: Lactated Ringer's (Ringers, Lactated) Confirm Administered Dose 1,000 mls @ as directed .ROUTE .[facility]-MED ONE Stop: 08/25/20 11:32 Dextrose/Lactated Ringer's (Dextrose 5%-Lactated Ringers) 1,000 mls @ 150 mls/hr IV ASDIRECTED [facility] Last Admin: 08/26/20 03:57 Dose: 150 mls/hr Documented by: Potassium Phosphate 15 mmole/ (Sodium Chloride) 255 mls @ 85 mls/hr IV Q3H [facility] Stop: 08/26/20 17:59 Last Admin: 08/26/20 15:25 Dose: 85 mls/hr Documented by: Dextrose/Lactated Ringer's (Dextrose 5%-Lactated Ringers) 1,000 mls @ 80 mls/hr IV ASDIRECTED [facility] Last Admin: 08/29/20 13:46 Dose: 80 mls/hr Documented by: Dextrose/Lactated Ringer's (Dextrose 5%-Lr) 500 mls @ 250 mls/hr IV ONETIME ONE Stop: 08/27/20 17:59 Last Admin: 08/27/20 16:00 Dose: 250 mls/hr Documented by: Lactated Ringer's (Ringers, Lactated) 500 mls @ 250 mls/hr IV ONETIME ONE Stop: 08/27/20 18:14 Last Admin: 08/27/20 17:02 Dose: 250 mls/hr Documented by: Potassium Phosphate 15 mmole/ (Sodium Chloride) 255 mls @ 125 mls/hr IV Q2H [facility] Stop: 08/28/20 15:59 Last Admin: 08/28/20 16:03 Dose: 125 mls/hr Documented by: Magnesium Sulfate (Magnesium Sulfate In Water 2 Gm/50 Ml) 2 gm in 50 mls @ 25 mls/hr IV Q6HR [facility] Stop: 08/30/20 05:59 Last Admin: 08/30/20 03:00 Dose: 25 mls/hr Documented by: Azithromycin 250 mg/ Sodium (Chloride) 150 mls @ 150 mls/hr IV Q12H [facility] Last Admin: 08/30/20 09:11 Dose: 150 mls/hr Documented by: Dextrose/Lactated Ringer's (Dextrose 5%-Lactated Ringers) 1,000 mls @ 100 mls/hr IV ASDIRECTED [facility] Last Admin: 09/02/20 09:19 Dose: 100 mls/hr Documented by: Potassium Phosphate 15 mmole/ (Sodium Chloride) 255 mls @ 125 mls/hr IV Q2H [facility] Stop: 09/01/20 15:59 Last Admin: 09/01/20 15:52 Dose: 125 mls/hr Documented by: Dextrose/Lactated Ringer's (Dextrose 5%-Lactated Ringers) 1,000 mls @ 25 mls/hr IV ASDIRECTED [facility] Last Admin: 09/03/20 07:40 Dose: 25 mls/hr Documented by: Lidocaine HCl (Lidocaine 2% Jelly 10 Ml Urojet) Confirm Administered Dose 10 ml .ROUTE .STK-MED ONE Stop: 08/25/20 10:49 Last Admin: 08/26/20 10:35 Dose: 10 ml Documented by: Lidocaine/Epinephrine (Lidocaine 1% With Epinephrine 1:100,000 50 Ml Mdv) Confirm Administered Dose 50 ml .ROUTE .STK-MED ONE Stop: 08/27/20 06:33 Lidocaine/Epinephrine (Lidocaine 1% With Epinephrine 1:100,000 50 Ml Mdv) Confirm Administered Dose 50 ml .ROUTE .STK-MED ONE Stop: 08/28/20 06:37 Last Admin: 08/28/20 07:40 Dose: 12.4 ml Documented by: Meropenem (Meropenem 500 Mg Sdv) Confirm Administered Dose 500 mg .ROUTE .STK- MED ONE Stop: 08/25/20 11:15 Last Admin: 08/25/20 11:47 Dose: 1,000 mg Documented by: Meropenem (Meropenem 500 Mg Sdv) Confirm Administered Dose 500 mg .ROUTE .STK- MED ONE Stop: 08/25/20 12:12 Meropenem (Meropen[place] 500 Mg Sdv) Confirm Administered Dose 500 mg .ROUTE .STK- MED ONE Stop: 08/27/20 06:33 Meropenem (Meropenem 500 Mg Sdv) Confirm Administered Dose 500 mg .ROUTE .STK- MED ONE Stop: 08/28/20 06:37 Last Admin: 08/28/20 07:40 Dose: 500 mg Documented by: Metoprolol Tartrate (Metoprolol Tartrate 5 Mg/5 Ml Sdv) 2.5 mg IVPUSH Q6H [facility] Last Admin: 08/28/20 03:32 Dose: Not Given Documented by: Metoprolol Tartrate (Metoprolol Tartrate 25 Mg Tab) 25 mg PO ONETIME ONE Stop: 09/02/20 19:44 Last Admin: 09/02/20 20:38 Dose: 25 mg Documented by: Neostigmine Methylsulfate (Neostigmine Methylsulfate 1 Mg/Ml 5 Ml Syringe) Confirm Administered Dose 5 mg .ROUTE .STK-MED ONE Stop: 08/25/20 07:21 Ondansetron HCl (Ondansetron 4 Mg/2 Ml Sdv) 4 mg IVPUSH ONETIME ONE Stop: 08/24/20 15:32 Last Admin: 08/24/20 15:44 Dose: 4 mg Documented by: Ondansetron HCl (Ondansetron 4 Mg/2 Ml Sdv) Confirm Administered Dose 4 mg .ROUTE .STK-MED ONE Stop: 08/25/20 07:21 Pantoprazole Sodium (Pantoprazole 40 Mg Vial) 40 mg IV ONETIME ONE Stop: 08/24/20 20:01 Last Admin: 08/24/20 20:46 Dose: 40 mg Documented by: Pantoprazole Sodium (Pantoprazole 40 Mg Vial) 40 mg IV Q24H [facility] Last Admin: 08/29/20 15:34 Dose: 40 mg Documented by: Pantoprazole Sodium (Pantoprazole 40 Mg Tab.Cr) 40 mg PO Q24H [facility] Last Admin: 08/31/20 15:47 Dose: Not Given Documented by: Pantoprazole Sodium (Pantoprazole 40 Mg Vial) 40 mg IVPUSH DAILY [facility] Pneumococcal Polyvalent Vaccine (Pneumococcal Polyvalent-23 Vaccine 0.5 Ml Sdv) 0.5 ml IM .ONCE ONE Stop: 08/24/20 19:28 Last Admin: 08/24/20 20:21 Dose: Not Given Documented by: Propofol (Propofol 200 Mg/20 Ml Sdv) Confirm Administered Dose 200 mg .ROUTE .STK-MED ONE Stop: 08/25/20 07:21 Propofol (Propofol 200 Mg/20 Ml Sdv) Confirm Administered Dose 200 mg .ROUTE .STK-MED ONE Stop: 08/28/20 06:51 Rocuronium [place] (Rocuronium 50 Mg/5 Ml Vial) Confirm Administered Dose 50 mg .ROUTE .STK-MED ONE Stop: 08/25/20 07:21 Rocuronium [place] (Rocuronium 50 Mg/5 Ml Vial) Confirm Administered Dose 50 mg .ROUTE .STK-MED ONE Stop: 08/25/20 11:58 Succinylcholine Chloride (Succinylcholine 200 Mg/10 Ml Mdv) Confirm Administered Dose 200 mg .ROUTE .[facility]-MED ONE Stop: 08/25/20 07:21 - Exam Quality Assessment: Supplemental Oxygen General: Alert, Oriented, Cooperative, No Acute Distress Neck: Supple, JVD (mild) Lungs: Normal Respiratory Effort, Decreased Breath Sounds (mild both bases). No: Crackles Cardiovascular: Regular Rate, No Murmurs, Irregular Rhythm GI/Abdominal Exam: Soft, No Distention. No: Normal Bowel Sounds (mildly hypoactive ) Extremities: No Pedal Edema, Other (swelling of right arm ). No: Increased Warmth Skin: Warm, Dry Psy/Mental Status: Alert, Normal Affect - Patient Data Lab Results Last 24 hrs: Laboratory Results - last 24 hr 09/03/20 09/03/20 Range/Units 04:15 04:15 WBC 11.2 H (4.5-11.0) K/uL RBC 4.49 (4.30-5.90) M/uL Hgb 13.3 (12.0-15.0) g/dL Hct 39.6 L (40.0-54.0) % MCV 88 (80-98) fL MCH 30 (27-31) pg MCHC 34 (32-36) % Plt Count 325 (150-400) K/uL Sodium 140 (140-148) mmol/L Potassium 3.7 (3.6-5.2) mmol/L Chloride 102 (100-108) mmol/L Carbon Dioxide 27 (21-32) mmol/L Anion Gap 11.5 (5.0-14.0) mmol/L BUN 13 (7-18) mg/dL Creatinine 0.9 (0.8-1.3) mg/dL Est Cr Clr Drug Dosing 76.60 mL/min Estimated GFR (MDRD) > 60 (>60) Glucose 131 H (74-106) mg/dL Calcium 8.3 L (8.5-10.1) mg/dL Phosphorus 2.7 (2.5-4.9) mg/dL Magnesium 1.7 L (1.8-2.4) mg/dL Total Bilirubin 0.6 (0.2-1.0) mg/dL AST 26 (15-37) U/L ALT 24 (12-78) U/L Alkaline Phosphatase 63 (46-116) U/L NT-Pro-B Natriuret Pep 2350 H (5-125) pg/mL Total Protein 6.1 L (6.4-8.2) g/dL Albumin 2.3 L (3.4-5.0) g/dL Globulin 3.8 H (2.3-3.5) g/dL Albumin/Globulin Ratio 0.6 L (1.2-2.2) Result Diagrams: 09/03/20 04:15 09/03/20 04:15 Sepsis Event Note - Evaluation Sepsis Screening Result: No Definite Risk - Focused Exam Vital Signs: Vital Signs Temp Pulse Pulse Resp BP BP Pulse Ox 09/03/20 10:33 36.4 C 100 16 106/49 L 96 09/03/20 08:21 98 137/75 09/03/20 07:40 95 09/03/20 07:00 36.3 C 98 16 104/74 96 09/03/20 03:00 36.4 C 87 18 94/52 L 09/03/20 01:11 91 L - Problem List & Annotations (1) Acute appendicitis SNOMED Code(s): 72255235 Code(s): K35.80 - UNSPECIFIED ACUTE APPENDICITIS Status: Acute Current Visit: Yes Qualifiers: Acute appendicitis type: with localized peritonitis Appendicitis gangrene presence: without gangrene Appendicitis perforation presence: without perfo ration Appendicitis abscess presence: without abscess Qualified Code(s): K35.30 - Acute appendicitis with localized peritonitis, without perforation or gangrene (2) History of stroke with residual deficit SNOMED Code(s): 993921548 Code(s): I69.30 - UNSPECIFIED SEQUELAE OF CEREBRAL INFARCTION Status: Chronic Current Visit: Yes (3) Atrial fibrillation SNOMED Code(s): 82965770 Code(s): I48.91 - UNSPECIFIED ATRIAL FIBRILLATION Status: Chronic Current Visit: No Qualifiers: Atrial fibrillation type: longstanding persistent Qualified Code(s): I48.11 - Longstanding persistent atrial fibrillation (4) CAD (coronary artery disease) SNOMED Code(s): 18269283 Code(s): I25.10 - ATHSCL HEART DISEASE OF [place] CORONARY ARTERY W/O ANG PCTRS Status: Chronic Current Visit: No Qualifiers: Coronary Disease-Associated Artery/Lesion type: [place] artery [place] vs. transplanted heart: [place] heart Associated angina: without angina Qualified Code(s): I25.10 - Atherosclerotic heart disease of [place] coronary artery without angina pectoris (5) Chronic systolic CHF (congestive heart failure) SNOMED Code(s): 048114262, 488666054 Code(s): I50.22 - CHRONIC SYSTOLIC (CONGESTIVE) HEART FAILURE Status: Chronic Current Visit: No (6) Cardiomyopathy SNOMED Code(s): 24035829 Code(s): I42.9 - CARDIOMYOPATHY, UNSPECIFIED Status: Chronic Current Visit: No Qualifiers: Cardiomyopathy type: ischemic Qualified Code(s): I25.5 - Ischemic cardiomyopathy (7) Hx of deep venous thrombosis SNOMED Code(s): 523593476 Code(s): Z86.718 - PERSONAL HISTORY OF OTHER VENOUS THROMBOSIS AND EMBOLISM Status: Chronic Current Visit: No - Problem List Review Problem List Initiated/Reviewed/Updated: Yes - My Orders Last 24 Hours: My Active Orders 09/02/20 13:33 Benzocaine/Cetylpyrd/Menthol [Cepacol Sore Throat] 1 lozenge MUCMEM Q2H PRN 09/02/20 21:00 Apixaban [Eliquis] 5 mg PO BID - Plan Plan:: ASSESSMENT AND PLAN Acute appendicitis without perforation-status post appendectomy performed 08/[address] Acevedo. Postoperative course complicated by persistent ileus versus d eveloping obstruction. NG tube is out in a gentle diet has been initiated. -Symptomatic management of pain and nausea -Postoperative care per Dr. Acevedo Chronic systolic congestive heart failure-complicated by ischemic cardiomyopathy. Last ejection fraction was between 35 and 40%. Volume status s lightly hypervolemic again today. -Continue medical management -Judicious fluid use around the time of surgery -Furosemide x1 this morning, reassess this afternoon Chronic atrial fibrillation-he has had several episodes of atrial fibrillation, sometimes with a rapid response but overall rate control has been pretty good. 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 Gets around without a cane most of the time. Maintenance issues -DVT prophylaxis-mechanical -GI prophylaxis-IV PPI -Nutrition-sips of clear liquids Disposition -I [facility] after the hospital stay Jimmy Gutierrez MD
--- NOTE | 2020-09-03 11:16 | PN ---
DATE OF SERVICE: 09/03/2020 SUBJECTIVE: Sriram continues to have his NG and it has been clamped. He has had no further emesis. Oral intake was 600 and urine output 1500. BNP went up to 2350 and his mag was 1.5. He did have 3 bowel movements. REVIEW OF SYSTEMS: Remainder of review of systems negative for any pertinent positives and negatives. OBJECTIVE: GENERAL: Sriram Hodges is a pleasant, 70-year-old male. He is alert and orientated. VITAL SIGNS: TPR is 97.3, 98, 16; blood pressure 104/74. HEENT: Negative. NECK: Supple. HEART: Regular rate and rhythm. LUNGS: Clear. ABDOMEN: Slightly distended, nontender. EXTREMITIES: Without peripheral edema. ASSESSMENT: 1. Postoperative ileus. 2. Diagnostic laparoscopy turned to laparotomy with: a. Partial cecectomy with excision of over line nodule peritoneal lesion. b. Appendectomy with drainage of periappendiceal abscess. POSTOPERATIVE DIAGNOSES: 1. Perforated appendicitis with periappendiceal abscess. 2. Nodular lesions overlying the cecum. Date of procedure: 08/25/2020. Surgeon: Vazquez Acevedo MD. Delayed primary closure: 08/28/2020. Surgeon: Vazquez Acevedo MD. PLAN: 1. Discontinue NG. 2. Ensure clear q.i.d. and at bedtime. 3. Continue sips of clear liquids. 4. Lasix 20 mg IV 1 time now. 5. K-Phos 30 mmol IV 1 time. 6. Magnesium 2 g IV q.6 hours x72 hours IV. 7. Abdominal flat and upright x-ray in a.m. at 0400. 8. Check CBC, CMP, phos, and BNP in a.m. 9. We will evaluate p.r.n. or in a.m. Ellen Houston PA-C /[id number]
[2020-09-03] MEDS: Potassium Phos in 0.9 % NaCl 15 MMOL in Premix Bag 1 BAG IV SCH ×4 (11:44→14:04)
[2020-09-03] MEDS: Tamsulosin 0.4 MG Cap.ER PO SCH (20:41)
[2020-09-03] MEDS: Simvastatin 20 MG Tab PO SCH (20:42)
[2020-09-04] MEDS: Magnesium Sulfate/Water 2 GM/50 ML BAG IV SCH ×4 (02:35→20:32)
[2020-09-04] MEDS: Metoclopramide 10 MG/2 ML SDV IVPUSH SCH ×4 (02:35→20:42)
--- NOTE | 2020-09-04 06:23 | CRLCR ---
INDICATION: Postop ileus TECHNIQUE: Upright and supine views. COMPARISON: Two-view abdomen September 03, 2020 FINDINGS: There are persistent dilated air and fluid-filled loops of colon and small bowel with improved distention from comparison exam. There is a no significant amount of intracolonic fecal distention. This there is redemonstration of IVC filter and surgical clips in the right upper quadrant. There is no acute osseous abnormality. IMPRESSION: Overall slightly improved gaseous and fluid distention of multiple loops of colon and small bowel with residual air-fluid levels likely representing slightly improving ileus from comparison. Dictated by Moses Landon MD @ 09/04/2020 6:22:[address] Moses Landon @ Sep 04 2020 6:22AM
[2020-09-04] MEDS ORDERED: traMADol 50 MG Tab PO PRN (07:04)
[2020-09-04] MEDS: Levothyroxine 50 MCG Tab PO SCH (08:16)
[2020-09-04] MEDS: Sotalol 80 MG Tab PO SCH ×2 (08:18→20:30)
[2020-09-04] MEDS: Lactobacillus Rhamnosus GG (Probiotic) Cap PO SCH ×2 (08:19→20:30)
[2020-09-04] MEDS: Oxybutynin 5 MG Tab PO SCH ×3 (08:20→20:42)
[2020-09-04] MEDS: Gabapentin 300 MG Cap PO SCH ×3 (08:20→20:41)
[2020-09-04] MEDS: Ezetimibe 10 MG Tab PO SCH (08:21)
[2020-09-04] MEDS: Sertraline 25 MG Tab PO SCH (08:21)
[2020-09-04] MEDS: Bisacodyl 5 MG Tab PO SCH ×2 (08:21→20:30)
[2020-09-04] MEDS: Apixaban 5 MG Tab PO SCH ×2 (08:22→20:28)
[2020-09-04] MEDS: Pantoprazole 40 MG Vial IVPUSH SCH (08:22)
[2020-09-04] MEDS: Spironolactone 25 MG Tab PO SCH (08:26)
[2020-09-04] MEDS: Bisacodyl 10 MG Supp RECTAL SCH ×2 (08:27→20:29)
[2020-09-04] MEDS: DULoxetine 20 MG Cap PO SCH (08:32)
[2020-09-04] MEDS: Aspirin 81 MG Tab.Chew PO SCH (08:39)
--- NOTE | 2020-09-04 08:55 | PN ---
DATE OF SERVICE: 09/04/2020 CORRECTED REPORT: SUBJECTIVE: Sriram has shown much improvement. His oral intake was 1120 on his Ensure supplements and sips of clear liquids. He has had 1250 out. Pain has been controlled. Abdominal flat and upright shows improvement of the ileus. He has been afebrile. REVIEW OF SYSTEMS: Remainder of review of systems negative for any pertinent positives and negatives. OBJECTIVE: GENERAL: Lemuel Hodges is a pleasant 70-year-old male, alert and orientated. VITAL SIGNS: TPR is 97.3, 102, 16. Blood pressure 100/57. HEENT: Negative. NECK: Supple. HEART: Regular rate and rhythm. LUNGS: Clear. ABDOMEN: Dressing, Aquacel is on. Abdominal binder is on. EXTREMITIES: Without peripheral edema. ASSESSMENT: 1. Perforated appendicitis with periappendiceal abscess. 2. Nodular lesions overlying the cecum. Date of procedure 08/25/2020. Surgeon: Vazquez Acevedo MD. Delayed primary closure 08/28/2020. Surgeon: Vazquez Acevedo MD. Postoperative ileus x2. The 2nd episode is resolving. PLAN: 1. Discontinue CARPET WINDER and continuous pulse ox. 2. Tramadol 50 mg q.4 hours. 3. Full liquid diet. 4. Lasix 20 mg IV 1 time only. 5. K-Phos 30 mmol IV today. 6. Check CBC, CMP, phos, BNP, and CBC in a.m. 7. Discontinue abdominal x-ray. 8. Continue use of incentive spirometer. 9. We will evaluate p.r.n. or in a.m. Ellen Houston PA-C /[id number]
[2020-09-04] MEDS ORDERED: Furosemide 20 MG/2 ML VIAL IVPUSH ONE (09:00)
[2020-09-04] MEDS: HYDROmorphone 2 MG Tab PO PRN ×3 (09:23→17:49)
[2020-09-04] MEDS: Docusate Sodium 100 MG Cap PO SCH ×2 (09:24→20:41)
--- NOTE | 2020-09-04 10:06 | PCM.PN ---
- General Info Date of Service: 09/04/20 Subjective Update: No acute events overnight. Patient continues to pass gas and have bowel movements. No report of abdominal pain or nausea today. He does have intermittent episodes of atrial fibrillation, sometimes with a rapid ventricular response though this is very short-lived. No fevers. Still on oxygen at about 2 L/min. Diet advanced to full liquids today after tolerating clear liquids yesterday. Functional Status: Reports: Pain Controlled, Tolerating Diet - Review of Systems Pulmonary: Denies: Shortness of Breath Cardiovascular: Reports: Edema (right arm and right leg ) Gastrointestinal: Denies: Abdominal Pain - Patient Data Vitals - Most Recent: Last Vital Signs Temp 36.3 C 09/04/20 07:00 Pulse 85 09/04/20 08:18 Resp 16 09/04/20 07:00 BP 109/66 09/04/20 08:18 Pulse Ox 96 09/04/20 07:21 Weight - Most Recent: 97.976 kg I&O - Last 24 Hours: Intake & Output 09/03/20 09/04/20 09/04/20 22:59 06:59 14:59 Intake Total 389 524 Output Total 250 450 Balance 139 74 Lab Results Last 24 Hours: Laboratory Results - last 24 hr 09/04/20 09/04/20 Range/Units 04:30 04:30 WBC 14.2 H (4.5-11.0) K/uL RBC 4.57 (4.30-5.90) M/uL Hgb 13.1 (12.0-15.0) g/dL Hct 40.1 (40.0-54.0) % MCV 88 (80-98) fL MCH 29 (27-31) pg MCHC 33 (32-36) % Plt Count 381 (150-400) K/uL Sodium 138 L (140-148) mmol/L Potassium 3.9 (3.6-5.2) mmol/L Chloride 101 (100-108) mmol/L Carbon Dioxide 24 (21-32) mmol/L Anion Gap 16.9 H (5.0-14.0) mmol/L BUN 10 (7-18) mg/dL Creatinine 0.8 (0.8-1.3) mg/dL Est Cr Clr Drug Dosing 86.18 mL/min Estimated GFR (MDRD) > 60 (>60) Glucose 119 H (74-106) mg/dL Calcium 8.1 L (8.5-10.1) mg/dL Phosphorus 2.8 (2.5-4.9) mg/dL Total Bilirubin 0.7 (0.2-1.0) mg/dL AST 20 (15-37) U/L ALT 22 (12-78) U/L Alkaline Phosphatase 63 (46-116) U/L NT-Pro-B Natriuret Pep 2085 H (5-125) pg/mL Total Protein 6.5 (6.4-8.2) g/dL Albumin 2.4 L (3.4-5.0) g/dL Globulin 4.1 H (2.3-3.5) g/dL Albumin/Globulin Ratio 0.6 L (1.2-2.2) Med Orders - Current: Current Medications Acetaminophen (Acetaminophen 325 Mg Tab) 650 mg PO Q4H PRN PRN Reason: Pain (Mild 1-3)/fever Albuterol (Albuterol 0.083% 2.5 Mg/3 Ml Neb Soln) 2.5 mg NEB Q4H PRN PRN Reason: Shortness Of Breath/wheezing Apixaban (Apixaban 5 Mg Tab) 5 mg PO BID [facility] Last Admin: 09/04/20 08:22 Dose: 5 mg Documented by: Aspirin (Aspirin 81 Mg Tab.Chew) 324 mg PO DAILY [facility] Last Admin: 09/04/20 08:39 Dose: 324 mg Documented by: Benzocaine/Menthol (Benzocaine/Cetylpyridinium/Menthol Lozenge) 1 lozenge MUCMEM Q2H PRN PRN Reason: Sore Throat Last Admin: 09/02/20 19:43 Dose: 1 lozenge Documented by: Bisacodyl (Bisacodyl 5 Mg Tab) 10 mg PO BID [facility] Last Admin: 09/04/20 08:21 Dose: 10 mg Documented by: Bisacodyl (Bisacodyl 10 Mg Supp) 10 mg RECTAL BID PRN PRN Reason: Constipation Last Admin: 08/29/20 15:21 Dose: 10 mg Documented by: Bisacodyl (Bisacodyl 10 Mg Supp) 10 mg RECTAL BID [facility] Last Admin: 09/04/20 08:27 Dose: 10 mg Documented by: Docusate Sodium (Docusate Sodium 100 Mg Cap) 100 mg PO BID [facility] Last Admin: 09/04/20 09:24 Dose: 100 mg Documented by: Duloxetine HCl (Duloxetine 20 Mg Cap) 20 mg PO DAILY [facility] Last Admin: 09/04/20 08:32 Dose: 20 mg Documented by: Ezetimibe (Ezetimibe 10 Mg Tab) 5 mg PO DAILY [facility] Last Admin: 09/04/20 08:21 Dose: 5 mg Documented by: Gabapentin (Gabapentin 300 Mg Cap) 600 mg PO TID [facility] Last Admin: 09/04/20 08:20 Dose: 600 mg Documented by: Hydromorphone HCl (Hydromorphone 2 Mg Tab) 2 - 4 mg PO Q4H PRN PRN Reason: Pain Last Admin: 09/04/20 09:23 Dose: 2 mg Documented by: Hydroxyzine HCl (Hydroxyzine Hcl 100 Mg/2 Ml Sdv) 100 mg IM Q4H PRN PRN Reason: Pain Last Admin: 08/31/20 05:02 Dose: 100 mg Documented by: Magnesium Sulfate (Magnesium Sulfate In Water 2 Gm/50 Ml) 2 gm in 50 mls @ 25 mls/hr IV Q6H [facility] Stop: 09/06/20 04:59 Last Admin: 09/04/20 08:44 Dose: 25 mls/hr Documented by: Sodium Chloride (Normal Saline) 1,000 mls @ 25 mls/hr IV ASDIRECTED [facility] Last Admin: 09/03/20 08:17 Dose: 25 mls/hr Documented by: Potassium Phosphate 15 mmol/ (Premix) 250 mls @ 125 mls/hr IV Q2H [facility] Stop: 09/04/20 14:59 Lactobacillus Rhamnosus (Lactobacillus Rhamnosus Gg (Probiotic) Cap) 1 cap PO BID [facility] Last Admin: 09/04/20 08:19 Dose: 1 cap Documented by: Levothyroxine Sodium (Levothyroxine 50 Mcg Tab) 150 mcg PO DAILY@0730 [facility] Last Admin: 09/04/20 08:16 Dose: 150 mcg Documented by: Lorazepam (Lorazepam 2 Mg/Ml Sdv) 0.5 mg IVPUSH Q4H PRN PRN Reason: Nausea/Vomiting Last Admin: 08/27/20 02:13 Dose: 0.5 mg Documented by: Magnesium Hydroxide (Magnesium Hydroxide 400 Mg/5 Ml Susp 30 Ml Cup) 30 ml PO Q12H PRN PRN Reason: Constipation Melatonin (Melatonin 3 Mg Tab) 9 mg PO BEDTIME PRN PRN Reason: Sleep Last Admin: 08/24/20 20:45 Dose: 9 mg Documented by: Metoclopramide HCl (Metoclopramide 10 Mg/2 Ml Sdv) 10 mg IVPUSH Q6H [facility] Last Admin: 09/04/20 08:40 Dose: 10 mg Documented by: Metoprolol Tartrate (Metoprolol Tartrate 25 Mg Tab) 12.5 mg PO BID [facility] Ondansetron HCl (Ondansetron 4 Mg/2 Ml Sdv) 4 mg IV Q6H PRN PRN Reason: Nausea/Vomiting Last Admin: 08/30/20 11:04 Dose: 4 mg Documented by: Ondansetron HCl (Ondansetron 4 Mg Tab.Dis) 4 mg PO Q6H PRN PRN Reason: Nausea able to take PO Last Admin: 09/01/20 09:59 Dose: 4 mg Documented by: Oxybutynin Chloride (Oxybutynin 5 Mg Tab) 5 mg PO TID [facility] Last Admin: 09/04/20 08:20 Dose: 5 mg Documented by: Pantoprazole Sodium (Pantoprazole 40 Mg Vial) 40 mg IVPUSH DAILY [facility] Last Admin: 09/04/20 08:22 Dose: 40 mg Documented by: Senna/Docusate Sodium (Docusate Sodium/Sennosides 50-8.6 Mg Tab) 1 tab PO BID PRN PRN Reason: Constipation Sertraline HCl (Sertraline 25 Mg Tab) 25 mg PO DAILY [facility] Last Admin: 09/04/20 08:21 Dose: 25 mg Documented by: Simvastatin (Simvastatin 20 Mg Tab) 20 mg PO BEDTIME [facility] Last Admin: 09/03/20 20:42 Dose: 20 mg Documented by: Sotalol HCl (Sotalol 80 Mg Tab) 120 mg PO BID [facility] Last Admin: 09/04/20 08:18 Dose: 120 mg Documented by: Spironolactone (Spironolactone 25 Mg Tab) 25 mg PO DAILY [facility] Last Admin: 09/04/20 08:26 Dose: 25 mg Documented by: Tamsulosin HCl (Tamsulosin 0.4 Mg Cap.Er) 0.4 mg PO BEDTIME [facility] Last Admin: 09/03/20 20:41 Dose: 0.4 mg Documented by: Tramadol HCl (Tramadol 50 Mg Tab) 50 mg PO Q4H PRN PRN Reason: Pain Discontinued Medications Hydrocodone Bitart/Acetaminophen (Acetaminophen/Hydrocodone 325-5 Mg Tab) 1 - 2 tab PO Q4H PRN PRN Reason: Pain Aspirin (Aspirin 325 Mg Tab.Ec) 325 mg PO DAILY [facility] Last Admin: 08/31/20 08:15 Dose: Not Given Documented by: Bisacodyl (Bisacodyl 10 Mg Supp) 10 mg RECTAL BID [facility] Last Admin: 08/28/20 20:27 Dose: 10 mg Documented by: Bupivacaine HCl (Bupivacaine 0.5% 50 Ml Mdv) Confirm Administered Dose 50 ml .ROUTE .STK-MED ONE Stop: 08/27/20 06:33 Bupivacaine HCl (Bupivacaine 0.5% 50 Ml Mdv) Confirm Administered Dose 50 ml .ROUTE .STK-MED ONE Stop: 08/28/20 06:37 Last Admin: 08/28/20 07:40 Dose: 12.4 ml Documented by: Bupivacaine HCl/Epinephrine Bitart (Bupivacaine 0.5%/Epinephrine 1:200,000 50 Ml Mdv) Confirm Administered Dose 50 ml .ROUTE .STK-MED ONE Stop: 08/25/20 07:15 Last Admin: 08/25/20 13:23 Dose: 40 ml Documented by: Ropivacaine 50 ml/Dexamethasone 8 mg/Epinephrine HCl 0.4 mg/ Sodium Chloride 27.6 ml 0 ml NERVRT ASDIRECTED [facility] Last Admin: 08/25/20 11:23 Dose: 80 syringe Documented by: Ropivacaine 50 ml/Dexamethasone 8 mg/Epinephrine HCl 0.4 mg/ Sodium Chloride 27.6 ml 0 ml NERVRT ASDIRECTED [facility] Last Admin: 08/28/20 07:31 Dose: 80 syringe Documented by: Dexamethasone (Dexamethasone 4 Mg/Ml Sdv) Confirm Administered Dose 4 mg .ROUTE .STK-MED ONE Stop: 08/25/20 07:21 Fentanyl (Fentanyl 250 Mcg/5 Ml Sdv) Confirm Administered Dose 250 mcg .ROUTE .STK-MED ONE Stop: 08/25/20 07:21 Fentanyl (Fentanyl 100 Mcg/2 Ml Sdv) Confirm Administered Dose 100 mcg .ROUTE .STK-MED ONE Stop: 08/25/20 12:00 Fentanyl (Fentanyl 100 Mcg/2 Ml Sdv) Confirm Administered Dose 100 mcg .ROUTE .STK-MED ONE Stop: 08/28/20 06:51 Furosemide (Furosemide 20 Mg/2 Ml Vial) 20 mg IVPUSH Q8H [facility] Stop: 08/28/20 17:01 Last Admin: 08/28/20 16:35 Dose: 20 mg Documented by: Furosemide (Furosemide 20 Mg/2 Ml Vial) 20 mg IVPUSH Q6H [facility] Stop: 09/01/20 14:01 Last Admin: 09/01/20 15:08 Dose: 20 mg Documented by: Furosemide (Furosemide 40 Mg/4 Ml Vial) 40 mg IVPUSH ONETIME ONE Stop: 09/02/20 13:46 Last Admin: 09/02/20 13:53 Dose: 40 mg Documented by: Furosemide (Furosemide 20 Mg/2 Ml Vial) 20 mg IVPUSH ONETIME ONE Stop: 09/03/20 09:01 Last Admin: 09/03/20 08:26 Dose: 20 mg Documented by: Furosemide (Furosemide 20 Mg/2 Ml Vial) 20 mg IVPUSH ONETIME ONE Stop: 09/04/20 09:01 Last Admin: 09/04/20 08:34 Dose: 20 mg Documented by: Gabapentin (Gabapentin 100 Mg Cap) 600 mg PO TID [facility] Last Admin: 08/24/20 20:50 Dose: Not Given Documented by: Glycopyrrolate (Glycopyrrolate 0.2 Mg/Ml 5 Ml Mdv) Confirm Administered Dose 1 mg .ROUTE .STK-MED ONE Stop: 08/25/20 07:21 Hydromorphone HCl (Hydromorphone 0.5 Mg/0.5 Ml Syringe) 0.5 mg IVPUSH ONETIME ONE Stop: 08/24/20 15:32 Last Admin: 08/24/20 15:45 Dose: 0.5 mg Documented by: Hydromorphone HCl (Hydromorphone 1 Mg/Ml Syringe) 1 mg IVPUSH ONETIME ONE Stop: 08/24/20 17:24 Last Admin: 08/24/20 18:20 Dose: 1 mg Documented by: Hydromorphone HCl (Hydromorphone/Normal Saline 15 Mg/30 Ml [employer]) 0 mg IV ASDIRECTED PRN; Protocol PRN Reason: Pain Last Admin: 08/28/20 10:50 Dose: 15 mg Documented by: Hydromorphone HCl (Hydromorphone/Normal Saline 15 Mg/30 Ml Medical Territory Manager) 0 mg IV ASDIRECTED PRN; Protocol PRN Reason: Pain Last Admin: 09/01/20 10:39 Dose: 15 mg Documented by: Sodium Chloride (Normal Saline) 1,000 mls @ 999 mls/hr IV ASDIRECTED [facility] Last Admin: 08/24/20 15:45 Dose: 999 mls/hr Documented by: Sodium Chloride (Normal Saline) 1,000 mls @ 300 mls/hr IV ASDIRECTED [facility] Lactated Ringer's (Ringers, Lactated) 1,000 mls @ 100 mls/hr IV ASDIRECTED [facility] Last Admin: 08/25/20 02:58 Dose: 100 mls/hr Documented by: Ampicillin Sodium/Sulbactam (Sodium 3 gm/ Sodium Chloride) 100 mls @ 200 mls/hr IV Q6H [facility] Last Admin: 08/25/20 05:04 Dose: 200 mls/hr Documented by: Aztreonam 1 gm/ Sodium (Chloride) 50 mls @ 100 mls/hr IV Q8H [facility] Last Admin: 08/25/20 05:05 Dose: 100 mls/hr Documented by: Aztreonam 1 gm/ Sodium (Chloride) 50 mls @ 100 mls/hr IV Q8H [facility] Last Admin: 09/01/20 12:30 Dose: 100 mls/hr Documented by: Magnesium Sulfate (Magnesium Sulfate In Water 2 Gm/50 Ml) 2 gm in 50 mls @ 25 mls/hr IV Q6H [facility] Stop: 08/25/20 18:29 Last Admin: 08/25/20 16:14 Dose: 25 mls/hr Documented by: Ampicillin Sodium/Sulbactam (Sodium 3 gm/ Sodium Chloride) 100 mls @ 200 mls/hr IV Q6H [facility] Last Admin: 09/01/20 11:54 Dose: 200 mls/hr Documented by: Lactated Ringer's (Ringers, Lactated) Confirm Administered Dose 1,000 mls @ as directed .ROUTE .[facility]-MED ONE Stop: 08/25/20 11:32 Dextrose/Lactated Ringer's (Dextrose 5%-Lactated Ringers) 1,000 mls @ 150 mls/hr IV ASDIRECTED [facility] Last Admin: 08/26/20 03:57 Dose: 150 mls/hr Documented by: Potassium Phosphate 15 mmole/ (Sodium Chloride) 255 mls @ 85 mls/hr IV Q3H [facility] Stop: 08/26/20 17:59 Last Admin: 08/26/20 15:25 Dose: 85 mls/hr Documented by: Dextrose/Lactated Ringer's (Dextrose 5%-Lactated Ringers) 1,000 mls @ 80 mls/hr IV ASDIRECTED [facility] Last Admin: 08/29/20 13:46 Dose: 80 mls/hr Documented by: Dextrose/Lactated Ringer's (Dextrose 5%-Lr) 500 mls @ 250 mls/hr IV ONETIME ONE Stop: 08/27/20 17:59 Last Admin: 08/27/20 16:00 Dose: 250 mls/hr Documented by: Lactated Ringer's (Ringers, Lactated) 500 mls @ 250 mls/hr IV ONETIME ONE Stop: 08/27/20 18:14 Last Admin: 08/27/20 17:02 Dose: 250 mls/hr Documented by: Potassium Phosphate 15 mmole/ (Sodium Chloride) 255 mls @ 125 mls/hr IV Q2H [facility] Stop: 08/28/20 15:59 Last Admin: 08/28/20 16:03 Dose: 125 mls/hr Documented by: Magnesium Sulfate (Magnesium Sulfate In Water 2 Gm/50 Ml) 2 gm in 50 mls @ 25 mls/hr IV Q6HR [facility] Stop: 08/30/20 05:59 Last Admin: 08/30/20 03:00 Dose: 25 mls/hr Documented by: Azithromycin 250 mg/ Sodium (Chloride) 150 mls @ 150 mls/hr IV Q12H [facility] Last Admin: 08/30/20 09:11 Dose: 150 mls/hr Documented by: Dextrose/Lactated Ringer's (Dextrose 5%-Lactated Ringers) 1,000 mls @ 100 ml s/hr IV ASDIRECTED [facility] Last Admin: 09/02/20 09:19 Dose: 100 mls/hr Documented by: Potassium Phosphate 15 mmole/ (Sodium Chloride) 255 mls @ 125 mls/hr IV Q2H [facility] Stop: 09/01/20 15:59 Last Admin: 09/01/20 15:52 Dose: 125 mls/hr Documented by: Dextrose/Lactated Ringer's (Dextrose 5%-Lactated Ringers) 1,000 mls @ 25 mls/hr IV ASDIRECTED [facility] Last Admin: 09/03/20 07:40 Dose: 25 mls/hr Documented by: Potassium Phosphate 15 mmol/ (Premix) 250 mls @ 125 mls/hr IV Q2H [facility] Stop: 09/03/20 14:59 Last Admin: 09/03/20 14:04 Dose: 125 mls/hr Documented by: Lidocaine HCl (Lidocaine 2% Jelly 10 Ml [employer]) Confirm Administered Dose 10 ml .ROUTE .STK-MED ONE Stop: 08/25/20 10:49 Last Admin: 08/26/20 10:35 Dose: 10 ml Documented by: Lidocaine/Epinephrine (Lidocaine 1% With Epinephrine 1:100,000 50 Ml Mdv) Confirm Administered Dose 50 ml .ROUTE .STK-MED ONE Stop: 08/27/20 06:33 Lidocaine/Epinephrine (Lidocaine 1% With Epinephrine 1:100,000 50 Ml Mdv) Confirm Administered Dose 50 ml .ROUTE .STK-MED ONE Stop: 08/28/20 06:37 Last Admin: 08/28/20 07:40 Dose: 12.4 ml Documented by: Lisinopril (Lisinopril 2.5 Mg Tab) 2.5 mg PO DAILY [facility] Last Admin: 09/01/20 08:50 Dose: 2.5 mg Documented by: Meropenem (Meropenem 500 Mg Sdv) Confirm Administered Dose 500 mg .ROUTE .STK-ME D ONE Stop: 08/25/20 11:15 Last Admin: 08/25/20 11:47 Dose: 1,000 mg Documented by: Meropenem (Meropenem 500 Mg Sdv) Confirm Administered Dose 500 mg .ROUTE .STK- MED ONE Stop: 08/25/20 12:12 Meropenem (Meropenem 500 Mg Sdv) Confirm Administered Dose 500 mg .ROUTE .STK- MED ONE Stop: 08/27/20 06:33 Meropenem (Meropenem 500 Mg Sdv) Confirm Administered Dose 500 mg .ROUTE .STK- MED ONE Stop: 08/28/20 06:37 Last Admin: 08/28/20 07:40 Dose: 500 mg Documented by: Metoprolol Tartrate (Metoprolol Tartrate 5 Mg/5 Ml Sdv) 2.5 mg IVPUSH Q6H [facility] Last Admin: 08/28/20 03:32 Dose: Not Given Documented by: Metoprolol Tartrate (Metoprolol Tartrate 25 Mg Tab) 25 mg PO ONETIME ONE Stop: 09/02/20 19:44 Last Admin: 09/02/20 20:38 Dose: 25 mg Documented by: Naloxone HCl (Naloxone 0.4 Mg/Ml Sdv) 0.4 mg IVPUSH Q2M PRN PRN Reason: Respiratory Distress Neostigmine Methylsulfate (Neostigmine Methylsulfate 1 Mg/Ml 5 Ml Syringe) Confirm Administered Dose 5 mg .ROUTE .STK-MED ONE Stop: 08/25/20 07:21 Ondansetron HCl (Ondansetron 4 Mg/2 Ml Sdv) 4 mg IVPUSH ONETIME ONE Stop: 08/24/20 15:32 Last Admin: 08/24/20 15:44 Dose: 4 mg Documented by: Ondansetron HCl (Ondansetron 4 Mg/2 Ml Sdv) Confirm Administered Dose 4 mg .ROUTE .STK-MED ONE Stop: 08/25/20 07:21 Pantoprazole Sodium (Pantoprazole 40 Mg Vial) 40 mg IV ONETIME ONE Stop: 08/24/20 20:01 Last Admin: 08/24/20 20:46 Dose: 40 mg Documented by: Pantoprazole Sodium (Pantoprazole 40 Mg Vial) 40 mg IV Q24H [facility] Last Admin: 08/29/20 15:34 Dose: 40 mg Documented by: Pantoprazole Sodium (Pantoprazole 40 Mg Tab.Cr) 40 mg PO Q24H [facility] Last Admin: 08/31/20 15:47 Dose: Not Given Documented by: Pantoprazole Sodium (Pantoprazole 40 Mg Vial) 40 mg IVPUSH DAILY [facility] Pneumococcal Polyvalent Vaccine (Pneumococcal Polyvalent-23 Vaccine 0.5 Ml Sdv) 0.5 ml IM .ONCE ONE Stop: 08/24/20 19:28 Last Admin: 08/24/20 20:21 Dose: Not Given Documented by: Propofol (Propofol 200 Mg/20 Ml Sdv) Confirm Administered Dose 200 mg .ROUTE .STK-MED ONE Stop: 08/25/20 07:21 Propofol (Propofol 200 Mg/20 Ml Sdv) Confirm Administered Dose 200 mg .ROUTE .STK-MED ONE Stop: 08/28/20 06:51 Rocuronium [place] (Rocuronium 50 Mg/5 Ml Vial) Confirm Administered Dose 50 mg .ROUTE .STK-MED ONE Stop: 08/25/20 07:21 Rocuronium [place] (Rocuronium 50 Mg/5 Ml Vial) Confirm Administered Dose 50 mg .ROUTE .STK-MED ONE Stop: 08/25/20 11:58 Succinylcholine Chloride (Succinylcholine 200 Mg/10 Ml Mdv) Confirm Administered Dose 200 mg .ROUTE .STK-MED ONE Stop: 08/25/20 07:21 - Exam Quality Assessment: Supplemental Oxygen General: Alert, Oriented, Cooperative, No Acute Distress Lungs: Clear to Auscultation, Normal Respiratory Effort Cardiovascular: Regular Rate, Irregular Rhythm GI/Abdominal Exam: Normal Bowel Sounds, Soft, No Distention Extremities: Pedal Edema (right leg ). No: Increased Warmth Skin: Warm, Dry Psy/Mental Status: Alert, Normal Affect - Patient Data Lab Results Last 24 hrs: Laboratory Results - last 24 hr 09/04/20 09/04/20 Range/Units 04:30 04:30 WBC 14.2 H (4.5-11.0) K/uL RBC 4.57 (4.30-5.90) M/uL Hgb 13.1 (12.0-15.0) g/dL Hct 40.1 (40.0-54.0) % MCV 88 (80-98) fL MCH 29 (27-31) pg MCHC 33 (32-36) % Plt Count 381 (150-400) K/uL Sodium 138 L (140-148) mmol/L Potassium 3.9 (3.6-5.2) mmol/L Chloride 101 (100-108) mmol/L Carbon Dioxide 24 (21-32) mmol/L Anion Gap 16.9 H (5.0-14.0) mmol/L BUN 10 (7-18) mg/dL Creatinine 0.8 (0.8-1.3) mg/dL Est Cr Clr Drug Dosing 86.18 mL/min Estimated GFR (MDRD) > 60 (>60) Glucose 119 H (74-106) mg/dL Calcium 8.1 L (8.5-10.1) mg/dL Phosphorus 2.8 (2.5-4.9) mg/dL Total Bilirubin 0.7 (0.2-1.0) mg/dL AST 20 (15-37) U/L ALT 22 (12-78) U/L Alkaline Phosphatase 63 (46-116) U/L NT-Pro-B Natriuret Pep 2085 H (5-125) pg/mL Total Protein 6.5 (6.4-8.2) g/dL Albumin 2.4 L (3.4-5.0) g/dL Globulin 4.1 H (2.3-3.5) g/dL Albumin/Globulin Ratio 0.6 L (1.2-2.2) Result Diagrams: 09/04/20 04:30 09/04/20 04:30 Sepsis Event Note - Evaluation Sepsis Screening Result: No Definite Risk - Focused Exam Vital Signs: Vital Signs Temp Pulse Pulse Resp BP BP Pulse Ox 09/04/20 08:18 85 109/66 09/04/20 07:21 96 09/04/20 07:00 36.3 C 102 H 16 100/57 L 94 L 09/04/20 02:32 37.3 C 93 16 105/53 L 98 09/04/20 00:37 96 09/03/20 23:28 37.3 C 88 17 91/63 93 L - Problem List & Annotations (1) Acute appendicitis SNOMED Code(s): 03931236 Code(s): K35.80 - UNSPECIFIED ACUTE APPENDICITIS Status: Acute Current Visit: Yes Qualifiers: Acute appendicitis type: with localized peritonitis Appendicitis gangrene presence: without gangrene Appendicitis perforation presence: without perforation Appendicitis abscess presence: without abscess Qualified Code(s): K35.30 - Acute appendicitis with localized peritonitis, without perforation or gangrene (2) History of stroke with residual deficit SNOMED Code(s): 108982616 Code(s): I69.30 - UNSPECIFIED SEQUELAE OF CEREBRAL INFARCTION Status: Chronic Current Visit: Yes (3) Atrial fibrillation SNOMED Code(s): 47996240 Code(s): I48.91 - UNSPECIFIED ATRIAL FIBRILLATION Status: Chronic Current Visit: No Qualifiers: Atrial fibrillation type: longstanding persistent Qualified Code(s): I48.11 - Longstanding persistent atrial fibrillation (4) CAD (coronary artery disease) SNOMED Code(s): 29678638 Code(s): I25.10 - ATHSCL HEART DISEASE OF [place] CORONARY ARTERY W/O ANG PCTRS Status: Chronic Current Visit: No Qualifiers: Coronary Disease-Associated Artery/Lesion type: [place] artery [place] vs. transplanted heart: [place] heart Associated angina: without angina Qualified Code(s): I25.10 - Atherosclerotic heart disease of [place] coronary artery without angina pectoris (5) Chronic systolic CHF (congestive heart failure) SNOMED Code(s): 480718352, 312827695 Code(s): I50.22 - CHRONIC SYSTOLIC (CONGESTIVE) HEART FAILURE Status: Chronic Current Visit: No (6) Cardiomyopathy SNOMED Code(s): 61940975 Code(s): I42.9 - CARDIOMYOPATHY, UNSPECIFIED Status: Chronic Current Visit: No Qualifiers: Cardiomyopathy type: ischemic Qualified Code(s): I25.5 - Ischemic cardiomyopathy (7) Hx of deep venous thrombosis SNOMED Code(s): 506805328 Code(s): Z86.718 - PERSONAL HISTORY OF OTHER VENOUS THROMBOSIS AND EMBOLISM Status: Chronic Current Visit: No - Problem List Review Problem List Initiated/Reviewed/Updated: Yes - My Orders Last 24 Hours: My Active Orders 09/04/20 09:30 Metoprolol Tartrate [Lopressor] 12.5 mg PO BID - Plan Plan:: ASSESSMENT AND PLAN Acute appendicitis without perforation-status post appendectomy performed 08/[address] Acevedo. Postoperative course complicated by persistent ileus versus developing obstruction. Ileus seems to be resolving. Diet advanced to full liquids today. -Symptomatic management of pain and nausea -Postoperative care per Dr. Acevedo Chronic systolic congestive heart failure-complicated by ischemic cardiomyopathy. Last ejection fraction was between 35 and 40%. Volume status slightly hypervolemic again today. -Continue medical management -Judicious fluid use around the time of surgery -Furosemide x1 this morning, reassess this afternoon Chronic atrial fibrillation-he continues to have episodes of A. fib with RVR. Short-lived and not symptomatic. 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 Gets around without a cane most of the time. Maintenance issues -DVT prophylaxis-mechanical -GI prophylaxis-PPI -Nutrition-full liquids Disposition -I anticipate discharge to the [facility] for subacute rehab after the hospital stay, likely will not be ready until Tuesday Jimmy Gutierrez MD
[2020-09-04] MEDS: Potassium Phos in 0.9 % NaCl 15 MMOL in Premix Bag 1 BAG IV SCH ×4 (11:03→13:44)
[2020-09-04] MEDS: Metoprolol Tartrate 25 MG Tab PO SCH ×2 (11:10→20:29)
[2020-09-04] MEDS: Sodium Chloride 0.9% 1,000 ML IV SCH (15:47)
[2020-09-04] MEDS: Benzocaine/Cetylpyridinium/Menthol Lozenge MUCMEM PRN (17:08)
[2020-09-04] MEDS: Tamsulosin 0.4 MG Cap.ER PO SCH (20:31)
[2020-09-04] MEDS: Simvastatin 20 MG Tab PO SCH (20:43)
[2020-09-05] MEDS: Magnesium Sulfate/Water 2 GM/50 ML BAG IV SCH ×2 (02:55→09:43)
[2020-09-05] MEDS: Metoclopramide 10 MG/2 ML SDV IVPUSH SCH ×4 (02:55→16:53)
[2020-09-05] MEDS: HYDROmorphone 2 MG Tab PO PRN (04:48)
[2020-09-05] MEDS: Levothyroxine 50 MCG Tab PO SCH (07:14)
[2020-09-05] MEDS: Benzocaine/Cetylpyridinium/Menthol Lozenge MUCMEM PRN (07:15)
--- NOTE | 2020-09-05 08:44 | PN ---
DATE OF SERVICE: 09/05/2020 SUBJECTIVE: Lemuel had a good night. He has had 2 bowel movements. He is on a full-liquid diet. Oral intake 850, and urine output 1225. He reports that his abdominal incision does not hurt, but his back is bothering him and his chronic leg pain. Hemoglobin this morning was 11.3 and BNP was 963. REVIEW OF SYSTEMS: Remainder of review of systems negative for any pertinent positives and negatives. OBJECTIVE: GENERAL: Lemuel Hodges is a pleasant 70-year-old male. He is alert and orientated, sitting up in the chair. VITAL SIGNS: TPR: 96.1, 72, 18, and blood pressure 116/71. HEENT: Negative. NECK: Supple. HEART: Regular rate and rhythm. LUNGS: Clear. ABDOMEN: Aquacel dressing is on. Abdominal binder is on. EXTREMITIES: Without peripheral edema. ASSESSMENT: 1. Perforated appendix with periappendiceal abscess. 2. Nodular lesions overlying the cecum. Date of procedure 08/25/2020. Surgeon: Vazquez Acevedo MD. 3. Delayed primary closure 08/28/2020. Surgeon: Vazquez Acevedo MD. 4. Postoperative ileus x2, second episode, resolved. PLAN: 1. Discontinue cardiac rehab nurse and oximetry. 2. Check CBC, CMP, mag, phos, and BNP in a.m. 3. Discontinue oral Dilaudid and tramadol. 4. Oxycodone 5 mg q.4 hours p.r.n. pain per his normally scheduled medication, which he takes at home. 5. Discharge planning is to arrange him to go to [facility] for rehabilitation. 6. We will evaluate p.r.n. or in the a.m. Ellen Houston PA-C /[id number]
[2020-09-05] MEDS: Acetaminophen 325 MG Tab PO PRN ×2 (08:54→13:50)
[2020-09-05] MEDS: Gabapentin 300 MG Cap PO SCH ×3 (08:54→21:25)
[2020-09-05] MEDS: oxyCODONE 5 MG Tab PO PRN ×4 (08:54→22:52)
[2020-09-05] MEDS: DULoxetine 20 MG Cap PO SCH (09:42)
[2020-09-05] MEDS: Lactobacillus Rhamnosus GG (Probiotic) Cap PO SCH ×2 (09:42→21:22)
[2020-09-05] MEDS: Oxybutynin 5 MG Tab PO SCH ×3 (09:42→21:24)
[2020-09-05] MEDS: Aspirin 81 MG Tab.Chew PO SCH (09:42)
[2020-09-05] MEDS: Apixaban 5 MG Tab PO SCH ×2 (09:43→21:25)
[2020-09-05] MEDS: Bisacodyl 5 MG Tab PO SCH ×2 (09:44→21:22)
[2020-09-05] MEDS: Pantoprazole 40 MG Vial IVPUSH SCH (09:44)
[2020-09-05] MEDS: Bisacodyl 10 MG Supp RECTAL SCH ×2 (09:44→21:22)
[2020-09-05] MEDS: Ezetimibe 10 MG Tab PO SCH (09:44)
[2020-09-05] MEDS: Docusate Sodium 100 MG Cap PO SCH ×2 (09:44→21:23)
[2020-09-05] MEDS: Sertraline 25 MG Tab PO SCH (09:44)
[2020-09-05] MEDS: Metoprolol Tartrate 25 MG Tab PO SCH ×2 (09:47→21:25)
[2020-09-05] MEDS: Spironolactone 25 MG Tab PO SCH (09:47)
[2020-09-05] MEDS: Sotalol 80 MG Tab PO SCH ×2 (09:47→21:24)
--- NOTE | 2020-09-05 11:00 | PCM.PN ---
- General Info Date of Service: 09/05/20 Subjective Update: There were no acute events overnight. The patient did report some abdominal discomfort earlier in the morning. No nausea or vomiting. Abdominal pain has now passed. He has had 2 bowel movements which are loose but not watery. Tolerating full liquids well. No fevers. He is off oxygen this morning. Heart rate under better control with the addition of a low-dose metoprolol. Functional Status: Reports: Pain Controlled, Tolerating Diet - Review of Systems General: Denies: Fever Gastrointestinal: Reports: Abdominal Pain - Patient Data Vitals - Most Recent: Last Vital Signs Temp 35.6 C L 09/05/20 07:00 Pulse 77 09/05/20 09:47 Resp 18 09/05/20 07:00 BP 102/45 L 09/05/20 09:47 Pulse Ox 98 09/05/20 07:00 Weight - Most Recent: 97.976 kg I&O - Last 24 Hours: Intake & Output 09/04/20 09/05/20 09/05/20 22:59 06:59 14:59 Intake Total 988 408 510 Output Total 400 825 200 Balance 588 -417 310 Lab Results Last 24 Hours: Laboratory Results - last 24 hr 09/05/20 09/05/20 Range/Units 04:00 04:00 WBC 7.0 (4.5-11.0) K/uL RBC 3.87 L (4.30-5.90) M/uL Hgb 11.3 L (12.0-15.0) g/dL Hct 34.2 L (40.0-54.0) % MCV 88 (80-98) fL MCH 29 (27-31) pg MCHC 33 (32-36) % Plt Count 303 (150-400) K/uL Sodium 140 (140-148) mmol/L Potassium 4.0 (3.6-5.2) mmol/L Chloride 103 (100-108) mmol/L Carbon Dioxide 28 (21-32) mmol/L Anion Gap 8.8 (5.0-14.0) mmol/L BUN 8 (7-18) mg/dL Creatinine 0.8 (0.8-1.3) mg/dL Est Cr Clr Drug Dosing 86.18 mL/min Estimated GFR (MDRD) > 60 (>60) Glucose 120 H (74-106) mg/dL Calcium 7.6 L (8.5-10.1) mg/dL Phosphorus 2.9 (2.5-4.9) mg/dL Total Bilirubin 0.5 (0.2-1.0) mg/dL AST 19 (15-37) U/L ALT 18 (12-78) U/L Alkaline Phosphatase 52 (46-116) U/L NT-Pro-B Natriuret Pep 963 H (5-125) pg/mL Total Protein 5.6 L (6.4-8.2) g/dL Albumin 2.1 L (3.4-5.0) g/dL Globulin 3.5 (2.3-3.5) g/dL Albumin/Globulin Ratio 0.6 L (1.2-2.2) Med Orders - Current: Current Medications Acetaminophen (Acetaminophen 325 Mg Tab) 650 mg PO Q4H PRN PRN Reason: Pain (Mild 1-3)/fever Last Admin: 09/05/20 08:54 Dose: 650 mg Documented by: Albuterol (Albuterol 0.083% 2.5 Mg/3 Ml Neb Soln) 2.5 mg NEB Q4H PRN PRN Reason: Shortness Of Breath/wheezing Apixaban (Apixaban 5 Mg Tab) 5 mg PO BID [facility] Last Admin: 09/05/20 09:43 Dose: 5 mg Documented by: Aspirin (Aspirin 81 Mg Tab.Chew) 324 mg PO DAILY [facility] Last Admin: 09/05/20 09:42 Dose: 324 mg Documented by: Benzocaine/Menthol (Benzocaine/Cetylpyridinium/Menthol Lozenge) 1 lozenge MUCMEM Q2H PRN PRN Reason: Sore Throat Last Admin: 09/05/20 07:15 Dose: 1 lozenge Documented by: Bisacodyl (Bisacodyl 5 Mg Tab) 10 mg PO BID [facility] Last Admin: 09/05/20 09:44 Dose: 10 mg Documented by: Bisacodyl (Bisacodyl 10 Mg Supp) 10 mg RECTAL BID PRN PRN Reason: Constipation Last Admin: 08/29/20 15:21 Dose: 10 mg Documented by: Bisacodyl (Bisacodyl 10 Mg Supp) 10 mg RECTAL BID [facility] Last Admin: 09/05/20 09:44 Dose: Not Given Documented by: Docusate Sodium (Docusate Sodium 100 Mg Cap) 100 mg PO BID [facility] Last Admin: 09/05/20 09:44 Dose: 100 mg Documented by: Duloxetine HCl (Duloxetine 20 Mg Cap) 20 mg PO DAILY [facility] Last Admin: 09/05/20 09:42 Dose: 20 mg Documented by: Ezetimibe (Ezetimibe 10 Mg Tab) 5 mg PO DAILY [facility] Last Admin: 09/05/20 09:44 Dose: 5 mg Documented by: Gabapentin (Gabapentin 300 Mg Cap) 600 mg PO TID [facility] Last Admin: 09/05/20 08:54 Dose: 600 mg Documented by: Gabapentin (Gabapentin 300 Mg Cap) 600 mg PO BEDTIME PRN PRN Reason: Insomnia Hydroxyzine HCl (Hydroxyzine Hcl 100 Mg/2 Ml Sdv) 100 mg IM Q4H PRN PRN Reason: Pain Last Admin: 08/31/20 05:02 Dose: 100 mg Documented by: Lactobacillus Rhamnosus (Lactobacillus Rhamnosus Gg (Probiotic) Cap) 1 cap PO BID [facility] Last Admin: 09/05/20 09:42 Dose: 1 cap Documented by: Levothyroxine Sodium (Levothyroxine 50 Mcg Tab) 150 mcg PO DAILY@0730 [facility] Last Admin: 09/05/20 07:14 Dose: 150 mcg Documented by: Lorazepam (Lorazepam 2 Mg/Ml Sdv) 0.5 mg IVPUSH Q4H PRN PRN Reason: Nausea/Vomiting Last Admin: 08/27/20 02:13 Dose: 0.5 mg Documented by: Magnesium Hydroxide (Magnesium Hydroxide 400 Mg/5 Ml Susp 30 Ml Cup) 30 ml PO Q12H PRN PRN Reason: Constipation Melatonin (Melatonin 3 Mg Tab) 9 mg PO BEDTIME PRN PRN Reason: Sleep Last Admin: 08/24/20 20:45 Dose: 9 mg Documented by: Metoclopramide HCl (Metoclopramide 10 Mg/2 Ml Sdv) 5 mg IVPUSH Q6H [facility] Metoprolol Tartrate (Metoprolol Tartrate 25 Mg Tab) 12.5 mg PO BID [facility] Last Admin: 09/05/20 09:47 Dose: 12.5 mg Documented by: Ondansetron HCl (Ondansetron 4 Mg/2 Ml Sdv) 4 mg IV Q6H PRN PRN Reason: Nausea/Vomiting Last Admin: 08/30/20 11:04 Dose: 4 mg Documented by: Ondansetron HCl (Ondansetron 4 Mg Tab.Dis) 4 mg PO Q6H PRN PRN Reason: Nausea able to take PO Last Admin: 09/01/20 09:59 Dose: 4 mg Documented by: Oxybutynin Chloride (Oxybutynin 5 Mg Tab) 5 mg PO TID [facility] Last Admin: 09/05/20 09:42 Dose: 5 mg Documented by: Oxycodone HCl (Oxycodone 5 Mg Tab) 5 mg PO Q4H PRN PRN Reason: Pain Last Admin: 09/05/20 09:00 Dose: 5 mg Documented by: Pantoprazole Sodium (Pantoprazole 40 Mg Vial) 40 mg IVPUSH DAILY [facility] Last Admin: 09/05/20 09:44 Dose: 40 mg Documented by: Senna/Docusate Sodium (Docusate Sodium/Sennosides 50-8.6 Mg Tab) 1 tab PO BID PRN PRN Reason: Constipation Sertraline HCl (Sertraline 25 Mg Tab) 25 mg PO DAILY [facility] Last Admin: 09/05/20 09:44 Dose: 25 mg Documented by: Simvastatin (Simvastatin 20 Mg Tab) 20 mg PO BEDTIME [facility] Last Admin: 09/04/20 20:43 Dose: 20 mg Documented by: Sotalol HCl (Sotalol 80 Mg Tab) 120 mg PO BID [facility] Last Admin: 09/05/20 09:47 Dose: 120 mg Documented by: Spironolactone (Spironolactone 25 Mg Tab) 25 mg PO DAILY [facility] Last Admin: 09/05/20 09:47 Dose: Not Given Documented by: Tamsulosin HCl (Tamsulosin 0.4 Mg Cap.Er) 0.4 mg PO BEDTIME [facility] Last Admin: 09/04/20 20:31 Dose: 0.4 mg Documented by: Discontinued Medications Hydrocodone Bitart/Acetaminophen (Acetaminophen/Hydrocodone 325-5 Mg Tab) 1 - 2 tab PO Q4H PRN PRN Reason: Pain Aspirin (Aspirin 325 Mg Tab.Ec) 325 mg PO DAILY [facility] Last Admin: 08/31/20 08:15 Dose: Not Given Documented by: Bisacodyl (Bisacodyl 10 Mg Supp) 10 mg RECTAL BID [facility] Last Admin: 08/28/20 20:27 Dose: 10 mg Documented by: Bupivacaine HCl (Bupivacaine 0.5% 50 Ml Mdv) Confirm Administered Dose 50 ml .ROUTE .[facility] ONE Stop: 08/27/20 06:33 Bupivacaine HCl (Bupivacaine 0.5% 50 Ml Mdv) Confirm Administered Dose 50 ml .ROUTE .[facility] ONE Stop: 08/28/20 06:37 Last Admin: 08/28/20 07:40 Dose: 12.4 ml Documented by: Bupivacaine HCl/Epinephrine Bitart (Bupivacaine 0.5%/Epinephrine 1:200,000 50 Ml Mdv) Confirm Administered Dose 50 ml .ROUTE .[facility] ONE Stop: 08/25/20 07:15 Last Admin: 08/25/20 13:23 Dose: 40 ml Documented by: Ropivacaine 50 ml/Dexamethasone 8 mg/Epinephrine HCl 0.4 mg/ Sodium Chloride 27.6 ml 0 ml NERVRT ASDIRECTED [facility] Last Admin: 08/25/20 11:23 Dose: 80 syringe Documented by: Ropivacaine 50 ml/Dexamethasone 8 mg/Epinephrine HCl 0.4 mg/ Sodium Chloride 27.6 ml 0 ml NERVRT ASDIRECTED [facility] Last Admin: 08/28/20 07:31 Dose: 80 syringe Documented by: Dexamethasone (Dexamethasone 4 Mg/Ml Sdv) Confirm Administered Dose 4 mg .ROUTE .[facility] ONE Stop: 08/25/20 07:21 Fentanyl (Fentanyl 250 Mcg/5 Ml Sdv) Confirm Administered Dose 250 mcg .ROUTE .[facility] ONE Stop: 08/25/20 07:21 Fentanyl (Fentanyl 100 Mcg/2 Ml Sdv) Confirm Administered Dose 100 mcg .ROUTE .[facility] ONE Stop: 08/25/20 12:00 Fentanyl (Fentanyl 100 Mcg/2 Ml Sdv) Confirm Administered Dose 100 mcg .ROUTE .[facility] ONE Stop: 08/28/20 06:51 Furosemide (Furosemide 20 Mg/2 Ml Vial) 20 mg IVPUSH Q8H [facility] Stop: 08/28/20 17:01 Last Admin: 08/28/20 16:35 Dose: 20 mg Documented by: Furosemide (Furosemide 20 Mg/2 Ml Vial) 20 mg IVPUSH Q6H [facility] Stop: 09/01/20 14:01 Last Admin: 09/01/20 15:08 Dose: 20 mg Documented by: Furosemide (Furosemide 40 Mg/4 Ml Vial) 40 mg IVPUSH ONETIME ONE Stop: 09/02/20 13:46 Last Admin: 09/02/20 13:53 Dose: 40 mg Documented by: Furosemide (Furosemide 20 Mg/2 Ml Vial) 20 mg IVPUSH ONETIME ONE Stop: 09/03/20 09:01 Last Admin: 09/03/20 08:26 Dose: 20 mg Documented by: Furosemide (Furosemide 20 Mg/2 Ml Vial) 20 mg IVPUSH ONETIME ONE Stop: 09/04/20 09:01 Last Admin: 09/04/20 08:34 Dose: 20 mg Documented by: Gabapentin (Gabapentin 100 Mg Cap) 600 mg PO TID [facility] Last Admin: 08/24/20 20:50 Dose: Not Given Documented by: Glycopyrrolate (Glycopyrrolate 0.2 Mg/Ml 5 Ml Mdv) Confirm Administered Dose 1 mg .ROUTE .[facility]-MED ONE Stop: 08/25/20 07:21 Hydromorphone HCl (Hydromorphone 0.5 Mg/0.5 Ml Syringe) 0.5 mg IVPUSH ONETIME ONE Stop: 08/24/20 15:32 Last Admin: 08/24/20 15:45 Dose: 0.5 mg Documented by: Hydromorphone HCl (Hydromorphone 1 Mg/Ml Syringe) 1 mg IVPUSH ONETIME ONE Stop: 08/24/20 17:24 Last Admin: 08/24/20 18:20 Dose: 1 mg Documented by: Hydromorphone HCl (Hydromorphone/Normal Saline 15 Mg/30 Ml Editing Clerk) 0 mg IV ASDIRECTED PRN; Protocol PRN Reason: Pain Last Admin: 08/28/20 10:50 Dose: 15 mg Documented by: Hydromorphone HCl (Hydromorphone 2 Mg Tab) 2 - 4 mg PO Q4H PRN PRN Reason: Pain Last Admin: 09/05/20 04:48 Dose: 2 mg Documented by: Hydromorphone HCl (Hydromorphone/Normal Saline 15 Mg/30 Ml Editing Clerk) 0 mg IV ASDIRECTED PRN; Protocol PRN Reason: Pain Last Admin: 09/01/20 10:39 Dose: 15 mg Documented by: Sodium Chloride (Normal Saline) 1,000 mls @ 999 mls/hr IV ASDIRECTED [facility] Last Admin: 08/24/20 15:45 Dose: 999 mls/hr Documented by: Sodium Chloride (Normal Saline) 1,000 mls @ 300 mls/hr IV ASDIRECTED [facility] Lactated Ringer's (Ringers, Lactated) 1,000 mls @ 100 mls/hr IV ASDIRECTED [facility] Last Admin: 08/25/20 02:58 Dose: 100 mls/hr Documented by: Ampicillin Sodium/Sulbactam (Sodium 3 gm/ Sodium Chloride) 100 mls @ 200 mls/hr IV Q6H [facility] Last Admin: 08/25/20 05:04 Dose: 200 mls/hr Documented by: Aztreonam 1 gm/ Sodium (Chloride) 50 mls @ 100 mls/hr IV Q8H [facility] Last Admin: 08/25/20 05:05 Dose: 100 mls/hr Documented by: Aztreonam 1 gm/ Sodium (Chloride) 50 mls @ 100 mls/hr IV Q8H [facility] Last Admin: 09/01/20 12:30 Dose: 100 mls/hr Documented by: Magnesium Sulfate (Magnesium Sulfate In Water 2 Gm/50 Ml) 2 gm in 50 mls @ 25 mls/hr IV Q6H [facility] Stop: 08/25/20 18:29 Last Admin: 08/25/20 16:14 Dose: 25 mls/hr Documented by: Ampicillin Sodium/Sulbactam (Sodium 3 gm/ Sodium Chloride) 100 mls @ 200 mls/hr IV Q6H [facility] Last Admin: 09/01/20 11:54 Dose: 200 mls/hr Documented by: Lactated Ringer's (Ringers, Lactated) Confirm Administered Dose 1,000 mls @ as directed .ROUTE .[facility]-MED ONE Stop: 08/25/20 11:32 Dextrose/Lactated Ringer's (Dextrose 5%-Lactated Ringers) 1,000 mls @ 150 mls/ hr IV ASDIRECTED [facility] Last Admin: 08/26/20 03:57 Dose: 150 mls/hr Documented by: Potassium Phosphate 15 mmole/ (Sodium Chloride) 255 mls @ 85 mls/hr IV Q3H [facility] Stop: 08/26/20 17:59 Last Admin: 08/26/20 15:25 Dose: 85 mls/hr Documented by: Dextrose/Lactated Ringer's (Dextrose 5%-Lactated Ringers) 1,000 mls @ 80 mls/hr IV ASDIRECTED [facility] Last Admin: 08/29/20 13:46 Dose: 80 mls/hr Documented by: Dextrose/Lactated Ringer's (Dextrose 5%-Lr) 500 mls @ 250 mls/hr IV ONETIME ONE Stop: 08/27/20 17:59 Last Admin: 08/27/20 16:00 Dose: 250 mls/hr Documented by: Lactated Ringer's (Ringers, Lactated) 500 mls @ 250 mls/hr IV ONETIME ONE Stop: 08/27/20 18:14 Last Admin: 08/27/20 17:02 Dose: 250 mls/hr Documented by: Potassium Phosphate 15 mmole/ (Sodium Chloride) 255 mls @ 125 mls/hr IV Q2H [facility] Stop: 08/28/20 15:59 Last Admin: 08/28/20 16:03 Dose: 125 mls/hr Documented by: Magnesium Sulfate (Magnesium Sulfate In Water 2 Gm/50 Ml) 2 gm in 50 mls @ 25 mls/hr IV Q6HR [facility] Stop: 08/30/20 05:59 Last Admin: 08/30/20 03:00 Dose: 25 mls/hr Documented by: Azithromycin 250 mg/ Sodium (Chloride) 150 mls @ 150 mls/hr IV Q12H [facility] Last Admin: 08/30/20 09:11 Dose: 150 mls/hr Documented by: Dextrose/Lactated Ringer's (Dextrose 5%-Lactated Ringers) 1,000 mls @ 100 mls/hr IV ASDIRECTED [facility] Last Admin: 09/02/20 09:19 Dose: 100 mls/hr Documented by: Potassium Phosphate 15 mmole/ (Sodium Chloride) 255 mls @ 125 mls/hr IV Q2H [facility] Stop: 09/01/20 15:59 Last Admin: 09/01/20 15:52 Dose: 125 mls/hr Documented by: Dextrose/Lactated Ringer's (Dextrose 5%-Lactated Ringers) 1,000 mls @ 25 mls/hr IV ASDIRECTED [facility] Last Admin: 09/03/20 07:40 Dose: 25 mls/hr Documented by: Potassium Phosphate 15 mmol/ (Premix) 250 mls @ 125 mls/hr IV Q2H [facility] Stop: 09/03/20 14:59 Last Admin: 09/03/20 14:04 Dose: 125 mls/hr Documented by: Magnesium Sulfate (Magnesium Sulfate In Water 2 Gm/50 Ml) 2 gm in 50 mls @ 25 mls/hr IV Q6H [facility] Stop: 09/06/20 04:59 Last Admin: 09/05/20 09:43 Dose: 25 mls/hr Documented by: Sodium Chloride (Normal Saline) 1,000 mls @ 25 mls/hr IV ASDIRECTED [facility] Last Admin: 09/04/20 15:47 Dose: 25 mls/hr Documented by: Potassium Phosphate 15 mmol/ (Premix) 250 mls @ 125 mls/hr IV Q2H [facility] Stop: 09/04/20 14:59 Last Admin: 09/04/20 13:44 Dose: 125 mls/hr Documented by: Lidocaine HCl (Lidocaine 2% Jelly 10 Ml Urojet) Confirm Administered Dose 10 ml .ROUTE .[facility]-MED ONE Stop: 08/25/20 10:49 Last Admin: 08/26/20 10:35 Dose: 10 ml Documented by: Lidocaine/Epinephrine (Lidocaine 1% With Epinephrine 1:100,000 50 Ml Mdv) Confirm Administered Dose 50 ml .ROUTE .[facility]-MED ONE Stop: 08/27/20 06:33 Lidocaine/Epinephrine (Lidocaine 1% With Epinephrine 1:100,000 50 Ml Mdv) Confirm Administered Dose 50 ml .ROUTE .[facility]-MED ONE Stop: 08/28/20 06:37 Last Admin: 08/28/20 07:40 Dose: 12.4 ml Documented by: Lisinopril (Lisinopril 2.5 Mg Tab) 2.5 mg PO DAILY [facility] Last Admin: 09/01/20 08:50 Dose: 2.5 mg Documented by: Meropenem (Meropenem 500 Mg Sdv) Confirm Administered Dose 500 mg .ROUTE .[facility]- MED ONE Stop: 08/25/20 11:15 Last Admin: 08/25/20 11:47 Dose: 1,000 mg Documented by: Meropenem (Meropenem 500 Mg Sdv) Confirm Administered Dose 500 mg .ROUTE .[facility]- MED ONE Stop: 08/25/20 12:12 Meropenem (Meropenem 500 Mg Sdv) Confirm Administered Dose 500 mg .ROUTE .[facility]- MED ONE Stop: 08/27/20 06:33 Meropenem (Meropenem 500 Mg Sdv) Confirm Administered Dose 500 mg .ROUTE .ST[facility]- MED ONE Stop: 08/28/20 06:37 Last Admin: 08/28/20 07:40 Dose: 500 mg Documented by: Metoclopramide HCl (Metoclopramide 10 Mg/2 Ml Sdv) 10 mg IVPUSH Q6H [facility] Last Admin: 09/05/20 09:44 Dose: 10 mg Documented by: Metoprolol Tartrate (Metoprolol Tartrate 5 Mg/5 Ml Sdv) 2.5 mg IVPUSH Q6H [facility] Last Admin: 08/28/20 03:32 Dose: Not Given Documented by: Metoprolol Tartrate (Metoprolol Tartrate 25 Mg Tab) 25 mg PO ONETIME ONE Stop: 09/02/20 19:44 Last Admin: 09/02/20 20:38 Dose: 25 mg Documented by: Naloxone HCl (Naloxone 0.4 Mg/Ml Sdv) 0.4 mg IVPUSH Q2M PRN PRN Reason: Respiratory Distress Neostigmine Methylsulfate (Neostigmine Methylsulfate 1 Mg/Ml 5 Ml Syringe) Confirm Administered Dose 5 mg .ROUTE .ST[facility]-MED ONE Stop: 08/25/20 07:21 Ondansetron HCl (Ondansetron 4 Mg/2 Ml Sdv) 4 mg IVPUSH ONETIME ONE Stop: 08/24/20 15:32 Last Admin: 08/24/20 15:44 Dose: 4 mg Documented by: Ondansetron HCl (Ondansetron 4 Mg/2 Ml Sdv) Confirm Administered Dose 4 mg .ROUTE .ST[facility]-MED ONE Stop: 08/25/20 07:21 Pantoprazole Sodium (Pantoprazole 40 Mg Vial) 40 mg IV ONETIME ONE Stop: 08/24/20 20:01 Last Admin: 08/24/20 20:46 Dose: 40 mg Documented by: Pantoprazole Sodium (Pantoprazole 40 Mg Vial) 40 mg IV Q24H [facility] Last Admin: 08/29/20 15:34 Dose: 40 mg Documented by: Pantoprazole Sodium (Pantoprazole 40 Mg Tab.Cr) 40 mg PO Q24H [facility] Last Admin: 08/31/20 15:47 Dose: Not Given Documented by: Pantoprazole Sodium (Pantoprazole 40 Mg Vial) 40 mg IVPUSH DAILY [facility] Pneumococcal Polyvalent Vaccine (Pneumococcal Polyvalent-23 Vaccine 0.5 Ml Sdv) 0.5 ml IM .ONCE ONE Stop: 08/24/20 19:28 Last Admin: 08/24/20 20:21 Dose: Not Given Documented by: Propofol (Propofol 200 Mg/20 Ml Sdv) Confirm Administered Dose 200 mg .ROUTE .STK-MED ONE Stop: 08/25/20 07:21 Propofol (Propofol 200 Mg/20 Ml Sdv) Confirm Administered Dose 200 mg .ROUTE .STK-MED ONE Stop: 08/28/20 06:51 Rocuronium Ina (Rocuronium 50 Mg/5 Ml Vial) Confirm Administered Dose 50 mg .ROUTE .STK-MED ONE Stop: 08/25/20 07:21 Rocuronium Ina (Rocuronium 50 Mg/5 Ml Vial) Confirm Administered Dose 50 mg .ROUTE .STK-MED ONE Stop: 08/25/20 11:58 Succinylcholine Chloride (Succinylcholine 200 Mg/10 Ml Mdv) Confirm Administered Dose 200 mg .ROUTE .ST[facility]-MED ONE Stop: 08/25/20 07:21 Tramadol HCl (Tramadol 50 Mg Tab) 50 mg PO Q4H PRN PRN Reason: Pain - Exam Quality Assessment: No: Supplemental Oxygen General: Alert, Oriented, Cooperative, No Acute Distress Lungs: Clear to Auscultation, Normal Respiratory Effort Cardiovascular: Regular Rate, Irregular Rhythm GI/Abdominal Exam: Normal Bowel Sounds, Soft, No Distention, Tender (RLQ) Extremities: Pedal Edema (right leg ). No: Increased Warmth Skin: Warm, Dry Psy/Mental Status: Alert, Normal Affect - Patient Data Lab Results Last 24 hrs: Laboratory Results - last 24 hr 09/05/20 09/05/20 Range/Units 04:00 04:00 WBC 7.0 (4.5-11.0) K/uL RBC 3.87 L (4.30-5.90) M/uL Hgb 11.3 L (12.0-15.0) g/dL Hct 34.2 L (40.0-54.0) % MCV 88 (80-98) fL MCH 29 (27-31) pg MCHC 33 (32-36) % Plt Count 303 (150-400) K/uL Sodium 140 (140-148) mmol/L Potassium 4.0 (3.6-5.2) mmol/L Chloride 103 (100-108) mmol/L Carbon Dioxide 28 (21-32) mmol/L Anion Gap 8.8 (5.0-14.0) mmol/L BUN 8 (7-18) mg/dL Creatinine 0.8 (0.8-1.3) mg/dL Est Cr Clr Drug Dosing 86.18 mL/min Estimated GFR (MDRD) > 60 (>60) Glucose 120 H (74-106) mg/dL Calcium 7.6 L (8.5-10.1) mg/dL Phosphorus 2.9 (2.5-4.9) mg/dL Total Bilirubin 0.5 (0.2-1.0) mg/dL AST 19 (15-37) U/L ALT 18 (12-78) U/L Alkaline Phosphatase 52 (46-116) U/L NT-Pro-B Natriuret Pep 963 H (5-125) pg/mL Total Protein 5.6 L (6.4-8.2) g/dL Albumin 2.1 L (3.4-5.0) g/dL Globulin 3.5 (2.3-3.5) g/dL Albumin/Globulin Ratio 0.6 L (1.2-2.2) Result Diagrams: 09/05/20 04:00 09/05/20 04:00 Sepsis Event Note - Evaluation Sepsis Screening Result: No Definite Risk - Focused Exam Vital Signs: Vital Signs Temp Pulse Pulse Resp BP BP Pulse Ox 09/05/20 09:47 77 102/45 L 09/05/20 09:46 77 102/45 L 09/05/20 07:00 35.6 C L 72 18 116/71 98 09/05/20 02:00 36.8 C 68 16 106/61 96 09/05/20 01:00 94 L - Problem List & Annotations (1) Acute appendicitis SNOMED Code(s): 63209046 Code(s): K35.80 - UNSPECIFIED ACUTE APPENDICITIS Status: Acute Current Visit: Yes Qualifiers: Acute appendicitis type: with localized peritonitis Appendicitis gangrene presence: without gangrene Appendicitis perforation presence: without perforation Appendicitis abscess presence: without abscess Qualified Code(s): K35.30 - Acute appendicitis with localized peritonitis, without perforation or gangrene (2) History of stroke with residual deficit SNOMED Code(s): 717395522 Code(s): I69.30 - UNSPECIFIED SEQUELAE OF CEREBRAL INFARCTION Status: Chronic Current Visit: Yes (3) Atrial fibrillation SNOMED Code(s): 37993473 Code(s): I48.91 - UNSPECIFIED ATRIAL FIBRILLATION Status: Chronic Current Visit: No Qualifiers: Atrial fibrillation type: longstanding persistent Qualified Code(s): I48.11 - Longstanding persistent atrial fibrillation (4) CAD (coronary artery disease) SNOMED Code(s): 12436049 Code(s): I25.10 - ATHSCL HEART DISEASE OF [place] CORONARY ARTERY W/O ANG PCTRS Status: Chronic Current Visit: No Qualifiers: Coronary Disease-Associated Artery/Lesion type: [place] artery [place] vs. transplanted heart: minto heart Associated angina: without angina Qualified Code(s): I25.10 - Atherosclerotic heart disease of [place] coronary artery witho ut angina pectoris (5) Chronic systolic CHF (congestive heart failure) SNOMED Code(s): 069845338, 755171936 Code(s): I50.22 - CHRONIC SYSTOLIC (CONGESTIVE) HEART FAILURE Status: Chronic Current Visit: No (6) Cardiomyopathy SNOMED Code(s): 98652612 Code(s): I42.9 - CARDIOMYOPATHY, UNSPECIFIED Status: Chronic Current Visit: No Qualifiers: Cardiomyopathy type: ischemic Qualified Code(s): I25.5 - Ischemic cardiomyopathy (7) Hx of deep venous thrombosis SNOMED Code(s): 273269913 Code(s): Z86.718 - PERSONAL HISTORY OF OTHER VENOUS THROMBOSIS AND EMBOLISM Status: Chronic Current Visit: No - Problem List Review Problem List Initiated/Reviewed/Updated: Yes - My Orders Last 24 Hours: My Active Orders 09/05/20 10:57 Convert IV to Saline Lock [OM.PC] Routine 09/05/20 10:58 Discontinue Telemetry Monitoring [Cardiac Monitoring Discontinue] [RC] Click to Edit 09/05/20 16:00 Metoclopramide [Reglan] 5 mg IVPUSH Q6H 09/05/20 21:00 Gabapentin [Neurontin] 600 mg PO BEDTIME PRN - Plan Plan:: ASSESSMENT AND PLAN Acute appendicitis without perforation-status post appendectomy performed 08/[address] Acevedo. Postoperative course complicated by persistent ileus versus developing obstruction. Ileus finally seems to have resolved. Tolerating full liquids. -Reduce dose of metoclopramide today -Symptomatic management of pain and nausea -Postoperative care per Dr. Acevedo -Advance diet as tolerated Chronic systolic congestive heart failure-complicated by ischemic cardiomyopathy with moderately reduced ejection fraction. Well compensated at this time. 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 Gets around without a cane most of the time. -Continue physical therapy Maintenance issues -DVT prophylaxis-mechanical -GI prophylaxis-PPI -Nutrition-full liquids Disposition -I anticipate discharge to the long-term for subacute rehab after the hospital stay, likely will not be ready until Tuesday Jimmy Gutierrez MD
[2020-09-05] MEDS: Metoclopramide 10 MG Tab PO SCH ×2 (17:47→22:50)
[2020-09-05] MEDS ORDERED: Calcium Carbonate 500 MG Tab.Chew PO PRN (20:09)
[2020-09-05] MEDS ORDERED: Gabapentin 300 MG Cap PO PRN (21:00)
[2020-09-05] MEDS: Simvastatin 20 MG Tab PO SCH (21:26)
[2020-09-05] MEDS: Tamsulosin 0.4 MG Cap.ER PO SCH (21:27)
[2020-09-05] MEDS: Melatonin 3 MG Tab PO PRN (22:58)
[2020-09-06] MEDS: Acetaminophen 325 MG Tab PO PRN (03:15)
[2020-09-06] MEDS: oxyCODONE 5 MG Tab PO PRN ×4 (03:15→23:15)
[2020-09-06] MEDS: Metoclopramide 10 MG Tab PO SCH (05:08)
[2020-09-06] MEDS: Pantoprazole 40 MG Tab.CR PO SCH (07:11)
[2020-09-06] MEDS: Levothyroxine 50 MCG Tab PO SCH (07:11)
[2020-09-06] MEDS: Spironolactone 25 MG Tab PO SCH (09:31)
[2020-09-06] MEDS: Sotalol 80 MG Tab PO SCH ×2 (09:32→20:51)
[2020-09-06] MEDS: Aspirin 81 MG Tab.Chew PO SCH (09:32)
[2020-09-06] MEDS: Lactobacillus Rhamnosus GG (Probiotic) Cap PO SCH ×2 (09:35→20:51)
[2020-09-06] MEDS: Docusate Sodium 100 MG Cap PO SCH ×2 (09:35→20:50)
[2020-09-06] MEDS: Gabapentin 300 MG Cap PO SCH ×3 (09:36→20:51)
[2020-09-06] MEDS: DULoxetine 20 MG Cap PO SCH (09:36)
[2020-09-06] MEDS: Apixaban 5 MG Tab PO SCH ×2 (09:36→20:50)
[2020-09-06] MEDS: Metoprolol Tartrate 25 MG Tab PO SCH ×2 (09:36→20:50)
[2020-09-06] MEDS: Ezetimibe 10 MG Tab PO SCH (09:37)
[2020-09-06] MEDS: Oxybutynin 5 MG Tab PO SCH ×3 (09:37→20:50)
[2020-09-06] MEDS: Sertraline 25 MG Tab PO SCH (09:37)
--- NOTE | 2020-09-06 10:58 | PCM.PN ---
- General Info Date of Service: 09/06/20 Subjective Update: There were no acute events overnight. He did report some pain in the right leg from the knee down to the foot overnight, similar to last night. The pain did eventually resolve after a dose of pain medication. No significant pain today. Making slow progress with physical therapy. Tolerated his soft diet last night and again this morning. Vital signs have been stable. He has not had any fevers. He has remained off supplemental oxygen. Functional Status: Reports: Pain Controlled, Tolerating Diet - Review of Systems General: Denies: Fever - Patient Data Vitals - Most Recent: Last Vital Signs Temp 36.6 C 09/06/20 06:59 Pulse 69 09/06/20 09:36 Resp 18 09/06/20 06:59 BP 111/61 09/06/20 09:36 Pulse Ox 95 09/06/20 06:59 Weight - Most Recent: 97.976 kg I&O - Last 24 Hours: Intake & Output 09/05/20 09/06/20 09/06/20 22:59 06:59 14:59 Intake Total 415 296 640 Output Total 1 450 350 Balance 414 -154 290 Lab Results Last 24 Hours: Laboratory Results - last 24 hr 09/06/20 09/06/20 Range/Units 04:45 04:45 WBC 6.0 (4.5-11.0) K/uL RBC 3.94 L (4.30-5.90) M/uL Hgb 11.5 L (12.0-15.0) g/dL Hct 34.5 L (40.0-54.0) % MCV 88 (80-98) fL MCH 29 (27-31) pg MCHC 33 (32-36) % Plt Count 317 (150-400) K/uL Sodium 140 (140-148) mmol/L Potassium 3.8 (3.6-5.2) mmol/L Chloride 106 (100-108) mmol/L Carbon Dioxide 26 (21-32) mmol/L Anion Gap 7.6 (5.0-14.0) mmol/L BUN 7 (7-18) mg/dL Creatinine 0.9 (0.8-1.3) mg/dL Est Cr Clr Drug Dosing 76.60 mL/min Estimated GFR (MDRD) > 60 (>60) Glucose 109 H (74-106) mg/dL Calcium 8.0 L (8.5-10.1) mg/dL Phosphorus 3.8 (2.5-4.9) mg/dL Magnesium 2.3 (1.8-2.4) mg/dL Total Bilirubin 0.4 (0.2-1.0) mg/dL AST 18 (15-37) U/L ALT 18 (12-78) U/L Alkaline Phosphatase 51 (46-116) U/L NT-Pro-B Natriuret Pep 1049 H (5-125) pg/mL Total Protein 5.9 L (6.4-8.2) g/dL Albumin 2.2 L (3.4-5.0) g/dL Globulin 3.7 H (2.3-3.5) g/dL Albumin/Globulin Ratio 0.6 L (1.2-2.2) Med Orders - Current: Current Medications Acetaminophen (Acetaminophen 325 Mg Tab) 650 mg PO Q4H PRN PRN Reason: Pain (Mild 1-3)/fever Last Admin: 09/06/20 03:15 Dose: 650 mg Documented by: Albuterol (Albuterol 0.083% 2.5 Mg/3 Ml Neb Soln) 2.5 mg NEB Q4H PRN PRN Reason: Shortness Of Breath/wheezing Apixaban (Apixaban 5 Mg Tab) 5 mg PO BID [facility] [place] Last Admin: 09/06/20 09:36 Dose: 5 mg Documented by: Aspirin (Aspirin 81 Mg Tab.Chew) 324 mg PO DAILY [facility] [place] Last Admin: 09/06/20 09:32 Dose: 324 mg Documented by: Benzocaine/Menthol (Benzocaine/Cetylpyridinium/Menthol Lozenge) 1 lozenge MUCMEM Q2H PRN PRN Reason: Sore Throat Last Admin: 09/05/20 07:15 Dose: 1 lozenge Documented by: Calcium Carbonate/Glycine (Calcium Carbonate 500 Mg Tab.Chew) 1,000 mg PO Q2H PRN PRN Reason: Indigestion Last Admin: 09/05/20 21:21 Dose: 1,000 mg Documented by: Docusate Sodium (Docusate Sodium 100 Mg Cap) 100 mg PO BID [facility] [place] Last Admin: 09/06/20 09:35 Dose: 100 mg Documented by: Duloxetine HCl (Duloxetine 20 Mg Cap) 20 mg PO DAILY [facility] [place] Last Admin: 09/06/20 09:36 Dose: 20 mg Documented by: Ezetimibe (Ezetimibe 10 Mg Tab) 5 mg PO DAILY [facility] [place] Last Admin: 09/06/20 09:37 Dose: 5 mg Documented by: Gabapentin (Gabapentin 300 Mg Cap) 600 mg PO TID [facility] [place] Last Admin: 09/06/20 09:36 Dose: 600 mg Documented by: Gabapentin (Gabapentin 300 Mg Cap) 600 mg PO BEDTIME PRN PRN Reason: Insomnia Hydroxyzine HCl (Hydroxyzine Hcl 100 Mg/2 Ml Sdv) 100 mg IM Q4H PRN PRN Reason: Pain Last Admin: 08/31/20 05:02 Dose: 100 mg Documented by: Lactobacillus Rhamnosus (Lactobacillus Rhamnosus Gg (Probiotic) Cap) 1 cap PO BID [facility] [place] Last Admin: 09/06/20 09:35 Dose: 1 cap Documented by: Levothyroxine Sodium (Levothyroxine 50 Mcg Tab) 150 mcg PO DAILY@0730 [facility] [place] Last Admin: 09/06/20 07:11 Dose: 150 mcg Documented by: Magnesium Hydroxide (Magnesium Hydroxide 400 Mg/5 Ml Susp 30 Ml Cup) 30 ml PO Q12H PRN PRN Reason: Constipation Melatonin (Melatonin 3 Mg Tab) 9 mg PO BEDTIME PRN PRN Reason: Sleep Last Admin: 09/05/20 22:58 Dose: 9 mg Documented by: Metoclopramide HCl (Metoclopramide 10 Mg Tab) 5 mg PO Q6H [facility] [place] Stop: 09/06/20 17:00 Last Admin: 09/06/20 05:08 Dose: 5 mg Documented by: Metoprolol Tartrate (Metoprolol Tartrate 25 Mg Tab) 12.5 mg PO BID [facility] [place] Last Admin: 09/06/20 09:36 Dose: 12.5 mg Documented by: Ondansetron HCl (Ondansetron 4 Mg Tab.Dis) 4 mg PO Q6H PRN PRN Reason: Nausea able to take PO Last Admin: 09/01/20 09:59 Dose: 4 mg Documented by: Oxybutynin Chloride (Oxybutynin 5 Mg Tab) 5 mg PO TID [facility] [place] Last Admin: 09/06/20 09:37 Dose: 5 mg Documented by: Oxycodone HCl (Oxycodone 5 Mg Tab) 5 mg PO Q4H PRN PRN Reason: Pain Last Admin: 09/06/20 09:47 Dose: 5 mg Documented by: Pantoprazole Sodium (Pantoprazole 40 Mg Tab.Cr) 40 mg PO ACBREAKFAST [facility] [place] Last Admin: 09/06/20 07:11 Dose: 40 mg Documented by: Sertraline HCl (Sertraline 25 Mg Tab) 25 mg PO DAILY [facility] [place] Last Admin: 09/06/20 09:37 Dose: 25 mg Documented by: Simvastatin (Simvastatin 20 Mg Tab) 20 mg PO BEDTIME [facility] [place] Last Admin: 09/05/20 21:26 Dose: 20 mg Documented by: Sotalol HCl (Sotalol 80 Mg Tab) 120 mg PO BID [facility] [place] Last Admin: 09/06/20 09:32 Dose: 120 mg Documented by: Spironolactone (Spironolactone 25 Mg Tab) 25 mg PO DAILY [facility] [place] Last Admin: 09/06/20 09:31 Dose: 25 mg Documented by: Tamsulosin HCl (Tamsulosin 0.4 Mg Cap.Er) 0.4 mg PO BEDTIME [facility] [place] Last Admin: 09/05/20 21:27 Dose: 0.4 mg Documented by: Discontinued Medications Hydrocodone Bitart/Acetaminophen (Acetaminophen/Hydrocodone 325-5 Mg Tab) 1 - 2 tab PO Q4H PRN PRN Reason: Pain Aspirin (Aspirin 325 Mg Tab.Ec) 325 mg PO DAILY [facility] [place] Last Admin: 08/31/20 08:15 Dose: Not Given Documented by: Bisacodyl (Bisacodyl 10 Mg Supp) 10 mg RECTAL BID [facility] [place] Last Admin: 08/28/20 20:27 Dose: 10 mg Documented by: Bisacodyl (Bisacodyl 5 Mg Tab) 10 mg PO BID [facility] [place] Last Admin: 09/05/20 21:22 Dose: Not Given Documented by: Bisacodyl (Bisacodyl 10 Mg Supp) 10 mg RECTAL BID PRN PRN Reason: Constipation Last Admin: 08/29/20 15:21 Dose: 10 mg Documented by: Bisacodyl (Bisacodyl 10 Mg Supp) 10 mg RECTAL BID [facility] [place] Last Admin: 09/05/20 21:22 Dose: Not Given Documented by: Bupivacaine HCl (Bupivacaine 0.5% 50 Ml Mdv) Confirm Administered Dose 50 ml .ROUTE .[facility] Stop: 08/27/20 06:33 Bupivacaine HCl (Bupivacaine 0.5% 50 Ml Mdv) Confirm Administered Dose 50 ml .ROUTE .[facility] Stop: 08/28/20 06:37 Last Admin: 08/28/20 07:40 Dose: 12.4 ml Documented by: Bupivacaine HCl/Epinephrine Bitart (Bupivacaine 0.5%/Epinephrine 1:200,000 50 Ml Mdv) Confirm Administered Dose 50 ml .ROUTE .[facility] Stop: 08/25/20 07:15 Last Admin: 08/25/20 13:23 Dose: 40 ml Documented by: Ropivacaine 50 ml/Dexamethasone 8 mg/Epinephrine HCl 0.4 mg/ Sodium Chloride 27.6 ml 0 ml NERVRT ASDIRECTED [facility] [place] Last Admin: 08/25/20 11:23 Dose: 80 syringe Documented by: Ropivacaine 50 ml/Dexamethasone 8 mg/Epinephrine HCl 0.4 mg/ Sodium Chloride 27.6 ml 0 ml NERVRT ASDIRECTED [facility] [place] Last Admin: 08/28/20 07:31 Dose: 80 syringe Documented by: Dexamethasone (Dexamethasone 4 Mg/Ml Sdv) Confirm Administered Dose 4 mg .ROUTE .[facility] Stop: 08/25/20 07:21 Fentanyl (Fentanyl 250 Mcg/5 Ml Sdv) Confirm Administered Dose 250 mcg .ROUTE .[facility] Stop: 08/25/20 07:21 Fentanyl (Fentanyl 100 Mcg/2 Ml Sdv) Confirm Administered Dose 100 mcg .ROUTE .[facility] Stop: 08/25/20 12:00 Fentanyl (Fentanyl 100 Mcg/2 Ml Sdv) Confirm Administered Dose 100 mcg .ROUTE .[facility] Stop: 08/28/20 06:51 Furosemide (Furosemide 20 Mg/2 Ml Vial) 20 mg IVPUSH Q8H [facility] Stop: 08/28/20 17:01 Last Admin: 08/28/20 16:35 Dose: 20 mg Documented by: Furosemide (Furosemide 20 Mg/2 Ml Vial) 20 mg IVPUSH Q6H [facility] Stop: 09/01/20 14:01 Last Admin: 09/01/20 15:08 Dose: 20 mg Documented by: Furosemide (Furosemide 40 Mg/4 Ml Vial) 40 mg IVPUSH ONETIME ONE Stop: 09/02/20 13:46 Last Admin: 09/02/20 13:53 Dose: 40 mg Documented by: Furosemide (Furosemide 20 Mg/2 Ml Vial) 20 mg IVPUSH ONETIME ONE Stop: 09/03/20 09:01 Last Admin: 09/03/20 08:26 Dose: 20 mg Documented by: Furosemide (Furosemide 20 Mg/2 Ml Vial) 20 mg IVPUSH ONETIME ONE Stop: 09/04/20 09:01 Last Admin: 09/04/20 08:34 Dose: 20 mg Documented by: Gabapentin (Gabapentin 100 Mg Cap) 600 mg PO TID [facility] Last Admin: 08/24/20 20:50 Dose: Not Given Documented by: Glycopyrrolate (Glycopyrrolate 0.2 Mg/Ml 5 Ml Mdv) Confirm Administered Dose 1 mg .ROUTE .[facility] ONE Stop: 08/25/20 07:21 Hydromorphone HCl (Hydromorphone 0.5 Mg/0.5 Ml Syringe) 0.5 mg IVPUSH ONETIME ONE Stop: 08/24/20 15:32 Last Admin: 08/24/20 15:45 Dose: 0.5 mg Documented by: Hydromorphone HCl (Hydromorphone 1 Mg/Ml Syringe) 1 mg IVPUSH ONETIME ONE Stop: 08/24/20 17:24 Last Admin: 08/24/20 18:20 Dose: 1 mg Documented by: Hydromorphone HCl (Hydromorphone/Normal Saline 15 Mg/30 Ml [employer]) 0 mg IV ASDIRECTED PRN; Protocol PRN Reason: Pain Last Admin: 08/28/20 10:50 Dose: 15 mg Documented by: Hydromorphone HCl (Hydromorphone 2 Mg Tab) 2 - 4 mg PO Q4H PRN PRN Reason: Pain Last Admin: 09/05/20 04:48 Dose: 2 mg Documented by: Hydromorphone HCl (Hydromorphone/Normal Saline 15 Mg/30 Ml [employer]) 0 mg IV ASDIRECTED PRN; Protocol PRN Reason: Pain Last Admin: 09/01/20 10:39 Dose: 15 mg Documented by: Sodium Chloride (Normal Saline) 1,000 mls @ 999 mls/hr IV ASDIRECTED [facility] Last Admin: 08/24/20 15:45 Dose: 999 mls/hr Documented by: Sodium Chloride (Normal Saline) 1,000 mls @ 300 mls/hr IV ASDIRECTED [facility] Lactated Ringer's (Ringers, Lactated) 1,000 mls @ 100 mls/hr IV ASDIRECTED [facility] Last Admin: 08/25/20 02:58 Dose: 100 mls/hr Documented by: Ampicillin Sodium/Sulbactam (Sodium 3 gm/ Sodium Chloride) 100 mls @ 200 mls/hr IV Q6H [facility] Last Admin: 08/25/20 05:04 Dose: 200 mls/hr Documented by: Aztreonam 1 gm/ Sodium (Chloride) 50 mls @ 100 mls/hr IV Q8H [facility] Last Admin: 08/25/20 05:05 Dose: 100 mls/hr Documented by: Aztreonam 1 gm/ Sodium (Chloride) 50 mls @ 100 mls/hr IV Q8H [facility] [place] Last Admin: 09/01/20 12:30 Dose: 100 mls/hr Documented by: Magnesium Sulfate (Magnesium Sulfate In Water 2 Gm/50 Ml) 2 gm in 50 mls @ 25 mls/hr IV Q6H [facility] Stop: 08/25/20 18:29 Last Admin: 08/25/20 16:14 Dose: 25 mls/hr Documented by: Ampicillin Sodium/Sulbactam (Sodium 3 gm/ Sodium Chloride) 100 mls @ 200 mls/hr IV Q6H [facility] [place] Last Admin: 09/01/20 11:54 Dose: 200 mls/hr Documented by: Lactated Ringer's (Ringers, Lactated) Confirm Administered Dose 1,000 mls @ as directed .ROUTE .[facility] Stop: 08/25/20 11:32 Dextrose/Lactated Ringer's (Dextrose 5%-Lactated Ringers) 1,000 mls @ 150 mls/hr IV ASDIRECTED [facility] [place] Last Admin: 08/26/20 03:57 Dose: 150 mls/hr Documented by: Potassium Phosphate 15 mmole/ (Sodium Chloride) 255 mls @ 85 mls/hr IV Q3H [facility] [place] Stop: 08/26/20 17:59 Last Admin: 08/26/20 15:25 Dose: 85 mls/hr Documented by: Dextrose/Lactated Ringer's (Dextrose 5%-Lactated Ringers) 1,000 mls @ 80 mls/hr IV ASDIRECTED [facility] [place] Last Admin: 08/29/20 13:46 Dose: 80 mls/hr Documented by: Dextrose/Lactated Ringer's (Dextrose 5%-Lr) 500 mls @ 250 mls/hr IV ONETIME ONE Stop: 08/27/20 17:59 Last Admin: 08/27/20 16:00 Dose: 250 mls/hr Documented by: Lactated Ringer's (Ringers, Lactated) 500 mls @ 250 mls/hr IV ONETIME ONE Stop: 08/27/20 18:14 Last Admin: 08/27/20 17:02 Dose: 250 mls/hr Documented by: Potassium Phosphate 15 mmole/ (Sodium Chloride) 255 mls @ 125 mls/hr IV Q2H [facility] [place] Stop: 08/28/20 15:59 Last Admin: 08/28/20 16:03 Dose: 125 mls/hr Documented by: Magnesium Sulfate (Magnesium Sulfate In Water 2 Gm/50 Ml) 2 gm in 50 mls @ 25 mls/hr IV Q6HR [facility] Stop: 08/30/20 05:59 Last Admin: 08/30/20 03:00 Dose: 25 mls/hr Documented by: Azithromycin 250 mg/ Sodium (Chloride) 150 mls @ 150 mls/hr IV Q12H [facility] [place] Last Admin: 08/30/20 09:11 Dose: 150 mls/hr Documented by: Dextrose/Lactated Ringer's (Dextrose 5%-Lactated Ringers) 1,000 mls @ 100 mls/hr IV ASDIRECTED [facility] [place] Last Admin: 09/02/20 09:19 Dose: 100 mls/hr Documented by: Potassium Phosphate 15 mmole/ (Sodium Chloride) 255 mls @ 125 mls/hr IV Q2H [facility] Stop: 09/01/20 15:59 Last Admin: 09/01/20 15:52 Dose: 125 mls/hr Documented by: Dextrose/Lactated Ringer's (Dextrose 5%-Lactated Ringers) 1,000 mls @ 25 mls/hr IV ASDIRECTED [facility] [place] Last Admin: 09/03/20 07:40 Dose: 25 mls/hr Documented by: Potassium Phosphate 15 mmol/ (Premix) 250 mls @ 125 mls/hr IV Q2H [facility] [place] Stop: 09/03/20 14:59 Last Admin: 09/03/20 14:04 Dose: 125 mls/hr Documented by: Magnesium Sulfate (Magnesium Sulfate In Water 2 Gm/50 Ml) 2 gm in 50 mls @ 25 mls/hr IV Q6H [facility] [place] Stop: 09/06/20 04:59 Last Admin: 09/05/20 09:43 Dose: 25 mls/hr Documented by: Sodium Chloride (Normal Saline) 1,000 mls @ 25 mls/hr IV ASDIRECTED [facility] [place] Last Admin: 09/04/20 15:47 Dose: 25 mls/hr Documented by: Potassium Phosphate 15 mmol/ (Premix) 250 mls @ 125 mls/hr IV Q2H [facility] [place] Stop: 09/04/20 14:59 Last Admin: 09/04/20 13:44 Dose: 125 mls/hr Documented by: Lidocaine HCl (Lidocaine 2% Jelly 10 Ml Urojet) Confirm Administered Dose 10 ml .ROUTE .[facility] ONE Stop: 08/25/20 10:49 Last Admin: 08/26/20 10:35 Dose: 10 ml Documented by: Lidocaine/Epinephrine (Lidocaine 1% With Epinephrine 1:100,000 50 Ml Mdv) Confirm Administered Dose 50 ml .ROUTE .[facility] ONE Stop: 08/27/20 06:33 Lidocaine/Epinephrine (Lidocaine 1% With Epinephrine 1:100,000 50 Ml Mdv) Confirm Administered Dose 50 ml .ROUTE .[facility] ONE Stop: 08/28/20 06:37 Last Admin: 08/28/20 07:40 Dose: 12.4 ml Documented by: Lisinopril (Lisinopril 2.5 Mg Tab) 2.5 mg PO DAILY [facility] Last Admin: 09/01/20 08:50 Dose: 2.5 mg Documented by: Lorazepam (Lorazepam 2 Mg/Ml Sdv) 0.5 mg IVPUSH Q4H PRN PRN Reason: Nausea/Vomiting Last Admin: 08/27/20 02:13 Dose: 0.5 mg Documented by: Meropenem (Meropenem 500 Mg Sdv) Confirm Administered Dose 500 mg .ROUTE .[facility]- [facility] ONE Stop: 08/25/20 11:15 Last Admin: 08/25/20 11:47 Dose: 1,000 mg Documented by: Meropenem (Meropenem 500 Mg Sdv) Confirm Administered Dose 500 mg .ROUTE .[facility]- MED ONE Stop: 08/25/20 12:12 Meropenem (Meropenem 500 Mg Sdv) Confirm Administered Dose 500 mg .ROUTE .[facility]- [facility] ONE Stop: 08/27/20 06:33 Meropenem (Meropenem 500 Mg Sdv) Confirm Administered Dose 500 mg .ROUTE .[facility]- MED ONE Stop: 08/28/20 06:37 Last Admin: 08/28/20 07:40 Dose: 500 mg Documented by: Metoclopramide HCl (Metoclopramide 10 Mg/2 Ml Sdv) 10 mg IVPUSH Q6H [facility] [place] Last Admin: 09/05/20 09:44 Dose: 10 mg Documented by: Metoclopramide HCl (Metoclopramide 10 Mg/2 Ml Sdv) 5 mg IVPUSH Q6H [facility] Last Admin: 09/05/20 16:53 Dose: Not Given Documented by: Metoprolol Tartrate (Metoprolol Tartrate 5 Mg/5 Ml Sdv) 2.5 mg IVPUSH Q6H [facility] [place] Last Admin: 08/28/20 03:32 Dose: Not Given Documented by: Metoprolol Tartrate (Metoprolol Tartrate 25 Mg Tab) 25 mg PO ONETIME ONE Stop: 09/02/20 19:44 Last Admin: 09/02/20 20:38 Dose: 25 mg Documented by: Naloxone HCl (Naloxone 0.4 Mg/Ml Sdv) 0.4 mg IVPUSH Q2M PRN PRN Reason: Respiratory Distress Neostigmine Methylsulfate (Neostigmine Methylsulfate 1 Mg/Ml 5 Ml Syringe) Confirm Administered Dose 5 mg .ROUTE .[facility] ONE Stop: 08/25/20 07:21 Ondansetron HCl (Ondansetron 4 Mg/2 Ml Sdv) 4 mg IVPUSH ONETIME ONE Stop: 08/24/20 15:32 Last Admin: 08/24/20 15:44 Dose: 4 mg Documented by: Ondansetron HCl (Ondansetron 4 Mg/2 Ml Sdv) 4 mg IV Q6H PRN PRN Reason: Nausea/Vomiting Last Admin: 08/30/20 11:04 Dose: 4 mg Documented by: Ondansetron HCl (Ondansetron 4 Mg/2 Ml Sdv) Confirm Administered Dose 4 mg .ROUTE .[facility] ONE Stop: 08/25/20 07:21 Pantoprazole Sodium (Pantoprazole 40 Mg Vial) 40 mg IV ONETIME ONE Stop: 08/24/20 20:01 Last Admin: 08/24/20 20:46 Dose: 40 mg Documented by: Pantoprazole Sodium (Pantoprazole 40 Mg Vial) 40 mg IV Q24H [facility] Last Admin: 08/29/20 15:34 Dose: 40 mg Documented by: Pantoprazole Sodium (Pantoprazole 40 Mg Tab.Cr) 40 mg PO Q24H [facility] Last Admin: 08/31/20 15:47 Dose: Not Given Documented by: Pantoprazole Sodium (Pantoprazole 40 Mg Vial) 40 mg IVPUSH DAILY [facility] Pantoprazole Sodium (Pantoprazole 40 Mg Vial) 40 mg IVPUSH DAILY [facility] Last Admin: 09/05/20 09:44 Dose: 40 mg Documented by: Pneumococcal Polyvalent Vaccine (Pneumococcal Polyvalent-23 Vaccine 0.5 Ml Sdv) 0.5 ml IM .ONCE ONE Stop: 08/24/20 19:28 Last Admin: 08/24/20 20:21 Dose: Not Given Documented by: Propofol (Propofol 200 Mg/20 Ml Sdv) Confirm Administered Dose 200 mg .ROUTE .[facility] ONE Stop: 08/25/20 07:21 Propofol (Propofol 200 Mg/20 Ml Sdv) Confirm Administered Dose 200 mg .ROUTE .[facility] ONE Stop: 08/28/20 06:51 Rocuronium [place] (Rocuronium 50 Mg/5 Ml Vial) Confirm Administered Dose 50 mg .ROUTE .[facility] ONE Stop: 08/25/20 07:21 Rocuronium [place] (Rocuronium 50 Mg/5 Ml Vial) Confirm Administered Dose 50 mg .ROUTE .[facility] ONE Stop: 08/25/20 11:58 Senna/Docusate Sodium (Docusate Sodium/Sennosides 50-8.6 Mg Tab) 1 tab PO BID PRN PRN Reason: Constipation Succinylcholine Chloride (Succinylcholine 200 Mg/10 Ml Mdv) Confirm Administered Dose 200 mg .ROUTE .[facility] ONE Stop: 08/25/20 07:21 Tramadol HCl (Tramadol 50 Mg Tab) 50 mg PO Q4H PRN PRN Reason: Pain - Exam Quality Assessment: No: Supplemental Oxygen General: Alert, Oriented, Cooperative, No Acute Distress Lungs: Normal Respiratory Effort GI/Abdominal Exam: Soft, No Distention Extremities: No Pedal Edema Skin: Warm, Dry Psy/Mental Status: Alert, Normal Affect - Patient Data Lab Results Last 24 hrs: Laboratory Results - last 24 hr 09/06/20 09/06/20 Range/Units 04:45 04:45 WBC 6.0 (4.5-11.0) K/uL RBC 3.94 L (4.30-5.90) M/uL Hgb 11.5 L (12.0-15.0) g/dL Hct 34.5 L (40.0-54.0) % MCV 88 (80-98) fL MCH 29 (27-31) pg MCHC 33 (32-36) % Plt Count 317 (150-400) K/uL Sodium 140 (140-148) mmol/L Potassium 3.8 (3.6-5.2) mmol/L Chloride 106 (100-108) mmol/L Carbon Dioxide 26 (21-32) mmol/L Anion Gap 7.6 (5.0-14.0) mmol/L BUN 7 (7-18) mg/dL Creatinine 0.9 (0.8-1.3) mg/dL Est Cr Clr Drug Dosing 76.60 mL/min Estimated GFR (MDRD) > 60 (>60) Glucose 109 H (74-106) mg/dL Calcium 8.0 L (8.5-10.1) mg/dL Phosphorus 3.8 (2.5-4.9) mg/dL Magnesium 2.3 (1.8-2.4) mg/dL Total Bilirubin 0.4 (0.2-1.0) mg/dL AST 18 (15-37) U/L ALT 18 (12-78) U/L Alkaline Phosphatase 51 (46-116) U/L NT-Pro-B Natriuret Pep 1049 H (5-125) pg/mL Total Protein 5.9 L (6.4-8.2) g/dL Albumin 2.2 L (3.4-5.0) g/dL Globulin 3.7 H (2.3-3.5) g/dL Albumin/Globulin Ratio 0.6 L (1.2-2.2) Result Diagrams: 09/06/20 04:45 09/06/20 04:45 Sepsis Event Note - Evaluation Sepsis Screening Result: No Definite Risk - Focused Exam Vital Signs: Vital Signs Temp Pulse Pulse Resp BP BP Pulse Ox 09/06/20 09:36 69 111/61 09/06/20 09:32 69 111/61 09/06/20 06:59 36.6 C 65 18 101/59 L 95 09/06/20 02:30 36.6 C 67 16 107/51 L 93 L - Problem List & Annotations (1) Acute appendicitis SNOMED Code(s): 19730493 Code(s): K35.80 - UNSPECIFIED ACUTE APPENDICITIS Status: Acute Current Visit: Yes Qualifiers: Acute appendicitis type: with localized peritonitis Appendicitis gangrene presence: without gangrene Appendicitis perforation presence: without perforation Appendicitis abscess presence: without abscess Qualified Code(s): K35.30 - Acute appendicitis with localized peritonitis, without perforation or gangrene (2) History of stroke with residual deficit SNOMED Code(s): 981838798 Code(s): I69.30 - UNSPECIFIED SEQUELAE OF CEREBRAL INFARCTION Status: Chronic Current Visit: Yes (3) Atrial fibrillation SNOMED Code(s): 73925111 Code(s): I48.91 - UNSPECIFIED ATRIAL FIBRILLATION Status: Chronic Current Visit: No Qualifiers: Atrial fibrillation type: longstanding persistent Qualified Code(s): I48.11 - Longstanding persistent atrial fibrillation (4) CAD (coronary artery disease) SNOMED Code(s): 19743305 Code(s): I25.10 - ATHSCL HEART DISEASE OF [place] CORONARY ARTERY W/O ANG PCTRS Status: Chronic Current Visit: No Qualifiers: Coronary Disease-Associated Artery/Lesion type: [place] artery [place] vs. transplanted heart: [place] heart Associated angina: without angina Qualified Code(s): I25.10 - Atherosclerotic heart disease of [place] coronary artery without angina pectoris (5) Chronic systolic CHF (congestive heart failure) SNOMED Code(s): 045422093, [id number] Code(s): I50.22 - CHRONIC SYSTOLIC (CONGESTIVE) HEART FAILURE Status: Chronic Current Visit: No (6) Cardiomyopathy SNOMED Code(s): 09529235 Code(s): I42.9 - CARDIOMYOPATHY, UNSPECIFIED Status: Chronic Current Visit: No Qualifiers: Cardiomyopathy type: ischemic Qualified Code(s): I25.5 - Ischemic cardio myopathy (7) Hx of deep venous thrombosis SNOMED Code(s): 377025338 Code(s): Z86.718 - PERSONAL HISTORY OF OTHER VENOUS THROMBOSIS AND EMBOLISM Status: Chronic Current Visit: No - Problem List Review Problem List Initiated/Reviewed/Updated: Yes - My Orders Last 24 Hours: My Active Orders 09/05/20 10:57 Convert IV to Saline Lock [OM.PC] Routine 09/05/20 11:00 LAURA Hose [Antiembolic Hose] [OM.PC] Routine 09/05/20 21:00 Gabapentin [Neurontin] 600 mg PO BEDTIME PRN - Plan Plan:: ASSESSMENT AND PLAN Acute appendicitis without perforation-status post appendectomy performed 08/[address] Acevedo. Postoperative course complicated by persistent ileus which has finally resolved. -Symptomatic management of pain and nausea -Postoperative care per Dr. Acevedo -Advance diet as tolerated Chronic systolic congestive heart failure-complicated by ischemic cardiomyopathy with moderately reduced ejection fraction. Well compensated at this time. 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 Gets around without a cane most of the time. -Continue physical therapy Maintenance issues -DVT prophylaxis-mechanical -GI prophylaxis-PPI -Nutrition-full liquids Disposition -I anticipate discharge to the long-term for subacute rehab on Tuesday Jimmy Gutierrez MD
[2020-09-06] MEDS: Simvastatin 20 MG Tab PO SCH (20:50)
[2020-09-06] MEDS: Tamsulosin 0.4 MG Cap.ER PO SCH (20:50)
[2020-09-06] MEDS: Melatonin 3 MG Tab PO PRN (23:15)
[2020-09-07] MEDS: Pantoprazole 40 MG Tab.CR PO SCH (07:08)
[2020-09-07] MEDS: Levothyroxine 50 MCG Tab PO SCH (07:08)
[2020-09-07] MEDS: oxyCODONE 5 MG Tab PO PRN ×2 (07:08→16:35)
[2020-09-07] MEDS ORDERED: Furosemide 20 MG Tab PO ONE (07:30)
--- NOTE | 2020-09-07 08:21 | PN ---
DATE OF SERVICE: 09/07/2020 SUBJECTIVE: Lemuel is tolerating the step 3 diet. Pain has been well managed. He is having more leg and back pain than incisional pain at this time, which is chronic for him. Oral intake was 2030 and urine output was 925 plus voiding. He did not have a bowel movement yesterday, so is quite concerned about that, but he is passing a lot of flatus. Labs this morning, hemoglobin is stable at 11.5. BNP increased a little bit to 1288. Remainder of labs were within normal limits. He has no questions or concerns. OBJECTIVE: GENERAL: Lemuel is a pleasant 70-year-old male. He is alert and orientated. VITAL SIGNS: TPR 96, 68, 18, blood pressure 138/79. HEENT: Negative. NECK: Supple. HEART: Regular rate and rhythm. LUNGS: Clear. ABDOMEN: Soft, nontender. Aquacel dressing on. EXTREMITIES: Without peripheral edema. ASSESSMENT: 1. Perforated appendix with periappendiceal abscess. 2. Nodular lesions overlying the cecum. 3. Date of procedure: 08/25/2020. Surgeon: Vazquez Acevedo MD. 4. Delayed primary closure, . Surgeon: Vazquez Acevedo MD. 5. Postop ileus x2. Both episodes resolved. PLAN: 1. Lasix 20 mg p.o. 1 time now. 2. Milk of Magnesia 30 mL b.i.d. p.r.n. 3. Dulcolax tablets 10 mg p.o. b.i.d. 4. We will evaluate p.r.n. or in a.m. 5. Plan discharge in a.m. Ellen Houston PA-C /[id number]
[2020-09-07] MEDS: Spironolactone 25 MG Tab PO SCH (09:15)
[2020-09-07] MEDS: Aspirin 81 MG Tab.Chew PO SCH (09:15)
[2020-09-07] MEDS: Sertraline 25 MG Tab PO SCH (09:16)
[2020-09-07] MEDS: Oxybutynin 5 MG Tab PO SCH ×3 (09:16→21:14)
[2020-09-07] MEDS: Docusate Sodium 100 MG Cap PO SCH ×2 (09:16→21:14)
[2020-09-07] MEDS: Ezetimibe 10 MG Tab PO SCH (09:16)
[2020-09-07] MEDS: Bisacodyl 5 MG Tab PO SCH ×2 (09:17→21:14)
[2020-09-07] MEDS: Lactobacillus Rhamnosus GG (Probiotic) Cap PO SCH ×2 (09:17→21:14)
[2020-09-07] MEDS: Gabapentin 300 MG Cap PO SCH ×3 (09:17→21:14)
[2020-09-07] MEDS: DULoxetine 20 MG Cap PO SCH (09:17)
[2020-09-07] MEDS: Magnesium Hydroxide 400 MG/5 ML Susp 30 ML Cup PO SCH ×2 (09:17→21:15)
[2020-09-07] MEDS: Apixaban 5 MG Tab PO SCH ×2 (09:17→21:14)
[2020-09-07] MEDS: Metoprolol Tartrate 25 MG Tab PO SCH ×2 (09:23→21:15)
[2020-09-07] MEDS: Sotalol 80 MG Tab PO SCH ×2 (09:24→21:13)
--- NOTE | 2020-09-07 11:29 | PCM.PN ---
- General Info Date of Service: 09/07/20 Subjective Update: There were no acute events overnight. Patient does report mild distention and nausea this morning but does not have any abdominal pain. He has not had any fevers. He did not have a bowel movement yesterday but does have some flatus today. Strength is very slowly improving but he still has significant limitation with strength and endurance. Heart rate has been well controlled with the addition of metoprolol. Functional Status: Reports: Pain Controlled, Tolerating Diet - Review of Systems Gastrointestinal: Reports: Nausea - Patient Data Vitals - Most Recent: Last Vital Signs Temp 35.8 C L 09/07/20 10:32 Pulse 66 09/07/20 10:32 Resp 18 09/07/20 10:32 BP 107/65 09/07/20 10:32 Pulse Ox 94 L 09/07/20 10:32 Weight - Most Recent: 97.976 kg I&O - Last 24 Hours: Intake & Output 09/06/20 09/07/20 09/07/20 22:59 06:59 14:59 Intake Total 720 350 540 Output Total 575 300 Balance 720 -225 240 Lab Results Last 24 Hours: Laboratory Results - last 24 hr 09/07/20 09/07/20 Range/Units 04:56 04:56 WBC 4.7 (4.5-11.0) K/uL RBC 3.94 L (4.30-5.90) M/uL Hgb 11.5 L (12.0-15.0) g/dL Hct 34.4 L (40.0-54.0) % MCV 87 (80-98) fL MCH 29 (27-31) pg MCHC 33 (32-36) % Plt Count 307 (150-400) K/uL Sodium 143 (140-148) mmol/L Potassium 3.9 (3.6-5.2) mmol/L Chloride 108 (100-108) mmol/L Carbon Dioxide 24 (21-32) mmol/L Anion Gap 10.6 (5.0-14.0) mmol/L BUN 6 L (7-18) mg/dL Creatinine 0.8 (0.8-1.3) mg/dL Est Cr Clr Drug Dosing 86.18 mL/min Estimated GFR (MDRD) > 60 (>60) Glucose 105 (74-106) mg/dL Calcium 8.3 L (8.5-10.1) mg/dL Phosphorus 3.6 (2.5-4.9) mg/dL Total Bilirubin 0.4 (0.2-1.0) mg/dL AST 14 L (15-37) U/L ALT 15 (12-78) U/L Alkaline Phosphatase 49 (46-116) U/L NT-Pro-B Natriuret Pep 1288 H (5-125) pg/mL Total Protein 5.9 L (6.4-8.2) g/dL Albumin 2.2 L (3.4-5.0) g/dL Globulin 3.7 H (2.3-3.5) g/dL Albumin/Globulin Ratio 0.6 L (1.2-2.2) Med Orders - Current: Current Medications Acetaminophen (Acetaminophen 325 Mg Tab) 650 mg PO Q4H PRN PRN Reason: Pain (Mild 1-3)/fever Last Admin: 09/06/20 03:15 Dose: 650 mg Documented by: Albuterol (Albuterol 0.083% 2.5 Mg/3 Ml Neb Soln) 2.5 mg NEB Q4H PRN PRN Reason: Shortness Of Breath/wheezing Apixaban (Apixaban 5 Mg Tab) 5 mg PO BID [facility] Last Admin: 09/07/20 09:17 Dose: 5 mg Documented by: Aspirin (Aspirin 81 Mg Tab.Chew) 324 mg PO DAILY [facility] Last Admin: 09/07/20 09:15 Dose: 324 mg Documented by: Benzocaine/Menthol (Benzocaine/Cetylpyridinium/Menthol Lozenge) 1 lozenge MUCMEM Q2H PRN PRN Reason: Sore Throat Last Admin: 09/05/20 07:15 Dose: 1 lozenge Documented by: Bisacodyl (Bisacodyl 5 Mg Tab) 10 mg PO BID [facility] Last Admin: 09/07/20 09:17 Dose: 10 mg Documented by: Calcium Carbonate/Glycine (Calcium Carbonate 500 Mg Tab.Chew) 1,000 mg PO Q2H PRN PRN Reason: Indigestion Last Admin: 09/05/20 21:21 Dose: 1,000 mg Documented by: Docusate Sodium (Docusate Sodium 100 Mg Cap) 100 mg PO BID [facility] Last Admin: 09/07/20 09:16 Dose: 100 mg Documented by: Duloxetine HCl (Duloxetine 20 Mg Cap) 20 mg PO DAILY [facility] Last Admin: 09/07/20 09:17 Dose: 20 mg Documented by: Ezetimibe (Ezetimibe 10 Mg Tab) 5 mg PO DAILY [facility] Last Admin: 09/07/20 09:16 Dose: 5 mg Documented by: Gabapentin (Gabapentin 300 Mg Cap) 600 mg PO TID [facility] Last Admin: 09/07/20 09:17 Dose: 600 mg Documented by: Gabapentin (Gabapentin 300 Mg Cap) 600 mg PO BEDTIME PRN PRN Reason: Insomnia Hydroxyzine HCl (Hydroxyzine Hcl 100 Mg/2 Ml Sdv) 100 mg IM Q4H PRN PRN Reason: Pain Last Admin: 08/31/20 05:02 Dose: 100 mg Documented by: Lactobacillus Rhamnosus (Lactobacillus Rhamnosus Gg (Probiotic) Cap) 1 cap PO BID [facility] Last Admin: 09/07/20 09:17 Dose: 1 cap Documented by: Levothyroxine Sodium (Levothyroxine 50 Mcg Tab) 150 mcg PO DAILY@0730 [facility] Last Admin: 09/07/20 07:08 Dose: 150 mcg Documented by: Magnesium Hydroxide (Magnesium Hydroxide 400 Mg/5 Ml Susp 30 Ml Cup) 30 ml PO Q12H PRN PRN Reason: Constipation Magnesium Hydroxide (Magnesium Hydroxide 400 Mg/5 Ml Susp 30 Ml Cup) 30 ml PO BID [facility] Last Admin: 09/07/20 09:17 Dose: 30 ml Documented by: Melatonin (Melatonin 3 Mg Tab) 9 mg PO BEDTIME PRN PRN Reason: Sleep Last Admin: 09/06/20 23:15 Dose: 9 mg Documented by: Metoprolol Tartrate (Metoprolol Tartrate 25 Mg Tab) 12.5 mg PO BID [facility] Last Admin: 09/07/20 09:23 Dose: 12.5 mg Documented by: Ondansetron HCl (Ondansetron 4 Mg Tab.Dis) 4 mg PO Q6H PRN PRN Reason: Nausea able to take PO Last Admin: 09/01/20 09:59 Dose: 4 mg Documented by: Oxybutynin Chloride (Oxybutynin 5 Mg Tab) 5 mg PO TID [facility] Last Admin: 09/07/20 09:16 Dose: 5 mg Documented by: Oxycodone HCl (Oxycodone 5 Mg Tab) 5 mg PO Q4H PRN PRN Reason: Pain Last Admin: 09/07/20 07:08 Dose: 5 mg Documented by: Pantoprazole Sodium (Pantoprazole 40 Mg Tab.Cr) 40 mg PO ACBREAKFAST [facility] Last Admin: 09/07/20 07:08 Dose: 40 mg Documented by: Sertraline HCl (Sertraline 25 Mg Tab) 25 mg PO DAILY [facility] Last Admin: 09/07/20 09:16 Dose: 25 mg Documented by: Simvastatin (Simvastatin 20 Mg Tab) 20 mg PO BEDTIME [facility] Last Admin: 09/06/20 20:50 Dose: 20 mg Documented by: Sotalol HCl (Sotalol 80 Mg Tab) 120 mg PO BID [facility] Last Admin: 09/07/20 09:24 Dose: 120 mg Documented by: Spironolactone (Spironolactone 25 Mg Tab) 25 mg PO DAILY [facility] Last Admin: 09/07/20 09:15 Dose: 25 mg Documented by: Tamsulosin HCl (Tamsulosin 0.4 Mg Cap.Er) 0.4 mg PO BEDTIME [facility] Last Admin: 09/06/20 20:50 Dose: 0.4 mg Documented by: Discontinued Medications Hydrocodone Bitart/Acetaminophen (Acetaminophen/Hydrocodone 325-5 Mg Tab) 1 - 2 tab PO Q4H PRN PRN Reason: Pain Aspirin (Aspirin 325 Mg Tab.Ec) 325 mg PO DAILY [facility] Last Admin: 08/31/20 08:15 Dose: Not Given Documented by: Bisacodyl (Bisacodyl 10 Mg Supp) 10 mg RECTAL BID [facility] Last Admin: 08/28/20 20:27 Dose: 10 mg Documented by: Bisacodyl (Bisacodyl 5 Mg Tab) 10 mg PO BID [facility] Last Admin: 09/05/20 21:22 Dose: Not Given Documented by: Bisacodyl (Bisacodyl 10 Mg Supp) 10 mg RECTAL BID PRN PRN Reason: Constipation Last Admin: 08/29/20 15:21 Dose: 10 mg Documented by: Bisacodyl (Bisacodyl 10 Mg Supp) 10 mg RECTAL BID [facility] Last Admin: 09/05/20 21:22 Dose: Not Given Documented by: Bupivacaine HCl (Bupivacaine 0.5% 50 Ml Mdv) Confirm Administered Dose 50 ml .ROUTE .[facility] Stop: 08/27/20 06:33 Bupivacaine HCl (Bupivacaine 0.5% 50 Ml Mdv) Confirm Administered Dose 50 ml .ROUTE .[facility] ONE Stop: 08/28/20 06:37 Last Admin: 08/28/20 07:40 Dose: 12.4 ml Documented by: Bupivacaine HCl/Epinephrine Bitart (Bupivacaine 0.5%/Epinephrine 1:200,000 50 Ml Mdv) Confirm Administered Dose 50 ml .ROUTE .[facility] ONE Stop: 08/25/20 07:15 Last Admin: 08/25/20 13:23 Dose: 40 ml Documented by: Ropivacaine 50 ml/Dexamethasone 8 mg/Epinephrine HCl 0.4 mg/ Sodium Chloride 27.6 ml 0 ml NERVRT ASDIRECTED [facility] Last Admin: 08/25/20 11:23 Dose: 80 syringe Documented by: Ropivacaine 50 ml/Dexamethasone 8 mg/Epinephrine HCl 0.4 mg/ Sodium Chloride 27.6 ml 0 ml NERVRT ASDIRECTED [facility] Last Admin: 08/28/20 07:31 Dose: 80 syringe Documented by: Dexamethasone (Dexamethasone 4 Mg/Ml Sdv) Confirm Administered Dose 4 mg .ROUTE .[facility] ONE Stop: 08/25/20 07:21 Fentanyl (Fentanyl 250 Mcg/5 Ml Sdv) Confirm Administered Dose 250 mcg .ROUTE .[facility] ONE Stop: 08/25/20 07:21 Fentanyl (Fentanyl 100 Mcg/2 Ml Sdv) Confirm Administered Dose 100 mcg .ROUTE .[facility] ONE Stop: 08/25/20 12:00 Fentanyl (Fentanyl 100 Mcg/2 Ml Sdv) Confirm Administered Dose 100 mcg .ROUTE .[facility] ONE Stop: 08/28/20 06:51 Furosemide (Furosemide 20 Mg/2 Ml Vial) 20 mg IVPUSH Q8H [facility] Stop: 08/28/20 17:01 Last Admin: 08/28/20 16:35 Dose: 20 mg Documented by: Furosemide (Furosemide 20 Mg/2 Ml Vial) 20 mg IVPUSH Q6H [facility] Stop: 09/01/20 14:01 Last Admin: 09/01/20 15:08 Dose: 20 mg Documented by: Furosemide (Furosemide 40 Mg/4 Ml Vial) 40 mg IVPUSH ONETIME ONE Stop: 09/02/20 13:46 Last Admin: 09/02/20 13:53 Dose: 40 mg Documented by: Furosemide (Furosemide 20 Mg/2 Ml Vial) 20 mg IVPUSH ONETIME ONE Stop: 09/03/20 09:01 Last Admin: 09/03/20 08:26 Dose: 20 mg Documented by: Furosemide (Furosemide 20 Mg/2 Ml Vial) 20 mg IVPUSH ONETIME ONE Stop: 09/04/20 09:01 Last Admin: 09/04/20 08:34 Dose: 20 mg Documented by: Furosemide (Furosemide 20 Mg Tab) 20 mg PO ONETIME ONE Stop: 09/07/20 07:31 Last Admin: 09/07/20 09:14 Dose: 20 mg Documented by: Gabapentin (Gabapentin 100 Mg Cap) 600 mg PO TID [facility] Last Admin: 08/24/20 20:50 Dose: Not Given Documented by: Glycopyrrolate (Glycopyrrolate 0.2 Mg/Ml 5 Ml Mdv) Confirm Administered Dose 1 mg .ROUTE .[facility] ONE Stop: 08/25/20 07:21 Hydromorphone HCl (Hydromorphone 0.5 Mg/0.5 Ml Syringe) 0.5 mg IVPUSH ONETIME ONE Stop: 08/24/20 15:32 Last Admin: 08/24/20 15:45 Dose: 0.5 mg Documented by: Hydromorphone HCl (Hydromorphone 1 Mg/Ml Syringe) 1 mg IVPUSH ONETIME ONE Stop: 08/24/20 17:24 Last Admin: 08/24/20 18:20 Dose: 1 mg Documented by: Hydromorphone HCl (Hydromorphone/Normal Saline 15 Mg/30 Ml Hearing Consultant) 0 mg IV ASDIRECTED PRN; Protocol PRN Reason: Pain Last Admin: 08/28/20 10:50 Dose: 15 mg Documented by: Hydromorphone HCl (Hydromorphone 2 Mg Tab) 2 - 4 mg PO Q4H PRN PRN Reason: Pain Last Admin: 09/05/20 04:48 Dose: 2 mg Documented by: Hydromorphone HCl (Hydromorphone/Normal Saline 15 Mg/30 Ml Hearing Consultant) 0 mg IV ASDIRECTED PRN; Protocol PRN Reason: Pain Last Admin: 09/01/20 10:39 Dose: 15 mg Documented by: Sodium Chloride (Normal Saline) 1,000 mls @ 999 mls/hr IV ASDIRECTED [facility] Last Admin: 08/24/20 15:45 Dose: 999 mls/hr Documented by: Sodium Chloride (Normal Saline) 1,000 mls @ 300 mls/hr IV ASDIRECTED [facility] Lactated Ringer's (Ringers, Lactated) 1,000 mls @ 100 mls/hr IV ASDIRECTED [facility] Last Admin: 08/25/20 02:58 Dose: 100 mls/hr Documented by: Ampicillin Sodium/Sulbactam (Sodium 3 gm/ Sodium Chloride) 100 mls @ 200 mls/hr IV Q6H [facility] Last Admin: 08/25/20 05:04 Dose: 200 mls/hr Documented by: Aztreonam 1 gm/ Sodium (Chloride) 50 mls @ 100 mls/hr IV Q8H [facility] Last Admin: 08/25/20 05:05 Dose: 100 mls/hr Documented by: Aztreonam 1 gm/ Sodium (Chloride) 50 mls @ 100 mls/hr IV Q8H [facility] Last Admin: 09/01/20 12:30 Dose: 100 mls/hr Documented by: Magnesium Sulfate (Magnesium Sulfate In Water 2 Gm/50 Ml) 2 gm in 50 mls @ 25 mls/hr IV Q6H [facility] Stop: 08/25/20 18:29 Last Admin: 08/25/20 16:14 Dose: 25 mls/hr Documented by: Ampicillin Sodium/Sulbactam (Sodium 3 gm/ Sodium Chloride) 100 mls @ 200 mls/hr IV Q6H [facility] Last Admin: 09/01/20 11:54 Dose: 200 mls/hr Documented by: Lactated Ringer's (Ringers, Lactated) Confirm Administered Dose 1,000 mls @ as directed .ROUTE .[facility] Stop: 08/25/20 11:32 Dextrose/Lactated Ringer's (Dextrose 5%-Lactated Ringers) 1,000 mls @ 150 mls/hr IV ASDIRECTED [facility] Last Admin: 08/26/20 03:57 Dose: 150 mls/hr Documented by: Potassium Phosphate 15 mmole/ (Sodium Chloride) 255 mls @ 85 mls/hr IV Q3H [facility] Stop: 08/26/20 17:59 Last Admin: 08/26/20 15:25 Dose: 85 mls/hr Documented by: Dextrose/Lactated Ringer's (Dextrose 5%-Lactated Ringers) 1,000 mls @ 80 mls/hr IV ASDIRECTED [facility] Last Admin: 08/29/20 13:46 Dose: 80 mls/hr Documented by: Dextrose/Lactated Ringer's (Dextrose 5%-Lr) 500 mls @ 250 mls/hr IV ONETIME ONE Stop: 08/27/20 17:59 Last Admin: 08/27/20 16:00 Dose: 250 mls/hr Documented by: Lactated Ringer's (Ringers, Lactated) 500 mls @ 250 mls/hr IV ONETIME ONE Stop: 08/27/20 18:14 Last Admin: 08/27/20 17:02 Dose: 250 mls/hr Documented by: Potassium Phosphate 15 mmole/ (Sodium Chloride) 255 mls @ 125 mls/hr IV Q2H [facility] Stop: 08/28/20 15:59 Last Admin: 08/28/20 16:03 Dose: 125 mls/hr Documented by: Magnesium Sulfate (Magnesium Sulfate In Water 2 Gm/50 Ml) 2 gm in 50 mls @ 25 mls/hr IV Q6HR [facility] Stop: 08/30/20 05:59 Last Admin: 08/30/20 03:00 Dose: 25 mls/hr Documented by: Azithromycin 250 mg/ Sodium (Chloride) 150 mls @ 150 mls/hr IV Q12H [facility] Last Admin: 08/30/20 09:11 Dose: 150 mls/hr Documented by: Dextrose/Lactated Ringer's (Dextrose 5%-Lactated Ringers) 1,000 mls @ 100 mls/hr IV ASDIRECTED [facility] Last Admin: 09/02/20 09:19 Dose: 100 mls/hr Documented by: Potassium Phosphate 15 mmole/ (Sodium Chloride) 255 mls @ 125 mls/hr IV Q2H [facility] Stop: 09/01/20 15:59 Last Admin: 09/01/20 15:52 Dose: 125 mls/hr Documented by: Dextrose/Lactated Ringer's (Dextrose 5%-Lactated Ringers) 1,000 mls @ 25 mls/hr IV ASDIRECTED [facility] Last Admin: 09/03/20 07:40 Dose: 25 mls/hr Documented by: Potassium Phosphate 15 mmol/ (Premix) 250 mls @ 125 mls/hr IV Q2H [facility] Stop: 09/03/20 14:59 Last Admin: 09/03/20 14:04 Dose: 125 mls/hr Documented by: Magnesium Sulfate (Magnesium Sulfate In Water 2 Gm/50 Ml) 2 gm in 50 mls @ 25 mls/hr IV Q6H [facility] Stop: 09/06/20 04:59 Last Admin: 09/05/20 09:43 Dose: 25 mls/hr Documented by: Sodium Chloride (Normal Saline) 1,000 mls @ 25 mls/hr IV ASDIRECTED [facility] Last Admin: 09/04/20 15:47 Dose: 25 mls/hr Documented by: Potassium Phosphate 15 mmol/ (Premix) 250 mls @ 125 mls/hr IV Q2H [facility] Stop: 09/04/20 14:59 Last Admin: 09/04/20 13:44 Dose: 125 mls/hr Documented by: Lidocaine HCl (Lidocaine 2% Jelly 10 Ml Urojet) Confirm Administered Dose 10 ml .ROUTE .[facility]-MED ONE Stop: 08/25/20 10:49 Last Admin: 08/26/20 10:35 Dose: 10 ml Documented by: Lidocaine/Epinephrine (Lidocaine 1% With Epinephrine 1:100,000 50 Ml Mdv) Confirm Administered Dose 50 ml .ROUTE .[facility]-MED ONE Stop: 08/27/20 06:33 Lidocaine/Epinephrine (Lidocaine 1% With Epinephrine 1:100,000 50 Ml Mdv) Confirm Administered Dose 50 ml .ROUTE .[facility]-MED ONE Stop: 08/28/20 06:37 Last Admin: 08/28/20 07:40 Dose: 12.4 ml Documented by: Lisinopril (Lisinopril 2.5 Mg Tab) 2.5 mg PO DAILY [facility] Last Admin: 09/01/20 08:50 Dose: 2.5 mg Documented by: Lorazepam (Lorazepam 2 Mg/Ml Sdv) 0.5 mg IVPUSH Q4H PRN PRN Reason: Nausea/Vomiting Last Admin: 08/27/20 02:13 Dose: 0.5 mg Documented by: Meropenem (Meropenem 500 Mg Sdv) Confirm Administered Dose 500 mg .ROUTE .STK- MED ONE Stop: 08/25/20 11:15 Last Admin: 08/25/20 11:47 Dose: 1,000 mg Documented by: Meropenem (Meropenem 500 Mg Sdv) Confirm Administered Dose 500 mg .ROUTE .STK- MED ONE Stop: 08/25/20 12:12 Meropenem (Meropenem 500 Mg Sdv) Confirm Administered Dose 500 mg .ROUTE .STK- MED ONE Stop: 08/27/20 06:33 Meropenem (Meropenem 500 Mg Sdv) Confirm Administered Dose 500 mg .ROUTE .STK- MED ONE Stop: 08/28/20 06:37 Last Admin: 08/28/20 07:40 Dose: 500 mg Documented by: Metoclopramide HCl (Metoclopramide 10 Mg/2 Ml Sdv) 10 mg IVPUSH Q6H [facility] Last Admin: 09/05/20 09:44 Dose: 10 mg Documented by: Metoclopramide HCl (Metoclopramide 10 Mg/2 Ml Sdv) 5 mg IVPUSH Q6H [facility] Last Admin: 09/05/20 16:53 Dose: Not Given Documented by: Metoclopramide HCl (Metoclopramide 10 Mg Tab) 5 mg PO Q6H [facility] Stop: 09/06/20 17:00 Last Admin: 09/06/20 05:08 Dose: 5 mg Documented by: Metoprolol Tartrate (Metoprolol Tartrate 5 Mg/5 Ml Sdv) 2.5 mg IVPUSH Q6H [facility] Last Admin: 08/28/20 03:32 Dose: Not Given Documented by: Metoprolol Tartrate (Metoprolol Tartrate 25 Mg Tab) 25 mg PO ONETIME ONE Stop: 09/02/20 19:44 Last Admin: 09/02/20 20:38 Dose: 25 mg Documented by: Naloxone HCl (Naloxone 0.4 Mg/Ml Sdv) 0.4 mg IVPUSH Q2M PRN PRN Reason: Respiratory Distress Neostigmine Methylsulfate (Neostigmine Methylsulfate 1 Mg/Ml 5 Ml Syringe) Confirm Administered Dose 5 mg .ROUTE .STK-MED ONE Stop: 08/25/20 07:21 Ondansetron HCl (Ondansetron 4 Mg/2 Ml Sdv) 4 mg IVPUSH ONETIME ONE Stop: 08/24/20 15:32 Last Admin: 08/24/20 15:44 Dose: 4 mg Documented by: Ondansetron HCl (Ondansetron 4 Mg/2 Ml Sdv) 4 mg IV Q6H PRN PRN Reason: Nausea/Vomiting Last Admin: 08/30/20 11:04 Dose: 4 mg Documented by: Ondansetron HCl (Ondansetron 4 Mg/2 Ml Sdv) Confirm Administered Dose 4 mg .ROUTE .STK-MED ONE Stop: 08/25/20 07:21 Pantoprazole Sodium (Pantoprazole 40 Mg Vial) 40 mg IV ONETIME ONE Stop: 08/24/20 20:01 Last Admin: 08/24/20 20:46 Dose: 40 mg Documented by: Pantoprazole Sodium (Pantoprazole 40 Mg Vial) 40 mg IV Q24H [facility] Last Admin: 08/29/20 15:34 Dose: 40 mg Documented by: Pantoprazole Sodium (Pantoprazole 40 Mg Tab.Cr) 40 mg PO Q24H [facility] Last Admin: 08/31/20 15:47 Dose: Not Given Documented by: Pantoprazole Sodium (Pantoprazole 40 Mg Vial) 40 mg IVPUSH DAILY [facility] Pantoprazole Sodium (Pantoprazole 40 Mg Vial) 40 mg IVPUSH DAILY [facility] Last Admin: 09/05/20 09:44 Dose: 40 mg Documented by: Pneumococcal Polyvalent Vaccine (Pneumococcal Polyvalent-23 Vaccine 0.5 Ml Sdv) 0.5 ml IM .ONCE ONE Stop: 08/24/20 19:28 Last Admin: 08/24/20 20:21 Dose: Not Given Documented by: Propofol (Propofol 200 Mg/20 Ml Sdv) Confirm Administered Dose 200 mg .ROUTE .STK-MED ONE Stop: 08/25/20 07:21 Propofol (Propofol 200 Mg/20 Ml Sdv) Confirm Administered Dose 200 mg .ROUTE .STK-MED ONE Stop: 08/28/20 06:51 Rocuronium [place] (Rocuronium 50 Mg/5 Ml Vial) Confirm Administered Dose 50 mg .ROUTE .STK-MED ONE Stop: 08/25/20 07:21 Rocuronium [place] (Rocuronium 50 Mg/5 Ml Vial) Confirm Administered Dose 50 mg .ROUTE .STK-MED ONE Stop: 08/25/20 11:58 Senna/Docusate Sodium (Docusate Sodium/Sennosides 50-8.6 Mg Tab) 1 tab PO BID PRN PRN Reason: Constipation Succinylcholine Chloride (Succinylcholine 200 Mg/10 Ml Mdv) Confirm Administered Dose 200 mg .ROUTE .STK-MED ONE Stop: 08/25/20 07:21 Tramadol HCl (Tramadol 50 Mg Tab) 50 mg PO Q4H PRN PRN Reason: Pain - Exam Quality Assessment: No: Supplemental Oxygen General: Alert, Oriented, Cooperative, No Acute Distress Lungs: Normal Respiratory Effort GI/Abdominal Exam: Soft, No Distention, Tender (epigastric ). No: Normal Bowel Sounds (hypoactive) Extremities: No Pedal Edema. No: Increased Warmth Skin: Warm, Dry Wound/Incisions: Healing Well, No Drainage Psy/Mental Status: Alert, Normal Affect - Patient Data Lab Results Last 24 hrs: Laboratory Results - last 24 hr 09/07/20 09/07/20 Range/Units 04:56 04:56 WBC 4.7 (4.5-11.0) K/uL RBC 3.94 L (4.30-5.90) M/uL Hgb 11.5 L (12.0-15.0) g/dL Hct 34.4 L (40.0-54.0) % MCV 87 (80-98) fL MCH 29 (27-31) pg MCHC 33 (32-36) % Plt Count 307 (150-400) K/uL Sodium 143 (140-148) mmol/L Potassium 3.9 (3.6-5.2) mmol/L Chloride 108 (100-108) mmol/L Carbon Dioxide 24 (21-32) mmol/L Anion Gap 10.6 (5.0-14.0) mmol/L BUN 6 L (7-18) mg/dL Creatinine 0.8 (0.8-1.3) mg/dL Est Cr Clr Drug Dosing 86.18 mL/min Estimated GFR (MDRD) > 60 (>60) Glucose 105 (74-106) mg/dL Calcium 8.3 L (8.5-10.1) mg/dL Phosphorus 3.6 (2.5-4.9) mg/dL Total Bilirubin 0.4 (0.2-1.0) mg/dL AST 14 L (15-37) U/L ALT 15 (12-78) U/L Alkaline Phosphatase 49 (46-116) U/L NT-Pro-B Natriuret Pep 1288 H (5-125) pg/mL Total Protein 5.9 L (6.4-8.2) g/dL Albumin 2.2 L (3.4-5.0) g/dL Globulin 3.7 H (2.3-3.5) g/dL Albumin/Globulin Ratio 0.6 L (1.2-2.2) Result Diagrams: 09/07/20 04:56 09/07/20 04:56 Sepsis Event Note - Evaluation Sepsis Screening Result: No Definite Risk - Focused Exam Vital Signs: Vital Signs Temp Temp Pulse Pulse Resp BP BP 09/07/20 10:32 35.8 C L 66 18 107/65 09/07/20 09:24 64 107/76 09/07/20 09:23 64 107/76 09/07/20 07:00 35.6 C L 68 18 138/79 09/07/20 03:36 36.2 C 63 16 106/74 Pulse Ox 09/07/20 10:32 94 L 09/07/20 09:24 09/07/20 09:23 09/07/20 07:00 93 L 09/07/20 03:36 96 - Problem List & Annotations (1) Acute appendicitis SNOMED Code(s): 06488972 Code(s): K35.80 - UNSPECIFIED ACUTE APPENDICITIS Status: Acute Current Visit: Yes Qualifiers: Acute appendicitis type: with localized peritonitis Appendicitis gangrene presence: without gangrene Appendicitis perforation presence: without perforation Appendicitis abscess presence: without abscess Qualified Code( s): K35.30 - Acute appendicitis with localized peritonitis, without perforation or gangrene (2) History of stroke with residual deficit SNOMED Code(s): 942504883 Code(s): I69.30 - UNSPECIFIED SEQUELAE OF CEREBRAL INFARCTION Status: Chronic Current Visit: Yes (3) Atrial fibrillation SNOMED Code(s): 61354669 Code(s): I48.91 - UNSPECIFIED ATRIAL FIBRILLATION Status: Chronic Current Visit: No Qualifiers: Atrial fibrillation type: longstanding persistent Qualified Code(s): I48.11 - Longstanding persistent atrial fibrillation (4) CAD (coronary artery disease) SNOMED Code(s): 73789649 Code(s): I25.10 - ATHSCL HEART DISEASE OF [place] CORONARY ARTERY W/O ANG PCTRS Status: Chronic Current Visit: No Qualifiers: Coronary Disease-Associated Artery/Lesion type: [place] artery [place] vs. transplanted heart: [place] heart Associated angina: without angina Qualified Code(s): I25.10 - Atherosclerotic heart disease of [place] coronary artery without angina pectoris (5) Chronic systolic CHF (congestive heart failure) SNOMED Code(s): 915912403, 597537903 Code(s): I50.22 - CHRONIC SYSTOLIC (CONGESTIVE) HEART FAILURE Status: Chronic Current Visit: No (6) Cardiomyopathy SNOMED Code(s): 46581976 Code(s): I42.9 - CARDIOMYOPATHY, UNSPECIFIED Status: Chronic Current Visit: No Qualifiers: Cardiomyopathy type: ischemic Qualified Code(s): I25.5 - Ischemic cardiomyopathy (7) Hx of deep venous thrombosis SNOMED Code(s): 960723332 Code(s): Z86.718 - PERSONAL HISTORY OF OTHER VENOUS THROMBOSIS AND EMBOLISM Status: Chronic Current Visit: No - Problem List Review Problem List Initiated/Reviewed/Updated: Yes - My Orders Last 24 Hours: My Active Orders 09/07/20 11:30 Abdomen 2V AP Flat Upright [CR] Routine - Plan Plan:: ASSESSMENT AND PLAN Acute appendicitis without perforation-status post appendectomy performed 08/[address] Acevedo. Postoperative course complicated by persistent ileus. Now t olerating soft diet. -Symptomatic management of pain and nausea -Postoperative care per Dr. Acevedo -Advance diet as tolerated Chronic systolic congestive heart failure-complicated by ischemic cardiomyopathy with moderately reduced ejection fraction. He was hypoxic for a while during the hospital stay but now is off supplemental oxygen. Well compensated at this time. -Continue medical management Chronic atrial fibrillation-rate control improved with the addition of low-dose metoprolol. -Sotalol -Continue low-dose metoprolol (Rx added to discharge prescriptions) History of DVT and PE- -continue anticoagulation History of left-sided CVA-residual right-sided weakness though his functional status is pretty good. Gets around without a cane most of the time. -Continue physical therapy Maintenance issues -DVT prophylaxis-mechanical -GI prophylaxis-PPI -Nutrition-soft diet Disposition -I anticipate [facility] on Tuesday Jimmy Gutierrez MD
[2020-09-07] MEDS: Ondansetron 4 MG Tab.DIS PO PRN (11:43)
[2020-09-07] MEDS: Nystatin Crm 15 GM Tube TOP SCH ×2 (14:14→21:16)
[2020-09-07] MEDS: Tamsulosin 0.4 MG Cap.ER PO SCH (21:15)
[2020-09-07] MEDS: Simvastatin 20 MG Tab PO SCH (21:16)
[2020-09-08 07:10] VITALS: BP 100/65; PULSE 74
[2020-09-08] MEDS: Levothyroxine 50 MCG Tab PO SCH (07:28)
[2020-09-08] MEDS: Pantoprazole 40 MG Tab.CR PO SCH (07:29)
[2020-09-08] MEDS: Acetaminophen 325 MG Tab PO PRN (07:29)
[2020-09-08] MEDS: Aspirin 81 MG Tab.Chew PO SCH (09:03)
[2020-09-08] MEDS: DULoxetine 20 MG Cap PO SCH (09:03)
[2020-09-08] MEDS: Metoprolol Tartrate 25 MG Tab PO SCH (09:04)
[2020-09-08] MEDS: Sertraline 25 MG Tab PO SCH (09:04)
[2020-09-08] MEDS: Ezetimibe 10 MG Tab PO SCH (09:04)
[2020-09-08] MEDS: Oxybutynin 5 MG Tab PO SCH (09:04)
[2020-09-08] MEDS: Spironolactone 25 MG Tab PO SCH (09:04)
[2020-09-08] MEDS: Sotalol 80 MG Tab PO SCH (09:05)
[2020-09-08] MEDS: Docusate Sodium 100 MG Cap PO SCH (09:06)
[2020-09-08] MEDS: Lactobacillus Rhamnosus GG (Probiotic) Cap PO SCH (09:06)
[2020-09-08] MEDS: Bisacodyl 5 MG Tab PO SCH (09:06)
[2020-09-08] MEDS: Gabapentin 300 MG Cap PO SCH (09:07)
[2020-09-08] MEDS: Magnesium Hydroxide 400 MG/5 ML Susp 30 ML Cup PO SCH (09:07)
[2020-09-08] MEDS: Nystatin Crm 15 GM Tube TOP SCH (09:07)
[2020-09-08] MEDS: Apixaban 5 MG Tab PO SCH (09:07)
--- NOTE | 2020-09-08 09:14 | DISCH ---
ADMISSION DIAGNOSES: 1. Abdominal pain. 2. Atrial fibrillation, history of blood clots, coronary artery disease, cardiomyopathy, and heart failure. 3. History of hypercholesterolemia. 4. Myocardial infarction. He has a pacemaker and stents. 5. Atrial flutter. 6. Seasonal allergies. 7. BPH prostate disorder. 8. Arthritis. 9. Fibromyalgia. 10.Gout. 11.Cerebrovascular accident. 12.Right-sided paralysis, minimal. 13.Depression. 14.Hypothyroidism. 15.Chronic anticoagulation therapy. DISCHARGE DIAGNOSES: Diagnostic laparoscopy turned to laparotomy for: 1. Partial cecectomy with excision of overlying nodular peritoneal lesion. 2. Appendectomy with drainage of periappendiceal abscess. POSTOPERATIVE DIAGNOSES: 1. Perforated appendicitis with periappendiceal abscess. Nodular lesion overlying cecum. Date of procedure: 08/25/2020. Surgeon: Vazquez Acevedo MD. 2. Postop ileus. 3. Delayed primary closure for open abdominal incision, 08/28/2020. HISTORY: Lemuel Hodges is a 70-year-old male who presented to the emergency room on 08/24/2020 for abdominal pain. After preoperative evaluation and discussion of possible risks and possible complications, he wished to proceed with surgical procedure. HOSPITAL COURSE: Lemuel had his surgery on 08/25/2020. He had no operative complications. On 08/27, he developed a postop ileus, an NG was put in, and his delayed primary closure was delayed until 08/28/2020. When he had a delayed primary closure, his postop ileus resolved, and he was kept on sips of clear liquids until he had a bowel movement. He did develop a second postop ileus which required an NG. The NG was left until the ileus resolved. He started having bowel movements. He was started on sips of clear liquid, advanced to full liquid and is able to tolerate a GI soft diet with no problems. His electrolytes were checked and electrolytes were replaced appropriately. His BNP was elevated, and he was treated with diuretic. On 09/08/2020, he was able to be discharged to home. He, 24 hours prior to that, had 1600 in, 1400 in plus voids. He had 100% of his meals and a large bowel movement on the morning of 09/08/2020. PHYSICAL EXAMINATION: GENERAL: Lemuel Hodges is a pleasant 70-year-old male, height is 5 feet 10 inches, weight is 216 pounds. VITAL SIGNS: TPR is 96.2, 62, 18. Blood pressure 119/78. HEENT: Negative. NECK: Supple. HEART: Regular rate and rhythm. LUNGS: Clear. ABDOMEN: Steri-Stripped. Midline incision. [place] were removed on 09/07/2020, and Steri- Strips were applied. EXTREMITIES: Without peripheral edema. DISPOSITION: Discharged to [facility] for inpatient [facility]hab. Followup appointment with Vazquez Acevedo MD, on 09/17/2020 at 10 a.m. He is to follow up with this primary care provider. To resume home medications that he took prior to admission. Oxybutynin, Ditropan XL 15 mg p.o. daily; triamcinolone cream, Kenalog 1 dose topical b.i.d. to affected area p.r.n.; spironolactone 25 mg p.o. daily; sotalol (Betapace) 120 mg p.o. b.i.d.; Zocor 20 mg at bedtime; sertraline, Zoloft 25 mg p.o. daily; omeprazole 40 mg p.o. daily; nystatin cream 1 applicator topical b.i.d. p.r.n.; levothyroxine sodium 150 mcg p.o. daily; gabapentin 600 mg p.o. b.i.d.; Flonase Allergy Relief 2 sprays in each nostril daily p.r.n.; Zetia 5 mg p.o. daily; Cymbalta 20 mg p.o. daily; Zyrtec 10 mg p.o. daily p.r.n.; Ecotrin 325 mg p.o. daily; Eliquis 5 mg p.o. b.i.d.; Ventolin HFA 1 to 2 puffs inhalation q.6 hours p.r.n. shortness of breath; Lopressor 12.5 mg p.o. b.i.d.; hydrocodone/acetaminophen 5/325 one tablet p.o. t.i.d. p.r.n.; and Tylenol 650 mg p.o. q.4 hours p.r.n. DIET: GI soft, low-residue, low-fiber diet. Drink 8 to 10 glasses of water a day. ACTIVITY: No lifting greater than 10 pounds for 6 weeks. OTHER ACTIVITY: Walk 6 times daily. Driving: Do not drive for 1 week. Shower/bathing: May shower. Keep operative site clean and dry. Wear abdominal binder for 6 weeks and then as tolerated. Notify provider if any fever, increased pain, nausea, or vomiting. SPECIAL INSTRUCTION: Use incentive spirometer 10 times every hour while awake for 1 week. /[id number]
--- NOTE | 2020-09-08 09:43 | PN ---
DATE OF SERVICE: 09/06/2020 SUBJECTIVE: Lemuel had a very good night. He is having frequent bowel movements. Vital signs have been stable. Pain has been controlled surgery vázquez, but he has had a lot of cramping in his legs. Oral intake was adequate, and he tolerated a soft diet without any complications. REVIEW OF SYSTEMS: Remainder of review of systems negative for any pertinent positives and negatives. OBJECTIVE: GENERAL: Lemuel is a pleasant 70-year-old male. He is alert and orientated. VITAL SIGNS: TPR; 97.9, 65, 18, and blood pressure 101/59. HEENT: Negative. NECK: Supple. HEART: Regular rate and rhythm. LUNGS: Clear. ABDOMEN: Dressings dry and intact. Abdominal binder is on. EXTREMITIES: Without peripheral edema. ASSESSMENT: 1. Perforated appendix with periappendiceal abscess. 2. Nodular lesions overlying the cecum. 3. Date of procedure: 08/25/2020. Surgeon: Vazquez Acevedo MD. 4. Delayed primary closure 08/28/2020. Surgeon: Vazquez Acevedo MD. 5. Postoperative ileus x2, both episodes resolved. PLAN: 1. Tums two every 2 hours p.r.n. 2. Discontinue Dulcolax and senna S. 3. Continue the Colace. 4. Milk of Magnesia is p.r.n. 5. We will evaluate p.r.n. or in the a.mSherrie Houston PA-C /[id number]
--- NOTE | 2020-09-08 16:05 | CR ---
Abdomen 2V AP Flat Upright CLINICAL HISTORY: Abdominal pain, nausea FINDINGS: There are surgical clips in the right upper quadrant. There is an IVC filter. Patient has a permanent cardiac pacer/defibrillator. No free air is seen. Small intestinal gas pattern is nonspecific. There is gas and feces in the colon. There are radioactive seeds in the prostate. There is an L5-S1 defect posteriorly which is likely surgical. IMPRESSION: Nonacute intestinal gas pattern Previous right upper quadrant surgery IVC filter Previous brachytherapy of the prostate
--- NOTE | 2020-09-09 16:36 | OR ---
DATE OF PROCEDURE: 08/25/2020 SURGEON: Vazquez Acevedo MD PREOPERATIVE DIAGNOSIS: Probable acute appendicitis. POSTOPERATIVE DIAGNOSES: 1. Acute appendicitis with periappendiceal abscess. 2. Nodular peritoneal lesion over cecum. OPERATIVE PROCEDURES: Diagnostic laparoscopy converted to laparotomy with: 1. Excision of peritoneal nodule adjacent to the cecum (21000). 2. Partial cecectomy (58808). 3. Appendectomy with drainage of periappendiceal abscess (54131). ANESTHESIA: General. PEARL RESTORER: Ellen Houston PA-C INDICATIONS FOR PROCEDURE: A 70-year-old male presenting with a picture of probable acute appendicitis. Plan is to proceed with diagnostic laparoscopy, laparotomy if necessary, and other procedures as indicated. Potential risks including bleeding and perforation leaks from GI tract closures and such were reviewed, and the patient wishes to proceed. DETAILS OF PROCEDURE: The patient was taken to the operating room. After general endotracheal anesthesia was induced, a Mcgee catheter was inserted and the abdomen prepped and draped. 15 cm inferior and 5 cm left of the xiphoid process, a transverse incision was made and peritoneal cavity entered under direct vision with an Optiview trocar. Following this, a 12 mm trocar was placed in the left lower quadrant and right upper quadrant, and the area of the lower abdomen examined. There appeared to be very dense adherence between the omentum, small bowel, and cecum, and this prevented obvious identification of the cecal base at the appendix or the appendix itself. The patient also noted to have a nodular lesion over the cecum which appeared to be a part from the appendix itself. Given all this, the decision was made to proceed to conversion to laparotomy. Trocars were removed and peritoneal cavity decompressed. A low oblique subcostal incision was then made on the right side of the abdomen, carried down through the full-thickness abdominal wall. Upon entering peritoneal cavity, initially the nodular lesion adjacent to the cecum was excised, this was a 2 cm nodular lesion, which was quite firm and of uncertain nature, the skin fairly close to the cecum, away from where the appendix would be, and in the event this was a malignant lesion, in order to obtain more of a margin, a portion of the cecum was then excised as well. These were then sent as 2 separate specimens. The peritoneal nodule itself measured around 2 cm in diameter. With further blunt dissection, I then was able to identify the appendix, this was perforated with periappendiceal abscess. The purulent material was evacuated and cultures were obtained. The appendix was then mobilized upward and mesoappendix was divided with Harmonic scalpel, and the appendix then divided flush with the cecum with a EFRAIN purple load, and the specimen delivered from the field. At this point, the area was irrigated with antibiotic-containing saline solution. No further problems were noted. The cecectomy and appendiceal stumps were then reinforced with some fibrin sealant. A 12-Gabonese Demetrio-Moncada drain was then placed through a stab wound in the right flank, positioned across the cecectomy and appendectomy sites and from the abdomen and the pelvis. The posterior peritoneum and musculature were then approximated with #2 Vicryl stitch as was the anterior musculature. Skin and subcutaneous tissue were felt to be high risk for wound infection and were packed open with planned delayed primary closure. Prior to converting to a laparotomy, the patient had bilateral transversus abdominis plane blocks placed, and the patient was taken to the recovery room in satisfactory condition. Physician document control assistant, Ellen Houston, played an essential role in assisting in this case, helping to position the patient, retract structures as needed, as well as suturing and cutting sutures when indicated. Her presence improved patient safety and decreased operative time. Vazquez Acevedo MD /[id number]
--- NOTE | 2020-09-10 05:09 | OR ---
DATE OF PROCEDURE: 08/28/2020 SURGEON: Vazquez Acevedo MD PREOPERATIVE DIAGNOSIS: Open abdominal incision. POSTOPERATIVE DIAGNOSIS: Open abdominal incision. OPERATIVE PROCEDURE: Delayed primary closure of open abdominal incision. ANESTHESIA: IV sedation. INDICATION FOR PROCEDURE: This is a 70-year-old male status post an open appendectomy with other procedures undertaken as well. This was a perforated appendicitis with periappendiceal abscess. The skin and subcutaneous tissue were felt to be at high risk for wound infection if a primary closure was undertaken. Given this, the wound was packed open at skin and subcutaneous tissue level to the trocar sites. The plan is to proceed with closure of those sites today. Potential risks including bleeding and infection were reviewed, and the patient wishes to proceed. DETAILS OF PROCEDURE: The patient was taken to the operating room and placed in a supine position. After IV sedation was administered, the packing was removed from the incisions. Bilateral transversus abdominis plane blocks were then placed using ultrasound guidance, then the abdomen prepped and draped. The incision was anesthetized with 1% lidocaine mixed with Marcaine and irrigated with meropenem-containing saline solution. The 2 trocar sites, 1 in the left lower quadrant and 1 in the right upper quadrant were closed with some 4-0 Vicryl skin stitch, and the incision in the right lower abdomen was closed with 2 layers of 3-0 and 4-0 Vicryl stitch deep and zuleyka for the skin. Dressing was applied. The patient was taken to the recovery room in satisfactory condition. Vazquez Acevedo MD /[id number]
== END 2020-09-08 10:00 | DRG 330 ==
LOC: JP.ED 14:08 → JP.MS 17:57
PROVIDERS: ADMIT Internal Medicine; ATTEND Internal Medicine
PROC: 0DTJ0ZZ Resection of Appendix, Open Approach (ICD-10-PCS; principal; 2020-08-25)
PROC: 0DBH0ZZ Excision of Cecum, Open Approach (ICD-10-PCS; 2020-08-25)
PROC: 0WJG4ZZ Inspection of Peritoneal Cavity, Percutaneous Endoscopic Approach (ICD-10-PCS; 2020-08-25)
PROC: 0D9J0ZZ Drainage of Appendix, Open Approach (ICD-10-PCS; 2020-08-25)
PROC: 0D9670Z Drainage of Stomach with Drainage Device, Via Natural or Artificial Opening (ICD-10-PCS; 2020-08-27)
PROC: 0HQ7XZZ Repair Abdomen Skin, External Approach (ICD-10-PCS; 2020-08-27)
DX: K35.80 Unspecified acute appendicitis (principal); K35.33 Acute appendicitis with perforation, localized peritonitis, and gangrene, with abscess; K56.7 Ileus, unspecified; I48.91 Unspecified atrial fibrillation; I11.0 Hypertensive heart disease with heart failure; I50.9 Heart failure, unspecified; I48.92 Unspecified atrial flutter; I42.9 Cardiomyopathy, unspecified; I48.11 Longstanding persistent atrial fibrillation; I50.22 Chronic systolic (congestive) heart failure; H54.7 Unspecified visual loss; H91.90 Unspecified hearing loss, unspecified ear; K21.9 Gastro-esophageal reflux disease without esophagitis; J30.2 Other seasonal allergic rhinitis; I25.10 Atherosclerotic heart disease of native coronary artery without angina pectoris; I25.5 Ischemic cardiomyopathy; E78.00 Pure hypercholesterolemia, unspecified; I25.2 Old myocardial infarction; I69.328 Other speech and language deficits following cerebral infarction; I69.351 Hemiplegia and hemiparesis following cerebral infarction affecting right dominant side; Z95.0 Presence of cardiac pacemaker; Z95.5 Presence of coronary angioplasty implant and graft; Z85.46 Personal history of malignant neoplasm of prostate; N40.0 Benign prostatic hyperplasia without lower urinary tract symptoms; Z86.010 Personal history of colon polyps; Z91.041 Radiographic dye allergy status; Z91.013 Allergy to seafood; M19.90 Unspecified osteoarthritis, unspecified site; Z79.82 Long term (current) use of aspirin; Z79.890 Hormone replacement therapy; Z79.899 Other long term (current) drug therapy; Z20.822 Contact with and (suspected) exposure to COVID-19; M79.7 Fibromyalgia; M10.9 Gout, unspecified; Z86.73 Personal history of transient ischemic attack (TIA), and cerebral infarction without residual deficits; F32.9 Major depressive disorder, single episode, unspecified; E03.9 Hypothyroidism, unspecified; Z79.01 Long term (current) use of anticoagulants; Z86.718 Personal history of other venous thrombosis and embolism
CPT/HCPCS: 36415; 71045; 74018; 74018-26; 74019; 74019-26; 74176; 80048; 80053; 80162; 81001; 82150; 82272; 83690; 83735; 83880; 84100; 85025; 85027; 86140; 87070; 87075; 87077; 87186; 87205; 88304; 88305; 94762; 96374; 96375; 97110-GO; 97110-GP; 97116-GP; 97140-GP; 97163-GP; 97166-GO; 97530-GP; 97535-GO; 97535-GP; 99284; 99285-25; A9270-GY; C9113; J0171; J0295; J0330; J0456; J1100; J1170; J1940; J2060; J2185; J2405; J2704; J2710; J2765; J2795; J3010; J3410; J3475; J3490; J7030; J7050; J7120; J7121; U0002

== ENCOUNTER 2021-01-17 09:38 | Emergency (ER) | payer OTHER, MEDICARE, BC ==
[2021-01-17] MEDS ORDERED: Sodium Chloride 0.9% 10 ML Syringe FLUSH PRN (09:43)
--- NOTE | 2021-01-17 09:55 | EDM.PDOC ---
ED HPI GENERAL MEDICAL PROBLEM - General Chief Complaint: Neuro Symptoms/Deficits Stated Complaint: RIGHT SIDE FACE DROOPING Time Seen by Provider: 01/17/21 09:40 Source of Information: Reports: Patient, Old Records History Limitations: Reports: No Limitations - History of Present Illness INITIAL COMMENTS - FREE TEXT/NARRATIVE: 70 yo male presents via car to our ER from his home in [place] after he awoke with R facial droop and R facial numbness. None of this was present when he went to bed last night. He does have a pHx of CVA and intermittent afib and is managed with Eliquis which he took today. He has a mild MCKEON. He does have other residual deficits from his prior CVA that affected his R arm and R leg. He has no trouble with swallowing as he had a couple cups of coffee before coming in today. Has been having more MCKEON's lately. The vision in his R eye is blurrier than usual. Onset: Today, Unknown/Unsure Onset Date: 01/17/21 Duration: Hour(s): (unsure how many), Constant Location: Reports: Face (R side) Quality: Reports: Other (numbness) Severity: Moderate Improves with: Reports: None Worsens with: Reports: Other (unsure) Context: Reports: Other (See HPI) Associated Symptoms: Reports: No Other Symptoms Treatments STRIP WINDER: Reports: Other (see below) (none) Headache Pain Score (Numeric/FACES): 4 - Related Data Allergies Allergy/AdvReac Type Severity Reaction Status Date / Time Iodinated Contrast Media Allergy Hives Verified 01/17/21 09:52 [Iodinated Contrast Media - IV Dye] shellfish derived Allergy Swelling Verified 01/17/21 12:30 Home Meds: Home Meds Cetirizine [ZyrTEC] 10 mg PO DAILY PRN 10/28/15 [History] Sertraline [Zoloft] 25 mg PO DAILY 10/28/15 [History] Simvastatin [Zocor] 20 mg PO BEDTIME 10/28/15 [History] Ezetimibe [Zetia] 5 mg PO DAILY 10/29/15 [History] Omeprazole Magnesium [Prilosec Otc] 40 mg PO DAILY PRN 10/29/15 [History] Levothyroxine Sodium [Synthroid] 150 mcg PO DAILY 10/30/15 [History] Gabapentin [Neurontin] 600 mg PO TID 01/07/16 [History] Aspirin [Ecotrin EC] 325 mg PO DAILY 03/09/16 [History] Spironolactone [Aldactone] 25 mg PO DAILY 04/21/16 [History] Fluticasone Propionate [Flonase Allergy Relief] 2 spray NS DAILY PRN 05/24/16 [History] Nystatin [Nystatin Crm] 1 applic TOP BID PRN 05/24/16 [History] Apixaban [Eliquis] 5 mg PO BID 07/14/17 [History] DULoxetine [Cymbalta] 20 mg PO DAILY 07/14/17 [History] Triamcinolone Acetonide [Kenalog 0.1% Crm] 1 dose TOP BID PRN 07/14/17 [History] Albuterol [Ventolin HFA] 1 - 2 puff INH ASDIRECTED 08/31/17 [History] Oxybutynin Chloride [Ditropan Xl] 15 mg PO DAILY 08/24/20 [History] Sotalol [Betapace] 1 tab PO BID 08/24/20 [History] Acetaminophen [Tylenol] 650 mg PO Q4H PRN #100 tablet 09/07/20 [Rx] Metoprolol Tartrate [Lopressor] 12.5 mg PO BID #30 tablet 09/07/20 [Rx] Hydrocodone/Acetaminophen [HYDROcodone-Acetaminophen 5-325 MG] 1 tab PO TID PRN #30 09/08/20 [Rx] Past Medical History HEENT History: Reports: Cataract, Hard of Hearing, Impaired Vision, Other (See Below) Other HEENT History: reading glasses Cardiovascular History: Reports: Afib, Blood Clots/VTE/DVT, CAD, Cardiomyopathy, Heart Failure, High Cholesterol, PA, Pacemaker, Stents, Other (See Below) Other Cardiovascular History: Artial flutter Respiratory History: Reports: Other (See Below) Other Respiratory History: inhalers for seasonal allergies Gastrointestinal History: Reports: Colon Polyp, GERD, Other (See Below) Other Gastrointestinal History: bowel inconsistency Genitourinary History: Reports: BPH, Prostate Disorder Musculoskeletal History: Reports: Arthritis, Fracture, Fibromyalgia, Gout Other Musculoskeletal History: R. Leg/ankle, L. Thumb/Finger Neurological History: Reports: CVA, Speech Problems Other Neuro History: right sided paralysis Psychiatric History: Reports: Depression Endocrine/Metabolic History: Reports: Hypothyroidism Other Endocrine/Metabolic History: thyroid disease unknown Hematologic History: Reports: Anticoagulation Therapy, Blood Transfusion(s) Oncologic (Cancer) History: Reports: None, Prostate Dermatologic History: Reports: Cellulitis Other Dermatologic History: hx of cellulitis L leg - Infectious Disease History Infectious Disease History: Reports: Chicken Pox, Measles, Mumps - Past Surgical History HEENT Surgical History: Reports: Cataract Surgery, Tonsillectomy Cardiovascular Surgical History: Reports: Cardiac Ablation, Coronary Artery Bypass, Other (See Below) Other Cardiovascular Surgeries/Procedures: triple heart bypass, pacer/defibrillator Respiratory Surgical History: Reports: None GI Surgical History: Reports: Colonoscopy Other GI Surgeries/Procedures: gallbladder removed about 6 wks ago here Male Surgical History: Reports: Prostate Biopsy, Other (See Below) Other Male Surgeries/Procedures: radiation seeds for prostate cancer Endocrine Surgical History: Reports: None Neurological Surgical History: Reports: None Musculoskeletal Surgical History: Reports: Other (See Below) Other Musculoskeletal Surgeries/Procedures:: Surgery for fractures Oncologic Surgical History: Reports: None Dermatological Surgical History: Reports: Skin Biopsy Social & Family History - Family History Family Medical History: No Pertinent Family History - Caffeine Use Caffeine Use: Reports: Coffee, Tea ED ROS GENERAL - Review of Systems Review Of Systems: See Below Constitutional: Reports: No Symptoms HEENT: Reports: No Symptoms Respiratory: Reports: No Symptoms Cardiovascular: Reports: No Symptoms GI/Abdominal: Reports: No Symptoms : Reports: No Symptoms Musculoskeletal: Reports: No Symptoms Skin: Reports: No Symptoms Neurological: Reports: Headache (mild) Psychiatric: Reports: No Symptoms ED EXAM, NEURO - Physical Exam Exam: See Below Exam Limited By: No Limitations General Appearance: Alert, WD/WN, No Apparent Distress Eye Exam: Bilateral Eye: EOMI, Normal Inspection, PERRL Ears: Normal External Exam, Normal Canal, Hearing Grossly Normal, Normal TMs Nose: Normal Inspection, No Blood Throat/Mouth: Normal Inspection, Normal Lips, Normal Oropharynx, Normal Voice, No Airway Compromise Head Exam: Atraumatic, Normocephalic Neck: Normal Inspection Respiratory/Chest: No Respiratory Distress, Lungs Clear, Normal Breath Sounds, No Accessory Muscle Use Cardiovascular: Regular Rate, Rhythm, No Edema. No: Irregularly Irregular GI/Abdominal: Soft, Non-Tender Neurological: Alert, Normal Mood/Affect, CN II-XII Intact, Oriented x 3, Other (Stroke scale score 3). No: No Motor/Sensory Deficits (Visible R facial droop and decreased sensation R side of face. Visual leung normal. Strength is normal for him in all extrems. Intact gag reflex. DTR's appropriate. ) DTR: 2+: Bicep (R), Bicep (L), Tricep (R), Tricep (L), Patella (R), Patella (L), Achilles (R), Achilles (L) Back Exam: Normal Inspection Extremities: Normal Inspection, Normal Range of Motion, Non-Tender Psychiatric: Normal Affect, Normal Mood Skin Exam: Warm, Dry, Intact, Normal Color, No Rash Course - Vital Signs Text/Narrative:: Discussed the case with Dr. Faustin, stroke neurologist, at 1145h Last Recorded V/S: Last Vital Signs Temp 35 C L 01/17/21 09:47 Pulse 60 01/17/21 15:08 Resp 18 01/17/21 15:08 BP 107/59 L 01/17/21 15:08 Pulse Ox 94 L 01/17/21 15:08 - Orders/Labs/Meds Orders: Active Orders 24 hr Category Date Time Status Cardiac Monitoring [RC] .As Directed Care 01/17/21 09:42 Active CORONAVIRUS COVID-19 RAPID [MOLEC] Stat Lab 01/17/21 14:46 Ordered Sodium Chloride 0.9% [Saline Flush] Med 01/17/21 09:43 Active 10 ml FLUSH ASDIRECTED PRN Saline Lock Insert [OM.PC] Routine Oth 01/17/21 09:43 Ordered Medication Orders Sodium Chloride (Sodium Chloride 0.9% 10 Ml Syringe) 10 ml FLUSH ASDIRECTED PRN PRN Reason: Keep Vein Open Last Admin: 01/17/21 10:06 Dose: 10 ml Documented by: BETTE Labs: Laboratory Tests 01/17/21 01/17/21 01/17/21 Range/Units 09:42 10:02 10:02 WBC 6.4 (4.5-11.0) K/uL RBC 4.99 (4.30-5.90) M/uL Hgb 14.3 D (12.0-15.0) g/dL Hct 41.4 (40.0-54.0) % MCV 83 (80-98) fL MCH 29 (27-31) pg MCHC 35 (32-36) % Plt Count 191 (150-400) K/uL Sodium 136 L (140-148) mmol/L Potassium 4.3 (3.6-5.2) mmol/L Chloride 101 (100-108) mmol/L Carbon Dioxide 23 (21-32) mmol/L Anion Gap 16.3 H (5.0-14.0) mmol/L BUN 12 D (7-18) mg/dL Creatinine 0.9 (0.8-1.3) mg/dL Est Cr Clr Drug Dosing 74.19 mL/min Estimated GFR (MDRD) > 60 (>60) Glucose 104 (74-106) mg/dL Calcium 8.9 (8.5-10.1) mg/dL Troponin I < 0.017 (0.000-0.056) ng/mL Urine Color Yellow (YELLOW) Urine Appearance Clear (CLEAR) Urine pH 7.0 (5.0-8.0) Ur Specific [place] 1.015 (1.008-1.030) Urine Protein Negative (NEGATIVE) mg/dL Urine Glucose (UA) Negative (NEGATIVE) mg/dL Urine Ketones Negative (NEGATIVE) mg/dL Urine Occult Blood Negative (NEGATIVE) Urine Nitrite Negative (NEGATIVE) Urine Bilirubin Negative (NEGATIVE) Urine Urobilinogen 1.0 (0.2-1.0) EU/dL Ur Leukocyte Esterase Negative (NEGATIVE) Urine RBC Not seen (0-5) Urine WBC Not seen (0-5) Ur Epithelial Cells Not seen Amorphous Sediment Not seen Urine Bacteria Not seen Urine Mucus Not seen Meds: Medications Generic Name Dose Route Start Last Admin Trade Name Frerenae PRN Reason Stop Dose Admin Sodium Chloride 10 ml 01/17/21 09:43 01/17/21 10:06 Sodium Chloride 0.9% 10 Ml Syringe FLUSH 10 ml ASDIRECTED PRN Administration Keep Vein Open Discontinued Medications Generic Name Dose Route Start Last Admin Trade Name Freq PRN Reason Stop Dose Admin Acetaminophen 1,000 mg 01/17/21 11:48 01/17/21 12:42 Acetaminophen 500 Mg Tab PO 01/17/21 11:49 1,000 mg ONETIME ONE Administration Diphenhydramine HCl 50 mg 01/17/21 11:48 01/17/21 12:42 Diphenhydramine 25 Mg Cap PO 01/17/21 11:49 50 mg ONETIME ONE Administration Hydrocortisone Sodium Succinate 100 mg 01/17/21 11:49 01/17/21 12:42 Hydrocortisone Sodium Succinate 100 Mg/2 Ml Sdv IVPUSH 01/17/21 11:50 100 mg ONETIME ONE Administration Sodium Chloride 100 mls @ 3 mls/sec 01/17/21 12:30 01/17/21 14:48 Normal Saline IV 01/17/21 12:31 3 mls/sec ASDIRECTED LOYD Administration Iopamidol 100 ml 01/17/21 12:30 01/17/21 14:47 Iopamidol 755 Mg/Ml 100 Ml Bottle IV 01/17/21 12:31 100 ml . DIRECTED LOYD Administration Sodium Chloride 10 ml 01/17/21 12:27 01/17/21 14:48 Sodium Chloride 0.9% 10 Ml Syringe FLUSH 01/17/21 12:28 10 ml ONETIME ONE Administration - Radiology Interpretation Free Text/Narrative:: Head CT scan-neg angio head-less than 50% bilat carotid stenosis, other old findings noted. See official report. angio neck-see above. CT Results Date: 01/17/21 CT Results Time: 11:35 - Re-Assessments/Exams Free Text/Narrative Re-Assessment/Exam: 01/17/21 14:51 Sx's mostly gone now. Departure - Departure Time of Disposition: 15:30 Disposition: Home, Self-Care 01 Condition: Fair Clinical Impression: TIA (transient ischemic attack) - Discharge Information *PRESCRIPTION DRUG MONITORING PROGRAM REVIEWED*: Not Applicable *COPY OF PRESCRIPTION DRUG MONITORING REPORT IN PATIENT KANDACE: Not Applicable Referrals: PCP,None [Primary Care Provider] - Forms: ED Department Discharge Additional Instructions: Continue all your current medications. Someone will call you on Tuesday from [place] for a neurology consult appt. Return if you are worse in the interim. Sepsis Event Note (ED) - Focused Exam Vital Signs: Vital Signs Temp Pulse Resp BP Pulse Ox 01/17/21 15:08 60 18 107/59 L 94 L 01/17/21 14:32 61 15 111/65 93 L 01/17/21 12:15 57 L 16 126/81 95 01/17/21 11:45 55 L 17 131/75 95 01/17/21 11:15 51 L 10 L 126/75 96 01/17/21 10:45 58 L 11 L 103/57 L 92 L 01/17/21 09:47 35 C L 61 14 117/50 L 96 - My Orders Last 24 Hours: My Active Orders 01/17/21 09:42 Cardiac Monitoring [RC] .As Directed 01/17/21 09:43 Sodium Chloride 0.9% [Saline Flush] 10 ml FLUSH ASDIRECTED PRN Saline Lock Insert [OM.PC] Routine 01/17/21 14:46 CORONAVIRUS COVID-19 RAPID [MOLEC] Stat - Assessment/Plan Last 24 Hours: My Active Orders 01/17/21 09:42 Cardiac Monitoring [RC] .As Directed 01/17/21 09:43 Sodium Chloride 0.9% [Saline Flush] 10 ml FLUSH ASDIRECTED PRN Saline Lock Insert [OM.PC] Routine 01/17/21 14:46 CORONAVIRUS COVID-19 RAPID [MOLEC] Stat
--- NOTE | 2021-01-17 10:58 | CRLCT ---
For Patients: As a result of the Century Cures Act, medical imaging exams and procedure reports are released immediately into your electronic medical record. You may view this report before your referring provider. If you have questions, please contact your health care provider. INDICATION: Right facial numbness and weakness. TECHNIQUE: CT of the head without contrast. Coronal and sagittal reformats are included. COMPARISON: None available. FINDINGS: No CT evidence of acute cortical infarct. 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 Slight ex vacuo dilatation of the left lateral ventricle. Tiny chronic infarct left cerebellar hemisphere. No loss of vergara white matter differentiation. No hyperdense vessels to suggest intracranial thrombus. No acute intracranial hemorrhage. No mass effect or midline shift. No hydrocephalus or extra-axial collections. Patchy white matter hypoattenuation typical for chronic microvascular ischemic change. Vascular calcifications carotid siphons. No acute osseous abnormalities. Mastoid air cells and paranasal sinuses are clear. Normal soft tissues. IMPRESSION: 1. No CT evidence of acute cortical infarct. No acute intracranial hemorrhage. No other acute intracranial findings. 2. 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 Please note that all CT scans at this facility use dose modulation, iterative reconstruction, and/or weight-based dosing when appropriate to reduce radiation dose to as low as reasonably achievable. Dictated by Edwin Harris MD @ 01/17/2021 10:57:49 AM (Electronically Signed)
[2021-01-17] MEDS ORDERED: Acetaminophen 500 MG Tab PO ONE (11:48)
[2021-01-17] MEDS ORDERED: diphenhydrAMINE 25 MG Cap PO ONE (11:48)
[2021-01-17] MEDS ORDERED: Hydrocortisone Sodium Succinate 100 MG/2 ML SDV IVPUSH ONE (11:49)
[2021-01-17] MEDS ORDERED: Iopamidol 755 Mg/ML 100 ML Bottle IV SCH (12:30)
[2021-01-17] MEDS ORDERED: Sodium Chloride 0.9% 100 ML IV SCH (12:30)
[2021-01-17] MEDS: Sodium Chloride 0.9% 10 ML Syringe FLUSH ONE ×2 (13:56→14:48)
--- NOTE | 2021-01-17 14:07 | CRLCT ---
For Patients: As a result of the Cures Act, medical imaging exams and procedure reports are released immediately into your electronic medical record. You may view this report before your referring provider. If you have questions, please contact your health care provider. DATE: 01/17/2021 CLINICAL HISTORY: Patient with right facial numbness and weakness. TECHNIQUE: Standard CT scanning of the head was performed. COMPARISON: None. FINDINGS: There is no intracranial hemorrhage. There is an old large left insular and frontal lobe infarction. There are moderate microangiopathic changes. There is diffuse parenchymal volume loss. There is no mass effect or midline shift. The calvarium is unremarkable. The orbits are unremarkable. The paranasal sinuses demonstrate ethmoid air cell mucosal thickening. The mastoid air cells are unremarkable. The soft tissues are unremarkable. IMPRESSION: 1. No intracranial hemorrhage. 2. 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 3. Moderate microangiopathic changes and diffuse parenchymal volume loss. Please note that all CT scans at this facility use dose modulation, iterative reconstruction, and/or weight-based dosing when appropriate to reduce radiation dose to as low as reasonably achievable. Dictated by Moshe Hernandez MD @ 01/17/2021 5:34:50 PM (Electronically Signed)
--- NOTE | 2021-01-17 14:09 | CRLCT ---
For Patients: As a result of the Century Cures Act, medical imaging exams and procedure reports are released immediately into your electronic medical record. You may view this report before your referring provider. If you have questions, please contact your health care provider. DATE: 01/17/2021 CLINICAL HISTORY: Patient with right facial weakness and numbness. TECHNIQUE: Standard helical CT image acquisition through the head and neck was performed after intravenous contrast bolus enhancement. Multiplanar reconstructed images were performed and interpreted. COMPARISON: CT same day FINDINGS: There is no proximal intracranial large vessel occlusion. There is mild diffuse intracranial atherosclerosis. The origins of the great vessels from the aortic arch are patent. The origin of the right vertebral artery demonstrates mild narrowing. The origin of the left vertebral artery is occluded with reconstitution in its intracranial segment via retrograde flow from the vertebrobasilar junction. The common carotid arteries are patent There is a mild (<50%) stenosis at the origin of the right internal carotid artery by NASCET criteria. This is caused by calcified plaque with a <2mm residual lumen. There is a mild (<50%) stenosis at the origin of the left internal carotid artery by NASCET criteria. This is caused by calcified plaque with a <2mm residual lumen. The rest of the cervical segments of the internal carotid arteries are patent up to their intracranial segments. The intracranial segments of the internal carotid arteries are patent. The visualized lung apices are unremarkable The thyroid gland is unremarkable. The soft tissues of the neck are unremarkable. There are degenerative changes in the cervical spine. IMPRESSION: 1. No proximal intracranial large vessel occlusion. 2. Mild diffuse intracranial atherosclerosis. 3. Mild stenosis at the origins of the internal carotid arteries bilaterally. 4. 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 Please note that all CT scans at this facility use dose modulation, iterative reconstruction, and/or weight-based dosing when appropriate to reduce radiation dose to as low as reasonably achievable. Dictated by Moshe Hernandez MD @ 01/17/2021 5:13:45 PM (Electronically Signed)
[2021-01-17 16:06] VITALS: BP 121/63; PULSE 63
== END 2021-01-17 16:10 | disposition home or self-care (01) ==
LOC: JP.ED 09:38
DX: G45.9 Transient cerebral ischemic attack, unspecified (principal); E78.00 Pure hypercholesterolemia, unspecified; I25.2 Old myocardial infarction; I25.10 Atherosclerotic heart disease of native coronary artery without angina pectoris; I50.9 Heart failure, unspecified; I48.91 Unspecified atrial fibrillation; K21.9 Gastro-esophageal reflux disease without esophagitis; Z79.82 Long term (current) use of aspirin; Z79.899 Other long term (current) drug therapy; Z86.73 Personal history of transient ischemic attack (TIA), and cerebral infarction without residual deficits; Z91.013 Allergy to seafood; Z91.041 Radiographic dye allergy status; Z20.822 Contact with and (suspected) exposure to COVID-19
CPT/HCPCS: 36415; 70450; 70496; 70498; 80048; 81001; 84484; 85027; 87635; 96374; 99284; A9270; J1720; Q9967; U0002

== ENCOUNTER 2021-11-30 09:44 | Emergency (ER) | payer OTHER, MEDICARE, BC ==
[2021-11-30 10:02] VITALS: BP 108/66; PULSE 61
[2021-11-30] MEDS ORDERED: Sodium Chloride 0.9% 10 ML Syringe FLUSH PRN (10:26)
[2021-11-30] MEDS ORDERED: Lactated Ringers 1,000 ML IV SCH (10:30)
[2021-11-30 11:17] LABS: ESTIMATED GFR 64 mL/min (>60)
[2021-11-30] MEDS ORDERED: cefTRIAXone 1 GM in Sodium Chloride 0.9% 50 ML IV ONE (12:00)
== END 2021-11-30 13:05 | disposition home or self-care (01) ==
LOC: JP.ED 09:44
DX: N30.01 Acute cystitis with hematuria (principal); I25.10 Atherosclerotic heart disease of native coronary artery without angina pectoris; I50.9 Heart failure, unspecified; I25.2 Old myocardial infarction; Z91.041 Radiographic dye allergy status; Z91.013 Allergy to seafood; Z79.899 Other long term (current) drug therapy; Z79.01 Long term (current) use of anticoagulants; Z79.82 Long term (current) use of aspirin; Z90.49 Acquired absence of other specified parts of digestive tract
CPT/HCPCS: 36415; 74176; 80053; 81001; 82272; 83605; 83690; 85025; 87086; 96361; 96365; 99284; J0696; J3490; J7120

== ENCOUNTER 2022-02-15 07:20 | Day surgery (SDC) | payer BC, MEDICARE, OTHER ==
[~2022-02-15 07:20] MED LIST: Midazolam 1 MG/ML 2 ML SDV ONE; Propofol 200 MG/20 ML SDV ONE
[2022-02-15] MEDS ORDERED: Lactated Ringers 1,000 ML IV SCH (07:45)
[2022-02-15 10:46] VITALS: BP 119/76
[2022-02-15 10:58] VITALS: PULSE 70
== END 2022-02-15 11:02 | disposition home or self-care (01) ==
LOC: JP.SDS 07:20
PROVIDERS: ATTEND Student in an Organized Health Care Education/Training Program
DX: D12.2 Benign neoplasm of ascending colon (principal); D12.5 Benign neoplasm of sigmoid colon; D12.3 Benign neoplasm of transverse colon; I11.0 Hypertensive heart disease with heart failure; I50.9 Heart failure, unspecified; I82.409 Acute embolism and thrombosis of unspecified deep veins of unspecified lower extremity; K21.9 Gastro-esophageal reflux disease without esophagitis; I25.2 Old myocardial infarction; I48.91 Unspecified atrial fibrillation; M79.10 Myalgia, unspecified site; E03.9 Hypothyroidism, unspecified; E66.9 Obesity, unspecified; Z68.30 Body mass index [BMI] 30.0-30.9, adult; Z79.899 Other long term (current) drug therapy; Z95.1 Presence of aortocoronary bypass graft; Z91.041 Radiographic dye allergy status; Z91.013 Allergy to seafood
CPT/HCPCS: 45385; 88305; J2250; J2704; J7120

== ENCOUNTER 2023-03-27 08:40 | Emergency (ER) | payer MEDICARE, BC ==
[2023-03-27] MEDS ORDERED: Prochlorperazine 10 MG/2 ML SDV IVPUSH ONE (09:07)
[2023-03-27] MEDS ORDERED: Sodium Chloride 0.9% 1,000 ML IV SCH (09:15)
[2023-03-27 09:24] LABS: BASOPHILS PERCENT AUTO 0.1 % (0.1-1.3); EOSINOPHILS ABSOLUTE AUTO 0.06 K/uL (0.00-0.40); EOSINOPHILS PERCENT AUTO 0.6 % (0.0-5.4); HEMATOCRIT 38.7 % (38.4-49.7); HEMOGLOBIN 13.2 g/dL (12.9-16.9); IMMATURE GRAN ABSOLUTE AUTO 0.08 K/uL (0.00-0.23); IMMATURE GRAN PERCENT AUTO 0.9 % (0.0-0.7); LYMPHOCYTES PERCENT AUTO 3.2 % (11.4-47.7); MEAN CORPUSCULAR HEMOGLOBIN 30.4 pg (31.6-35.5); MEAN CORPUSCULAR HGB CONC 34.1 g/dL (31.6-35.5); MEAN CORPUSCULAR VOLUME 89.2 fL (81.4-99.0); MONOCYTES ABSOLUTE AUTO 0.34 K/uL (0.20-0.90); MONOCYTES PERCENT AUTO 3.6 % (3.3-12.6); NEUTROPHILS ABSOLUTE AUTO 8.59 K/uL (1.0-7.6); NEUTROPHILS PERCENT AUTO 91.6 % (40.0-78.1); PLATELET COUNT,PLT 173 K/uL (130-375); RED BLOOD CELL COUNT 4.34 M/uL (4.14-5.76); WHITE BLOOD CELL COUNT,WBC 9.4 K/uL (3.2-11.0)
[2023-03-27 09:29] LABS: BASOPHILS ABSOLUTE AUTO 0.01 K/uL (0.00-0.10)
[2023-03-27 09:35] LABS: APPEARANCE,URINE CLEAR (CLEAR); BILIRUBIN,URINE NEGATIVE (NEGATIVE); COLOR,URINE YELLOW (YELLOW); GLUCOSE,URINE NEGATIVE (NEGATIVE); KETONES,URINE NEGATIVE (NEGATIVE); LEUKOCYTE ESTERASE,URINE NEGATIVE (NEGATIVE); NITRITE,URINE NEGATIVE (NEGATIVE); OCCULT BLOOD,URINE NEGATIVE (NEGATIVE); PROTEIN,URINE NEGATIVE (NEGATIVE); UROBILINOGEN,URINE 0.2 EU/dL (0.2-1.0)
[2023-03-27 09:48] LABS: A/G RATIO 0.9 (1.2-2.2); ALANINE AMINOTRANSFERASE,ALT 8 U/L (12-78); ALBUMIN 2.7 g/dL (3.4-5.0); ALKALINE PHOSPHATASE 57 U/L (46-116); ASPARTATE AMNIOTRANSFERASE,AST 17 U/L (15-37); BILIRUBIN TOTAL 0.7 mg/dL (0.2-1.0); BLOOD UREA NITROGEN,BUN 15 mg/dL (7-18); CALCIUM 7.3 mg/dL (8.5-10.1); CARBON DIOXIDE,CO2 23 mmol/L (21-32); CHLORIDE,CL 105 mmol/L (100-108); CREATININE 0.8 mg/dL (0.8-1.3); EST CRCL DRUG DOSING (CG) 78.38 mL/min; ESTIMATED GFR 93 mL/min (>60); GLUCOSE RANDOM 122 mg/dL (74-106); POTASSIUM,K 4.1 mmol/L (3.6-5.2); PROTEIN TOTAL,TP 5.8 g/dL (6.4-8.2); SODIUM,NA 137 mmol/L (140-148); TROPONIN I HIGH SENSITIVITY 7.5 pg/mL (<=60.3)
[2023-03-27 09:51] LABS: ANION GAP 13.1 mmol/L (5.0-14.0)
[2023-03-27 09:53] LABS: AMORPHOUS SEDIMENT,URINE RARE; BACTERIA,URINE NOT SEEN; EPITHELIAL CELLS,URINE NOT SEEN; MUCUS,URINE RARE; RBC,URINE NOT SEEN (0-5); WBC,URINE NOT SEEN (0-5)
[2023-03-27] MEDS ORDERED: HYDROmorphone 0.5 MG/0.5 ML Syringe IVPUSH ONE (10:25)
[2023-03-27 10:49] VITALS: BP 90/56; PULSE 88
== END 2023-03-27 12:31 | disposition home or self-care (01) ==
LOC: JP.ED 08:40
DX: K52.9 Noninfective gastroenteritis and colitis, unspecified (principal); E86.0 Dehydration; I25.10 Atherosclerotic heart disease of native coronary artery without angina pectoris; I50.9 Heart failure, unspecified; E78.00 Pure hypercholesterolemia, unspecified; I25.2 Old myocardial infarction; Z86.73 Personal history of transient ischemic attack (TIA), and cerebral infarction without residual deficits; Z95.0 Presence of cardiac pacemaker; Z79.01 Long term (current) use of anticoagulants; Z79.899 Other long term (current) drug therapy; Z95.1 Presence of aortocoronary bypass graft; Z79.82 Long term (current) use of aspirin; Z91.013 Allergy to seafood; Z91.041 Radiographic dye allergy status
CPT/HCPCS: 36415; 80053; 81001; 83605; 84484; 85025; 93005; 96361; 96374; 96375; 99284; J0780; J1170; J7030

== ENCOUNTER 2023-10-05 08:10 | Emergency (ER) | payer MEDICARE, BC ==
[2023-10-05 09:00] LABS: APPEARANCE,URINE SLIGHTLY CLOUDY (CLEAR); BILIRUBIN,URINE SMALL (NEGATIVE); COLOR,URINE YELLOW (YELLOW); GLUCOSE,URINE NORMAL (NEGATIVE); KETONES,URINE 15 mg/dL (NEGATIVE); OCCULT BLOOD,URINE NEGATIVE (NEGATIVE); PROTEIN,URINE NEGATIVE (NEGATIVE)
[2023-10-05 09:01] LABS: AMORPHOUS SEDIMENT,URINE FEW; BACTERIA,URINE RARE; EPITHELIAL CELLS,URINE FEW; LEUKOCYTE ESTERASE,URINE NEGATIVE (NEGATIVE); MUCUS,URINE MANY; NITRITE,URINE NEGATIVE (NEGATIVE); RBC,URINE 0-5 (0-5); WBC,URINE NOT SEEN (0-5)
[2023-10-05 09:08] LABS: HEMATOCRIT 37.5 % (38.4-49.7); HEMOGLOBIN 13.8 g/dL (12.9-16.9); MEAN CORPUSCULAR HEMOGLOBIN 31.4 pg (31.6-35.5); MEAN CORPUSCULAR HGB CONC 36.8 g/dL (31.6-35.5); MEAN CORPUSCULAR VOLUME 85.4 fL (81.4-99.0); RED BLOOD CELL COUNT 4.39 M/uL (4.14-5.76); WHITE BLOOD CELL COUNT,WBC 11.1 K/uL (3.2-11.0)
[2023-10-05 09:09] LABS: BASOPHILS ABSOLUTE AUTO 0.03 K/uL (0.00-0.10); BASOPHILS PERCENT AUTO 0.3 % (0.1-1.3); EOSINOPHILS ABSOLUTE AUTO 0.14 K/uL (0.00-0.40); EOSINOPHILS PERCENT AUTO 1.3 % (0.0-5.4); IMMATURE GRAN ABSOLUTE AUTO 0.08 K/uL (0.00-0.23); IMMATURE GRAN PERCENT AUTO 0.7 % (0.0-0.7); LYMPHOCYTES ABSOLUTE AUTO 0.92 K/uL (0.8-3.3); LYMPHOCYTES PERCENT AUTO 8.3 % (11.4-47.7); MONOCYTES ABSOLUTE AUTO 1.22 K/uL (0.20-0.90); NEUTROPHILS PERCENT AUTO 78.4 % (40.0-78.1); PLATELET COUNT,PLT 223 K/uL (130-375)
[2023-10-05] MEDS: Sodium Chloride 0.9% 80 ML IV SCH ×2 (09:15→11:05)
[2023-10-05] MEDS: Iopamidol 612 MG/ML 100 ML Bottle IV ONE ×2 (09:15→11:05)
[2023-10-05 09:24] LABS: ANION GAP 15.7 mmol/L (5.0-14.0); CARBON DIOXIDE,CO2 21 mmol/L (21-32); CHLORIDE,CL 95 mmol/L (100-108); GLUCOSE RANDOM 129 mg/dL (74-106); POTASSIUM,K 4.7 mmol/L (3.6-5.2); SODIUM,NA 127 mmol/L (140-148)
[2023-10-05 09:25] LABS: A/G RATIO 0.6 (1.2-2.2); ALANINE AMINOTRANSFERASE,ALT 19 U/L (12-78); ALBUMIN 2.7 g/dL (3.4-5.0); ALKALINE PHOSPHATASE 68 U/L (46-116); ASPARTATE AMNIOTRANSFERASE,AST 27 U/L (15-37); BLOOD UREA NITROGEN,BUN 25 mg/dL (7-18); CALCIUM 8.9 mg/dL (8.5-10.1); EST CRCL DRUG DOSING (CG) 63.83 mL/min; ESTIMATED GFR 78 mL/min (>60); PROTEIN TOTAL,TP 7.3 g/dL (6.4-8.2)
[2023-10-05] MEDS: fentaNYL 50 MCG/ML SDV IVPUSH ONE ×2 (09:54→13:24)
[2023-10-05] MEDS: Ondansetron 4 MG/2 ML SDV IVPUSH ONE (13:25)
[2023-10-05 15:52] VITALS: BP 113/67; PULSE 77
== END 2023-10-05 15:53 | disposition other institution (70) ==
LOC: JP.ED 08:10
DX: J90 Pleural effusion, not elsewhere classified (principal); I48.91 Unspecified atrial fibrillation; I25.10 Atherosclerotic heart disease of native coronary artery without angina pectoris; E78.00 Pure hypercholesterolemia, unspecified; I25.2 Old myocardial infarction; K21.9 Gastro-esophageal reflux disease without esophagitis; I50.9 Heart failure, unspecified; Z95.1 Presence of aortocoronary bypass graft; Z87.891 Personal history of nicotine dependence; Z79.899 Other long term (current) drug therapy; Z79.01 Long term (current) use of anticoagulants; Z79.82 Long term (current) use of aspirin; Z91.041 Radiographic dye allergy status; Z91.013 Allergy to seafood
CPT/HCPCS: 36415; 71260; 74177; 80053; 81001; 83690; 85025; 96374; 96375; 96376; 99284; 99285; J2405; J3010; J3490; Q9967

== ENCOUNTER 2023-10-14 15:53 | Emergency (ER) | payer MEDICARE, BC ==
[2023-10-14 16:15] VITALS: BP 120/65; PULSE 66
[2023-10-14] MEDS: Iopamidol 612 MG/ML 100 ML Bottle IV SCH (18:24)
[2023-10-14] MEDS: Sodium Chloride 0.9% 10 ML Syringe FLUSH PRN (18:25)
[2023-10-14] MEDS: Sodium Chloride 0.9% 100 ML IV SCH (18:25)
== END 2023-10-14 19:42 | disposition home or self-care (01) ==
LOC: JP.ED 15:53
DX: J90 Pleural effusion, not elsewhere classified (principal); I25.10 Atherosclerotic heart disease of native coronary artery without angina pectoris; K21.9 Gastro-esophageal reflux disease without esophagitis; M19.90 Unspecified osteoarthritis, unspecified site; E03.9 Hypothyroidism, unspecified; Z87.891 Personal history of nicotine dependence; E78.00 Pure hypercholesterolemia, unspecified; Z79.899 Other long term (current) drug therapy; Z79.82 Long term (current) use of aspirin; Z91.018 Allergy to other foods; Z88.8 Allergy status to other drugs, medicaments and biological substances
CPT/HCPCS: 71260; 99283; J3490; Q9967; 99284